=== PATIENT | female | born 1970 | race Caucasian/White ===

== ENCOUNTER → 2016-04-16 | Outpatient (CLI) | payer MEDICARE, OTHER ==
--- NOTE | 2016-04-16 12:56 | ECHOF ---
Referral Reason:I11.9 hypertensive heart disease MEASUREMENTS -------- HEIGHT: 162.6 cm WEIGHT: 135.2 kg BP: IVSd: 1.4 cm (0.6 - 1.1) LVIDd: 3.5 cm (3.9 - 5.3) LVPWd: 1.4 cm (0.6 - 1.1) IVSs: 2.0 cm LVIDs: 2.0 cm LVPWs: 1.9 cm Ao Diam: 2.5 cm (2.0 - 3.7) AV Cusp: 2.2 cm (1.5 - 2.6) LA Diam: 3.2 cm (2.7 - 3.8) MV EXCURSION: 13.536 mm (> 18.000) MV EF SLOPE: 70 mm/s (70 - 150) EPSS: 0.3 cm MV E Zaki: 1.17 m/s MV DecT: 263 ms MV A Zaki: 0.69 m/s MV E/A Ratio: 1.70 RAP: 5.00 mmHg RVSP: 13.29 mmHg FINDINGS -------- Sinus rhythm. This was a technically difficult study with suboptimal views. Morbid Obesity There is moderate concentric left ventricular hypertrophy. Overall left ventricular systolic function is normal with, an EF between 55 - 60 %. The right ventricle is normal in size and function. The left atrium is normal in size. The right atrium is normal in size. The aortic valve is trileaflet, and appears structurally normal. No aortic stenosis or regurgitation. The mitral valve leaflets are mildly thickened. There is trace mitral regurgitation. Trace tricuspid regurgitation present. The right ventricular systolic pressure, as measured by Doppler, is 13.29mmHg. The pulmonic valve was not well visualized. The aortic root size is normal. The pericardium is normal. CONCLUSIONS -------- 1. Sinus rhythm. 2. There is trace mitral regurgitation. 3. Trace tricuspid regurgitation present. 4. The right ventricular systolic pressure, as measured by Doppler, is 13.29mmHg. 5. The pulmonic valve was not well visualized. 6. The aortic root size is normal. 7. The pericardium is normal. 8. This was a technically difficult study with suboptimal views. 9. There is moderate concentric left ventricular hypertrophy. 10. Overall left ventricular systolic function is normal with, an EF between 55 - 60 %. 11. The right ventricle is normal in size and function. 12. The left atrium is normal in size. 13. The right atrium is normal in size. 14. The aortic valve is trileaflet, and appears structurally normal. No aortic stenosis or regurgitation. 15. The mitral valve leaflets are mildly thickened. COUNTER TENDER: Lexis Lazaro RDCS
== END | disposition home or self-care (01) ==
LOC: RADECHMAIN 08:35
PROVIDERS: ATTEND Internal Medicine
DX: I08.1 Rheumatic disorders of both mitral and tricuspid valves (principal); I11.9 Hypertensive heart disease without heart failure
CPT/HCPCS: 93306

== ENCOUNTER 2016-08-10 08:27 | Emergency (ER) | payer MEDICARE, OTHER ==
[2016-08-10] MEDS ORDERED: SODIUM CHLORIDE 0.9% 1,000 ML IV STA (08:34)
[2016-08-10] MEDS ORDERED: ONDANSETRON 4 MG/2 ML VIAL IVP STA (08:34)
[2016-08-10] MEDS ORDERED: DIAZEPAM 5 MG/ML 2 ML SYRINGE IVP STA (09:00)
[2016-08-10] MEDS ORDERED: MECLIZINE 12.5 MG TAB PO STA (09:01)
--- NOTE | 2016-08-10 09:04 | ED ---
General Adult HPI - General Chief complaint: Nausea/Vomiting/Diarrhea Stated complaint: Nausea, Dizzy Time Seen by Provider: 08/10/16 08:34 Source: patient, RN notes reviewed Mode of arrival: ambulatory Limitations: no limitations - History of Present Illness Initial comments: Is a 45-year-old female presents emergency Department with chief complaint of dizziness, nausea. Patient states that one week ago she started having dizzy spells started when she was in the shower. She states that she's had problems with vertigo in the past but also she gets very dizzy from her panic attacks. She felt that she was she's having a panic attack at that time states that her symptoms have been more present recently. She states she is dizzy when she moves quickly when she lays down she states she feels better when she is sitting up and sitting still. Patient denies any headache, focal weakness. Patient states she's nauseated no vomiting no diarrhea. Patient has had no chest pain at this time of palpitations. Patient states that she is also having recurrent panic attack. She states she took a Xanax before she left to come emergency department states she was feeling better but now she is very anxious again. Patient states is exacerbating her symptoms. Patient denies any abdominal pain just nausea. She denies any dysuria, hematuria - Related Data Home Medications Medication Instructions Recorded Confirmed ALPRAZolam [Xanax] 0.5 mg PO QID 10/26/15 08/10/16 cloNIDine HCL [Catapres] 0.1 mg PO BID 10/26/15 08/10/16 Albuterol Sulfate [Proair Hfa] 2 puff INHALATION RT-Q6H PRN 08/10/16 08/10/16 Desvenlafaxine [Pristiq ER] 100 mg PO DAILY 08/10/16 08/10/16 Furosemide [Lasix] 20 mg PO DAILY 08/10/16 08/10/16 Lisinopril [Zestril] 5 mg PO DAILY 08/10/16 08/10/16 Loratadine [Claritin] 10 mg PO DAILY 08/10/16 08/10/16 lamoTRIgine [LaMICtal] 50 mg PO BID 08/10/16 08/10/16 traZODone HCL 50 mg PO HS PRN 08/10/16 08/10/16 Previous Rx's Medication Instructions Recorded Meclizine [Antivert] 25 mg PO TID PRN #15 tab 08/10/16 Ondansetron Odt [Zofran Odt] 4 mg PO Q8HR PRN #10 tab 08/10/16 Allergies Allergy/AdvReac Type Severity Reaction Status Date / Time acetaminophen [From Vicodin] Allergy Unknown Verified 08/10/16 09:16 aspirin Allergy Unknown Verified 08/10/16 09:16 codeine Allergy Unknown Verified 08/10/16 09:16 hydrocodone bitartrate Allergy Unknown Verified 08/10/16 09:16 [From Vicodin] nitrofurantoin Allergy Unknown Verified 08/10/16 09:16 [From Macrobid] nitrofurantoin Allergy Unknown Verified 08/10/16 09:16 macrocrystalline [From Macrobid] lactose AdvReac Nausea & Verified 08/10/16 09:16 Vomiting TAPE AdvReac Itching Uncoded 08/10/16 09:16 Review of Systems ROS Statement: Those systems with pertinent positive or pertinent negative responses have been documented in the HPI. ROS Other: All systems not noted in ROS Statement are negative. Past Medical History Past Medical History: COPD, Hypertension Additional Past Medical History / Comment(s): hemmorrhoids, IBS, OCD History of Any Multi-Drug Resistant Organisms: None Reported Past Surgical History: Cholecystectomy Additional Past Surgical History / Comment(s): D&C Past Psychological History: Anxiety, Depression, Panic Disorder Smoking Status: Current every day smoker Past Alcohol Use History: None Reported Past Drug Use History: None Reported General Exam Limitations: no limitations General appearance: alert, in no apparent distress, anxious, obese Head exam: Present: atraumatic, normocephalic, normal inspection Eye exam: Present: normal appearance, PERRL, EOMI. Absent: scleral icterus, conjunctival injection, periorbital swelling ENT exam: Present: normal oropharynx, mucous membranes moist Neck exam: Present: normal inspection. Absent: tenderness, meningismus, lymphadenopathy Respiratory exam: Present: normal lung sounds bilaterally. Absent: respiratory distress, wheezes, rales, rhonchi, stridor Cardiovascular Exam: Present: regular rate, normal rhythm, normal heart sounds. Absent: systolic murmur, diastolic murmur, rubs, gallop, clicks GI/Abdominal exam: Present: soft, normal bowel sounds. Absent: distended, tenderness, guarding, rebound, rigid Back exam: Absent: CVA tenderness (R), CVA tenderness (L) Neurological exam: Present: alert, oriented X3, CN II-XII intact Psychiatric exam: Present: anxious Skin exam: Present: warm, dry, intact, normal color. Absent: rash Course Vital Signs 08/10/16 08:29 Temperature 99 F Pulse Rate 90 Respiratory 20 Rate Blood Pressure 127/67 O2 Sat by Pulse 98 Oximetry - Reevaluation(s) Reevaluation #1: 08/10/16 10:14 Patient was updated and results and she states that she is feeling better at this time. EKG Findings - EKG Comments: EKG Findings:: EKG performed at 9:08 normal sinus rhythm rate of 88 LA interval 144 QRS duration 78 QT/QTc is 360/435 Medical Decision Making - Medical Decision Making 45-year-old female presented for dizziness nausea. This appears to be vertigo. Patient is doing better after Antivert. Patient is less anxious after Valium. Patient's laboratory essentially unremarkable. Return parameters were discussed. - Lab Data Result diagrams: 08/10/16 09:00 08/10/16 09:00 Lab Results 08/10/16 08/10/16 08/10/16 Range/Units 08:50 08:50 09:00 WBC (3.8-10.6) k/uL RBC (3.80-5.40) m/uL Hgb (11.4-16.0) gm/dL Hct (34.0-46.0) % MCV (80.0-100.0) fL MCH (25.0-35.0) pg MCHC (31.0-37.0) g/dL RDW (11.5-15.5) % Plt Count (150-450) k/uL Neutrophils % % Lymphocytes % % Monocytes % % Eosinophils % % Basophils % % Neutrophils # (1.3-7.7) k/uL Lymphocytes # (1.0-4.8) k/uL Monocytes # (0-1.0) k/uL Eosinophils # (0-0.7) k/uL Basophils # (0-0.2) k/uL Sodium 141 (137-145) mmol/L Potassium 4.2 (3.5-5.1) mmol/L Chloride 105 (98-107) mmol/L Carbon Dioxide 28 (22-30) mmol/L Anion Gap 8 mmol/L BUN 8 (7-17) mg/dL Creatinine 0.60 (0.52-1.04) mg/dL Est GFR (MDRD) Af Amer >60 (>60 ml/min/1.73 sqM) Est GFR (MDRD) Non-Af >60 (>60 ml/min/1.73 sqM) Glucose 137 H (74-99) mg/dL Calcium 9.3 (8.4-10.2) mg/dL Total Bilirubin 0.6 (0.2-1.3) mg/dL AST 17 (14-36) U/L ALT 22 (9-52) U/L Alkaline Phosphatase 115 (38-126) U/L Troponin I (0.000-0.034) ng/mL Total Protein 7.3 (6.3-8.2) g/dL Albumin 3.8 (3.5-5.0) g/dL Amylase 36 (30-110) U/L Lipase 69 (23-300) U/L Urine Color Light [place] Urine Appearance Turbid H (Clear) Urine pH 5.5 (5.0-8.0) Ur Specific [place] 1.019 (1.001-1.035) Urine Protein Trace H (Negative) Urine Glucose (UA) Negative (Negative) Urine Ketones Negative (Negative) Urine Blood Trace H (Negative) Urine Nitrite Negative (Negative) Urine Bilirubin Negative (Negative) Urine Urobilinogen 2.0 (<2.0) mg/dL Ur Leukocyte Esterase Small H (Negative) Ur Squamous Epith Cells 8 H (0-4) /hpf Amorphous Sediment Moderate H (None) /hpf Urine Bacteria Rare H (None) /hpf Urine Mucus Moderate H (None) /hpf Urine HCG, Qual Not Detected (Not Detectd) 08/10/16 08/10/16 Range/Units 09:00 09:00 WBC 13.2 H (3.8-10.6) k/uL RBC 5.12 (3.80-5.40) m/uL Hgb 14.2 (11.4-16.0) gm/dL Hct 44.5 (34.0-46.0) % MCV 86.9 (80.0-100.0) fL MCH 27.8 (25.0-35.0) pg MCHC 31.9 (31.0-37.0) g/dL RDW 15.3 (11.5-15.5) % Plt Count 245 (150-450) k/uL Neutrophils % 83 % Lymphocytes % 11 % Monocytes % 3 % Eosinophils % 2 % Basophils % 0 % Neutrophils # 11.0 H (1.3-7.7) k/uL Lymphocytes # 1.5 (1.0-4.8) k/uL Monocytes # 0.3 (0-1.0) k/uL Eosinophils # 0.2 (0-0.7) k/uL Basophils # 0.1 (0-0.2) k/uL Sodium (137-145) mmol/L Potassium (3.5-5.1) mmol/L Chloride (98-107) mmol/L Carbon Dioxide (22-30) mmol/L Anion Gap mmol/L BUN (7-17) mg/dL Creatinine (0.52-1.04) mg/dL Est GFR (MDRD) Af Amer (>60 ml/min/1.73 sqM) Est GFR (MDRD) Non-Af (>60 ml/min/1.73 sqM) Glucose (74-99) mg/dL Calcium (8.4-10.2) mg/dL Total Bilirubin (0.2-1.3) mg/dL AST (14-36) U/L ALT (9-52) U/L Alkaline Phosphatase (38-126) U/L Troponin I <0.012 (0.000-0.034) ng/mL Total Protein (6.3-8.2) g/dL Albumin (3.5-5.0) g/dL Amylase (30-110) U/L Lipase (23-300) U/L Urine Color Urine Appearance (Clear) Urine pH (5.0-8.0) Ur Specific [place] (1.001-1.035) Urine Protein (Negative) Urine Glucose (UA) (Negative) Urine Ketones (Negative) Urine Blood (Negative) Urine Nitrite (Negative) Urine Bilirubin (Negative) Urine Urobilinogen (<2.0) mg/dL Ur Leukocyte Esterase (Negative) Ur Squamous Epith Cells (0-4) /hpf Amorphous Sediment (None) /hpf Urine Bacteria (None) /hpf Urine Mucus (None) /hpf Urine HCG, Qual (Not Detectd) Disposition Clinical Impression: Dizziness, Nausea Disposition: HOME SELF-CARE Condition: Stable Instructions: Vertigo (ED) Additional Instructions: Please return to the Emergency Department if symptoms worsen or any other concerns. Prescriptions: Meclizine [Antivert] 25 mg PO TID PRN #15 tab PRN Reason: Vertigo Ondansetron Odt [Zofran Odt] 4 mg PO Q8HR PRN #10 tab PRN Reason: Nausea Referrals: Andre Miguel MD [Primary Care Provider] - 1-2 days
[2016-08-10 09:15] LABS: Amorphous Sediment,Urine Moderate /hpf; Appearance,Urine Turbid (Clear); Bacteria,Urine Rare /hpf; Bilirubin,Urine Negative (Negative); Glucose,Urine (UA) Negative (Negative); Ketones,Urine Negative (Negative); Leukocyte Esterase,Urine Small (Negative); Mucus,Urine Moderate /hpf; Nitrite,Urine Negative (Negative); PH, Urine 5.5 (5.0-8.0); Particle Count 53380; Protein,Urine Trace (Negative); Specific Gravity,Urine 1.019 (1.001-1.035); Squamous Epithelial Cell,Urine 8 /hpf (0-4); UA Billing (MACRO vs. MICRO) MICRO
[2016-08-10 09:21] LABS: Basophils # (A) 0.1 k/uL (0-0.2); Basophils % (A) 0 %; CH 28.2; CHCM 32.6; Eosinophils # (A) 0.2 k/uL (0-0.7); Eosinophils % (A) 2 %; HCT 44.5 % (34.0-46.0); HDW 2.77; HGB 14.2 gm/dL (11.4-16.0); Luc # (Auto) 0.13; Luc % (Auto) 1; Lymphocytes # (A) 1.5 k/uL (1.0-4.8); Lymphocytes % (A) 11 %; MCH 27.8 pg (25.0-35.0); MCHC 31.9 g/dL (31.0-37.0); MCV 86.9 fL (80.0-100.0); Mean Platelet Volume 8.4; Monocytes # (A) 0.3 k/uL (0-1.0); Monocytes % (A) 3 %; Neutrophils % (A) 83 %; RBC 5.12 m/uL (3.80-5.40); RDW 15.3 % (11.5-15.5); WBC 13.2 k/uL (3.8-10.6)
[2016-08-10 09:38] LABS: ALT 22 U/L (9-52); AST 17 U/L (14-36); Alkaline Phosphatase 115 U/L (38-126); Amylase 36 U/L (30-110); Anion Gap 8 mmol/L; Blood Urea Nitrogen 8 mg/dL (7-17); Calcium 9.3 mg/dL (8.4-10.2); Carbon Dioxide 28 mmol/L (22-30); Chloride 105 mmol/L (98-107); Glucose 137 mg/dL (74-99); Non-African American GFR(MDRD) >60 (>60 ml/min/1.73 sqM); Potassium 4.2 mmol/L (3.5-5.1); Sodium 141 mmol/L (137-145); Total Bilirubin 0.6 mg/dL (0.2-1.3); Total Protein 7.3 g/dL (6.3-8.2)
[2016-08-10 10:27] VITALS: BP 156/77; PULSE 78; RESP 18; TEMP 97.1
== END 2016-08-10 10:43 | disposition home or self-care (01) ==
LOC: EC 08:27
DX: R42 Dizziness and giddiness (principal); R11.0 Nausea; F32.9 Major depressive disorder, single episode, unspecified; F41.9 Anxiety disorder, unspecified; I10 Essential (primary) hypertension; F17.200 Nicotine dependence, unspecified, uncomplicated; Z90.49 Acquired absence of other specified parts of digestive tract; Z88.6 Allergy status to analgesic agent; Z88.5 Allergy status to narcotic agent; Z91.048 Other nonmedicinal substance allergy status; Z91.011 Allergy to milk products; Z88.1 Allergy status to other antibiotic agents; Z79.899 Other long term (current) drug therapy
CPT/HCPCS: 99284; 96374; 96375; 96361 ×2; 36415; 93005; 80053; 82150; 83690; 84484; 85025; 81001; 81025; J3360; J2405

== ENCOUNTER → 2016-12-21 | Outpatient (CLI) | payer MEDICARE, OTHER ==
--- NOTE | 2016-12-21 09:29 | XR ---
EXAMINATION TYPE: XR chest 2V DATE OF EXAM: 12/21/2016 COMPARISON: 01/15/2013 HISTORY: Bronchitis TECHNIQUE: Frontal and lateral views of the chest are obtained. FINDINGS: There is no focal air space opacity. No evidence for pneumothorax. No pleural effusion. The cardiac silhouette size is enlarged. No evidence for congestive failure. The osseous structures are grossly intact. IMPRESSION: 1. No acute pulmonary disease. Cardiomegaly noted.
== END | disposition home or self-care (01) ==
LOC: RADXRMAIN 09:06
PROVIDERS: ATTEND Internal Medicine
DX: J40 Bronchitis, not specified as acute or chronic (principal); J12.9 Viral pneumonia, unspecified; J06.9 Acute upper respiratory infection, unspecified
CPT/HCPCS: 71020

== ENCOUNTER 2017-03-19 19:45 | Emergency (ER) | payer MEDICARE, OTHER ==
[2017-03-19 19:53] VITALS: TEMP 97.7
[2017-03-19] MEDS ORDERED: ONDANSETRON 4 MG/2 ML VIAL IVP STA ×2 (20:08→23:08)
[2017-03-19] MEDS ORDERED: LORazepam 2 MG/ML INJ IV STA (20:20)
[2017-03-19 20:26] LABS: Basophils % (A) 0 %; CH 28.2; CHCM 32.2; Eosinophils # (A) 0.6 k/uL (0-0.7); Eosinophils % (A) 3 %; HCT 44.6 % (34.0-46.0); HDW 2.53; Luc # (Auto) 0.09; Luc % (Auto) 1; Lymphocytes # (A) 1.2 k/uL (1.0-4.8); Lymphocytes % (A) 7 %; MCH 27.6 pg (25.0-35.0); MCHC 31.3 g/dL (31.0-37.0); MCV 88.2 fL (80.0-100.0); Mean Platelet Volume 9.1; Monocytes # (A) 0.5 k/uL (0-1.0); Monocytes % (A) 3 %; Neutrophils # (A) 15.3 k/uL (1.3-7.7); Neutrophils % (A) 87 %; RBC 5.06 m/uL (3.80-5.40); RDW 15.7 % (11.5-15.5); WBC 17.6 k/uL (3.8-10.6); WBC (Perox) 17.26
--- NOTE | 2017-03-19 20:32 | ED ---
General Adult HPI - General Source: patient, EMS, RN notes reviewed Mode of arrival: ambulatory Limitations: no limitations <Arash Kerr - Last Filed: 03/19/17 20:56> <Daron Willson - Last Filed: 03/19/17 23:37> - General Chief complaint: Abdominal Pain Stated complaint: Abdominal Pain Time Seen by Provider: 03/19/17 19:45 - History of Present Illness Initial comments: This a 46-year-old female who presents emergency room complaining of some right lower quadrant abdominal pain. Patient states palpating the abdomen does not make it any worse. Patient states she's very nauseated but has not vomited patient states she's had diarrhea recently. Patient denies any vaginal bleeding or discharge abnormally. Patient denies any fever chills. Patient denies any chest pain difficult breathing shortness of breath. Patient denies any dysuria hematuria urinary frequency. (Arash Kerr) - Related Data Home Medications Medication Instructions Recorded Confirmed ALPRAZolam [Xanax] 0.5 mg PO QID 10/26/15 03/19/17 cloNIDine HCL [Catapres] 0.1 mg PO BID 10/26/15 03/19/17 Albuterol Sulfate [Proair Hfa] 2 puff INHALATION RT-Q6H PRN 08/10/16 03/19/17 Desvenlafaxine [Pristiq ER] 100 mg PO DAILY 08/10/16 03/19/17 Furosemide [Lasix] 20 mg PO DAILY 08/10/16 03/19/17 Lisinopril [Zestril] 5 mg PO DAILY 08/10/16 03/19/17 traZODone HCL 50 mg PO HS PRN 08/10/16 03/19/17 Dicyclomine [Bentyl] 10 mg PO QID 03/19/17 03/19/17 Pantoprazole [Protonix] 40 mg PO DAILY 03/19/17 03/19/17 Ranitidine HCl [Zantac] 150 mg PO HS 03/19/17 03/19/17 Allergies Allergy/AdvReac Type Severity Reaction Status Date / Time acetaminophen [From Vicodin] Allergy Unknown Verified 03/19/17 19:58 aspirin Allergy Unknown Verified 03/19/17 19:58 codeine Allergy Unknown Verified 03/19/17 19:58 hydrocodone bitartrate Allergy Unknown Verified 03/19/17 19:58 [From Vicodin] nitrofurantoin Allergy Unknown Verified 03/19/17 19:58 [From Macrobid] nitrofurantoin Allergy Unknown Verified 03/19/17 19:58 macrocrystalline [From Macrobid] lactose AdvReac Nausea & Verified 03/19/17 19:58 Vomiting pseudoephedrine AdvReac Unknown Verified 03/19/17 19:58 TAPE AdvReac Itching Uncoded 08/10/16 09:16 Review of Systems ROS Other: All systems not noted in ROS Statement are negative. <Arash Kerr - Last Filed: 03/19/17 20:56> ROS Other: All systems not noted in ROS Statement are negative. <Daron Willson - Last Filed: 03/19/17 23:37> ROS Statement: Those systems with pertinent positive or pertinent negative responses have been documented in the HPI. Past Medical History Past Medical History: COPD, Hypertension Additional Past Medical History / Comment(s): hemmorrhoids, IBS, OCD History of Any Multi-Drug Resistant Organisms: None Reported Past Surgical History: Cholecystectomy Additional Past Surgical History / Comment(s): D&C Past Psychological History: Anxiety, Depression, Panic Disorder Smoking Status: Current every day smoker Past Alcohol Use History: None Reported Past Drug Use History: None Reported <Arash Kerr - Last Filed: 03/19/17 20:56> General Exam Limitations: no limitations <Arash Kerr - Last Filed: 03/19/17 20:56> <Daron Willson - Last Filed: 03/19/17 23:37> - General Exam Comments Initial Comments: GENERAL: Patient is well-developed and well-nourished. Patient is nontoxic and well- hydrated and is in mil distress. ENT: Neck is soft and supple. No significant lymphadenopathy is noted. Oropharynx is clear. Moist mucous membranes. Neck has full range of motion without eliciting any pain. EYES: The sclera were anicteric and conjunctiva were pink and moist. Extraocular movements were intact and pupils were equal round and reactive to light. Eyelids were unremarkable. PULMONARY: Unlabored respirations. Good breath sounds bilaterally. No audible rales rhonchi or wheezing was noted. CARDIOVASCULAR: There is a regular rate and rhythm without any murmurs gallops or rubs. ABDOMEN: Soft and nontender with normal bowel sounds. No palpable organomegaly was noted. There is no palpable pulsatile mass. SKIN: Skin is clear with no lesions or rashes and otherwise unremarkable. NEUROLOGIC: Patient is alert and oriented x3. Cranial nerves II through XII are grossly intact. Motor and sensory are also intact. Normal speech, volume and content. Symmetrical smile. MUSCULOSKELETAL: Normal extremities with adequate strength and full range of motion. No lower extremity swelling or edema. No calf tenderness. LYMPHATICS: No significant lymphadenopathy is noted PSYCHIATRIC: Normal psychiatric evaluation. Normal interpersonal interactions appears functionally intact in deals appropriately with others. Mild anxiety (Arash Kerr) Vital Signs 03/19/17 03/19/17 03/19/17 19:48 21:12 23:18 Temperature 97.7 F Pulse Rate 78 88 79 Respiratory 24 18 20 Rate Blood Pressure 164/79 174/84 151/85 O2 Sat by Pulse 99 92 L 95 Oximetry Medical Decision Making - Lab Data Result diagrams: 03/19/17 20:01 03/19/17 20:01 <Arash Kerr - Last Filed: 03/19/17 20:56> - Lab Data Result diagrams: 03/19/17 20:01 03/19/17 20:01 <Daron Willson - Last Filed: 03/19/17 23:37> - Medical Decision Making EKG shows a sinus rhythm at 73 bpm MD interval is 134 QRS 76 QT interval 388 QTC is 427. EKG shows no ST segment elevation or depression or T wave abnormalities are noted Dr. Lopez will be taking over the care of this patient at 9 PM (Arash Kerr) Receive this patient as sign out, to review the results of computed tomography scan. I have reviewed this with the patient and on reevaluation she states that she is feeling better and would like to go home. I did first given an oral challenge to ensure that she can keep down fluids and I discussed that she must follow-up in 8-12 hours to have her abdomen reexamined. She understands that she must return immediately if she is worsening and we discussed those symptoms as well. (Daron Willson) - Lab Data Lab Results 03/19/17 03/19/17 03/19/17 Range/Units 20:01 20:01 20:35 WBC 17.6 H (3.8-10.6) k/uL RBC 5.06 (3.80-5.40) m/uL Hgb 14.0 (11.4-16.0) gm/dL Hct 44.6 (34.0-46.0) % MCV 88.2 (80.0-100.0) fL MCH 27.6 (25.0-35.0) pg MCHC 31.3 (31.0-37.0) g/dL RDW 15.7 H (11.5-15.5) % Plt Count 294 (150-450) k/uL Neutrophils % 87 % Lymphocytes % 7 % Monocytes % 3 % Eosinophils % 3 % Basophils % 0 % Neutrophils # 15.3 H (1.3-7.7) k/uL Lymphocytes # 1.2 (1.0-4.8) k/uL Monocytes # 0.5 (0-1.0) k/uL Eosinophils # 0.6 (0-0.7) k/uL Basophils # 0.0 (0-0.2) k/uL Sodium 138 (137-145) mmol/L Potassium 3.8 (3.5-5.1) mmol/L Chloride 101 (98-107) mmol/L Carbon Dioxide 27 (22-30) mmol/L Anion Gap 10 mmol/L BUN 8 (7-17) mg/dL Creatinine 0.54 (0.52-1.04) mg/dL Est GFR (MDRD) Af Amer >60 (>60 ml/min/1.73 sqM) Est GFR (MDRD) Non-Af >60 (>60 ml/min/1.73 sqM) Glucose 132 H (74-99) mg/dL Calcium 9.5 (8.4-10.2) mg/dL Total Bilirubin 0.5 (0.2-1.3) mg/dL AST 16 (14-36) U/L ALT 27 (9-52) U/L Alkaline Phosphatase 103 (38-126) U/L Total Protein 6.9 (6.3-8.2) g/dL Albumin 3.7 (3.5-5.0) g/dL Amylase 33 (30-110) U/L Lipase 97 (23-300) U/L Urine Color Light Yellow Urine Appearance Clear (Clear) Urine pH 8.0 (5.0-8.0) Ur Specific [place] 1.004 (1.001-1.035) Urine Protein Negative (Negative) Urine Glucose (UA) Negative (Negative) Urine Ketones Negative (Negative) Urine Blood Negative (Negative) Urine Nitrite Negative (Negative) Urine Bilirubin Negative (Negative) Urine Urobilinogen <2.0 (<2.0) mg/dL Ur Leukocyte Esterase Negative (Negative) Urine HCG, Qual (Not Detectd) 03/19/17 Range/Units 20:35 WBC (3.8-10.6) k/uL RBC (3.80-5.40) m/uL Hgb (11.4-16.0) gm/dL Hct (34.0-46.0) % MCV (80.0-100.0) fL MCH (25.0-35.0) pg MCHC (31.0-37.0) g/dL RDW (11.5-15.5) % Plt Count (150-450) k/uL Neutrophils % % Lymphocytes % % Monocytes % % Eosinophils % % Basophils % % Neutrophils # (1.3-7.7) k/uL Lymphocytes # (1.0-4.8) k/uL Monocytes # (0-1.0) k/uL Eosinophils # (0-0.7) k/uL Basophils # (0-0.2) k/uL Sodium (137-145) mmol/L Potassium (3.5-5.1) mmol/L Chloride (98-107) mmol/L Carbon Dioxide (22-30) mmol/L Anion Gap mmol/L BUN (7-17) mg/dL Creatinine (0.52-1.04) mg/dL Est GFR (MDRD) Af Amer (>60 ml/min/1.73 sqM) Est GFR (MDRD) Non-Af (>60 ml/min/1.73 sqM) Glucose (74-99) mg/dL Calcium (8.4-10.2) mg/dL Total Bilirubin (0.2-1.3) mg/dL AST (14-36) U/L ALT (9-52) U/L Alkaline Phosphatase (38-126) U/L Total Protein (6.3-8.2) g/dL Albumin (3.5-5.0) g/dL Amylase (30-110) U/L Lipase (23-300) U/L Urine Color Urine Appearance (Clear) Urine pH (5.0-8.0) Ur Specific [place] (1.001-1.035) Urine Protein (Negative) Urine Glucose (UA) (Negative) Urine Ketones (Negative) Urine Blood (Negative) Urine Nitrite (Negative) Urine Bilirubin (Negative) Urine Urobilinogen (<2.0) mg/dL Ur Leukocyte Esterase (Negative) Urine HCG, Qual Not Detected (Not Detectd) Disposition <Arash Kerr - Last Filed: 03/19/17 20:56> <Daron Willson - Last Filed: 03/19/17 23:37> Clinical Impression: Abdominal pain Disposition: HOME SELF-CARE Condition: Fair Instructions: Abdominal Pain (ED) Referrals: Andre Miguel MD [Primary Care Provider] - 1-2 days
[2017-03-19 20:39] LABS: ALT 27 U/L (9-52); AST 16 U/L (14-36); Alkaline Phosphatase 103 U/L (38-126); Amylase 33 U/L (30-110); Anion Gap 10 mmol/L; Blood Urea Nitrogen 8 mg/dL (7-17); Calcium 9.5 mg/dL (8.4-10.2); Carbon Dioxide 27 mmol/L (22-30); Chloride 101 mmol/L (98-107); Glucose 132 mg/dL (74-99); Non-African American GFR(MDRD) >60 (>60 ml/min/1.73 sqM); Potassium 3.8 mmol/L (3.5-5.1); Sodium 138 mmol/L (137-145); Total Bilirubin 0.5 mg/dL (0.2-1.3); Total Protein 6.9 g/dL (6.3-8.2)
[2017-03-19 20:59] LABS: Appearance,Urine Clear (Clear); Bilirubin,Urine Negative (Negative); Glucose,Urine (UA) Negative (Negative); Ketones,Urine Negative (Negative); Leukocyte Esterase,Urine Negative (Negative); Nitrite,Urine Negative (Negative); Protein,Urine Negative (Negative); Specific Gravity,Urine 1.004 (1.001-1.035); UA Billing (MACRO vs. MICRO) CHEM; Urobilinogen,Urine <2.0 mg/dL (<2.0)
--- NOTE | 2017-03-19 22:49 | CT ---
EXAM: CT Abdomen and Pelvis Without Intravenous Contrast CLINICAL HISTORY: Reason: Pain TECHNIQUE: Axial computed tomography images of the abdomen and pelvis without intravenous contrast. CTDI is 53.10 mGy and DLP is 2502.50 mGy-cm. This CT exam was performed using one or more of the following dose reduction techniques: automated exposure control, adjustment of the mA and/or kV according to patient size, and/or use of iterative reconstruction technique. COMPARISON: No relevant prior studies available. FINDINGS: Limitations: Lack of intravenous contrast. Lower thorax: No acute findings. ABDOMEN: Liver: Hepatomegaly. The liver is diffusely hypodense suggestive of diffuse hepatic steatosis. Gallbladder and bile ducts: Cholecystectomy. Pancreas: Unremarkable. Spleen: Unremarkable. Adrenals: Unremarkable. Kidneys and ureters: Unremarkable. No obstructing stones. No hydronephrosis. Stomach and bowel: Trace fluid in the anterior right lower quadrant adjacent to a segment of distal ileum. Bowel is nondilated. Appendix: No findings to suggest acute appendicitis. PELVIS: Bladder: Unremarkable. No stones. Reproductive: Probable small calcified uterine fibroid. Solid pelvic viscera is otherwise unremarkable. ABDOMEN and PELVIS: Intraperitoneal space: No free air. Bones/joints: Degenerative disc disease at L5-S1. Soft tissues: Unremarkable. Vasculature: Unremarkable. No abdominal aortic aneurysm. Lymph nodes: Unremarkable. IMPRESSION: Trace fluid in the anterior right lower quadrant adjacent to a segment of distal ileum. Bowel is nondilated. No free air or appendicitis.
[2017-03-19 23:19] VITALS: BP 151/85; PULSE 79; RESP 20
== END 2017-03-20 00:01 | disposition home or self-care (01) ==
LOC: EC 19:45
DX: R10.31 Right lower quadrant pain (principal); R11.0 Nausea; R19.7 Diarrhea, unspecified; I10 Essential (primary) hypertension; K58.9 Irritable bowel syndrome, unspecified; F32.9 Major depressive disorder, single episode, unspecified; F41.0 Panic disorder [episodic paroxysmal anxiety]; F17.200 Nicotine dependence, unspecified, uncomplicated; Z79.899 Other long term (current) drug therapy; Z88.1 Allergy status to other antibiotic agents; Z88.5 Allergy status to narcotic agent; Z88.6 Allergy status to analgesic agent; Z88.8 Allergy status to other drugs, medicaments and biological substances; Z91.011 Allergy to milk products; Z91.09 Other allergy status, other than to drugs and biological substances; Z90.49 Acquired absence of other specified parts of digestive tract
CPT/HCPCS: 36415; 80053; 82150; 83690; 85025; 81003; 81025; 74176; 99284; 96374; 96375; 96376; J2060; J2405

== ENCOUNTER 2017-03-23 22:21 | Emergency (ER) | payer MEDICARE, OTHER ==
[2017-03-23 22:36] VITALS: RESP 18
[2017-03-23] MEDS ORDERED: ONDANSETRON 4 MG/2 ML VIAL IVP STA (23:14)
[2017-03-23] MEDS ORDERED: KETOROLAC 30 MG/ML 1 ML VIAL IVP STA (23:29)
[2017-03-23 23:54] LABS: Appearance,Urine Clear (Clear); Basophils # (A) 0.1 k/uL (0-0.2); Basophils % (A) 1 %; Bilirubin,Urine Negative (Negative); CHCM 32.3; Eosinophils # (A) 1.4 k/uL (0-0.7); Eosinophils % (A) 9 %; Glucose,Urine (UA) Negative (Negative); HCT 44.6 % (34.0-46.0); HDW 2.51; HGB 14.2 gm/dL (11.4-16.0); Ketones,Urine Negative (Negative); Leukocyte Esterase,Urine Negative (Negative); Luc # (Auto) 0.12; Luc % (Auto) 1; Lymphocytes # (A) 2.3 k/uL (1.0-4.8); Lymphocytes % (A) 16 %; MCH 27.8 pg (25.0-35.0); MCHC 31.9 g/dL (31.0-37.0); MCV 87.2 fL (80.0-100.0); Mean Platelet Volume 8.5; Monocytes # (A) 0.6 k/uL (0-1.0); Monocytes % (A) 4 %; Neutrophils # (A) 10.2 k/uL (1.3-7.7); Neutrophils % (A) 70 %; Nitrite,Urine Negative (Negative); Protein,Urine Negative (Negative); RBC 5.11 m/uL (3.80-5.40); Specific Gravity,Urine 1.002 (1.001-1.035); UA Billing (MACRO vs. MICRO) CHEM; Urobilinogen,Urine <2.0 mg/dL (<2.0); WBC 14.6 k/uL (3.8-10.6); WBC (Perox) 14.35
[2017-03-24 00:03] LABS: ALT 26 U/L (9-52); AST 16 U/L (14-36); Alkaline Phosphatase 104 U/L (38-126); Anion Gap 9 mmol/L; Blood Urea Nitrogen 5 mg/dL (7-17); Calcium 9.7 mg/dL (8.4-10.2); Carbon Dioxide 30 mmol/L (22-30); Chloride 99 mmol/L (98-107); Glucose 116 mg/dL (74-99); Non-African American GFR(MDRD) >60 (>60 ml/min/1.73 sqM); Potassium 3.7 mmol/L (3.5-5.1); Sodium 138 mmol/L (137-145); Total Bilirubin 0.3 mg/dL (0.2-1.3); Total Protein 7.1 g/dL (6.3-8.2)
--- NOTE | 2017-03-24 00:38 | ED ---
Abdominal Pain HPI - General Chief Complaint: Abdominal Pain Stated Complaint: Abd Pain Time Seen by Provider: 03/23/17 22:58 Source: patient, family Mode of arrival: ambulatory Limitations: no limitations - History of Present Illness Initial Comments: Patient is a 46-year-old female presents with a chief complaint of abdominal pain. Patient states that she was seen here on the for the same problem. At that time, she had a negative workup which included a CAT scan of the abdomen and pelvis. She was instructed that time if her pain does not get better that she should come back to the emergency department. I reviewed that visit. Patient states she is having an aching-type pain in the right lower quadrant. The patient cannot identify an inciting incident. There are no alleviating factors however the patient does admit that her pain is worse with certain movements and bending. Timing is constant. Patient has a distant past medical history of ovarian cysts. - Related Data Home Medications Medication Instructions Recorded Confirmed ALPRAZolam [Xanax] 0.5 mg PO QID 10/26/15 03/23/17 cloNIDine HCL [Catapres] 0.1 mg PO BID 10/26/15 03/23/17 Albuterol Sulfate [Proair Hfa] 2 puff INHALATION RT-Q6H PRN 08/10/16 03/23/17 Desvenlafaxine [Pristiq ER] 100 mg PO DAILY 08/10/16 03/23/17 Furosemide [Lasix] 20 mg PO DAILY 08/10/16 03/23/17 Lisinopril [Zestril] 5 mg PO DAILY 08/10/16 03/23/17 traZODone HCL 50 mg PO HS PRN 08/10/16 03/23/17 Dicyclomine [Bentyl] 10 mg PO QID 03/19/17 03/23/17 Pantoprazole [Protonix] 40 mg PO DAILY 03/19/17 03/23/17 Ranitidine HCl [Zantac] 150 mg PO HS 03/19/17 03/23/17 Previous Rx's Medication Instructions Recorded oxyCODONE HCL/ACETAMINOPHEN 1 tab PO Q6HR PRN #10 tab 03/24/17 [Percocet 5-325 mg] Allergies Allergy/AdvReac Type Severity Reaction Status Date / Time acetaminophen [From Vicodin] Allergy Unknown Verified 03/23/17 22:40 aspirin Allergy Unknown Verified 03/23/17 22:40 codeine Allergy Unknown Verified 03/23/17 22:40 hydrocodone bitartrate Allergy Unknown Verified 03/23/17 22:40 [From Vicodin] nitrofurantoin Allergy Unknown Verified 03/23/17 22:40 [From Macrobid] nitrofurantoin Allergy Unknown Verified 03/23/17 22:40 macrocrystalline [From Macrobid] lactose AdvReac Nausea & Verified 03/23/17 22:40 Vomiting pseudoephedrine AdvReac Unknown Verified 03/23/17 22:40 TAPE AdvReac Itching Uncoded 03/23/17 22:36 Review of Systems ROS Statement: Those systems with pertinent positive or pertinent negative responses have been documented in the HPI. ROS Other: All systems not noted in ROS Statement are negative. Constitutional: Denies: fever ENT: Denies: throat pain Respiratory: Denies: dyspnea Cardiovascular: Denies: chest pain Gastrointestinal: Reports: abdominal pain. Denies: nausea Genitourinary: Denies: dysuria Musculoskeletal: Denies: back pain Skin: Denies: rash Neurological: Denies: headache Psychiatric: Reports: anxiety Past Medical History Past Medical History: COPD, Hypertension Additional Past Medical History / Comment(s): hemmorrhoids, IBS, OCD History of Any Multi-Drug Resistant Organisms: None Reported Past Surgical History: Cholecystectomy Additional Past Surgical History / Comment(s): D&C Past Psychological History: Anxiety, Depression, Panic Disorder Smoking Status: Current every day smoker Past Alcohol Use History: None Reported Past Drug Use History: None Reported General Exam Limitations: no limitations General appearance: alert, in distress (Patient is in mild distress secondary to pain. She is tearful on initial evaluation) Head exam: Present: atraumatic, normocephalic Respiratory exam: Present: normal lung sounds bilaterally Cardiovascular Exam: Present: regular rate, normal rhythm GI/Abdominal exam: Present: soft. Absent: distended, tenderness Rectal exam: Present: deferred Back exam: Present: normal inspection. Absent: CVA tenderness (R), CVA tenderness (L) Neurological exam: Present: alert, oriented X3 Psychiatric exam: Present: normal affect, normal mood Skin exam: Present: warm, dry, intact Course Vital Signs 03/23/17 22:32 Temperature 98.8 F Pulse Rate 90 Respiratory 18 Rate Blood Pressure 119/80 O2 Sat by Pulse 98 Oximetry Medical Decision Making - Medical Decision Making Patient presents with a chief complaint of right lower quadrant abdominal pain. She was seen here on 03/19/2017 and had a negative workup at that time. Review of the patient's CAT scan shows no acute process further exclude appendicitis as an etiology. Of note, at that time there was free fluid in the right side of the pelvis. Patient was given a dose of morphine, and Toradol. She will have repeat labs will go for a pelvic ultrasound at this time to rule out any ovarian pathology. 1:41 AM Lab evaluation of this patient is unremarkable. Pelvic ultrasound shows normal anatomy of the uterus, bladder, left ovary. Right ovary was not visualized secondary to bowel gas. I spoke with the reading radiologist who states that he has a low suspicion for ovarian torsion at this time even though the right ovary was not directly visualized. On reexamination, the patient states she is feeling better. Her symptoms are consistent with previous ovarian cysts. She was instructed to follow-up with [facility]. I will prescribe a short course of pain medication for use if she is having severe pain. Patient is agreeable to this care plan. She was instructed to return to the emergency department if her symptoms worsen or change. - Lab Data Result diagrams: 03/23/17 23:30 03/23/17 23:30 Lab Results 03/23/17 03/23/17 03/23/17 Range/Units 23:30 23:30 23:30 WBC 14.6 H (3.8-10.6) k/uL RBC 5.11 (3.80-5.40) m/uL Hgb 14.2 (11.4-16.0) gm/dL Hct 44.6 (34.0-46.0) % MCV 87.2 (80.0-100.0) fL MCH 27.8 (25.0-35.0) pg MCHC 31.9 (31.0-37.0) g/dL RDW 16.0 H (11.5-15.5) % Plt Count 258 (150-450) k/uL Neutrophils % 70 % Lymphocytes % 16 % Monocytes % 4 % Eosinophils % 9 % Basophils % 1 % Neutrophils # 10.2 H (1.3-7.7) k/uL Lymphocytes # 2.3 (1.0-4.8) k/uL Monocytes # 0.6 (0-1.0) k/uL Eosinophils # 1.4 H (0-0.7) k/uL Basophils # 0.1 (0-0.2) k/uL Sodium 138 (137-145) mmol/L Potassium 3.7 (3.5-5.1) mmol/L Chloride 99 (98-107) mmol/L Carbon Dioxide 30 (22-30) mmol/L Anion Gap 9 mmol/L BUN 5 L (7-17) mg/dL Creatinine 0.56 (0.52-1.04) mg/dL Est GFR (MDRD) Af Amer >60 (>60 ml/min/1.73 sqM) Est GFR (MDRD) Non-Af >60 (>60 ml/min/1.73 sqM) Glucose 116 H (74-99) mg/dL Calcium 9.7 (8.4-10.2) mg/dL Total Bilirubin 0.3 (0.2-1.3) mg/dL AST 16 (14-36) U/L ALT 26 (9-52) U/L Alkaline Phosphatase 104 (38-126) U/L Total Protein 7.1 (6.3-8.2) g/dL Albumin 3.9 (3.5-5.0) g/dL Lipase 96 (23-300) U/L Urine Color Light Yellow Urine Appearance Clear (Clear) Urine pH 6.0 (5.0-8.0) Ur Specific [place] 1.002 (1.001-1.035) Urine Protein Negative (Negative) Urine Glucose (UA) Negative (Negative) Urine Ketones Negative (Negative) Urine Blood Negative (Negative) Urine Nitrite Negative (Negative) Urine Bilirubin Negative (Negative) Urine Urobilinogen <2.0 (<2.0) mg/dL Ur Leukocyte Esterase Negative (Negative) Disposition Clinical Impression: Abdominal pain Disposition: HOME SELF-CARE Condition: Good Instructions: Abdominal Pain (ED) Referrals: Andre Miguel MD [Primary Care Provider] - 1-2 days
--- NOTE | 2017-03-24 01:15 | US ---
EXAM: US Pelvis Complete, Transabdominal CLINICAL HISTORY: Reason: Pain TECHNIQUE: Real-time transabdominal pelvic ultrasound (complete) with image documentation. COMPARISON: No relevant prior studies available. FINDINGS: Uterus/cervix: Endometrial stripe 6 mm. No myometrial mass. Right ovary: Right ovary obscured by bowel gas. Left ovary: Left ovary 3.3 x 1.8 cm. Cyst noted measuring 1.6 cm, simple features. Normal flow. Normal blood flow. Free fluid: No free fluid. Bladder: Unremarkable as visualized. Wall is normal thickness for degree of distention. IMPRESSION: 1. Left ovary demonstrates a small simple cyst, likely functional, and normal small follicles. No evidence for torsion. 2. Right ovary not visualized, the region is obscured by bowel gas. 3. Normal endometrial thickness. [employer] 03/24/17 01:40 Call From [facility] Dr. Levine on 03/24 01:28 (-05:00)
[2017-03-24 02:13] VITALS: BP 149/69; PULSE 61; TEMP 98.2
== END 2017-03-24 02:13 | disposition home or self-care (01) ==
LOC: EC 22:21
DX: R10.31 Right lower quadrant pain (principal); I10 Essential (primary) hypertension; K58.9 Irritable bowel syndrome, unspecified; F41.9 Anxiety disorder, unspecified; F32.9 Major depressive disorder, single episode, unspecified; F17.200 Nicotine dependence, unspecified, uncomplicated; Z87.19 Personal history of other diseases of the digestive system; Z90.49 Acquired absence of other specified parts of digestive tract; Z98.890 Other specified postprocedural states; Z88.5 Allergy status to narcotic agent; Z88.6 Allergy status to analgesic agent; Z88.1 Allergy status to other antibiotic agents; Z91.048 Other nonmedicinal substance allergy status; Z88.8 Allergy status to other drugs, medicaments and biological substances; Z91.011 Allergy to milk products; Z79.899 Other long term (current) drug therapy
CPT/HCPCS: 36415; 80053; 83690; 85025; 81003; 99284; 96374; 96375; J2405; J1885; 76830; 93976

== ENCOUNTER → 2017-05-31 | Day surgery (SDC) | payer MEDICARE, OTHER ==
[2017-05-30 11:27] VITALS: BMI 48.0
[~2017-05-31] MED LIST: DEXAMETHASONE SOD PHOSPHATE 10 MG/ML 1 ML VIAL IV ONE; GLYCOPYRROLATE 0.2 MG/ML 2 ML VIAL ONE; IV FLUID CONTINUATION 1,000 ML IV ONE; LACTATED RINGERS 1,000 ML IV ONE; MIDAZOLAM 2 MG/2 ML VIAL IV ONE; MIDAZOLAM 2 MG/2 ML VIAL ONE; ONDANSETRON 4 MG/2 ML VIAL IVP ONE; PROPOFOL 10 MG/ML 20 ML VIAL IV ONE; fentaNYL (PF) 50 MCG/ML 2 ML AMP ONE
[2017-05-31 11:14] VITALS: RESP 20; TEMP 98.1
--- NOTE | 2017-05-31 13:51 | P.PCN ---
Date of Procedure: 05/31/17 Procedure(s) Performed: Procedures: 1. Esophagogastroduodenoscopy and biopsy. 2. Colonoscopy and polypectomy and biopsy. Preoperative diagnosis: Epigastric and abdominal pain and change in bowel habits. Postoperative diagnosis: 1. Mild antral gastritis. 2. Small right colon polyp snared but no large polyps or cancer. 3. Less than ideal preparation of the colon, otherwise, colon and terminal ileum show no obvious abnormalities. 4. Multiple biopsies were obtained from the duodenum antrum and esophagus terminal ileum and random colon. Preparation: HalfLytely prep. Sedation: Was provided by anesthesia. Brief clinical history: The patient is a 46-year-old female who I have evaluated in the office regarding complaints of epigastric pain and reflux as well as upper and the right-sided abdominal pains. She gave history of irritable bowel syndrome with episodes of diarrhea and altered bowel function over the years. This evaluation is scheduled to assess for esophagitis, complicated reflux disease, colon neoplasia or inflammatory bowel disease. Procedure: With the patient on her left lateral decubitus position and after informed consent and adequate sedation, I passed the Olympus GIF-140 60 video upper endoscope through the cricopharyngeus down the esophagus. GE junction was around 40 cm from the incisors and there was no definite hiatal hernia. The esophagus did not show any obvious esophagitis or complicated reflux disease. The endoscope was then passed into the stomach which was insufflated with air and inspected in detail including the retroflex view in the cardia. There was some mottling and erythema in the antrum but no ulcers or erosions. Pyloric channel, duodenal bulb, post bulbar area and descending duodenum appeared within normal limits. Because of her symptoms, I obtained biopsies from the duodenum, antrum and esophagus then the endoscope was withdrawn and I proceeded with the colonoscopy. Perianal area did not show any fissures or fistulas. There were no masses felt on digital rectal examination. The Olympus CFQ 160L video colonoscope was then inserted in the rectum in the usual fashion and advanced to the cecum. I intubated the ileocecal valve and examined the terminal ileum as well. The preparation of the colon was less than ideal with thick fecal secretions and fecal debris that had to be washed and could only be suctioned partially. The mucosa appeared healthy. There was a small flat polyp in the right colon which I snared and retrieved by suction. I also obtained biopsies from the terminal ileum and randomly from the colon. There were no other polyps or cancer or any obvious diverticular disease. I retroflexed the endoscope in the rectum before the endoscope was withdrawn. The patient tolerated the procedure well. Plan: The patient was reassured. Will await biopsy results and make further plans. With the finding of polyp and her less than ideal preparation, I will consider repeat exam in 3-5 years. I will keep you updated on her progress.
[2017-05-31 14:17] VITALS: BP 145/90; PULSE 87
== END ==
LOC: ORWHC2ENDO 10:33
DX: K21.0 Gastro-esophageal reflux disease with esophagitis (principal); D12.2 Benign neoplasm of ascending colon; K22.8 Other specified diseases of esophagus; I10 Essential (primary) hypertension; J44.9 Chronic obstructive pulmonary disease, unspecified; F17.210 Nicotine dependence, cigarettes, uncomplicated; F41.9 Anxiety disorder, unspecified; F32.9 Major depressive disorder, single episode, unspecified; E66.9 Obesity, unspecified; Z68.42 Body mass index [BMI] 45.0-49.9, adult; Z79.891 Long term (current) use of opiate analgesic; Z79.899 Other long term (current) drug therapy; Z88.6 Allergy status to analgesic agent; Z88.1 Allergy status to other antibiotic agents; Z91.041 Radiographic dye allergy status; Z91.011 Allergy to milk products; Z88.5 Allergy status to narcotic agent; Z88.8 Allergy status to other drugs, medicaments and biological substances; Z91.09 Other allergy status, other than to drugs and biological substances
CPT/HCPCS: 81025; 88305; 45380; 45385; 43239; J2250; J3010; J2704

== ENCOUNTER 2017-06-05 14:11 | Emergency (ER) | payer MEDICARE, OTHER ==
[2017-06-05 14:33] VITALS: BP 165/82; PULSE 92; TEMP 98.3
[2017-06-05 14:49] VITALS: RESP 18
--- NOTE | 2017-06-05 15:02 | ED ---
URI HPI - General Chief Complaint: Upper Respiratory Infection Stated Complaint: Cough; sore throat,runny nose Time Seen by Provider: 06/05/17 14:39 Source: patient, RN notes reviewed Mode of arrival: ambulatory Limitations: no limitations - History of Present Illness Initial Comments: 46-year-old female presented emergency Department chief complaint of cough congestion runny nose last for 5 days. Patient states that her daughter has some her symptoms. Patient reports no fever or chills. She states her cough is worse when she lays down usually nonproductive. She is stressed multiple medications no relief. She states that she has bowels with seasonal changes usually gets sick. She does take Claritin or Claritin-D on a regular basis. Patient reports facial pressure, sore throat, ear pain. - Related Data Home Medications Medication Instructions Recorded Confirmed ALPRAZolam [Xanax] 1 mg PO 0800,1600 10/26/15 05/31/17 cloNIDine HCL [Catapres] 0.1 mg PO BID 10/26/15 05/31/17 Albuterol Sulfate [Proair Hfa] 2 puff INHALATION Q6HR PRN 08/10/16 05/31/17 Desvenlafaxine [Pristiq ER] 100 mg PO 1200 08/10/16 05/31/17 Furosemide [Lasix] 20 mg PO DAILY 08/10/16 05/31/17 Lisinopril [Zestril] 5 mg PO QAM 08/10/16 05/31/17 traZODone HCL 50 mg PO HS PRN 08/10/16 05/31/17 Pantoprazole [Protonix] 40 mg PO DAILY 03/19/17 05/31/17 Ranitidine HCl [Zantac] 150 mg PO HS 03/19/17 05/31/17 Atorvastatin [Lipitor] 10 mg PO HS 05/10/17 05/31/17 Ondansetron HCl [Zofran] 4 mg PO Q6HR PRN 05/10/17 05/31/17 traMADol HCL [Ultram] 50 mg PO Q8HR PRN 05/10/17 05/31/17 ALPRAZolam [Xanax] 0.5 mg PO 1200,2000 05/30/17 05/31/17 Previous Rx's Medication Instructions Recorded Amoxicillin/Potassium Clav 1 tab PO Q12HR #20 tab 06/05/17 [Augmentin 875-125 Tablet] Allergies Allergy/AdvReac Type Severity Reaction Status Date / Time aspirin Allergy Abdominal Verified 06/05/17 14:33 Pain,vomiting codeine Allergy Rash/Hives,abdominal Verified 06/05/17 14:33 pain,vomiting hydrocodone bitartrate Allergy Rash/Hives,abdominal Verified 06/05/17 14:33 [From Vicodin] pain,vomiting Iodinated Contrast- Oral and Allergy Rash/Hives Verified 06/05/17 14:33 IV Dye nitrofurantoin Allergy vertigo Verified 06/05/17 14:33 [From Macrobid] nitrofurantoin Allergy vertigo Verified 06/05/17 14:33 macrocrystalline [From Macrobid] ofloxacin [From Floxin] Allergy Rash/Hives,abdominal Verified 06/05/17 14:33 pain lactose AdvReac Nausea & Verified 06/05/17 14:33 Vomiting pseudoephedrine AdvReac Anaphylaxis Verified 06/05/17 14:33 TAPE AdvReac Itching,hives Uncoded 06/05/17 14:33 "paper tape ok" Review of Systems ROS Statement: Those systems with pertinent positive or pertinent negative responses have been documented in the HPI. ROS Other: All systems not noted in ROS Statement are negative. Past Medical History Past Medical History: COPD, GERD/Reflux, Hypertension Additional Past Medical History / Comment(s): hemmorrhoids, IBS, migraines, heart murmer, History of Any Multi-Drug Resistant Organisms: None Reported Past Surgical History: Cholecystectomy Additional Past Surgical History / Comment(s): D&C, cyst removed from rt ovary, Past Anesthesia/Blood Transfusion Reactions: Motion Sickness, Postoperative Nausea & Vomiting (PONV) Past Psychological History: Anxiety, Depression, Panic Disorder Smoking Status: Current every day smoker Past Alcohol Use History: None Reported Past Drug Use History: None Reported - Past Family History Mother Family Medical History: No Reported History General Exam Limitations: no limitations General appearance: alert, in no apparent distress Head exam: Present: atraumatic, normocephalic, normal inspection Eye exam: Present: normal appearance, PERRL, EOMI. Absent: scleral icterus, conjunctival injection, periorbital swelling ENT exam: Present: mucous membranes moist, TM's normal bilaterally, normal external ear exam. Absent: normal exam, normal oropharynx (postnasal drainage) Neck exam: Present: normal inspection, full ROM. Absent: tenderness, meningismus, lymphadenopathy Respiratory exam: Present: normal lung sounds bilaterally. Absent: respiratory distress, wheezes, rales, rhonchi, stridor Cardiovascular Exam: Present: regular rate, normal rhythm, normal heart sounds. Absent: systolic murmur, diastolic murmur, rubs, gallop, clicks Skin exam: Present: warm, dry, intact, normal color. Absent: rash Course Vital Signs 06/05/17 06/05/17 14:31 14:43 Temperature 98.3 F Pulse Rate 92 Respiratory 22 18 Rate Blood Pressure 165/82 O2 Sat by Pulse 99 Oximetry Medical Decision Making - Medical Decision Making 46-year-old female presents to ER for complaint cough congestion sinus issues. Patient has chronic sinusitis. Patient chest x-ray shows no evidence of pneumonia. Patient will continue [id number] medications she is advised follow-up with her primary care physician for recheck and return for any worsening symptoms. Disposition Clinical Impression: Sinusitis Disposition: HOME SELF-CARE Condition: Stable Instructions: Sinusitis (ED) Additional Instructions: Please return to the Emergency Department if symptoms worsen or any other concerns. Prescriptions: Amoxicillin/Potassium Clav [Augmentin 875-125 Tablet] 1 tab PO Q12HR #20 tab Referrals: Andre Miguel MD [Primary Care Provider] - 1-2 days Time of Disposition: 15:14
--- NOTE | 2017-06-05 15:11 | XR ---
EXAMINATION TYPE: XR chest 2V DATE OF EXAM: 06/05/2017 COMPARISON: 12/20/2016 HISTORY: Cough TECHNIQUE: Frontal and lateral views of the chest are obtained. FINDINGS: There is mild coarsening of interstitial pulmonary markings. There is no heart failure. Th ere is no pleural effusion. Heart is top normal in size. Bony thorax is intact. IMPRESSION: Borderline cardiomegaly. Mild pulmonary fibrotic changes. No adverse change compared to old exam.
== END 2017-06-05 15:22 | disposition home or self-care (01) ==
LOC: EC 14:11
DX: J32.9 Chronic sinusitis, unspecified (principal); I10 Essential (primary) hypertension; K21.9 Gastro-esophageal reflux disease without esophagitis; F32.9 Major depressive disorder, single episode, unspecified; F41.0 Panic disorder [episodic paroxysmal anxiety]; F17.200 Nicotine dependence, unspecified, uncomplicated; Z79.899 Other long term (current) drug therapy; Z88.1 Allergy status to other antibiotic agents; Z88.5 Allergy status to narcotic agent; Z88.6 Allergy status to analgesic agent; Z88.8 Allergy status to other drugs, medicaments and biological substances; Z91.011 Allergy to milk products; Z91.09 Other allergy status, other than to drugs and biological substances
CPT/HCPCS: 71046; 99283

== ENCOUNTER → 2017-12-16 | Outpatient (CLI) | payer MEDICARE, OTHER ==
[2017-12-16 09:43] LABS: Basophils # (A) 0.1 k/uL (0-0.2); Basophils % (A) 1 %; Eosinophils # (A) 0.2 k/uL (0-0.7); Eosinophils % (A) 2 %; HCT 44.7 % (34.0-46.0); HGB 13.6 gm/dL (11.4-16.0); Hypochromasia Marked; Lymphocytes # (A) 1.7 k/uL (1.0-4.8); Lymphocytes % (A) 15 %; MCH 24.1 pg (25.0-35.0); MCHC 30.5 g/dL (31.0-37.0); Mean Platelet Volume 8.3; Monocytes # (A) 0.4 k/uL (0-1.0); Monocytes % (A) 4 %; Neutrophils # (A) 8.3 k/uL (1.3-7.7); Neutrophils % (A) 77 %; Platelet Count 248 k/uL (150-450); RBC 5.66 m/uL (3.80-5.40); RDW 15.7 % (11.5-15.5); WBC 10.8 k/uL (3.8-10.6)
--- NOTE | 2017-12-16 14:39 | XR ---
EXAMINATION TYPE: XR abdomen complete w decub DATE OF EXAM: 12/16/2017 COMPARISON: None INDICATION: Irritable bowel, pain right side TECHNIQUE: Acute abdominal series performed with supine and upright views of the abdomen and left lat eral decubitus view of the abdomen was obtained. Multiple images were obtained to complete the exam. FINDINGS: Nonspecific bowel gas is present. No suspicious air-fluid levels or differential air-fluid levels are present. No free air is evident. Psoas margins are normal. Calcifications within the pelvis may be related to fibroid. Cholecystectomy clips are present. No organomegaly is present. IMPRESSION: 1. No suspicious changes. Nonspecific bowel gas pattern is present.
== END | disposition home or self-care (01) ==
LOC: LABWHC1 09:10
PROVIDERS: ATTEND Internal Medicine
DX: R10.9 Unspecified abdominal pain (principal); R19.7 Diarrhea, unspecified
CPT/HCPCS: 36415; 74021; 83690; 85025

== ENCOUNTER → 2018-01-04 | Outpatient (CLI) | payer MEDICARE, OTHER ==
[2018-01-04 09:42] LABS: Basophils # (A) 0.1 k/uL (0-0.2); Basophils % (A) 1 %; Eosinophils # (A) 0.3 k/uL (0-0.7); Eosinophils % (A) 3 %; HCT 43.8 % (34.0-46.0); HGB 12.9 gm/dL (11.4-16.0); Hypochromasia Marked; Lymphocytes # (A) 1.4 k/uL (1.0-4.8); Lymphocytes % (A) 15 %; MCH 23.8 pg (25.0-35.0); MCHC 29.4 g/dL (31.0-37.0); MCV 81.2 fL (80.0-100.0); Mean Platelet Volume 8.5; Monocytes # (A) 0.4 k/uL (0-1.0); Monocytes % (A) 4 %; Neutrophils # (A) 7.6 k/uL (1.3-7.7); Neutrophils % (A) 77 %; Platelet Count 251 k/uL (150-450); RDW 15.8 % (11.5-15.5); WBC 9.8 k/uL (3.8-10.6)
[2018-01-04 10:48] LABS: Erythrocyte Sedimentation Rate 16 mm/hr (0-20)
[2018-01-04 12:35] LABS: ALT 18 U/L (9-52); AST 13 U/L (14-36); Albumin 3.5 g/dL (3.5-5.0); Alkaline Phosphatase 121 U/L (38-126); Anion Gap 6 mmol/L; Blood Urea Nitrogen 7 mg/dL (7-17); Calcium 8.8 mg/dL (8.4-10.2); Carbon Dioxide 35 mmol/L (22-30); Chloride 100 mmol/L (98-107); Cholesterol 126 mg/dL (<200); Creatine Kinase 41 U/L (30-135); Glucose 117 mg/dL (74-99); HDL Cholesterol 51 mg/dL (40-60); LDL Cholesterol,Calculated 46 mg/dL (0-99); Potassium 3.4 mmol/L (3.5-5.1); Sodium 141 mmol/L (137-145); Total Bilirubin 0.4 mg/dL (0.2-1.3); Total Protein 6.7 g/dL (6.3-8.2); Triglycerides 143 mg/dL (<150)
[2018-01-04 13:31] LABS: C Reactive Protein 25.6 mg/L (<10.0)
[2018-01-04 16:10] LABS: Iron Saturation 6.68 (12.00-45.00); Vitamin D 25 Hydroxy 11.3 ng/mL (30.0-100.0)
== END | disposition home or self-care (01) ==
LOC: LABWHC1 07:53
PROVIDERS: ATTEND Internal Medicine
DX: J44.9 Chronic obstructive pulmonary disease, unspecified (principal); E78.5 Hyperlipidemia, unspecified; E03.9 Hypothyroidism, unspecified; J06.9 Acute upper respiratory infection, unspecified; E55.9 Vitamin D deficiency, unspecified
CPT/HCPCS: 36415; 80053; 80061; 82306; 82550; 82728; 83540; 83550; 84443; 85025; 85652; 86140

== ENCOUNTER → 2018-10-20 | Outpatient (CLI) | payer MEDICARE, OTHER ==
[2018-10-20 18:21] LABS: African American GFR (CKD) 127.6 (60.0-200.0); Blood Urea Nitrogen <5.0 mg/dL (9.0-27.0); Carbon Dioxide 38.2 mmol/L (21.6-31.8); Chloride 96 mmol/L (96-109); Glucose 173 mg/dL (70-110); Magnesium 2.3 mg/dL (1.5-2.4); Potassium 3.3 mmol/L (3.5-5.5); Sodium 142 mmol/L (135-145)
== END | disposition home or self-care (01) ==
LOC: LABWHC1 10:48
PROVIDERS: ATTEND Internal Medicine
DX: I10 Essential (primary) hypertension (principal); E87.8 Other disorders of electrolyte and fluid balance, not elsewhere classified
CPT/HCPCS: 36415; 80048; 83735

== ENCOUNTER → 2018-10-24 | Outpatient (CLI) | payer MEDICARE, OTHER ==
[2018-10-24 16:44] LABS: Hemoglobin A1C 7.2 % (4.0-6.0)
== END | disposition home or self-care (01) ==
LOC: LABWHC1 09:26
PROVIDERS: ATTEND Internal Medicine
DX: R73.9 Hyperglycemia, unspecified (principal)
CPT/HCPCS: 36415; 82947; 83036

== ENCOUNTER → 2019-02-07 | Outpatient (CLI) | payer MEDICARE, OTHER | END | disposition home or self-care (01) | LOC: LABWHC1 10:15 | PROVIDERS: ATTEND Internal Medicine | DX: E87.6 Hypokalemia (principal) | CPT/HCPCS: 36415; 84132 ==

== ENCOUNTER → 2020-06-17 | Outpatient (CLI) | payer MEDICARE, OTHER ==
[2020-06-17 11:24] LABS: Appearance,Urine Clear (Clear); Bilirubin,Urine Negative (Negative); Blood,Urine Negative (Negative); Color,Urine Yellow; Glucose,Urine (UA) Negative (Negative); Ketones,Urine Negative (Negative); Leukocyte Esterase,Urine Negative (Negative); Nitrite,Urine Negative (Negative); Protein,Urine Negative (Negative); Specific Gravity,Urine 1.007 (1.001-1.035); Urobilinogen,Urine <2.0 mg/dL (<2.0)
[2020-06-17 12:35] LABS: Creatinine,Urine Random 68.6 mg/dL; Protein/Creatinine Ratio,Urine 0.204
--- NOTE | 2020-06-17 12:41 | XR ---
EXAMINATION TYPE: XR chest 2V DATE OF EXAM: 06/17/2020 COMPARISON: 06/05/2017 INDICATION: Smoker, short of breath, COPD TECHNIQUE: Frontal and lateral views of the chest are obtained. FINDINGS: The heart size is enlarged. The pulmonary vasculature is prominent. Some increased lung markings at the lung bases bilaterally. Correlate for congestive heart failure. IMPRESSION: 1. Findings can be compatible with congestive heart failure the proper clinical setting.
[2020-06-17 18:20] LABS: Basophils # (A) 0.05 X 10*3/uL (0.00-0.10); Basophils % (A) 0.5 %; Eosinophils # (A) 0.12 X 10*3/uL (0.04-0.35); Eosinophils % (A) 1.1 %; HCT 42.9 % (37.2-46.3); HGB 11.2 g/dL (12.0-15.0); Lymphocytes # (A) 1.28 X 10*3/uL (0.90-5.00); Lymphocytes % (A) 11.5 %; MCH 20.4 pg (27.0-32.0); MCHC 26.1 g/dL (32.0-37.0); Monocytes % (A) 5.4 %; Neutrophils # (A) 9.03 X 10*3/uL (1.80-7.70); Neutrophils % (A) 81.2 %; Platelet Count 238 X 10*3/uL (140-440); RDW 20.8 % (11.5-14.5); WBC 11.11 X 10*3/uL (4.50-10.00)
[2020-06-17 20:22] LABS: Erythrocyte Sedimentation Rate 7 mm/Hr (0-20)
[2020-06-17 20:41] LABS: Hemoglobin A1C 7.2 % (4.0-6.0)
[2020-06-17 21:19] LABS: ALT 15 U/L (8-44); AST 25 U/L (13-35); African American GFR (CKD) 133.6 (60.0-200.0); Alkaline Phosphatase 104 U/L (41-126); Blood Urea Nitrogen <5.0 mg/dL (9.0-27.0); C Reactive Protein 2.3 mg/dL (0.0-0.8); Calcium 8.8 mg/dL (8.7-10.3); Carbon Dioxide 34.1 mmol/L (21.6-31.8); Chloride 93 mmol/L (96-109); Chol/HDL Ratio 2.18; Cholesterol 74 mg/dL (0-200); Creatine Kinase 25 U/L (26-186); Globulin 2.3 g/dL (1.6-3.3); Glucose 133 mg/dL (70-110); LDL Cholesterol,Calculated 24.6 mg/dL (0.0-131.0); Magnesium 1.3 mg/dL (1.5-2.4); Non-African American GFR(CKD) 115.3 (60.0-200.0); Phosphorus 3.7 mg/dL (2.4-5.1); Potassium 3.5 mmol/L (3.5-5.5); Rheumatoid Factor, Qnt 19 IU/mL (0-15); Sodium 137 mmol/L (135-145); Total Bilirubin 0.8 mg/dL (0.3-1.2); Total Protein 6.2 g/dL (6.2-8.2); Uric Acid 7.7 mg/dL (2.9-7.7)
[2020-06-18 00:37] LABS: Urine Creatinine 63.5 mg/dL
[2020-06-18 03:04] LABS: Anti-DNA, DS unit <1.0 IU/mL; Anti-Smith Ab Interp NEGATIVE (NEGATIVE); Cyclic Citrull Pep IgG Unit <0.5 U/mL; Cyclic Citrullinated Pep IgG NEGATIVE (NEGATIVE); DNA Double-Stranded NEGATIVE (NEGATIVE)
[2020-06-18 13:55] LABS: C-ANCA <1:20 Titer (<1:20)
== END | disposition home or self-care (01) ==
LOC: LABWHC1 09:42
PROVIDERS: ATTEND Internal Medicine
DX: E78.5 Hyperlipidemia, unspecified (principal); K58.9 Irritable bowel syndrome, unspecified; J44.9 Chronic obstructive pulmonary disease, unspecified; E11.65 Type 2 diabetes mellitus with hyperglycemia
CPT/HCPCS: 36415; 71046; 80053; 80061; 81003; 82043; 82550; 82570; 83036; 83735; 84100; 84156; 84439; 84443; 84550; 85025; 85652; 86038; 86140; 86200; 86225; 86235; 86255; 86431

== ENCOUNTER 2020-12-30 12:47 | Outpatient (CLI) | payer MEDICARE, OTHER ==
--- NOTE | 2020-12-30 11:56 | ED ---
SOB HPI - General Chief Complaint: Shortness of Breath Stated Complaint: covid+ Time Seen by Provider: 12/30/20 11:35 Source: EMS, RN notes reviewed Mode of arrival: wheelchair Limitations: no limitations - History of Present Illness Initial Comments: Patient is a 50-year-old female presented to the ER for shortness of breath related to Covid patient. Patient reports testing positive for Covid and started having symptoms 4 days prior. Illness started with cough, congestion and general weakness, progressing into shortness of breath and nausea. Patient has persistent cough is worsening over the last 2 days. Patient has past medical history positive for hypertension and COPD. - Related Data Home Medications Medication Instructions Recorded Confirmed ALPRAZolam [Xanax] 1 mg PO 0800,1600 10/26/15 05/31/17 cloNIDine HCL [Catapres] 0.1 mg PO BID 10/26/15 05/31/17 Albuterol Sulfate [Proair Hfa] 2 puff INHALATION Q6HR PRN 08/10/16 05/31/17 Desvenlafaxine [Pristiq ER] 100 mg PO 1200 08/10/16 05/31/17 Furosemide [Lasix] 20 mg PO DAILY 08/10/16 05/31/17 lisinopriL [Zestril] 5 mg PO QAM 08/10/16 05/31/17 traZODone HCL 50 mg PO HS PRN 08/10/16 05/31/17 Pantoprazole [Protonix] 40 mg PO DAILY 03/19/17 05/31/17 Ranitidine HCl [Zantac] 150 mg PO HS 03/19/17 05/31/17 Atorvastatin [Lipitor] 10 mg PO HS 05/10/17 05/31/17 Ondansetron HCl [Zofran] 4 mg PO Q6HR PRN 05/10/17 05/31/17 traMADol HCL [Ultram] 50 mg PO Q8HR PRN 05/10/17 05/31/17 ALPRAZolam [Xanax] 0.5 mg PO 1200,2000 05/30/17 05/31/17 Previous Rx's Medication Instructions Recorded Amoxicillin/Potassium Clav 1 tab PO Q12HR #20 tab 06/05/17 [Augmentin 875-125 Tablet] Dexamethasone 6 mg PO DAILY #5 tablet 12/30/20 Allergies Allergy/AdvReac Type Severity Reaction Status Date / Time aspirin Allergy Abdominal Verified 06/05/17 14:33 Pain,vomiting codeine Allergy Rash/Hives,abdominal Verified 06/05/17 14:33 pain,vomiting hydrocodone bitartrate Allergy Rash/Hives,abdominal Verified 06/05/17 14:33 [From Vicodin] pain,vomiting Iodinated Contrast Media Allergy Rash/Hives Verified 06/05/17 14:33 [Iodinated Contrast- Oral and IV Dye] nitrofurantoin Allergy vertigo Verified 06/05/17 14:33 [From Macrobid] nitrofurantoin Allergy vertigo Verified 06/05/17 14:33 macrocrystalline [From Macrobid] ofloxacin [From Floxin] Allergy Rash/Hives,abdominal Verified 06/05/17 14:33 pain lactose AdvReac Nausea & Verified 06/05/17 14:33 Vomiting pseudoephedrine AdvReac Anaphylaxis Verified 06/05/17 14:33 TAPE AdvReac Itching,hives Uncoded 06/05/17 14:33 "paper tape ok" Review of Systems ROS Statement: Those systems with pertinent positive or pertinent negative responses have been documented in the HPI. ROS Other: All systems not noted in ROS Statement are negative. Past Medical History Past Medical History: COPD, GERD/Reflux, Hypertension Additional Past Medical History / Comment(s): hemmorrhoids, IBS, migraines, heart murmer, History of Any Multi-Drug Resistant Organisms: None Reported Past Surgical History: Cholecystectomy Additional Past Surgical History / Comment(s): D&C, cyst removed from rt ovary, Past Anesthesia/Blood Transfusion Reactions: Motion Sickness, Postoperative Nausea & Vomiting (PONV) Past Psychological History: Anxiety, Depression, Panic Disorder Smoking Status: Current every day smoker Past Alcohol Use History: None Reported Past Drug Use History: None Reported - Past Family History Mother Family Medical History: No Reported History General Exam Limitations: no limitations General appearance: alert, in distress (mild) Head exam: Present: atraumatic, normocephalic, normal inspection Eye exam: Present: normal appearance, PERRL, EOMI. Absent: scleral icterus, conjunctival injection, periorbital swelling ENT exam: Present: normal exam, mucous membranes moist Neck exam: Present: normal inspection. Absent: tenderness, meningismus, lymphadenopathy Respiratory exam: Present: wheezes (Congestion) Cardiovascular Exam: Present: regular rate, normal rhythm, normal heart sounds. Absent: systolic murmur, diastolic murmur, rubs, gallop, clicks GI/Abdominal exam: Present: soft, normal bowel sounds. Absent: distended, tenderness, guarding, rebound, rigid Extremities exam: Present: normal inspection, full ROM, normal capillary refill. Absent: tenderness, pedal edema, joint swelling, calf tenderness Back exam: Present: normal inspection Neurological exam: Present: alert, oriented X3, CN II-XII intact Psychiatric exam: Present: normal affect, normal mood Skin exam: Present: warm, dry, intact, normal color Course Vital Signs 12/30/20 12/30/20 11:23 11:56 Temperature 97.9 F Pulse Rate 82 Respiratory 22 22 Rate Blood Pressure 145/85 O2 Sat by Pulse 92 L Oximetry Medical Decision Making - Medical Decision Making 42-year-old female presented for COVID-19. Patient's pulse ox of 93-96% on room air. Patient is in no obvious distress. She is a daily smoker with COPD she will be given mild advise discharged with dexamethasone return parameters were discussed. Disposition Clinical Impression: COVID-19 Disposition: HOME SELF-CARE Condition: Stable Instructions (If sedation given, give patient instructions): Coronavirus Disease 2019 (COVID-19) Additional Instructions: Please return to the Emergency Department if symptoms worsen or any other concerns. Prescriptions: Dexamethasone 6 mg PO DAILY #5 tablet Is patient prescribed a controlled substance at d/c from ED?: No Referrals: Andre Miguel MD [Primary Care Provider] - 1-2 days Time of Disposition: 12:25
[~2020-12-30 12:47] MED LIST changes: -DEXAMETHASONE SOD PHOSPHATE 10 MG/ML 1 ML VIAL IV ONE; -GLYCOPYRROLATE 0.2 MG/ML 2 ML VIAL ONE; -IV FLUID CONTINUATION 1,000 ML IV ONE; -LACTATED RINGERS 1,000 ML IV ONE; -MIDAZOLAM 2 MG/2 ML VIAL IV ONE; -MIDAZOLAM 2 MG/2 ML VIAL ONE; -ONDANSETRON 4 MG/2 ML VIAL IVP ONE; +ONDANSETRON 4 MG/2 ML VIAL IVP STA; +ONDANSETRON ODT 4 MG TAB PO STA; -PROPOFOL 10 MG/ML 20 ML VIAL IV ONE; -fentaNYL (PF) 50 MCG/ML 2 ML AMP ONE
[2020-12-30] MEDS ORDERED: SODIUM CHLORIDE 0.9% 500 ML 500 ML in EMPTY BAG 1 BAG IV PRN (13:00)
[2020-12-30] MEDS ORDERED: CASIRIVIMAB/IMDEVIMAB (EUA) 1,200 MG in SODIUM CHLORIDE 0.9% 100 ML IVPB ONE (14:00)
[2020-12-30] MEDS ORDERED: SODIUM CHLORIDE 0.9% 50 ML IVPB ONE (14:30)
[2020-12-30 15:10] VITALS: BP 129/82; PULSE 76; RESP 22; TEMP 99
== END 2020-12-30 15:30 ==
LOC: PROCWHC3 12:47 → EDSTATUS 12:50 → EC 15:29 → PROCWHC3 15:30
PROVIDERS: ATTEND Physician Assistant
DX: U07.1 COVID-19 (principal); I10 Essential (primary) hypertension; J44.9 Chronic obstructive pulmonary disease, unspecified; K21.9 Gastro-esophageal reflux disease without esophagitis; F32.9 Major depressive disorder, single episode, unspecified; F41.9 Anxiety disorder, unspecified; F17.200 Nicotine dependence, unspecified, uncomplicated; Z79.51 Long term (current) use of inhaled steroids; Z79.899 Other long term (current) drug therapy
CPT/HCPCS: 96365; 96375; 96361; 99284; J2405; Q0243; M0243

== ENCOUNTER 2021-01-02 22:13 | Emergency (ER) | payer MEDICARE, OTHER ==
[2021-01-02 22:35] VITALS: BP 163/90; PULSE 84; RESP 20; TEMP 98.7
[2021-01-02] MEDS ORDERED: ONDANSETRON 4 MG/2 ML VIAL IVP STA (23:02)
[2021-01-02] MEDS ORDERED: IPRATROPIUM-ALBUTEROL 3 ML NEB INHALATION STA (23:02)
[2021-01-02] MEDS ORDERED: DEXAMETHASONE SOD PHOSPHATE 10 MG/ML 1 ML VIAL IV STA (23:02)
[2021-01-02] MEDS ORDERED: diphenhydrAMINE 50 MG/ML 1 ML VIAL IVP STA (23:07)
[2021-01-02] MEDS ORDERED: ONDANSETRON 4 MG ODT STARTER PACK 2 TAB BTL PO STA (23:07)
--- NOTE | 2021-01-02 23:07 | ED ---
Allergic Reaction HPI - General Chief complaint: Allergic Reaction Stated complaint: Possible allergic reaction, Covid+ Time Seen by Provider: 01/02/21 22:53 Source: patient, EMS, RN notes reviewed, old records reviewed Mode of arrival: EMS Limitations: physical limitation - History of Present Illness Initial Comments: This is a 50-year-old female to the emergency room today. Patient presents today for possibility of ALLERGIC reaction. Patient is here for evaluation regards to possible cause pain Reglan versus the antibiotic treatment. Patient feeling lightheaded dizzy and weak. Otherwise patient has no significant sick contacts no travel history no other complaints. Patient is coronavirus positive MD Complaint: allergic reaction -: hour(s) Exposure: medication Symptoms: hoarseness, nausea Severity: mild Treatment Prior to Arrival: none Previous Allergy History: none - Related Data Home Medications Medication Instructions Recorded Confirmed cloNIDine HCL [Catapres] 0.1 mg PO BID 10/26/15 01/11/21 Albuterol Sulfate [Proair Hfa] 2 puff INHALATION RT-Q6H PRN 08/10/16 01/11/21 Ondansetron HCl [Zofran] 4 mg PO Q6HR PRN 05/10/17 01/11/21 ALPRAZolam [Xanax] 0.5 mg PO DAILY@1200 05/30/17 01/11/21 Pantoprazole [Protonix] 40 tab PO DAILY 12/30/20 01/11/21 ALPRAZolam [Xanax] 0.5 mg PO BID 01/11/21 01/11/21 Cetirizine HCl 10 mg PO DAILY 01/11/21 01/11/21 Furosemide [Lasix] 40 mg PO DAILY 01/11/21 01/11/21 traZODone HCL [Desyrel] 100 mg PO HS 01/11/21 01/11/21 Previous Rx's Medication Instructions Recorded Prochlorperazine [Compazine] 10 mg PO Q8H PRN #30 tab 01/02/21 Budesonide-Formot 160-4.5 Mcg 2 puff INHALATION BID 30 Days #1 01/15/21 [Symbicort 160-4.5 Mcg Inhaler] each INSULIN ASPART (NovoLOG) [NovoLOG 2 - 12 unit SQ AC-TID #5 pen 01/15/21 (formulary)] Ipratropium-Albuterol Nebulize 3 ml INHALATION TID 30 Days #90 ml 01/15/21 [Duoneb 0.5 mg-3 mg/3 ml Soln] Losartan [Cozaar] 100 mg PO DAILY #30 tab 01/15/21 Melatonin 10 mg PO HS #30 tablet 01/15/21 Metoprolol Tartrate [Lopressor] 25 mg PO BID #60 tab 01/15/21 Nicotine 14Mg/24Hr Patch [Habitrol] 1 patch TRANSDERM DAILY #30 patch 01/15/21 acetaZOLAMIDE [Diamox] 500 mg PO DAILY 30 Days #30 tablet 01/15/21 predniSONE 0 mg PO DIRECTED 16 Days #40 tab 01/15/21 Allergies Allergy/AdvReac Type Severity Reaction Status Date / Time aspirin Allergy Abdominal Verified 01/11/21 08:28 Pain,vomiting codeine Allergy Rash/Hives,abdominal Verified 01/11/21 08:28 pain,vomiting hydrocodone bitartrate Allergy Rash/Hives,abdominal Verified 01/11/21 08:28 [From Vicodin] pain,vomiting Iodinated Contrast Media Allergy Rash/Hives Verified 01/11/21 08:28 [Iodinated Contrast- Oral and IV Dye] metoclopramide [From Reglan] Allergy Anaphylaxis Verified 01/11/21 08:28 nitrofurantoin Allergy vertigo Verified 01/11/21 08:28 [From Macrobid] nitrofurantoin Allergy vertigo Verified 01/11/21 08:28 macrocrystalline [From Macrobid] ofloxacin [From Floxin] Allergy Rash/Hives,abdominal Verified 01/11/21 08:28 pain lactose AdvReac Nausea & Verified 01/11/21 08:28 Vomiting pseudoephedrine AdvReac Anaphylaxis Verified 01/11/21 08:28 TAPE AdvReac Itching,hives Uncoded 06/05/17 14:33 "paper tape ok" Review of Systems ROS Statement: Those systems with pertinent positive or pertinent negative responses have been documented in the HPI. ROS Other: All systems not noted in ROS Statement are negative. Past Medical History Past Medical History: COPD, GERD/Reflux, Hypertension Additional Past Medical History / Comment(s): hemmorrhoids, IBS, migraines, heart murmer, History of Any Multi-Drug Resistant Organisms: None Reported Past Surgical History: Cholecystectomy Additional Past Surgical History / Comment(s): D&C, cyst removed from rt ovary, Past Anesthesia/Blood Transfusion Reactions: Motion Sickness, Postoperative Nausea & Vomiting (PONV) Past Psychological History: Anxiety, Depression, Panic Disorder Smoking Status: Current every day smoker Past Alcohol Use History: None Reported Past Drug Use History: None Reported - Past Family History Mother Family Medical History: No Reported History General Exam Limitations: physical limitation General appearance: alert, in no apparent distress Head exam: Present: atraumatic, normocephalic, normal inspection Eye exam: Present: normal appearance, PERRL, EOMI. Absent: scleral icterus, conjunctival injection, periorbital swelling ENT exam: Present: normal exam, mucous membranes moist Neck exam: Present: normal inspection. Absent: tenderness, meningismus, lymphadenopathy Respiratory exam: Present: normal lung sounds bilaterally. Absent: respiratory distress, wheezes, rales, rhonchi, stridor Cardiovascular Exam: Present: regular rate, normal rhythm, normal heart sounds. Absent: systolic murmur, diastolic murmur, rubs, gallop, clicks GI/Abdominal exam: Present: soft, normal bowel sounds. Absent: distended, tenderness, guarding, rebound, rigid Extremities exam: Present: normal inspection, full ROM, normal capillary refill. Absent: tenderness, pedal edema, joint swelling, calf tenderness Back exam: Present: normal inspection Neurological exam: Present: alert, oriented X3, CN II-XII intact Psychiatric exam: Present: normal affect, normal mood Skin exam: Present: warm, dry, intact, normal color. Absent: rash Course Vital Signs 01/02/21 01/02/21 22:29 22:35 Temperature 98.7 F Pulse Rate 84 Respiratory 20 20 Rate Blood Pressure 163/90 O2 Sat by Pulse 86 L 92 L Oximetry - Reevaluation(s) Reevaluation #1: Medical record is reviewed Patient symptoms are improved Patient's informed of results and questions are answered Patient is in no acute distress Medical Decision Making - Medical Decision Making 50 female who presents the emergency department today. Patient presents today for evaluation regards to possible ALLERGIC reaction otherwise to Reglan, possibly related to antibody treatment. At this time patient symptoms are resolved and she can be discharged home Disposition Clinical Impression: Allergic reaction, COVID-19, Medication reaction, Nausea & vomiting Disposition: HOME SELF-CARE Condition: Good Instructions (If sedation given, give patient instructions): Acute Nausea and Vomiting (ED), General Allergic Reaction (ED) Prescriptions: Prochlorperazine [Compazine] 10 mg PO Q8H PRN #30 tab PRN Reason: Nausea And Vomiting Is patient prescribed a controlled substance at d/c from ED?: No Referrals: Andre Miguel MD [Primary Care Provider] - 1-2 days
== END 2021-01-02 23:47 | disposition home or self-care (01) ==
LOC: EC 22:13
DX: U07.1 COVID-19 (principal); R11.2 Nausea with vomiting, unspecified; T45.0X5A Adverse effect of antiallergic and antiemetic drugs, initial encounter; I10 Essential (primary) hypertension; J44.9 Chronic obstructive pulmonary disease, unspecified; K21.9 Gastro-esophageal reflux disease without esophagitis; F41.9 Anxiety disorder, unspecified; F32.9 Major depressive disorder, single episode, unspecified; F17.200 Nicotine dependence, unspecified, uncomplicated; Z79.51 Long term (current) use of inhaled steroids; Z79.52 Long term (current) use of systemic steroids; Z79.899 Other long term (current) drug therapy; Z88.1 Allergy status to other antibiotic agents; Z88.5 Allergy status to narcotic agent; Z88.8 Allergy status to other drugs, medicaments and biological substances; Z90.49 Acquired absence of other specified parts of digestive tract; Z90.721 Acquired absence of ovaries, unilateral
CPT/HCPCS: 99284; 96374; 96375 ×2; J1200; J1100; J2405; S0119

== ENCOUNTER 2021-01-10 22:17 | Inpatient (IN) | payer MEDICARE, OTHER ==
[2021-01-10] MEDS ORDERED: ACETAMINOPHEN TAB 500 MG TAB PO STA (22:22)
[2021-01-10] MEDS ORDERED: methylPREDNISolone SOD SUCCI 125 MG/2 ML VIAL IV STA ×2 (22:22→22:50)
[2021-01-10] MEDS ORDERED: ALBUTEROL HFA INHALER INHALATION STA (22:22)
[2021-01-10] MEDS ORDERED: KETOROLAC 15 MG/ML 1 ML VIAL IVP STA (22:22)
--- NOTE | 2021-01-10 22:26 | ED ---
SOB HPI - General Stated Complaint: NESTOR Time Seen by Provider: 01/10/21 22:20 Source: RN notes reviewed, old records reviewed Mode of arrival: EMS Limitations: no limitations - History of Present Illness Initial Comments: This is a 50-year-old female to the ER for evaluation. She has no history of COPD. No recent diagnosis of coronavirus. Patient is having increasing signifi cant shortness of breath with no chest pain. Patient did receive antibiotics for coronavirus. Patient otherwise has no change in medications MD Complaint: shortness of breath, cough -: days(s) Severity: severe Severity scale (1-10): 10 Consistency: constant Improves With: nothing Worsens With: nothing Known History Of: COPD, other (COVID) Context: recent URI, anxiety, recent illness Associated Symptoms: fever, cough, sputum production Treatments Prior to Arrival: none - Related Data Home Medications Medication Instructions Recorded Confirmed cloNIDine HCL [Catapres] 0.1 mg PO BID 10/26/15 05/31/17 Albuterol Sulfate [Proair Hfa] 2 puff INHALATION Q6HR PRN 08/10/16 12/30/20 Furosemide [Lasix] 2 tab PO DAILY 08/10/16 12/30/20 traZODone HCL 2 tab PO HS PRN 08/10/16 12/30/20 Pantoprazole [Protonix] 40 mg PO DAILY 03/19/17 05/31/17 Ondansetron HCl [Zofran] 4 mg PO Q6HR PRN 05/10/17 12/30/20 ALPRAZolam [Xanax] 0.5 mg PO 1200,199905/30/17 12/30/20 Losartan [Cozaar] 1 tab PO DAILY 12/30/20 12/30/20 Pantoprazole [Protonix] 1 tab PO DAILY 12/30/20 12/30/20 Ranitidine HCl [Zantac] 1 tab PO DAILY 12/30/20 12/30/20 Previous Rx's Medication Instructions Recorded Ondansetron Odt [Zofran Odt] 4 mg PO Q8HR PRN #10 tab 12/30/20 Prochlorperazine [Compazine] 10 mg PO Q8H PRN #30 tab 01/02/21 Allergies Allergy/AdvReac Type Severity Reaction Status Date / Time aspirin Allergy Abdominal Verified 06/05/17 14:33 Pain,vomiting codeine Allergy Rash/Hives,abdominal Verified 06/05/17 14:33 pain,vomiting hydrocodone bitartrate Allergy Rash/Hives,abdominal Verified 06/05/17 14:33 [From Vicodin] pain,vomiting Iodinated Contrast Media Allergy Rash/Hives Verified 06/05/17 14:33 [Iodinated Contrast- Oral and IV Dye] metoclopramide [From Reglan] Allergy Anaphylaxis Verified 01/10/21 22:29 nitrofurantoin Allergy vertigo Verified 06/05/17 14:33 [From Macrobid] nitrofurantoin Allergy vertigo Verified 06/05/17 14:33 macrocrystalline [From Macrobid] ofloxacin [From Floxin] Allergy Rash/Hives,abdominal Verified 06/05/17 14:33 pain lactose AdvReac Nausea & Verified 06/05/17 14:33 Vomiting pseudoephedrine AdvReac Anaphylaxis Verified 06/05/17 14:33 TAPE AdvReac Itching,hives Uncoded 06/05/17 14:33 "paper tape ok" Review of Systems ROS Statement: Those systems with pertinent positive or pertinent negative responses have been documented in the HPI. ROS Other: All systems not noted in ROS Statement are negative. Past Medical History Past Medical History: COPD, GERD/Reflux, Hypertension Additional Past Medical History / Comment(s): hemmorrhoids, IBS, migraines, heart murmer, History of Any Multi-Drug Resistant Organisms: None Reported Past Surgical History: Cholecystectomy Additional Past Surgical History / Comment(s): D&C, cyst removed from rt ovary, Past Anesthesia/Blood Transfusion Reactions: Motion Sickness, Postoperative Nausea & Vomiting (PONV) Past Psychological History: Anxiety, Depression, Panic Disorder Smoking Status: Current every day smoker Past Alcohol Use History: None Reported Past Drug Use History: None Reported - Past Family History Mother Family Medical History: No Reported History General Exam General appearance: alert, anxious, in distress Head exam: Present: atraumatic, normocephalic, normal inspection Eye exam: Present: normal appearance, PERRL, EOMI. Absent: scleral icterus, c onjunctival injection, periorbital swelling ENT exam: Present: normal exam, mucous membranes moist Neck exam: Present: normal inspection. Absent: tenderness, meningismus, lymphadenopathy Respiratory exam: Present: respiratory distress, wheezes, accessory muscle use, decreased breath sounds, prolonged expiratory. Absent: rales, rhonchi, stridor Cardiovascular Exam: Present: regular rate, normal rhythm, normal heart sounds. Absent: systolic murmur, diastolic murmur, rubs, gallop, clicks GI/Abdominal exam: Present: soft, normal bowel sounds. Absent: distended, tenderness, guarding, rebound, rigid Extremities exam: Present: normal inspection, full ROM, normal capillary refill. Absent: tenderness, pedal edema, joint swelling, calf tenderness Back exam: Present: normal inspection Neurological exam: Present: alert, oriented X3, CN II-XII intact Psychiatric exam: Present: normal affect, normal mood Skin exam: Present: warm, dry, intact, normal color. Absent: rash Course Vital Signs 01/10/21 01/10/21 01/10/21 22:24 23:00 23:28 Temperature 98.9 F Pulse Rate 98 87 Respiratory 16 18 16 Rate Blood Pressure 173/94 167/92 O2 Sat by Pulse 85 L 94 L Oximetry 01/11/21 01/11/21 00:08 00:21 Temperature Pulse Rate 75 86 Respiratory Rate Blood Pressure O2 Sat by Pulse Oximetry - Reevaluation(s) Reevaluation #1: 01/10/21 22:26 medical record is reviewed Reevaluation #2: 01/11/21 00:22 Patient does have improvement of symptoms with supportive care and breathing treatments - Consultations Consultation #1: Spoke with [facility] is is not currently on, patient's currently will admit the patient Medical Decision Making - Medical Decision Making 50 female the emergency murmurs a for evaluation of persistent shortness of breath positive coronavirus history of COPD with hypoxia. Patient significant distress with severe hypokalemia. Patient be admitted for electronically replacement steroids and supportive care - Lab Data Result diagrams: 01/10/21 22:45 01/10/21 22:45 Lab Results 01/10/21 01/10/21 01/10/21 Range/Units 22:45 22:45 22:45 WBC 8.5 (3.8-10.6) k/uL RBC 6.15 H (3.80-5.40) m/uL Hgb 13.4 (11.4-16.0) gm/dL Hct 47.2 H (34.0-46.0) % MCV 76.7 L (80.0-100.0) fL MCH 21.8 L (25.0-35.0) pg MCHC 28.4 L (31.0-37.0) g/dL RDW 20.8 H (11.5-15.5) % Plt Count 188 (150-450) k/uL MPV 8.0 Neutrophils % 79 % Lymphocytes % 12 % Monocytes % 6 % Eosinophils % 1 % Basophils % 1 % Neutrophils # 6.7 (1.3-7.7) k/uL Lymphocytes # 1.0 (1.0-4.8) k/uL Monocytes # 0.5 (0-1.0) k/uL Eosinophils # 0.1 (0-0.7) k/uL Basophils # 0.0 (0-0.2) k/uL Hypochromasia Marked Poikilocytosis Slight Anisocytosis Moderate Microcytosis Moderate PT 11.7 (9.0-12.0) sec INR 1.1 (<1.2) APTT 21.6 L (22.0-30.0) sec D-Dimer 1.26 H (<0.60) mg/L FEU Sodium 137 (137-145) mmol/L Potassium 2.5 L* (3.5-5.1) mmol/L Chloride 90 L (98-107) mmol/L Carbon Dioxide 38 H (22-30) mmol/L Anion Gap 9 mmol/L BUN 4 L (7-17) mg/dL Creatinine 0.32 L (0.52-1.04) mg/dL Est GFR (CKD-EPI)AfAm >90 (>60 ml/min/1.73 sqM) Est GFR (CKD-EPI)NonAf >90 (>60 ml/min/1.73 sqM) Glucose 128 H (74-99) mg/dL Plasma Lactic Acid Oniel (0.7-2.0) mmol/L Calcium 8.5 (8.4-10.2) mg/dL Magnesium 1.4 L (1.6-2.3) mg/dL Total Bilirubin 1.8 H (0.2-1.3) mg/dL AST 19 (14-36) U/L ALT 10 (4-34) U/L Alkaline Phosphatase 87 (38-126) U/L Lactate Dehydrogenase 678 H (313-618) U/L C-Reactive Protein 1.3 H (<1.0) mg/dL Total Protein 6.1 L (6.3-8.2) g/dL Albumin 3.1 L (3.5-5.0) g/dL 01/10/21 Range/Units 22:45 WBC (3.8-10.6) k/uL RBC (3.80-5.40) m/uL Hgb (11.4-16.0) gm/dL Hct (34.0-46.0) % MCV (80.0-100.0) fL MCH (25.0-35.0) pg MCHC (31.0-37.0) g/dL RDW (11.5-15.5) % Plt Count (150-450) k/uL MPV Neutrophils % % Lymphocytes % % Monocytes % % Eosinophils % % Basophils % % Neutrophils # (1.3-7.7) k/uL Lymphocytes # (1.0-4.8) k/uL Monocytes # (0-1.0) k/uL Eosinophils # (0-0.7) k/uL Basophils # (0-0.2) k/uL Hypochromasia Poikilocytosis Anisocytosis Microcytosis PT (9.0-12.0) sec INR (<1.2) APTT (22.0-30.0) sec D-Dimer (<0.60) mg/L FEU Sodium (137-145) mmol/L Potassium (3.5-5.1) mmol/L Chloride (98-107) mmol/L Carbon Dioxide (22-30) mmol/L Anion Gap mmol/L BUN (7-17) mg/dL Creatinine (0.52-1.04) mg/dL Est GFR (CKD-EPI)AfAm (>60 ml/min/1.73 sqM) Est GFR (CKD-EPI)NonAf (>60 ml/min/1.73 sqM) Glucose (74-99) mg/dL Plasma Lactic Acid Oniel 1.3 (0.7-2.0) mmol/L Calcium (8.4-10.2) mg/dL Magnesium (1.6-2.3) mg/dL Total Bilirubin (0.2-1.3) mg/dL AST (14-36) U/L ALT (4-34) U/L Alkaline Phosphatase (38-126) U/L Lactate Dehydrogenase (313-618) U/L C-Reactive Protein (<1.0) mg/dL Total Protein (6.3-8.2) g/dL Albumin (3.5-5.0) g/dL - EKG Data -: EKG Interpreted by Me (EKG is sinus rhythm 83 IL 142 QRS 86 QTc 491) - Radiology Data Radiology results: report reviewed (CTA is positive for bilateral basilar infiltrate likely persistent coronavirus), image reviewed Critical Care Time Critical Care Time: Yes Total Critical Care Time: 31 Disposition Clinical Impression: Nausea & vomiting, Acute exacerbation of chronic obstructive pulmonary disease, Hypoxia, Hypokalemia, Lightheadedness, Weakness Narrative: History of CORONAVIS Disposition: ADMITTED IP TO THIS HOSP Condition: Serious Is patient prescribed a controlled substance at d/c from ED?: No
[2021-01-10] MEDS ORDERED: ONDANSETRON 4 MG/2 ML VIAL IVP STA (22:30)
[2021-01-10] MEDS ORDERED: LORazepam 2 MG/ML INJ IV STA (22:30)
[2021-01-10] MEDS ORDERED: FAMOTIDINE 20 MG/2 ML VIAL IV STA (22:49)
[2021-01-10] MEDS ORDERED: diphenhydrAMINE 50 MG/ML 1 ML VIAL IVP STA (22:50)
[2021-01-10 23:07] LABS: ALT 10 U/L (4-34); AST 19 U/L (14-36); African American GFR (CKD) >90 (>60 ml/min/1.73 sqM); Albumin 3.1 g/dL (3.5-5.0); Alkaline Phosphatase 87 U/L (38-126); Anion Gap 9 mmol/L; Blood Urea Nitrogen 4 mg/dL (7-17); C Reactive Protein 1.3 mg/dL (<1.0); Calcium 8.5 mg/dL (8.4-10.2); Carbon Dioxide 38 mmol/L (22-30); Chloride 90 mmol/L (98-107); Glucose 128 mg/dL (74-99); LDH 678 U/L (313-618); Magnesium 1.4 mg/dL (1.6-2.3); Non-African American GFR(CKD) >90 (>60 ml/min/1.73 sqM); Sodium 137 mmol/L (137-145); Total Bilirubin 1.8 mg/dL (0.2-1.3); Total Protein 6.1 g/dL (6.3-8.2)
[2021-01-10 23:09] LABS: Anisocytosis Moderate; Basophils % (A) 1 %; Eosinophils # (A) 0.1 k/uL (0-0.7); Eosinophils % (A) 1 %; HCT 47.2 % (34.0-46.0); HGB 13.4 gm/dL (11.4-16.0); Hypochromasia Marked; Lymphocytes % (A) 12 %; MCH 21.8 pg (25.0-35.0); MCHC 28.4 g/dL (31.0-37.0); MCV 76.7 fL (80.0-100.0); Microcytosis Moderate; Monocytes # (A) 0.5 k/uL (0-1.0); Monocytes % (A) 6 %; Neutrophils # (A) 6.7 k/uL (1.3-7.7); Neutrophils % (A) 79 %; Platelet Count 188 k/uL (150-450); Poikilocytosis Slight; RBC 6.15 m/uL (3.80-5.40); RDW 20.8 % (11.5-15.5); WBC 8.5 k/uL (3.8-10.6)
[2021-01-10 23:20] LABS: INR 1.1 (<1.2); Prothrombin Time 11.7 sec (9.0-12.0)
[2021-01-10 23:24] LABS: Potassium 2.5 mmol/L (3.5-5.1)
[2021-01-10] MEDS ORDERED: IPRATROPIUM 0.5 MG/2.5 ML NEBU INHALATION STA (23:24)
[2021-01-10] MEDS ORDERED: ALBUTEROL NEBULIZED 2.5 MG/3 ML INHALATION STA (23:24)
[2021-01-10] MEDS ORDERED: ALBUTEROL HFA INHALER INHALATION PRN (23:24)
[2021-01-10] MEDS ORDERED: POTASSIUM BICARBONATE/CIT AC 20 MEQ TABLET.EFF PO ONE (23:25)
[2021-01-10 23:26] LABS: Partial Thromboplastin Time 21.6 sec (22.0-30.0)
[2021-01-10] MEDS ORDERED: MORPHINE SULFATE 4 MG/ML SYRINGE IV PRN (23:26)
[2021-01-10] MEDS ORDERED: NALOXONE 0.4 MG/ML 1 ML VIAL IV PRN (23:26)
--- NOTE | 2021-01-10 23:38 | CT ---
EXAMINATION TYPE: CT angio chest DATE OF EXAM: 01/10/2021 COMPARISON: None HISTORY: SOB CT DLP: 929.4 mGycm Automated exposure control for dose reduction was used. CONTRAST: Performed with IV Contrast, patient injected with 80 mL of Isovue 370. There are 3-D post processed images. There is some interstitial infiltrate throughout both lungs. Heart is enlarged. There is no mediastin al adenopathy. Thoracic aorta is intact. There is no aneurysm or dissection. The ascending aorta roya ures 3.5 cm. There are no hilar masses. There is normal contrast opacification of the pulmonary arter ies. There are no filling defects. There is no pleural effusion. There is no pericardial effusion. Thoracic spine is intact. There is no compression fracture. Sternum is intact. IMPRESSION: No evidence of pulmonary embolism. Interstitial infiltrates and atelectasis at the lung bases. Mild i nterstitial infiltrate in the upper lobes. Cardiomegaly.
[2021-01-11] MEDS: methylPREDNISolone SOD SUCCI 125 MG/2 ML VIAL IV SCH ×4 (00:24→20:30)
[2021-01-11] MEDS: POTASSIUM CHLORIDE 20 MEQ in WATER FOR INJECTION 1 100ML.BAG IVPB SCH ×4 (00:32→06:35)
[2021-01-11] MEDS: NICOTINE 14MG/24HR PATCH TRANSDERM SCH ×2 (02:08→09:03)
[2021-01-11] MEDS: LORazepam 2 MG/ML INJ IV PRN ×2 (02:10→08:17)
[2021-01-11] MEDS ORDERED: MAGNESIUM OXIDE 400 MG TAB PO STA (06:26)
[2021-01-11] MEDS: ONDANSETRON 4 MG/2 ML VIAL IVP PRN ×3 (06:57→16:48)
[2021-01-11 07:10] LABS: Anisocytosis Moderate; Basophils % (A) 0 %; Eosinophils # (A) 0.1 k/uL (0-0.7); Eosinophils % (A) 1 %; HCT 47.3 % (34.0-46.0); HGB 13.3 gm/dL (11.4-16.0); Hypochromasia Marked; Lymphocytes # (A) 0.4 k/uL (1.0-4.8); Lymphocytes % (A) 5 %; MCH 22.5 pg (25.0-35.0); MCHC 28.2 g/dL (31.0-37.0); MCV 79.6 fL (80.0-100.0); Mean Platelet Volume 8.2; Microcytosis Slight; Monocytes # (A) 0.1 k/uL (0-1.0); Monocytes % (A) 2 %; Neutrophils # (A) 6.9 k/uL (1.3-7.7); Neutrophils % (A) 92 %; Platelet Count 176 k/uL (150-450); Poikilocytosis Slight; RBC 5.94 m/uL (3.80-5.40); RDW 20.6 % (11.5-15.5); WBC 7.5 k/uL (3.8-10.6)
[2021-01-11 07:34] LABS: African American GFR (CKD) >90 (>60 ml/min/1.73 sqM); Blood Urea Nitrogen 5 mg/dL (7-17); Calcium 8.5 mg/dL (8.4-10.2); Chloride 92 mmol/L (98-107); Glucose 161 mg/dL (74-99); Magnesium 1.4 mg/dL (1.6-2.3); Non-African American GFR(CKD) >90 (>60 ml/min/1.73 sqM); Phosphorus 5.7 mg/dL (2.5-4.5); Sodium 139 mmol/L (137-145)
[2021-01-11 07:41] LABS: Anion Gap 4 mmol/L
[2021-01-11 07:52] LABS: Carbon Dioxide 43 mmol/L (22-30)
[2021-01-11] MEDS: SODIUM CHLORIDE 0.9% 1,000 ML IV SCH ×3 (08:52→12:54)
[2021-01-11] MEDS: MAGNESIUM SULFATE-D5W PMX 1 GM in DEXTROSE/WATER 1 100ML.BAG IVPB SCH ×2 (08:54→10:06)
[2021-01-11] MEDS ORDERED: NICOTINE 14MG/24HR PATCH TRANSDERM SCH (09:00)
[2021-01-11] MEDS: MAGNESIUM OXIDE 400 MG TAB PO SCH ×2 (09:01→20:31)
[2021-01-11] MEDS ORDERED: ONDANSETRON 4 MG TAB PO PRN (12:14)
[2021-01-11] MEDS ORDERED: ALBUTEROL HFA INHALER INHALATION PRN (12:14)
--- NOTE | 2021-01-11 12:15 | P.CNPUL ---
History of Present Illness Consult date: 01/11/21 Requesting physician: Arash Cantu Reason for consult: dyspnea, hypoxemia, abnormal CXR/CT Chief complaint: dyspnea, hypoxia, COVID-19 pneumonia History of present illness: This is a 50-year-old white female patient with past medical history of COPD, recent diagnosis of COVID-19 pneumonia, 2 weeks ago, status post monoclonal antibody infusion, and patient has received outpatient course of Decadron. Her other medical history is positive for hypertension, GERD/reflux, patient is a ronic smoker, anxiety depression, panic disorder, IBS, migraine headaches, and previous history of cholecystectomy, patient came into the emergency department on the 01/10/2021 for evaluation of increasing shortness of breath, cough, some phlegm production. Patient was tested again for COVID-19 in the emergency department and was negative at this time. Her admission blood work showed white blood cell count 8.5, hemoglobin 13.4, her d-dimer was 1.6, sodium was 137, potassium is 2.5, chloride was 90, CO2 was 38, BUN is 4 and creatinine 0.32. Her LDH was 678, CRP was 1.3, proBNP was elevated at 3650, magnesium level was 1.8, total bilirubin was 1.8, LFTs were within normal limits. She was noted to be hypoxic with a pulse ox of 85% on room air, she's been afebrile since admission, she was placed on 98 L of supplemental oxygen, and subsequently FiO2 was increased to 9 L and her pulse ox is 95%, CT chest was completed showing no evidence of pulmonary embolism, interstitial infiltrates and atelectasis at the lung bases, and mild interstitial infiltrate in the upper lobes. There is card iomegaly. Patient takes Lasix 40 mg daily at home on a regular basis. She had a echocardiogram back in 2017 showing normal EF of 55-60%, and no significant valvular abnormality. There is no recent echocardiogram. Patient does have lower extremity swelling. She states she is not normally oxygen dependent at baseline. She continues to smoke on a regular basis. She was started on IV steroids, nebulized bronchodilators, she is receiving 0.9 normal saline at a rate of 130 ML per hour. We were asked to see the patient in evaluation for shortness of breath, history of recent COVID-19 pneumonia, dyspnea and hypoxia Review of Systems All systems: negative Constitutional: Denies chills, Denies fever Eyes: denies blurred vision, denies pain Ears, nose, mouth and throat: Denies headache, Denies sore throat Cardiovascular: Denies chest pain, Denies shortness of breath Respiratory: Reports cough with sputum, Reports dyspnea, Denies cough Gastrointestinal: Denies abdominal pain, Denies diarrhea, Denies nausea, Denies vomiting Genitourinary: Denies dysuria, Denies hematuria Musculoskeletal: Denies myalgias Integumentary: Denies pruritus, Denies rash Neurological: Denies numbness, Denies weakness Psychiatric: Denies anxiety, Denies depression Endocrine: Denies fatigue, Denies weight change Past Medical History Past Medical History: COPD, GERD/Reflux, Hypertension Additional Past Medical History / Comment(s): hemmorrhoids, IBS, migraines, heart murmer, History of Any Multi-Drug Resistant Organisms: None Reported Past Surgical History: Cholecystectomy Additional Past Surgical History / Comment(s): D&C, cyst removed from rt ovary, Past Anesthesia/Blood Transfusion Reactions: Motion Sickness, Postoperative Nausea & Vomiting (PONV) Past Psychological History: Anxiety, Depression, Panic Disorder Smoking Status: Current every day smoker Past Alcohol Use History: None Reported Past Drug Use History: None Reported - Past Family History Mother Family Medical History: No Reported History Medications and Allergies Home Medications Medication Instructions Recorded Confirmed Type cloNIDine HCL [Catapres] 0.1 mg PO BID 10/26/15 01/11/21 History Albuterol Sulfate [Proair Hfa] 2 puff INHALATION RT-Q6H PRN 08/10/16 01/11/21 History Ondansetron HCl [Zofran] 4 mg PO Q6HR PRN 05/10/17 01/11/21 History ALPRAZolam [Xanax] 0.5 mg PO DAILY@1200 05/30/17 01/11/21 History Losartan [Cozaar] 25 tab PO DAILY 12/30/20 01/11/21 History Pantoprazole [Protonix] 40 tab PO DAILY 12/30/20 01/11/21 History Prochlorperazine [Compazine] 10 mg PO Q8H PRN #30 tab 01/02/21 01/11/21 Rx ALPRAZolam [Xanax] 0.5 mg PO BID 01/11/21 01/11/21 History Cetirizine HCl 10 mg PO DAILY 01/11/21 01/11/21 History Furosemide [Lasix] 40 mg PO DAILY 01/11/21 01/11/21 History Metoclopramide HCl [Reglan] 10 mg PO TID PRN 01/11/21 01/11/21 History traZODone HCL [Desyrel] 100 mg PO HS 01/11/21 01/11/21 History Allergies Allergy/AdvReac Type Severity Reaction Status Date / Time aspirin Allergy Abdominal Verified 01/11/21 08:28 Pain,vomiting codeine Allergy Rash/Hives,abdominal Verified 01/11/21 08:28 pain,vomiting hydrocodone bitartrate Allergy Rash/Hives,abdominal Verified 01/11/21 08:28 [From Vicodin] pain,vomiting Iodinated Contrast Media Allergy Rash/Hives Verified 01/11/21 08:28 [Iodinated Contrast- Oral and IV Dye] metoclopramide [From Reglan] Allergy Anaphylaxis Verified 01/11/21 08:28 nitrofurantoin Allergy vertigo Verified 01/11/21 08:28 [From Macrobid] nitrofurantoin Allergy vertigo Verified 01/11/21 08:28 macrocrystalline [From Macrobid] ofloxacin [From Floxin] Allergy Rash/Hives,abdominal Verified 01/11/21 08:28 pain lactose AdvReac Nausea & Verified 01/11/21 08:28 Vomiting pseudoephedrine AdvReac Anaphylaxis Verified 01/11/21 08:28 TAPE AdvReac Itching,hives Uncoded 06/05/17 14:33 "paper tape ok" Physical Exam Vitals: Vital Signs Temp Pulse Resp BP Pulse Ox 01/11/21 10:10 85 18 155/92 95 01/11/21 06:00 84 18 155/93 94 L 01/11/21 00:21 86 01/11/21 00:08 75 01/10/21 23:28 87 16 167/92 94 L 01/10/21 23:00 18 01/10/21 22:24 98.9 F 98 16 173/94 85 L Intake and Output 01/10/21 01/11/21 01/11/21 22:59 06:59 14:59 Output Total 850 Balance -850 Output: Urine 850 Other: Weight 136.078 kg GENERAL EXAM: Alert, morbidly obese, 50-year-old white female, resting on the gurney in the emergency department, currently on 9 L of supplemental oxygen comfortable in no apparent distress. HEAD: Normocephalic/atraumatic. EYES: Normal reaction of pupils, equal size. Conjunctiva pink, sclera white. NOSE: Clear with pink turbinates. THROAT: No erythema or exudates. NECK: No masses, no JVD, no thyroid enlargement, no adenopathy. CHEST: No chest wall deformity. Symmetrical expansion. LUNGS: Equal air entry with diffuse crackles CVS: Regular rate and rhythm, normal S1 and S2, no gallops, there is a systolic cardiac murmur, no rubs ABDOMEN: Soft, nontender. No hepatosplenomegaly, normal bowel sounds, no guarding or rigidity. EXTREMITIES: No clubbing, 1+ lower extremity edema with thickening of the skin, , no cyanosis, 2+ pulses and upper and lower extremities. MUSCULOSKELETAL: Muscle strength and tone normal. SPINE: No scoliosis or deformity SKIN: No rashes CENTRAL NERVOUS SYSTEM: Alert and oriented -3. No focal deficits, tone is normal in all 4 extremities. PSYCHIATRIC: Alert and oriented -3. Appropriate affect. Intact judgment and insight. Results - Laboratory Findings CBC and BMP: 01/11/21 06:04 01/11/21 06:04 PT/INR, D-dimer PT 11.7 sec (9.0-12.0) 01/10/21 22:45 INR 1.1 (<1.2) 01/10/21 22:45 D-Dimer 1.26 mg/L FEU (<0.60) H 01/10/21 22:45 Abnormal lab findings: Abnormal Labs 01/10/21 01/10/21 01/10/21 22:45 22:45 22:45 RBC 6.15 H Hct 47.2 H MCV 76.7 L MCH 21.8 L MCHC 28.4 L RDW 20.8 H Lymphocytes # APTT 21.6 L D-Dimer 1.26 H Potassium 2.5 L* Chloride 90 L Carbon Dioxide 38 H BUN 4 L Creatinine 0.32 L Glucose 128 H Phosphorus Magnesium 1.4 L Total Bilirubin 1.8 H Lactate Dehydrogenase 678 H C-Reactive Protein 1.3 H Total Protein 6.1 L Albumin 3.1 L 01/11/21 01/11/21 06:04 06:04 RBC 5.94 H Hct 47.3 H MCV 79.6 L MCH 22.5 L MCHC 28.2 L RDW 20.6 H Lymphocytes # 0.4 L APTT D-Dimer Potassium 3.0 L Chloride 92 L Carbon Dioxide 43 H* BUN 5 L Creatinine 0.38 L Glucose 161 H Phosphorus 5.7 H Magnesium 1.4 L Total Bilirubin Lactate Dehydrogenase C-Reactive Protein Total Protein Albumin - Diagnostic Findings CT scan - chest: report reviewed, image reviewed Assessment and Plan Plan: assessment: #1. Acute hypoxic respiratory failure related to acute exacerbation of COPD, interstitial edema, and pulmonary infiltrates, with a recent history of COVID-19 pneumonia 2 weeks ago, with a component of fluid overload. #2. Acute exacerbation of CHf, with previously documented diastolic dysfunction from the echocardiogram in 2017, there has been no recent echocardiogram while in the hospital #3. Recent diagnosis of COVID-19 pneumonia, in the last 2 weeks, status post mo noclonal antibody infusion , Decadron on an outpatient basis #4. Chronic and ongoing history of smoking #5. Mildly elevated d-dimer with no CTA evidence of pulmonary embolism #6. morbid obesity #7. GERD/reflux #8. Hypertension #9. Anxiety, depression, panic disorder #10. History of IBS #11. Migraine headaches Plan: Continue current medical treatment, continue IV steroids Decrease IV fluids KVO Lasix 20 mg q12 hours times 2 doses Echocardiogram, patient may have a valvular heart disease There is a interstitial prominence on CXR BNP elevated, suggesting fluid overload Repeat COVID PCR repeated Keep in isolation CXR, LDH, d-dimer, CRP in am I performed a history & physical examination of the patient and discussed their management with my nurse practitioner, Cindy Rivera. I reviewed the nurse practitioner's note and agree with the documented findings and plan of care. Crissy ng sounds are positive for bilat crackles throughout the lung prather. The findings and the impression was discussed with the patient. I attest to the documentation by the nurse practitioner. Time with Patient: Greater than 30
[2021-01-11 12:23] LABS: African American GFR (CKD) >90 (>60 ml/min/1.73 sqM); Anion Gap 7 mmol/L; Blood Urea Nitrogen 6 mg/dL (7-17); Calcium 8.6 mg/dL (8.4-10.2); Carbon Dioxide 39 mmol/L (22-30); Chloride 92 mmol/L (98-107); Creatine Kinase <20 U/L (30-135); Glucose 185 mg/dL (74-99); Magnesium 2.2 mg/dL (1.6-2.3); Non-African American GFR(CKD) >90 (>60 ml/min/1.73 sqM); Potassium 3.1 mmol/L (3.5-5.1); Sodium 138 mmol/L (137-145)
[2021-01-11] MEDS ORDERED: PANTOPRAZOLE 40 MG TABLET PO SCH (12:30)
[2021-01-11] MEDS ORDERED: FUROSEMIDE 10 MG/ML 2 ML VIAL IV SCH (12:30)
[2021-01-11 12:51] LABS: Creatine Kinase MB 0.4 ng/mL (0.0-2.4); Troponin I 0.018 ng/mL (0.000-0.034)
[2021-01-11] MEDS: FUROSEMIDE 10 MG/ML 4 ML VIAL IV SCH ×2 (12:54→20:31)
[2021-01-11] MEDS: PANTOPRAZOLE 40 MG/10 ML VIAL IVP SCH (13:06)
--- NOTE | 2021-01-11 13:12 | P.HPIM ---
History of Present Illness H&P Date: 01/11/21 (Elevated pro-BMP, diarrhea, congestive heart failure, COPD exacerbation, chronic smoker.) Chief Complaint: Patient brought to the emergency room by ambulance with the shortness of br History and physical date of service 01/11/[address] Tariq. 50 years old white female brought to the emergency room by ambulance. Chief complaint: She become worsening her general condition unable to stand or walk with the underlying COPD. And recent diagnosis of carotid 19 which she was treated in the emergency room His present illness Started 2 weeks ago when she had symptoms of cough expectoration and shortness of breath she went to the [facility] urgent care where they diagnosed her with hypoxemia and Corvette 19 The advise of her in that clinic to go to the emergency room at [facility], she did and and subsequently she treated with immunoglobulin and send her home. Patient has persistent nausea and vomiting at that time she called the office could not come to be seen because of her covid-19 isolation, requested to have also nausea medication because Zofran has not been helping. She received metoclopramide subsequently patient stated that cold or swelling over her tongue she went to the ER at [facility] and they give her treatment and send her home. Subsequently patient had progressively worsening, and she was weak, diarrhea watery stools, unable to Kamran her family and her young daughter, and progressively shortness of breath. At that time she decided with her fianc to called the EMS and come to the hospital. With the presence of hypoxemia. In the hospital they started her on IV fluid 1 30 mL an hour normal saline and they replaced her magnesium and the potassium which she was hypokalemic and hypomagnesemic. And she still have the loose watery stools. And she still short of breath They started her on the oxygen therapy and a repeat Covid test which was negative. Subsequently seen by myself and evaluated the laboratories and ob tained creatine kinase which was normal with no evidence of rhabdomyolysis. However NT proBNP was markedly elevated more than 3000 with the associated shortness of breath, they did the CAT scan of the chest however it is not conclusive in regard of congestive heart failure versus infiltrate. Subsequently IV fluid decreased to keep vein open, Lasix 40 mg every 12 hours, patient also seen by Dr. Pompa and the nurse practitioner with his impression Acute hypoxemic respiratory failure related to exacerbation of COPD, interstitial edema and pulmonary infiltrate is questionable by the computed clara graphy scan #2 acute exacerbations of her previous congestive heart failure with the apparent diastolic dysfunction from the echocardiogram in 2017 with no recent echocardiogram. She had recent Covid 19 pneumonia and she underwent monoclonal anti-bodies infusion and currently Covid test is negative. She is chronically smoker and she did not correct yet. Mild elevation of the d-dimer however the CAT scan angiogram did not indicate any PEs. Morbid obesity, GERD disease Hypertension with hypertensive heart disease not well controlled with the volume overload which has been changing to keep vein open only History of IBS irritable bowel syndrome History of migraine headache. Dr. Pompa and his father follow-up. Review of system: Neuropsychiatry: No history of stroke but she had history of depression and anxiety has been followed by psychiatrist with eventual visit. Respiratory shortness of breath minimal cough could not Blease at home. Chronic swelling of her lower extremities with obesity Cardiovascular she appeared to be in acute congestive heart failure with the previous echo 2017 indicating diastolic failure currently her troponin is extremely high for her age. Abdomen: Protuberant morbidly obese could not palpate liver or spleen with a history of diarrhea which we will do see deficit all to be ruled out with the dietary diarrhea. Extremities there is edema which has stopped improvement of pitting and nonpitting with the underlying congestive heart failure and lymphedema. General condition generalized weakness probably secondary to the hypokalemia and hypomagnesemia. Past medical history Morbid obesity, hypertension with hypertensive heart disease, irritable bowel syndrome, Chronic smoker until now. ALLERGY: Aspirin, codeine, hydrocodone, iodinated contrast media, Reglan, nitrofurantoin and below. 1 daughter and she lives with her luis. Physical exam: Short of breath seen in the module in the ER. Wearing her oxygen Blood pressure was not well-controlled probably due to volume overload as she was in the ER IV 1 30 mL and INR normal saline. The head was normocephalic and atraumatic, pupils equal reactive, no hearing deficit, oropharynx natural teeth,is negative Neck was supple no JVD no thyromegaly no lymphadenopathy however she is has a short neck Chest short of breath, bilateral basilar rales and rhonchi's with a history of COPD with the underlying congestive heart failure. Heart: Regular irregularities. With the underlying history of diastolic dysfun ction. Abdomen is morbidly obese positive bowel sounds stated that she had black tarry diarrhea with the possibility secondary to C diff versus irritable bowel syndrome. Extremities: Large with pitting and nonpitting edema with the probability of lymphedema as well. Logically no lateralizing sign, no neuro deficit. Assessment and plan #1 congestive heart failure with markedly elevated pro-BMP, edema of the lower extremities, shortness of breath with hypoxemia, probable interstitial edema. #2 acute hypoxic respiratory failure #3 severe hypokalemia and a hyper magnesium anemia replaced. #4 diarrhea watery stool and we will obtain C. difficile #5 Lasix IV for diuresis. #6 obtaining a venous duplex study bilateral for DVT and elevated d-dimer. Past Medical History Past Medical History: COPD, GERD/Reflux, Hypertension Additional Past Medical History / Comment(s): hemmorrhoids, IBS, migraines, heart murmer, History of Any Multi-Drug Resistant Organisms: None Reported Past Surgical History: Cholecystectomy Additional Past Surgical History / Comment(s): D&C, cyst removed from rt ovary, Past Anesthesia/Blood Transfusion Reactions: Motion Sickness, Postoperative Nausea & Vomiting (PONV) Past Psychological History: Anxiety, Depression, Panic Disorder Smoking Status: Current every day smoker Past Alcohol Use History: None Reported Past Drug Use History: None Reported - Past Family History Mother Family Medical History: No Reported History Medications and Allergies Home Medications Medication Instructions Recorded Confirmed Type cloNIDine HCL [Catapres] 0.1 mg PO BID 10/26/15 01/11/21 History Albuterol Sulfate [Proair Hfa] 2 puff INHALATION RT-Q6H PRN 08/10/16 01/11/21 History Ondansetron HCl [Zofran] 4 mg PO Q6HR PRN 05/10/17 01/11/21 History ALPRAZolam [Xanax] 0.5 mg PO DAILY@1200 05/30/17 01/11/21 History Losartan [Cozaar] 25 tab PO DAILY 12/30/20 01/11/21 History Pantoprazole [Protonix] 40 tab PO DAILY 12/30/20 01/11/21 History Prochlorperazine [Compazine] 10 mg PO Q8H PRN #30 tab 01/02/21 01/11/21 Rx ALPRAZolam [Xanax] 0.5 mg PO BID 01/11/21 01/11/21 History Cetirizine HCl 10 mg PO DAILY 01/11/21 01/11/21 History Furosemide [Lasix] 40 mg PO DAILY 01/11/21 01/11/21 History Metoclopramide HCl [Reglan] 10 mg PO TID PRN 01/11/21 01/11/21 History traZODone HCL [Desyrel] 100 mg PO HS 01/11/21 01/11/21 History Allergies Allergy/AdvReac Type Severity Reaction Status Date / Time aspirin Allergy Abdominal Verified 01/11/21 08:28 Pain,vomiting codeine Allergy Rash/Hives,abdominal Verified 01/11/21 08:28 pain,vomiting hydrocodone bitartrate Allergy Rash/Hives,abdominal Verified 01/11/21 08:28 [From Vicodin] pain,vomiting Iodinated Contrast Media Allergy Rash/Hives Verified 01/11/21 08:28 [Iodinated Contrast- Oral and IV Dye] metoclopramide [From Reglan] Allergy Anaphylaxis Verified 01/11/21 08:28 nitrofurantoin Allergy vertigo Verified 01/11/21 08:28 [From Macrobid] nitrofurantoin Allergy vertigo Verified 01/11/21 08:28 macrocrystalline [From Macrobid] ofloxacin [From Floxin] Allergy Rash/Hives,abdominal Verified 01/11/21 08:28 pain lactose AdvReac Nausea & Verified 01/11/21 08:28 Vomiting pseudoephedrine AdvReac Anaphylaxis Verified 01/11/21 08:28 TAPE AdvReac Itching,hives Uncoded 06/05/17 14:33 "paper tape ok" Physical Exam Vitals: Vital Signs Temp Pulse Resp BP Pulse Ox 01/11/21 10:10 85 18 155/92 95 01/11/21 06:00 84 18 155/93 94 L 01/11/21 00:21 86 01/11/21 00:08 75 01/10/21 23:28 87 16 167/92 94 L 01/10/21 23:00 18 01/10/21 22:24 98.9 F 98 16 173/94 85 L Intake and Output 01/10/21 01/11/21 01/11/21 22:59 06:59 14:59 Output Total 850 Balance -850 Output: Urine 850 Other: Weight 136.078 kg Results CBC & Chem 7: 01/11/21 06:04 01/11/21 11:51 Labs: Abnormal Lab Results - Last 24 Hours (Table) 01/10/21 01/10/21 01/10/21 Range/Units 22:45 22:45 22:45 RBC 6.15 H (3.80-5.40) m/uL Hct 47.2 H (34.0-46.0) % MCV 76.7 L (80.0-100.0) fL MCH 21.8 L (25.0-35.0) pg MCHC 28.4 L (31.0-37.0) g/dL RDW 20.8 H (11.5-15.5) % Lymphocytes # (1.0-4.8) k/uL APTT 21.6 L (22.0-30.0) sec D-Dimer 1.26 H (<0.60) mg/L FEU Potassium 2.5 L* (3.5-5.1) mmol/L Chloride 90 L (98-107) mmol/L Carbon Dioxide 38 H (22-30) mmol/L BUN 4 L (7-17) mg/dL Creatinine 0.32 L (0.52-1.04) mg/dL Glucose 128 H (74-99) mg/dL Phosphorus (2.5-4.5) mg/dL Magnesium 1.4 L (1.6-2.3) mg/dL Total Bilirubin 1.8 H (0.2-1.3) mg/dL Lactate Dehydrogenase 678 H (313-618) U/L Creatine Kinase (30-135) U/L C-Reactive Protein 1.3 H (<1.0) mg/dL Total Protein 6.1 L (6.3-8.2) g/dL Albumin 3.1 L (3.5-5.0) g/dL 01/11/21 01/11/21 01/11/21 Range/Units 06:04 06:04 11:51 RBC 5.94 H (3.80-5.40) m/uL Hct 47.3 H (34.0-46.0) % MCV 79.6 L (80.0-100.0) fL MCH 22.5 L (25.0-35.0) pg MCHC 28.2 L (31.0-37.0) g/dL RDW 20.6 H (11.5-15.5) % Lymphocytes # 0.4 L (1.0-4.8) k/uL APTT (22.0-30.0) sec D-Dimer (<0.60) mg/L FEU Potassium 3.0 L 3.1 L (3.5-5.1) mmol/L Chloride 92 L 92 L (98-107) mmol/L Carbon Dioxide 43 H* 39 H (22-30) mmol/L BUN 5 L 6 L (7-17) mg/dL Creatinine 0.38 L 0.36 L (0.52-1.04) mg/dL Glucose 161 H 185 H (74-99) mg/dL Phosphorus 5.7 H (2.5-4.5) mg/dL Magnesium 1.4 L (1.6-2.3) mg/dL Total Bilirubin (0.2-1.3) mg/dL Lactate Dehydrogenase (313-618) U/L Creatine Kinase <20 L (30-135) U/L C-Reactive Protein (<1.0) mg/dL Total Protein (6.3-8.2) g/dL Albumin (3.5-5.0) g/dL
[2021-01-11] MEDS ORDERED: POTASSIUM CHLORIDE 10 MEQ in WATER FOR INJECTION 1 100ML.BAG IVPB ONE (14:22)
[2021-01-11] MEDS ORDERED: Potassium Replacement Protocol 1 EACH MISC MISCELLANE PRN (14:25)
[2021-01-11] MEDS ORDERED: Magnesium Replacement Protocol 1 EACH MISC MISCELLANE PRN (14:25)
[2021-01-11] MEDS: ALBUTEROL HFA INHALER INHALATION SCH ×2 (15:35→19:52)
--- NOTE | 2021-01-11 16:27 | US ---
EXAMINATION TYPE: US venous doppler duplex LE DATE OF EXAM: 01/11/2021 4:03 PM COMPARISON: US CLINICAL HISTORY: Elevated d-dimer, edema of the lower extremities. Swelling, elevated D Dimer. No hx of DVT. SIDE PERFORMED: Bilateral TECHNIQUE: The lower extremity deep venous system is examined utilizing real time linear array sonog katie with graded compression, doppler sonography and color-flow sonography. VESSELS IMAGED: Common Femoral Vein Deep Femoral Vein Greater Saphenous Vein * Femoral Vein Popliteal Vein Small Saphenous Vein * Proximal Calf Veins (* superficial vessels) Limited due to edema and body habitus. Right Leg: Color artifact seen in distal femoral vein with 9L probe, but not seen with C1-5 curved p robe. CFV and GSV appear to compress incompletely, possible chronic internal echoes along wall. Left Leg: Limited groin access. Upper CFV not well seen. Limited visibility of prox calf veins. Rhododendron r artifact seen in distal popliteal vein possibly due to edema. IMPRESSION: No evidence of acute deep vein thrombosis. There is possible mild chronic deep vein thro mbosis in the right leg.
[2021-01-11] MEDS: POTASSIUM CHLORIDE ER 20 MEQ TAB.ER PO SCH ×3 (16:43→22:34)
[2021-01-11] MEDS: HEPARIN SODIUM,PORCINE/PF 5,000 UNIT/0.5 ML SYRINGE SQ SCH (16:46)
[2021-01-11] MEDS: ALPRAZolam 0.5 MG TAB PO SCH (20:31)
[2021-01-11] MEDS: cloNIDine HCL 0.1 MG TAB PO SCH (20:31)
[2021-01-11] MEDS: traZODone HCL 100 MG TAB PO SCH (20:31)
[2021-01-12] MEDS: methylPREDNISolone SOD SUCCI 125 MG/2 ML VIAL IV SCH ×4 (00:14→17:06)
[2021-01-12] MEDS: ONDANSETRON 4 MG/2 ML VIAL IVP PRN ×3 (00:15→22:02)
[2021-01-12] MEDS: HEPARIN SODIUM,PORCINE/PF 5,000 UNIT/0.5 ML SYRINGE SQ SCH ×3 (00:17→15:26)
[2021-01-12] MEDS ORDERED: LORazepam 2 MG/ML INJ IV STA (02:36)
--- NOTE | 2021-01-12 07:21 | XR ---
EXAMINATION TYPE: XR chest 1V portable DATE OF EXAM: 01/12/2021 COMPARISON: Chest x-ray 06/17/2020 HISTORY: Congestive heart failure, recent history of Covid pneumonia TECHNIQUE: Single frontal view of the chest is obtained. FINDINGS: Cardiac mediastinal silhouette is enlarged, there is prominence of central vascularity and interstitium. No evident pneumothorax. No definite effusion. IMPRESSION: Correlate for congestive heart failure, there may be underlying pulmonary artery hyperte nsion there is marked cardiomegaly.
--- NOTE | 2021-01-12 08:15 | P.PN ---
Subjective Progress Note Date: 01/12/21 Principal diagnosis: dyspnea This is a 50-year-old white female patient with past medical history of COPD, recent diagnosis of COVID-19 pneumonia, 2 weeks ago, status post monoclonal antibody infusion, and patient has received outpatient course of Decadron. Her other medical history is positive for hypertension, GERD/reflux, patient is a chronic smoker, anxiety depression, panic disorder, IBS, migraine headaches, and previous history of cholecystectomy, patient came into the emergency department on the 01/10/2021 for evaluation of increasing shortness of breath, cough, some phlegm production. Patient was tested again for COVID-19 in the emergency department and was negative at this time. Her admission blood work showed white blood cell count 8.5, hemoglobin 13.4, her d-dimer was 1.6, sodium was 137, potassium is 2.5, chloride was 90, CO2 was 38, BUN is 4 and creatinine 0.32. Her LDH was 678, CRP was 1.3, proBNP was elevated at 3650, magnesium level was 1.8, total bilirubin was 1.8, LFTs were within normal limits. She was noted to be hypoxic with a pulse ox of 85% on room air, she's been afebrile since admission, she was placed on 98 L of supplemental oxygen, and subsequently FiO2 was increased to 9 L and her pulse ox is 95%, CT chest was completed showing no evidence of pulmonary embolism, interstitial infiltrates and atelectasis at the lung bases, and mild interstitial infiltrate in the upper lobes. There is cardiomegaly. Patient takes Lasix 40 mg daily at home on a regular basis. She had a echocardiogram back in 2017 showing normal EF of 55-60%, and no significant valvular abnormality. There is no recent echocardiogram. Patient does have lower extremity swelling. She states she is not normally oxygen dependent at baseline. She continues to smoke on a regular basis. She was started on IV steroids, nebulized bronchodilators, she is receiving 0.9 normal saline at a rate of 130 ML per hour. We were asked to see the patient in evaluation for shortness of breath, history of recent COVID-19 pneumonia, dyspnea and hypoxia On today's evaluation on 01/12/2021 patient seen in follow-up in the emergency department, she still awaiting a bed for 4 S. She states she is breathing much more comfortably today, she still on 10 L pulse ox is 96%, her FiO2 has been cut back to 8 L, and we will continue weaning to maintain O2 saturations of 80-90%. D-dimer is 1.28, venous Dopplers were negative for DVT, CT chest has been completed showing no evidence of pulmonary embolism, it did show interstitial infiltrates and atelectasis at the lung bases and mild interstitial infiltrate in the upper lobes. There was cardiomegaly, echocardiogram has been ordered and pending. Patient has been started on IV diuretics 40 mg twice daily, and she is in -1.5 L over the last 24 hours, lower extremity edema is improving. Patient has a congested cough, at times she is able to bring up some clear-colored sputum. No hemoptysis, no chest pain. She is in sinus mechanism with a controlled rate, she remains on IV Solu-Medrol and nebulized bronchodilators. Repeat COVID-19 PCR has been sent and pending at this time. Objective - Vital Signs Vital signs: Vital Signs Temp 98.4 F 01/12/21 06:13 Pulse 71 01/12/21 07:10 Resp 16 01/12/21 07:10 BP 146/75 01/12/21 06:13 Pulse Ox 92 L 01/12/21 06:13 Intake & Output 01/11/21 01/12/21 01/12/21 18:59 06:59 18:59 Output Total 850 700 Balance -850 -700 Output: Urine 850 700 - Exam GENERAL EXAM: Alert, morbidly obese, 50-year-old white female, resting on the gurney in the emergency department, currently on 10 L of supplemental oxygen comfortable in no apparent distress. HEAD: Normocephalic/atraumatic. EYES: Normal reaction of pupils, equal size. Conjunctiva pink, sclera white. NOSE: Clear with pink turbinates. THROAT: No erythema or exudates. NECK: No masses, no JVD, no thyroid enlargement, no adenopathy. CHEST: No chest wall deformity. Symmetrical expansion. LUNGS: Equal air entry with diffuse crackles CVS: Regular rate and rhythm, normal S1 and S2, no gallops, there is a systolic cardiac murmur, no rubs ABDOMEN: Soft, nontender. No hepatosplenomegaly, normal bowel sounds, no guarding or rigidity. EXTREMITIES: No clubbing, 1+ lower extremity edema with thickening of the skin, , no cyanosis, 2+ pulses and upper and lower extremities. MUSCULOSKELETAL: Muscle strength and tone normal. SPINE: No scoliosis or deformity SKIN: No rashes CENTRAL NERVOUS SYSTEM: Alert and oriented -3. No focal deficits, tone is normal in all 4 extremities. PSYCHIATRIC: Alert and oriented -3. Appropriate affect. Intact judgment and insight. - Labs CBC & Chem 7: 01/11/21 06:04 01/11/21 23:57 Labs: Abnormal Lab Results - Last 24 Hours (Table) 01/11/21 01/11/21 01/11/21 Range/Units 11:51 11:51 23:57 D-Dimer (<0.60) mg/L FEU Potassium 3.1 L 3.0 L (3.5-5.1) mmol/L Chloride 92 L (98-107) mmol/L Carbon Dioxide 39 H (22-30) mmol/L BUN 6 L (7-17) mg/dL Creatinine 0.36 L (0.52-1.04) mg/dL Glucose 185 H (74-99) mg/dL Creatine Kinase <20 L (30-135) U/L Procalcitonin 0.25 H (0.02-0.09) ng/mL 01/12/21 Range/Units 06:31 D-Dimer 1.28 H (<0.60) mg/L FEU Potassium (3.5-5.1) mmol/L Chloride (98-107) mmol/L Carbon Dioxide (22-30) mmol/L BUN (7-17) mg/dL Creatinine (0.52-1.04) mg/dL Glucose (74-99) mg/dL Creatine Kinase (30-135) U/L Procalcitonin (0.02-0.09) ng/mL Assessment and Plan Plan: assessment: #1. Acute hypoxic respiratory failure related to acute exacerbation of COPD, interstitial edema, and pulmonary infiltrates, with a recent history of COVID-19 pneumonia 2 weeks ago, with a component of fluid overload. #2. Acute exacerbation of CHf, with previously documented diastolic dysfunction from the echocardiogram in 2017, there has been no recent echocardiogram while in the hospital #3. Recent diagnosis of COVID-19 pneumonia, in the last 2 weeks, status post monoclonal antibody infusion , Decadron on an outpatient basis #4. Chronic and ongoing history of smoking #5. Mildly elevated d-dimer with no CTA evidence of pulmonary embolism #6. morbid obesity #7. GERD/reflux #8. Hypertension #9. Anxiety, depression, panic disorder #10. History of IBS #11. Migraine headaches Plan: Continue current medical treatment, continue IV steroids Continue Lasix 40 mg every 12 hours Weaning FiO2 to maintain O2 saturations between 88 and 90% Currently down to 8 L, we'll continue to wean Echocardiogram is pending Keep in isolation until repeat COVID-19 PCR is back We'll continue to follow I performed a history & physical examination of the patient and discussed their management with my nurse practitioner, Cindy Rivera. I reviewed the nurse practitioner's note and agree with the documented findings and plan of care. Lung sounds are positive for bilat crackles throughout the lung prather. The findings and the impression was discussed with the patient. I attest to the documentation by the nurse practitioner. Time with Patient: Less than 30
[2021-01-12] MEDS ORDERED: FUROSEMIDE 40 MG TAB PO SCH (09:00)
[2021-01-12] MEDS: ALBUTEROL HFA INHALER INHALATION SCH ×4 (09:01→19:13)
[2021-01-12] MEDS: NICOTINE 14MG/24HR PATCH TRANSDERM SCH (09:15)
[2021-01-12] MEDS: LORATADINE 10 MG TAB PO SCH (09:15)
[2021-01-12] MEDS: ALPRAZolam 0.5 MG TAB PO SCH ×2 (09:15→22:52)
[2021-01-12] MEDS: METOPROLOL TARTRATE 25 MG TAB PO SCH ×2 (09:15→22:53)
[2021-01-12] MEDS: POTASSIUM CHLORIDE ER 20 MEQ TAB.ER PO SCH ×2 (09:15→10:14)
[2021-01-12] MEDS: cloNIDine HCL 0.1 MG TAB PO SCH ×2 (09:15→22:52)
[2021-01-12] MEDS: LOSARTAN 25 MG TAB PO SCH (09:15)
[2021-01-12] MEDS: MAGNESIUM OXIDE 400 MG TAB PO SCH ×2 (09:15→22:52)
[2021-01-12] MEDS: PANTOPRAZOLE 40 MG/10 ML VIAL IVP SCH (09:16)
[2021-01-12] MEDS: FUROSEMIDE 10 MG/ML 4 ML VIAL IV SCH ×2 (09:16→22:53)
[2021-01-12 10:11] LABS: Basophils # (A) 0 X 10*3/uL (0.00-0.10); Basophils % (A) 0 %; Eosinophils # (A) 0 X 10*3/uL (0.04-0.35); Eosinophils % (A) 0 %; HCT 47.3 % (37.2-46.3); HGB 12.2 g/dL (12.0-15.0); Lymphocytes # (A) 0.38 X 10*3/uL (0.90-5.00); Lymphocytes % (A) 6.6 %; MCH 21.3 pg (27.0-32.0); MCHC 25.8 g/dL (32.0-37.0); MCV 82.4 fL (80.0-97.0); Monocytes # (A) 0.19 X 10*3/uL (0.20-1.00); Monocytes % (A) 3.3 %; Neutrophils # (A) 5.17 X 10*3/uL (1.80-7.70); Neutrophils % (A) 89.8 %; Platelet Count 212 X 10*3/uL (140-440); RBC 5.74 X 10*6/uL (4.10-5.20); RDW 24.2 % (11.5-14.5); WBC 5.76 X 10*3/uL (4.50-10.00)
[2021-01-12 10:13] LABS: Anisocytosis (M) 2+; Polychromasia 2+
[2021-01-12 10:15] LABS: African American GFR (CKD) 135.1 (60.0-200.0); Anion Gap 13.6 mmol/L (4.00-12.00); BUN/Creat Ratio 16.36 Ratio (12.00-20.00); Blood Urea Nitrogen 7.7 mg/dL (9.0-27.0); Calcium 8.6 mg/dL (8.7-10.3); Carbon Dioxide 36.7 mmol/L (21.6-31.8); Non-African American GFR(CKD) 116.6 (60.0-200.0); Potassium 3.2 mmol/L (3.5-5.5)
--- NOTE | 2021-01-12 10:30 | P.CRDCN ---
History of Present Illness History of present illness: HISTORY OF PRESENTING ILLNESS This is a pleasant 50-year-old female past medical history significant for COPD, hypertension, chronic nicotine dependence, recent diagnosis of COVID-19 pneumoni a 2 weeks ago, GERD/reflux, anxiety, depression, IBS, panic disorder. 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 We have been asked to see in consultation for congestive heart failure. Patient is seen and examined in the emergency department. Patient presents to the emergency department with complaints of shortness of breath, productive cough. She denies any chest pain, lightheadedness, dizziness, orthopnea, PND, palpitations. She denies history of MD, stroke, diabetes. On admission patient noted to be hypoxic with pulse ox of 85% on room air, she was placed on supplemental oxygenation and her oxygen had to be increased to 9 L high flow nasal cannula to maintain oxygen saturations. On admission patient's labs revealed potassium 2.5, magnesium 1.4, elevated d- dimer 1.26, pro-calcitonin 0.25 DIAGNOSTICS EKG reveals sinus rhythm, heart rate 83, mild ST depression in the inferior leads. Chest CT revealed no evidence of pulmonary embolism. Interstitial infiltrates and atelectasis at the lung bases. Mild interstitial infiltrate in the upper lobes. Cardiomegaly. Venous Dopplers were negative for acute DVT. Possible mild chronic deep vein thrombosis in the right leg. Chest x-ray revealed cardiac silhouette is enlarged, prominence of central vasculature. Most recent echocardiogram 2017 revealed an EF of 5560 percent, moderate concentric left ventricular hypertrophy Laboratory reviewed, troponin negative 1, proBNP 3320, positive for calcitonin at 0.25, sodium 143, potassium 3.2, BUN 7.7, creatinine 0.5, lactate dehydrogenase 222, WBC 5.7, hemoglobin 12.2, platelets 212, COVID-19 PCI was negative Current home cardiac medications include when necessary Reglan, trazodone n ightly, Compazine when necessary, Xanax, Zofran, losartan 25 mg daily, Lasix 40 mg daily, clonidine 0.1 mg twice a day, Xanax, albuterol when necessary. REVIEW OF SYSTEMS At the time of my exam: CONSTITUTIONAL: Denies fever or chills. CARDIOVASCULAR: Positive shortness of breath Denies chest pain, orthopnea, PND or palpitations. RESPIRATORY: Denies cough. GASTROINTESTINAL: Denies abdominal pain, diarrhea, constipation, nausea or vomiting. MUSCULOSKELETAL: Denies myalgias. NEUROLOGIC: Denies numbness, tingling, headacbe or weakness. ENDOCRINE: Denies fatigue, weight change, polydipsia or polyurina. GENITOURINARY: Denies burning, hematuria or urgency with micturation. HEMATOLOGIC: Denies history of anemia or bleeding. PHYSICAL EXAMINATION Blood pressure 136/89, heart rate 80, afebrile, maintaining oxygen saturations on 8 L high flow nasal cannula CONSTITUTIONAL: No apparent distress. HEENT: Head is normocephalic. Pupils are equal, round. Sclerae anicteric. Mucous membranes of the mouth are moist. No JVD. No carotid bruit. CHEST EXAMINATION: Lungs are clear to auscultation. No chest wall tenderness is noted on palpation or with deep breathing. HEART EXAMINATION: Regular rate and rhythm. S1, S2 heard. No murmurs, gallops or rub. ABDOMEN: Soft, nontender. Positive bowel sounds. EXTREMITIES: 2+ peripheral pulses, no lower extremity edema and no calf tenderness. NEUROLOGIC EXAMINATION: Patient is awake, alert and oriented x3. ASSESSMENT Shortness of breath, patient appears dry on exam, clinically does not appear to be in acute congestive heart failure Acute hypoxic respiratory failure - appears to be more pulmonary than CHG Recent Covid-19 pneumonia COPD chronic nicotine dependence History of hypertension Hypokalemia Hypomagnesemia PLAN -2D echocardiogram ordered, will follow up on results -Replace potassium and magnesium per protocol -Start metoprolol tartrate 25mg BID -Increase IV fluids to 75ml/hr -Continue home cardiac medications -Further recommendations based on clinical course Nurse Practitioner note has been reviewed, I agree with a documented findings and plan of care. Patient was seen and examined. Past Medical History Past Medical History: COPD, GERD/Reflux, Hypertension Additional Past Medical History / Comment(s): hemmorrhoids, IBS, migraines, heart murmer, History of Any Multi-Drug Resistant Organisms: None Reported Past Surgical History: Cholecystectomy Additional Past Surgical History / Comment(s): D&C, cyst removed from rt ovary, Past Anesthesia/Blood Transfusion Reactions: Motion Sickness, Postoperative Nausea & Vomiting (PONV) Past Psychological History: Anxiety, Depression, Panic Disorder Smoking Status: Current every day smoker Past Alcohol Use History: None Reported Past Drug Use History: None Reported - Past Family History Mother Family Medical History: No Reported History Medications and Allergies Home Medications Medication Instructions Recorded Confirmed Type cloNIDine HCL [Catapres] 0.1 mg PO BID 10/26/15 01/11/21 History Albuterol Sulfate [Proair Hfa] 2 puff INHALATION RT-Q6H PRN 08/10/16 01/11/21 History Ondansetron HCl [Zofran] 4 mg PO Q6HR PRN 05/10/17 01/11/21 History ALPRAZolam [Xanax] 0.5 mg PO DAILY@1200 05/30/17 01/11/21 History Losartan [Cozaar] 25 tab PO DAILY 12/30/20 01/11/21 History Pantoprazole [Protonix] 40 tab PO DAILY 12/30/20 01/11/21 History Prochlorperazine [Compazine] 10 mg PO Q8H PRN #30 tab 01/02/21 01/11/21 Rx ALPRAZolam [Xanax] 0.5 mg PO BID 01/11/21 01/11/21 History Cetirizine HCl 10 mg PO DAILY 01/11/21 01/11/21 History Furosemide [Lasix] 40 mg PO DAILY 01/11/21 01/11/21 History Metoclopramide HCl [Reglan] 10 mg PO TID PRN 01/11/21 01/11/21 History traZODone HCL [Desyrel] 100 mg PO HS 01/11/21 01/11/21 History Allergies Allergy/AdvReac Type Severity Reaction Status Date / Time aspirin Allergy Abdominal Verified 01/11/21 08:28 Pain,vomiting codeine Allergy Rash/Hives,abdominal Verified 01/11/21 08:28 pain,vomiting hydrocodone bitartrate Allergy Rash/Hives,abdominal Verified 01/11/21 08:28 [From Vicodin] pain,vomiting Iodinated Contrast Media Allergy Rash/Hives Verified 01/11/21 08:28 [Iodinated Contrast- Oral and IV Dye] metoclopramide [From Reglan] Allergy Anaphylaxis Verified 01/11/21 08:28 nitrofurantoin Allergy vertigo Verified 01/11/21 08:28 [From Macrobid] nitrofurantoin Allergy vertigo Verified 01/11/21 08:28 macrocrystalline [From Macrobid] ofloxacin [From Floxin] Allergy Rash/Hives,abdominal Verified 01/11/21 08:28 pain lactose AdvReac Nausea & Verified 01/11/21 08:28 Vomiting pseudoephedrine AdvReac Anaphylaxis Verified 01/11/21 08:28 TAPE AdvReac Itching,hives Uncoded 06/05/17 14:33 "paper tape ok" Physical Exam Vitals: Vital Signs Temp Pulse Resp BP Pulse Ox 01/12/21 09:05 98.5 F 80 20 136/89 89 L 01/12/21 07:10 71 16 01/12/21 06:13 98.4 F 84 20 146/75 92 L 01/12/21 04:25 63 18 151/90 96 01/12/21 02:32 96 18 139/80 96 01/12/21 00:19 77 18 148/73 95 01/11/21 23:24 77 18 148/73 94 L 01/11/21 20:31 86 18 171/90 98 01/11/21 16:51 95 18 167/100 94 L 01/11/21 13:11 98.2 F 164/96 01/11/21 13:01 93 18 155/92 93 L Intake and Output 01/11/21 01/12/21 01/12/21 22:59 06:59 14:59 Output Total 700 10 Balance -700 -10 Output: Urine 700 10 Other: # Voids 1 Results 01/12/21 06:31 01/12/21 06:31 Cardiac Enzymes 01/11/21 01/12/21 Range/Units 11:51 06:31 Lactate Dehydrogenase 222 (120-246) U/L CK-MB (CK-2) 0.4 (0.0-2.4) ng/mL Troponin I 0.018 (0.000-0.034) ng/mL CBC 01/12/21 Range/Units 06:31 WBC 5.76 (4.50-10.00) X 10*3/uL RBC 5.74 H (4.10-5.20) X 10*6/uL Hgb 12.2 (12.0-15.0) g/dL Hct 47.3 H (37.2-46.3) % Plt Count 212 (140-440) X 10*3/uL Comprehensive Metabolic Panel 01/11/21 01/11/21 01/12/21 Range/Units 11:51 23:57 06:31 Sodium 138 143 (137-145) mmol/L Potassium 3.1 L 3.0 L 3.2 L (3.5-5.1) mmol/L Chloride 92 L 93 L (98-107) mmol/L Carbon Dioxide 39 H 36.7 H (22-30) mmol/L BUN 6 L 7.7 L (7-17) mg/dL Creatinine 0.36 L 0.5 L (0.52-1.04) mg/dL Glucose 185 H 168 H (74-99) mg/dL Calcium 8.6 8.6 L (8.4-10.2) mg/dL Current Medications Generic Name Dose Route Start Last Admin Trade Name Freq PRN Reason Stop Dose Admin Albuterol Sulfate 2 puff 01/10/21 23:24 Albuterol Hfa Inhaler INHALATION RT-QID PRN Shortness Of Breath Or Wheezing Albuterol Sulfate 2 puff 01/12/21 08:00 01/12/21 09:01 Albuterol Hfa Inhaler INHALATION 2 puff RT-QID JOSE Administration Alprazolam 0.5 mg 01/11/21 21:00 01/12/21 09:15 Alprazolam 0.5 Mg Tab PO 0.5 mg BID JOSE Administration Clonidine 0.1 mg 01/11/21 21:00 01/12/21 09:15 Clonidine Hcl 0.1 Mg Tab PO 0.1 mg BID JOSE Administration Furosemide 40 mg 01/11/21 12:15 01/12/21 09:16 Furosemide 10 Mg/Ml 4 Ml Vial IV 40 mg Q12HR JOSE Administration Heparin Sodium (Porcine) 5,000 unit 01/11/21 16:00 01/12/21 09:16 Heparin Sodium,Porcine/Pf 5,000 Unit/0.5 Ml Syringe SQ 5,000 unit Q8HR JOSE Administration Sodium Chloride 1,000 mls @ 75 mls/hr 01/10/21 23:30 01/11/21 12:54 Saline 0.9% IV 20 mls/hr .[id number] JOSE Administration Loratadine 10 mg 01/12/21 09:00 01/12/21 09:15 Loratadine 10 Mg Tab PO 10 mg DAILY JOSE Administration Losartan Potassium 25 mg 01/12/21 09:00 01/12/21 09:15 Losartan 25 Mg Tab PO 25 mg DAILY JOSE Administration Magnesium Oxide 400 mg 01/11/21 09:00 01/12/21 09:15 Magnesium Oxide 400 Mg Tab PO 400 mg BID JOSE Administration Methylprednisolone Sodium Succinate 60 mg 01/11/21 00:00 01/12/21 06:11 Methylprednisolone Sod Succi 125 Mg/2 Ml Vial IV 60 mg Q6HR JOSE Administration Metoprolol Tartrate 25 mg 01/12/21 09:00 01/12/21 09:15 Metoprolol Tartrate 25 Mg Tab PO 25 mg BID JOSE Administration Miscellaneous Information 1 each 01/11/21 14:25 Magnesium Replacement Protocol 1 Each Misc MISCELLANE DAILY PRN Per Protocol Protocol Miscellaneous Information 1 each 01/11/21 14:25 Potassium Replacement Protocol 1 Each Misc MISCELLANE DAILY PRN Per Protocol Protocol Morphine Sulfate 4 mg 01/10/21 23:26 Morphine Sulfate 4 Mg/Ml Syringe IV Q4HR PRN Severe Pain Naloxone HCl 0.2 mg 01/10/21 23:26 Naloxone 0.4 Mg/Ml 1 Ml Vial IV Q2M PRN Opioid Reversal Nicotine 1 patch 01/11/21 01:52 01/12/21 09:15 Nicotine 14mg/24hr Patch TRANSDERM 1 patch DAILY JOSE Administration Ondansetron HCl 4 mg 01/10/21 22:30 01/12/21 00:15 Ondansetron 4 Mg/2 Ml Vial IVP 4 mg Q6HR PRN Administration Nausea And Vomiting Ondansetron HCl 4 mg 01/11/21 12:14 Ondansetron 4 Mg Tab PO Q6HR PRN Nausea Pantoprazole Sodium 40 mg 01/11/21 13:00 01/12/21 09:16 Pantoprazole 40 Mg/10 Ml Vial IVP 40 mg DAILY JOSE Administration Trazodone HCl 100 mg 01/11/21 21:00 01/11/21 20:31 Trazodone Hcl 100 Mg Tab PO 100 mg HS JOSE Administration Intake and Output 01/11/21 01/12/21 01/12/21 22:59 06:59 14:59 Output Total 700 10 Balance -700 -10 Output: Urine 700 10 Other: # Voids 1 01/12/21 06:31 01/12/21 06:31
[2021-01-12] MEDS ORDERED: ALPRAZolam 0.5 MG TAB PO SCH (12:00)
[2021-01-12] MEDS: SODIUM CHLORIDE 0.9% 1,000 ML IV SCH (15:18)
[2021-01-12] MEDS: LORazepam 2 MG/ML INJ IV PRN (17:04)
--- NOTE | 2021-01-12 22:34 | PN ---
PROGRESS NOTE DATE OF SERVICE: 01/12/2021 This patient is seen [id number] today and examined. Her main complaint was that her anxiety level is increased in spite of receiving Xanax; it is not helping. The patient was also seen by Cardiology on admission was was found to have congestive heart failure, mainly diastolic in nature, with shortness of breath and edema all over, including the lower extremities. The patient has been seen by Dr. Shyam Perez with his assessment shortness of breath. However, the patient appeared dry and we started her IV and subsequently we cut down the IV due to the congestive heart failure and she had also acute hypoxic respiratory failure by Dr. Acuna on admission, followed by Dr. Ash, and she had recent COVID-19 pneumonia which was treated with monoclonal antibodies. She had chronic nicotine dependence and was a chronic smoker with COPD and hypertension. She was admitted with hypokalemia and hypomagnesemia. Dr. Shyam Perez, the typing pool supervisor, ordered a 2D echocardiogram and potassium replacement with the magnesium replacement per protocol. That was already ordered on admission. She was started on metoprolol tartrate 25 mg twice a day and the IV fluids were reordered to 75 mL/hour, and she continues to be on the cardiac medication. Patient was seen today. The main concern was her anxiety disorder with panic attacks. She has been and is still seen as an outpatient by Dr. Olsen, who sees her virtually and follows her. However, he has an office now on the [facility]. For that purpose, with the recurrent panic attacks and uncontrolled illness with psychiatry and depression and anxiety, we consulting Psychiatry in the hospital to help us in controlling her anxiety disorder. But meanwhile we started her on Ativan 0.5 mg p.o. or IV or IM every 4-6 hours p.r.n. for the panic attacks and anxiety. On examination, patient is conscious, alert and panicking with her anxiety. She is still on oxygen with shortness of breath. The patient had also CT angiogram, with no evidence of pulmonary embolism, but mild interstitial infiltrate in the upper lobe. She was seen by Pulmonary, Dr. Ash, today. She had high proBNP. On the examination, HEENT: The head was normocephalic, atraumatic. The pupils were equal, reactive. Conjunctivae were pink. No infection. Ears were negative. Oropharynx: Natural teeth. The neck was supple and improved JVD. The chest had bilateral rales and rhonchi. At admission she had severe hypoxemia and hypokalemia and hypomagnesemia. She had a complaint of diarrhea and we ordered C difficile. We do not have the result yet. Lasix IV was ordered as well for diuresis. With the DVT consideration, a venous duplex study was ordered; however, its results are not conclusive. The abdomen is morbidly obese and she is obese in general. The extremities showed pitting and non-pitting edema, with positive pulses. However, the ultrasound or venous duplex study of the lower extremities was nonconclusive. Still the patient is on heparin subcutaneously as well. IMPRESSION: 1. Mild improvement; still in the ER module until bed is available, and she will be on [facility] to be monitored as well. She will be followed by Pulmonary with the exacerbation of COPD as well and Pulmonary and Cardiology have been following the patient. 2. Impression from Pulmonary is acute hypoxic respiratory failure with acute exacerbation of COPD, acute exacerbation of congestive heart failure with the diastolic dysfunction. She has a history of COVID-19 pneumonia, status post monoclonal antibody infusion as outpatient. 3. Chronic smoker. She is still smoking. 4. Mildly elevated D-dimer with no CTA evidence of pulmonary embolism. 5. Morbid obesity. 6. Gastroesophageal reflux disease. 7. Hypertension. 8. Anxiety, depression, panic disorder. 9. Irritable bowel syndrome. 10.Migraine. Will continue the current plan per the typing pool supervisor as well. Further treatment will depend on the patient's clinical improvement. This was an extended time of evaluation of the patient; more than 35 minutes. MMODL / IJN: [id number] /
[2021-01-12] MEDS: traZODone HCL 100 MG TAB PO SCH (22:52)
[2021-01-13] MEDS: methylPREDNISolone SOD SUCCI 125 MG/2 ML VIAL IV SCH ×5 (02:53→23:55)
[2021-01-13] MEDS: HEPARIN SODIUM,PORCINE/PF 5,000 UNIT/0.5 ML SYRINGE SQ SCH ×5 (02:53→23:55)
[2021-01-13] MEDS: LORazepam 2 MG/ML INJ IV PRN (02:53)
[2021-01-13] MEDS: ONDANSETRON 4 MG/2 ML VIAL IVP PRN ×3 (05:50→21:41)
[2021-01-13] MEDS: SODIUM CHLORIDE 0.9% 1,000 ML IV SCH (05:52)
[2021-01-13] MEDS: ALBUTEROL HFA INHALER INHALATION SCH ×2 (07:27→12:37)
[2021-01-13] MEDS ORDERED: IPRATROPIUM-ALBUTEROL 3 ML NEB INHALATION PRN (07:48)
--- NOTE | 2021-01-13 07:57 | P.PN ---
Subjective Progress Note Date: 01/13/21 Principal diagnosis: dyspnea This is a 50-year-old white female patient with past medical history of COPD, recent diagnosis of COVID-19 pneumonia, 2 weeks ago, status post monoclonal antibody infusion, and patient has received outpatient course of Decadron. Her other medical history is positive for hypertension, GERD/reflux, patient is a chronic smoker, anxiety depression, panic disorder, IBS, migraine headaches, and previous history of cholecystectomy, patient came into the emergency department on the 01/10/2021 for evaluation of increasing shortness of breath, cough, some phlegm production. Patient was tested again for COVID-19 in the emergency department and was negative at this time. Her admission blood work showed white blood cell count 8.5, hemoglobin 13.4, her d-dimer was 1.6, sodium was 137, potassium is 2.5, chloride was 90, CO2 was 38, BUN is 4 and creatinine 0.32. Her LDH was 678, CRP was 1.3, proBNP was elevated at 3650, magnesium level was 1.8, total bilirubin was 1.8, LFTs were within normal limits. She was noted to be hypoxic with a pulse ox of 85% on room air, she's been afebrile since admission, she was placed on 98 L of supplemental oxygen, and subsequently FiO2 was increased to 9 L and her pulse ox is 95%, CT chest was completed showing no evidence of pulmonary embolism, interstitial infiltrates and atelectasis at the lung bases, and mild interstitial infiltrate in the upper lobes. There is cardiomegaly. Patient takes Lasix 40 mg daily at home on a regular basis. She had a echocardiogram back in 2017 showing normal EF of 55-60%, and no significant valvular abnormality. There is no recent echocardiogram. Patient does have lower extremity swelling. She states she is not normally oxygen dependent at baseline. She continues to smoke on a regular basis. She was started on IV steroids, nebulized bronchodilators, she is receiving 0.9 normal saline at a rate of 130 ML per hour. We were asked to see the patient in evaluation for shortness of breath, history of recent COVID-19 pneumonia, dyspnea and hypoxia On today's evaluation on 01/12/2021 patient seen in follow-up in the emergency department, she still awaiting a bed for 4 S. She states she is breathing much more comfortably today, she still on 10 L pulse ox is 96%, her FiO2 has been cut back to 8 L, and we will continue weaning to maintain O2 saturations of 80-90%. D-dimer is 1.28, venous Dopplers were negative for DVT, CT chest has been completed showing no evidence of pulmonary embolism, it did show interstitial infiltrates and atelectasis at the lung bases and mild interstitial infiltrate in the upper lobes. There was cardiomegaly, echocardiogram has been ordered and pending. Patient has been started on IV diuretics 40 mg twice daily, and she is in -1.5 L over the last 24 hours, lower extremity edema is improving. Patient has a congested cough, at times she is able to bring up some clear-colored sputum. No hemoptysis, no chest pain. She is in sinus mechanism with a controlled rate, she remains on IV Solu-Medrol and nebulized bronchodilators. Repeat COVID-19 PCR has been sent and pending at this time. On today's evaluation 01/13/2021 patient is seen in follow-up in the emergency department, she has been awaiting a bed on medical surgical floor for the last 3 days now. She is currently down to 5 L of oxygen, her pulse ox is 93%, today's chest x-ray is pending, patient remains on combination of IV Solu-Medrol, IV Lasix 40 mg every 12 hours, she is in negative fluid balance, lower extremity edema is improving. Oxygenation has improved, patient is awake and alert, oriented 3, she states her breathing has improved, still has a bit of a congested cough, not bringing up much sputum, no complaints of chest pain. She tested negative for COVID 19, she had a recent history of COVID-19 infection status post monoclonal antibody infusion, she remains on nebulized bronchodilators, IV steroids as mentioned above, IV diuretics, echocardiogram has been taken and results are not available to us yet. No fever or chills. Today's labs have been reviewed, platelet cell count is 5.7, hemoglobin is 12.2, d-dimer is 1.28, sodium is 143, potassium 3.2, this will be replaced per protocol, BUN is 7.7, creatinine 0.5, her inflammatory markers are being followed, her LDH is 222, within normal limits, today's CRP level is still pending, pro-calcitonin level was not significantly elevated to 0.25, repeat proBNP came back slightly improved and is down to 3320. Looks fairly comfortable, resting on the gurney in the emergency department. She wants to know when she will be going home. Patient currently remains on heparin subcu 5000 units every 8 hours. Objective - Vital Signs Vital signs: Vital Signs Temp 98.6 F 01/12/21 17:06 Pulse 64 01/13/21 06:00 Resp 22 01/13/21 06:00 BP 159/89 01/13/21 06:00 Pulse Ox 93 L 01/13/21 06:00 Intake & Output 01/12/21 01/13/21 01/13/21 18:59 06:59 18:59 Output Total 510 Balance -510 Output: Urine 510 Other: # Voids 1 - Exam GENERAL EXAM: Alert, morbidly obese, 50-year-old white female, resting on the gurney in the emergency department, currently on 5 L of supplemental oxygen comfortable in no apparent distress. HEAD: Normocephalic/atraumatic. EYES: Normal reaction of pupils, equal size. Conjunctiva pink, sclera white. NOSE: Clear with pink turbinates. THROAT: No erythema or exudates. NECK: No masses, no JVD, no thyroid enlargement, no adenopathy. CHEST: No chest wall deformity. Symmetrical expansion. LUNGS: Equal air entry with diffuse crackles CVS: Regular rate and rhythm, normal S1 and S2, no gallops, there is a systolic cardiac murmur, no rubs ABDOMEN: Soft, nontender. No hepatosplenomegaly, normal bowel sounds, no guarding or rigidity. EXTREMITIES: No clubbing, 1+ lower extremity edema with thickening of the skin, , no cyanosis, 2+ pulses and upper and lower extremities. MUSCULOSKELETAL: Muscle strength and tone normal. SPINE: No scoliosis or deformity SKIN: No rashes CENTRAL NERVOUS SYSTEM: Alert and oriented -3. No focal deficits, tone is normal in all 4 extremities. PSYCHIATRIC: Alert and oriented -3. Appropriate affect. Intact judgment and insight. - Labs CBC & Chem 7: 01/12/21 06:31 01/12/21 06:31 Labs: Abnormal Lab Results - Last 24 Hours (Table) 01/12/21 01/12/21 Range/Units 06:31 06:31 RBC 5.74 H (4.10-5.20) X 10*6/uL Hct 47.3 H (37.2-46.3) % MCH 21.3 L (27.0-32.0) pg MCHC 25.8 L (32.0-37.0) g/dL RDW 24.2 H (11.5-14.5) % Lymphocytes # 0.38 L (0.90-5.00) X 10*3/uL Monocytes # 0.19 L (0.20-1.00) X 10*3/uL Eosinophils # 0 L (0.04-0.35) X 10*3/uL Potassium 3.2 L (3.5-5.5) mmol/L Chloride 93 L (96-109) mmol/L Carbon Dioxide 36.7 H (21.6-31.8) mmol/L Anion Gap 13.60 H (4.00-12.00) mmol/L BUN 7.7 L (9.0-27.0) mg/dL Creatinine 0.5 L (0.6-1.5) mg/dL Glucose 168 H (70-110) mg/dL Calcium 8.6 L (8.7-10.3) mg/dL Assessment and Plan Plan: assessment: #1. Acute hypoxic respiratory failure related to acute exacerbation of COPD, interstitial edema, and pulmonary infiltrates, with a recent history of COVID-19 pneumonia 2 weeks ago, with a component of fluid overload. #2. Acute exacerbation of CHf, with previously documented diastolic dysfunction from the echocardiogram in 2017, there has been no recent echocardiogram while in the hospital #3. Recent diagnosis of COVID-19 pneumonia, in the last 2 weeks, status post monoclonal antibody infusion , Decadron on an outpatient basis #4. Chronic and ongoing history of smoking #5. Mildly elevated d-dimer with no CTA evidence of pulmonary embolism #6. morbid obesity #7. GERD/reflux #8. Hypertension #9. Anxiety, depression, panic disorder #10. History of IBS #11. Migraine headaches Plan: Continue current medical treatment, continue IV steroids Continue Lasix 40 mg every 12 hours Weaning FiO2 to maintain O2 saturations between 88 and 90% Currently down to 5 L, we'll continue to wean Echocardiogram results are pending This activity as tolerated Continue following d-dimer on a daily basis We'll continue to follow I performed a history & physical examination of the patient and discussed their management with my nurse practitioner, Cindy Rivera. I reviewed the nurse practitioner's note and agree with the documented findings and plan of care. Lung sounds are positive for bilat crackles throughout the lung prather. The findings and the impression was discussed with the patient. I attest to the documentation by the nurse practitioner. Time with Patient: Less than 30
[2021-01-13] MEDS: IPRATROPIUM-ALBUTEROL 3 ML NEB INHALATION SCH ×4 (08:50→20:38)
[2021-01-13] MEDS: SYMBICORT 160-4.5 MCG INHALER INHALATION SCH ×2 (08:51→20:38)
[2021-01-13] MEDS: NICOTINE 14MG/24HR PATCH TRANSDERM SCH (08:52)
--- NOTE | 2021-01-13 09:07 | XR ---
EXAMINATION TYPE: XR chest 1V portable DATE OF EXAM: 01/13/2021 CLINICAL HISTORY: Difficulty breathing progress study. COVID. TECHNIQUE: Single AP portable frontal view of the chest is obtained. COMPARISON: Chest x-ray from one day earlier and older studies. CTA chest 3 days ago. FINDINGS: Exam remain suboptimal due to large body habitus. Persisting cardiomegaly and chronic pare nchymal changes without new focal airspace opacity, pleural effusion, or pneumothorax seen bilaterall y. Enlarged bilateral pulmonary arteries corresponding to bilateral hilar fullness is noted. Osseous structures are intact. IMPRESSION: Chronic changes and cardiomegaly without new acute pulmonary process
[2021-01-13] MEDS: MAGNESIUM OXIDE 400 MG TAB PO SCH ×3 (11:11→20:22)
[2021-01-13] MEDS: FUROSEMIDE 10 MG/ML 4 ML VIAL IV SCH (11:12)
[2021-01-13] MEDS: POTASSIUM CHLORIDE ER 20 MEQ TAB.ER PO SCH ×3 (11:47→20:22)
[2021-01-13] MEDS: ALPRAZolam 0.5 MG TAB PO SCH ×2 (11:48→20:21)
[2021-01-13] MEDS: METOPROLOL TARTRATE 25 MG TAB PO SCH ×2 (11:48→20:26)
[2021-01-13] MEDS: LORATADINE 10 MG TAB PO SCH (11:48)
[2021-01-13] MEDS: LOSARTAN 25 MG TAB PO SCH (11:48)
[2021-01-13] MEDS: cloNIDine HCL 0.1 MG TAB PO SCH ×2 (11:48→20:21)
[2021-01-13] MEDS: PANTOPRAZOLE 40 MG/10 ML VIAL IVP SCH (11:49)
--- NOTE | 2021-01-13 12:29 | P.PN ---
Subjective This is a pleasant 50-year-old female past medical history significant for COPD, hypertension, chronic nicotine dependence, recent diagnosis of COVID-19 pneumonia 2 weeks ago, GERD/reflux, anxiety, depression, IBS, panic disorder. 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 We have been asked to see in consultation for congestive heart failure. Patient is seen and examined in the emergency department. Patient presents to the emergency department with complaints of shortness of breath, productive cough. She denies any chest pain, lightheadedness, dizziness, orthopnea, PND, palpitations. She denies history of CA, stroke, diabetes. On admission patient noted to be hypoxic with pulse ox of 85% on room air, she was placed on supplemental oxygenation and her oxygen had to be increased to 9 L high flow nasal cannula to maintain oxygen saturations. On admission patient's labs revealed potassium 2.5, magnesium 1.4, elevated d- dimer 1.26, pro-calcitonin 0.25. Echocardiogram revealed EF 5055 percent, mild concentric left ventricular hypertrophy, mild mitral regurgitation 01/13/2021: Patient seen in the emergency department, no acute distress. Her breathing has slightly improved. Chest x-ray reveals chronic changes and cardiomegaly without any nuchal acute pulmonary process. Blood pressure 154/70, heart rate 73, afebrile, maintaining oxygen saturations >92%, requiring 5L high flow nasal cannula, was previously on 8L yesterday. She's currently maintained on IV steroids, clonidine 0.1 mg twice a day, IV Lasix 40 mg twice a day, losartan 25 mg daily, Lopressor 25 mg twice a day. Laboratory data reviewed, WBC 5.7, hemoglobin 12, platelets 212, d-dimer 1.2, sodium 143, potassium 3.2, magnesium 2.0, proBNP 3320, BUN 7.7, serum creatinine 0.5 PHYSICAL EXAMINATION CONSTITUTIONAL: No apparent distress. HEENT: Neck Supple No JVD. CHEST EXAMINATION: Lungs are diminished bilaterally to auscultation. No chest wall tenderness is noted on palpation or with deep breathing. HEART EXAMINATION: Regular rate and rhythm. S1, S2 heard. No murmurs, gallops or rub. ABDOMEN: Soft, nontender. Positive bowel sounds. EXTREMITIES: 2+ peripheral pulses, no lower extremity edema and no calf tenderness. NEUROLOGIC EXAMINATION: Patient is awake, alert and oriented x3. ASSESSMENT Shortness of breath, clinically does not appear to be in acute congestive heart failure Acute hypoxic respiratory failure could be multifactorial acute on chronic diastolic heart failure, COPD exacerbation and reent COVID-19 pneumonia Recent Covid-19 pneumonia COPD exacerbation Chronic nicotine dependence History of hypertension Hypokalemia Hypomagnesemia PLAN -Replace potassium per protocol -Switch to PO Lasix 40mg BID -Continue metoprolol tartrate 25mg BID -Continue home cardiac medications -No further changes from cardiology perspective -Pulmonary following -Further recommendations based on clinical course Nurse Practitioner note has been reviewed, I agree with a documented findings and plan of care. Patient was seen and examined. Objective - Vital Signs Vital signs: Vital Signs Temp 98.6 F 01/12/21 17:06 Pulse 73 01/13/21 11:45 Resp 20 01/13/21 11:45 BP 154/78 01/13/21 11:45 Pulse Ox 91 L 01/13/21 11:45 Intake & Output 01/12/21 01/13/21 01/13/21 18:59 06:59 18:59 Output Total 510 Balance -510 Output: Urine 510 Other: # Voids 1 - Labs CBC & Chem 7: 01/12/21 06:31 01/12/21 06:31
--- NOTE | 2021-01-13 12:45 | P.CN ---
Psychiatric Consult - . Consult date: 01/13/21 Consult:: 01/13/21 12:36 IDENTIFYING DATA: This patient is a 50-year-old female, currently lives with her fianc and daughter in her house and collects Social Security disability. REASON FOR REFERRAL: Psychiatry was consulted for "recurrent panic attacks" HISTORY OF PRESENT ILLNESS: The patient presented to the hospital on 01/10 with a history of COPD and other significant medical comorbidities. Patient is morbidly obese. She was presenting initially with shortness of breath which had been increasing and also had been diagnosed with covid-19 infection 2 weeks ago. Patient had a potassium at 2.5 on admission. Patient had gradually improved with treatment including Solu-Medrol and Lasix. Patient is now on 5 L of oxygen nasal cannula. Nursing. Patient states that she has been mildly depressed not endorsing any suicidal thoughts at this time to her and has been fairly future oriented talking about her daughter and other plans. Patient was seen today by specifications writer at the bedside and she was agreeable to speak. She had a soft tone of voice. She appeared to be medically unwell. She spoke about being on Xanax and clonidine in the past which are prescribed by her PCP and her psychiatrist Dr. Olsen who she is following up with the telehealth regularly. She claims that she has a long history of depression since the age of 19 and also anxiety. She states that she feels mildly depressed at this time however mainly related to her medical condition. She also claims that she does deal with anxiety throughout the day for several years now. She states that she was feeling fairly sick 2 weeks ago due to the covid infection which is now resolving. She states that she also had CHF and COPD however that has been improving. She claims that she was feeling very weak and not able to drink or eat. She states that she is dealing with her daughter who has autism at home which is of stress to her and also with being sick. She claims that her sleep is about 2-1/2-3 hours every night. She states that her appetite is poor. At this time patient denies any suicidal or homical ideations, intent or plan. Patient denies any auditory, visual hallucinations and denies any paranoia or delusions. Patients admits to using cigarettes daily and denies any other recreational drug use. She denies any access to guns or weapons in the hospital. PAST PSYCHIATRIC HISTORY: Patient has a a history of anxiety and depression. Patient claims that she has been on several different antidepressants anxiolytics and other psychiatric medications however is now on trazodone and Xanax which is prescribed by her outpatient psychiatrist via telehealth Dr. Olsen. Patient denies any previous psychiatric hospitalizations. Patient denies any history of suicide attempts in the past. Past Medical History: COPD, GERD/Reflux, Hypertension Additional Past Medical History / Comment(s): hemmorrhoids, IBS, migraines, heart murmer, ALLERGIES: as per EMR. CHEMICAL DEPENDENCY HISTORY: as per HPI. FAMILY PSYCHIATRIC/SUBSTANCE USE HISTORY: She states that her mother had depression. Claims that her grandmother and aunt and cousins have committed suicide. She states that there is significant history of depression that runs in her family. SOCIAL HISTORY: Patient was born and raised in [place]. She states that she completed college and high school. She denies being in retirement or skilled nursing in the past. She currently has 1 daughter and lives with her fianc in a house. She collects Social Security disability. MENTAL STATUS EXAM: General Appearance: Patient appears to be these, medically unwell, breathing t hrough nasal cannula, older than stated age is alert, directable and cooperative. Patient appears to have fair hygiene and grooming wearing hospital gown with fair eye contact. Behavior: Patient is calmly lying in bed without any agitated behavior. Directable Speech: Patient's speech is fluent and nonpressured. Mood/Affect: Patient reports their mood is mildly depressed, affect is congruent Suicidality/Homicidality: Patient denies having any suicidal or homicidal ideation intent or plan. Perceptions: Patient denies any visual hallucinations and denies any auditory hallucinations Though content/process: There is no evidence of any delusional thought content and thought process is linear and goal-directed. Memory and concentration: AOX3, grossly intact for the purposes of this session. Can spell "WORLD" backwards Judgment and insight: Fair IMPRESSIONS: Major depressive disorder, without psychotic features Generalized anxiety disorder Nicotine dependence PLAN: -At this time patient DOES NOT meet criteria for inpatient psychiatric admission. -Would recommend the following medication changes/additions: Chain Machine Operator attempted to speak with patient about different options including anxiolytics, and antidepressants however patient refused all the medications that were being offered and apparently has had a history of poor response to some of them. She claims that she is currently in the process of being started on a new medication with her outpatient psychiatrist Dr. Olsen and would prefer to stick with that plan and not be started on any new medication at this time. Can continue trazodone 100 mg daily at bedtime, patient claims that she does not tolerate 150 mg well and gets a headache at that dose. Can continue Xanax 0.5 bid for anxiety. Ativan when necessary for anxiety. She is agreeable to try melatonin 10 mg daily at bedtime for insomnia. -She states that she has an outpatient appointment with Dr. Olsen her psychiatrist in 1 week and we'll continue to follow-up with him -Communicated plan to patient's nurse -Psychiatry will sign off at this time -Please contact with any questions. 01/13/21 12:40
[2021-01-13] MEDS: FUROSEMIDE 40 MG TAB PO SCH (17:25)
--- NOTE | 2021-01-13 18:13 | PN ---
PROGRESS NOTE DATE OF SERVICE: 01/13/2021 She is a 50-year-old white female, date of 1970, and she still in the ER in the module 5 examination room. NEW DATA: She is a FULL CODE. Height 5 feet 3 inches, weight 136.078 kg. BSA 2.30 m2, BMI 53.1 kg/m2 with the underlying obesity. SHE HAS ALLERGY TO MULTIPLE MEDICATION ASPIRIN, CODEINE, HYDROCODONE, WELL IODINATED CONTRAST MEDIA AND METOCLOPRAMIDE AND MORE. Apparently, the patient is seen and evaluated in the ER and her vital signs today was she was afebrile and her heart rate 88 with the respiratory rate and she on 6 L of nasal cannula by the Pulmonary and Critical Care, and her oxygen was 91 on 5 L and they increased it to 6 L. Her blood pressure, however, was still high 154/78, and she was seen by Cardiology as well as the Pulmonary for underlying diagnosis of acute congestive heart failure, as well as the acute exacerbation of COPD with acute respiratory failure and today she still had hypokalemia. LABORATORY: Was obtained today and found that her hemoglobin today was 12.2 with hydration. Her MCV is 82 and platelet count 212, which is adequate with the underlying using of heparin q.8 hours subcu for DVT prophylaxis. This is the labs that were done on 01/12/2021, and also she had D-dimer at that time 1.28 which was elevated. However, the venous duplex scan of the lower extremity was nondiagnostic. She still has the hypokalemia and we will continue monitoring and supplying the potassium and we repeat tomorrow the serum potassium level as well. Carbon dioxide is 36.7 and initially 43 which was hypercarbia with carbon dioxide retention, which resolved. She had blood sugar was 185 and 168, covered with insulin to scale. Her magnesium is normal and the lactated dehydrogenase is 222, which is normal as well. Serum creatinine is normal and the procalcitonin was mildly elevated at 0.25 with the normal range is 0.02-0.09. Still patient as I discussed with her today, she had harley virus testing PCR and that was negative. However, she had it positive 2 weeks ago at the [facility]. She had beta natriuretic peptide on the 01/11/2021 at 3650 and on January 12, she had 3320. EXAMINATION: The patient is conscious, alert, oriented. Her anxiety level has markedly improved and she has seen the psychiatrist today. Dr. Romeo Dillon and she refused any help from him and she is continuing with Dr. Olsen his treatment. We have a note from the PA for Cardiology and stated that she is improved and the chest x-ray showed chronic changes with cardiomegaly and the blood pressure is still high and she is on currently on today her oxygen flow was 8 L and increased it with the hypoxemia. She is on steroids as well as clonidine for hypertension and Lasix and losartan and Lopressor twice a day and still has hypertension and Cardiology will be adjusting as well. On their examination from the Cardiology team that she has regular sinus rhythm and the chest has diminished breath sounds bilaterally and no chest tenderness. She is awake, alert. On physical exam, patient is conscious, alert, oriented, more comfortable than last night and yesterday and we added to her medication for the panic attack, the Ativan p.o. or IM or IV, and she is satisfied with that as she refused the care from the hospital psychiatrist. Her head was normocephalic, atraumatic. She is able to eat and swallow. Neck was supple. No JVD. No thyromegaly. No lymphadenopathy. The chest was still scattered, basilar atelectasis and rhonchi and with a history of congestive heart failure and mild pleural effusion. The heart was irregular irregularities. Echocardiogram was not done yet and we will request the echocardiogram for the repeat. The abdomen is morbidly obese. Positive bowel sounds. No tenderness in 4 quadrants. Extremities: She had significant decrease in her swelling of the legs with edema bilaterally. ASSESSMENT: 1. Congestive heart failure. 2. Underlying history of Covid 19 pneumonia 2 weeks ago. 3. Hypertension with hypertensive heart disease and to be adjusted. 4. Underlying impaired ejection fraction with diastolic dysfunction. Her echo on indicating the diastolic dysfunction however we do not have any echo done here to my knowledge or on the computer was not ordered as well by the Cardiology. PLAN: We will continue adjusting her medication and with the underlying hypokalemia, we will be obtaining the laboratory tomorrow and further advances depend on the patient's condition as well as the Pulmonary clearance and cardiology clearance. MMODL / IJN: [id number] /
[2021-01-13 18:27] LABS: African American GFR (CKD) >90 (>60 ml/min/1.73 sqM); Blood Urea Nitrogen 20 mg/dL (7-17); Calcium 9.4 mg/dL (8.4-10.2); Chloride 88 mmol/L (98-107); Glucose 197 mg/dL (74-99); Non-African American GFR(CKD) >90 (>60 ml/min/1.73 sqM); Potassium 3.9 mmol/L (3.5-5.1); Sodium 135 mmol/L (137-145)
[2021-01-13 18:33] LABS: Anion Gap 5 mmol/L
[2021-01-13 18:42] LABS: Carbon Dioxide 42 mmol/L (22-30)
[2021-01-13] MEDS: MELATONIN 5 MG TABLET PO SCH (20:22)
[2021-01-13] MEDS: traZODone HCL 100 MG TAB PO SCH (20:23)
[2021-01-14] MEDS: ONDANSETRON 4 MG/2 ML VIAL IVP PRN ×3 (03:45→23:47)
[2021-01-14 05:03] LABS: C Reactive Protein 0.3 mg/dL (0.00-0.80)
[2021-01-14] MEDS: methylPREDNISolone SOD SUCCI 125 MG/2 ML VIAL IV SCH ×2 (06:11→13:15)
[2021-01-14] MEDS: NICOTINE 14MG/24HR PATCH TRANSDERM SCH (07:44)
[2021-01-14] MEDS: PANTOPRAZOLE 40 MG/10 ML VIAL IVP SCH (07:45)
[2021-01-14] MEDS: HEPARIN SODIUM,PORCINE/PF 5,000 UNIT/0.5 ML SYRINGE SQ SCH ×3 (07:45→23:47)
[2021-01-14] MEDS: ALPRAZolam 0.5 MG TAB PO SCH ×3 (07:46→20:27)
[2021-01-14] MEDS: FUROSEMIDE 40 MG TAB PO SCH ×3 (07:46→15:45)
[2021-01-14] MEDS: METOPROLOL TARTRATE 25 MG TAB PO SCH ×3 (07:46→20:27)
[2021-01-14] MEDS: cloNIDine HCL 0.1 MG TAB PO SCH ×3 (07:46→20:26)
[2021-01-14] MEDS: POTASSIUM CHLORIDE ER 20 MEQ TAB.ER PO SCH ×2 (07:46→09:00)
[2021-01-14] MEDS: LORATADINE 10 MG TAB PO SCH ×2 (07:46→09:00)
[2021-01-14] MEDS: MAGNESIUM OXIDE 400 MG TAB PO SCH ×3 (07:47→20:26)
[2021-01-14] MEDS: LOSARTAN 25 MG TAB PO SCH ×2 (07:47→09:00)
[2021-01-14] MEDS: IPRATROPIUM-ALBUTEROL 3 ML NEB INHALATION SCH ×4 (08:39→20:08)
[2021-01-14] MEDS: SYMBICORT 160-4.5 MCG INHALER INHALATION SCH ×2 (08:39→20:08)
--- NOTE | 2021-01-14 13:46 | P.PN ---
Subjective Progress Note Date: 01/14/21 Principal diagnosis: dyspnea This is a 50-year-old white female patient with past medical history of COPD, recent diagnosis of COVID-19 pneumonia, 2 weeks ago, status post monoclonal antibody infusion, and patient has received outpatient course of Decadron. Her other medical history is positive for hypertension, GERD/reflux, patient is a chronic smoker, anxiety depression, panic disorder, IBS, migraine headaches, and previous history of cholecystectomy, patient came into the emergency department on the 01/10/2021 for evaluation of increasing shortness of breath, cough, some phlegm production. Patient was tested again for COVID-19 in the emergency department and was negative at this time. Her admission blood work showed white blood cell count 8.5, hemoglobin 13.4, her d-dimer was 1.6, sodium was 137, potassium is 2.5, chloride was 90, CO2 was 38, BUN is 4 and creatinine 0.32. Her LDH was 678, CRP was 1.3, proBNP was elevated at 3650, magnesium level was 1.8, total bilirubin was 1.8, LFTs were within normal limits. She was noted to be hypoxic with a pulse ox of 85% on room air, she's been afebrile since admission, she was placed on 98 L of supplemental oxygen, and subsequently FiO2 was increased to 9 L and her pulse ox is 95%, CT chest was completed showing no evidence of pulmonary embolism, interstitial infiltrates and atelectasis at the lung bases, and mild interstitial infiltrate in the upper lobes. There is cardiomegaly. Patient takes Lasix 40 mg daily at home on a regular basis. She had a echocardiogram back in 2017 showing normal EF of 55-60%, and no significant valvular abnormality. There is no recent echocardiogram. Patient does have lower extremity swelling. She states she is not normally oxygen dependent at baseline. She continues to smoke on a regular basis. She was started on IV steroids, nebulized bronchodilators, she is receiving 0.9 normal saline at a rate of 130 ML per hour. We were asked to see the patient in evaluation for shortness of breath, history of recent COVID-19 pneumonia, dyspnea and hypoxia On today's evaluation on 01/12/2021 patient seen in follow-up in the emergency department, she still awaiting a bed for 4 S. She states she is breathing much more comfortably today, she still on 10 L pulse ox is 96%, her FiO2 has been cut back to 8 L, and we will continue weaning to maintain O2 saturations of 80-90%. D-dimer is 1.28, venous Dopplers were negative for DVT, CT chest has been completed showing no evidence of pulmonary embolism, it did show interstitial infiltrates and atelectasis at the lung bases and mild interstitial infiltrate in the upper lobes. There was cardiomegaly, echocardiogram has been ordered and pending. Patient has been started on IV diuretics 40 mg twice daily, and she is in -1.5 L over the last 24 hours, lower extremity edema is improving. Patient has a congested cough, at times she is able to bring up some clear-colored sputum. No hemoptysis, no chest pain. She is in sinus mechanism with a controlled rate, she remains on IV Solu-Medrol and nebulized bronchodilators. Repeat COVID-19 PCR has been sent and pending at this time. On today's evaluation 01/13/2021 patient is seen in follow-up in the emergency department, she has been awaiting a bed on medical surgical floor for the last 3 days now. She is currently down to 5 L of oxygen, her pulse ox is 93%, today's chest x-ray is pending, patient remains on combination of IV Solu-Medrol, IV Lasix 40 mg every 12 hours, she is in negative fluid balance, lower extremity edema is improving. Oxygenation has improved, patient is awake and alert, oriented 3, she states her breathing has improved, still has a bit of a congested cough, not bringing up much sputum, no complaints of chest pain. She tested negative for COVID 19, she had a recent history of COVID-19 infection status post monoclonal antibody infusion, she remains on nebulized bronchodilators, IV steroids as mentioned above, IV diuretics, echocardiogram has been taken and results are not available to us yet. No fever or chills. Today's labs have been reviewed, platelet cell count is 5.7, hemoglobin is 12.2, d-dimer is 1.28, sodium is 143, potassium 3.2, this will be replaced per protocol, BUN is 7.7, creatinine 0.5, her inflammatory markers are being followed, her LDH is 222, within normal limits, today's CRP level is still pending, pro-calcitonin level was not significantly elevated to 0.25, repeat proBNP came back slightly improved and is down to 3320. Looks fairly comfortable, resting on the gurney in the emergency department. She wants to know when she will be going home. Patient currently remains on heparin subcu 5000 units every 8 hours. Today's evaluation on 01/14/2021 patient seen in follow-up on medical surgical floor, she is breathing much more comfortably, her FiO2 is currently down to 6 L, her pulse ox is 98%, her FiO2 has been dropped down to 4 L, blood pressure is been stable, she's been afebrile, she is on maintenance dose of oral Lasix 40 mg twice daily, she remains on IV steroids at 60 mg every 6 hours, lung sounds reveal diffuse crackles bilaterally, he is on subcu heparin. Psychiatric services saw the patient in consultation for recurrent panic attacks. Patient has Xanax twice a day 0.25 mg as needed, she is on trazodone at bedtime for sleep aid, melatonin, and she has is needed doses of Ativan, from pulmonary perspective she seems to be doing better, she is awake and alert, oriented 3, responding to questions appropriately. Today's labs have been reviewed and were blood cell count of 5.7, hemoglobin of 12.2, INR of 1.28, sodium of 135, potassium 3.9, CO2 is 42, BUN is 20, creatinine 0.47. ProBNP was 3320, acetone level was negative at 0.25. Objective - Vital Signs Vital signs: Vital Signs Temp 98.2 F 01/14/21 10:09 Pulse 75 01/14/21 12:25 Resp 17 01/14/21 10:09 BP 151/83 01/14/21 10:09 Pulse Ox 98 01/14/21 10:09 Intake & Output 01/13/21 01/14/21 01/14/21 18:59 06:59 18:59 Intake Total 360 Output Total 600 Balance -240 Intake: Oral 360 Output: Urine 600 Other: Voiding Method External Catheter Bedside Commode # Voids 2 1 - Exam GENERAL EXAM: Alert, morbidly obese, 50-year-old white female, resting in the bed on medical surgical floor currently on 6 L of supplemental oxygen comfortable in no apparent distress. HEAD: Normocephalic/atraumatic. EYES: Normal reaction of pupils, equal size. Conjunctiva pink, sclera white. NOSE: Clear with pink turbinates. THROAT: No erythema or exudates. NECK: No masses, no JVD, no thyroid enlargement, no adenopathy. CHEST: No chest wall deformity. Symmetrical expansion. LUNGS: Equal air entry with diffuse crackles CVS: Regular rate and rhythm, normal S1 and S2, no gallops, there is a systolic cardiac murmur, no rubs ABDOMEN: Soft, nontender. No hepatosplenomegaly, normal bowel sounds, no guarding or rigidity. EXTREMITIES: No clubbing, 1+ lower extremity edema with thickening of the skin, , no cyanosis, 2+ pulses and upper and lower extremities. MUSCULOSKELETAL: Muscle strength and tone normal. SPINE: No scoliosis or deformity SKIN: No rashes CENTRAL NERVOUS SYSTEM: Alert and oriented -3. No focal deficits, tone is normal in all 4 extremities. PSYCHIATRIC: Alert and oriented -3. Appropriate affect. Intact judgment and insight. - Labs CBC & Chem 7: 01/12/21 06:31 01/13/21 17:54 Labs: Abnormal Lab Results - Last 24 Hours (Table) 01/13/21 Range/Units 17:54 Sodium 135 L (137-145) mmol/L Chloride 88 L (98-107) mmol/L Carbon Dioxide 42 H* (22-30) mmol/L BUN 20 H (7-17) mg/dL Creatinine 0.47 L (0.52-1.04) mg/dL Glucose 197 H (74-99) mg/dL Assessment and Plan Plan: assessment: #1. Acute hypoxic respiratory failure related to acute exacerbation of COPD, interstitial edema, and pulmonary infiltrates, with a recent history of COVID-19 pneumonia 2 weeks ago, with a component of fluid overload. #2. Acute exacerbation of CHf, with previously documented diastolic dysfunction from the echocardiogram in 2017, there has been no recent echocardiogram while in the hospital #3. Recent diagnosis of COVID-19 pneumonia, in the last 2 weeks, status post monoclonal antibody infusion , Decadron on an outpatient basis #4. Chronic and ongoing history of smoking #5. Mildly elevated d-dimer with no CTA evidence of pulmonary embolism #6. morbid obesity #7. GERD/reflux #8. Hypertension #9. Anxiety, depression, panic disorder #10. History of IBS #11. Migraine headaches Plan: Continue current medical treatment, we can cut back to IV steroids to 40 mg every 8 hours and possibly transition the patient to oral prednisone tomorrow patient has been diuresed, breathing easier, cardiology started the patient on maintenance dose of Lasix 40 mg twice daily Weaning FiO2 to maintain O2 saturations between 88 and 90%, down to 4 L Echocardiogram results are pending d-dimer has been noted, inflammatory markers are pending I performed a history & physical examination of the patient and discussed their management with my nurse practitioner, Cindy Rivera. I reviewed the nurse practitioner's note and agree with the documented findings and plan of care. Lung sounds are positive for bilat crackles throughout the lung prather. The findings and the impression was discussed with the patient. I attest to the documentation by the nurse practitioner. Time with Patient: Less than 30
[2021-01-14] MEDS: LOSARTAN 50 MG TAB PO SCH (15:45)
--- NOTE | 2021-01-14 17:21 | P.PN ---
Subjective Progress Note Date: 01/14/21 (Acute respiratory failure with hypoxemia. Congestive heart failure, echo reading not available.) Principal diagnosis: Diagnoses: Acute respiratory failure on the top of chronic. #2 chronic smoker with COPD and nicotine dependence currently on the patch. #3 congestive heart failure, biventricular with the edema of the lower extremities and shortness of breath admitted to the hypoxemia, #4 echocardiogram to disease was Doppler result not available not available for adjusting her medication. #5 diabetes mellitus, hyperglycemia, probably associated with the use of the steroid which is modest with her bronchospasm which started with pulmonary consultation. #6 CO2 retention with carbon dioxide fluctuation 42. #7 mild hyponatremia probably associated with the diabetes. #8 and anxiety depression has been followed by Dr. Fernando Gray, refused any adjustment from the hospitalist psychiatrist in [facility] with the consultation. #9 morbid obesity. Prognosis heart date of service 01/14/2021. Patient seen and evaluated. Pulmonary also did see the patient Dr. Vaughan and his team. Patient today is in her room in the fourth second surgical 482 bid 1 and she is comfortable however she had carbon dioxide retention with the associated obesity and his fluctuating. In reviewing the vital sign Vital sign temperature 90.8 F oral her heart rate 74 bpm and her respiratory rate 17 and the blood pressure 138/82 which is controlled and pulse ox on room air 97%. Her renal function is stable with a BUN of 20 and creatinine 0.47, blood sugar 197, we'll obtain hemoglobin A1c. And start on insulin to scale. With the underlying infusion of steroid for her lung wheezes with COPD exacerbation. Patient breathing more comfortable and she was on 6 L and the pulmonary decrea sed air to 4 L for attempt with weaning off the oxygen. Currently she is on heparin subcu. And for her anxiety she is receiving Xanax and Ativan. Physical exam: Patient is conscious alert oriented She appeared to be more comfortable not aggressive and compliant with the treatment. Head was normocephalic and atraumatic pupils equal reactive conjunctiva was pink sclera was nonicteric The neck was supple no JVD no thyromegaly no lymphadenopathy. The chest was bilateral wheezes and rhonchi's no clear evidence of rales. Heart: Cardiomegaly, we don't have the results of the echocardiogram yet with the on understandable reason for the delay which is very helpful for managing the patient agitated requested again in the floor. And they could not give the heart copy or send it through the computer. Abdomen morbidly obese positive bowel sounds no tenderness and she has history of irritable bowel syndrome. Extremities she had significant wrinkling of her lower leg due to loss of water events and with diuresis. She had large legs and possibility still present of lymphedema but no lymph node able to be palpated. Neurologically stable. Assessment: #1 underlying congestive heart failure clinically appear biventricular #2 acute respiratory failure on the top of chronic. #3 COPD with exacerbation #4 nicotine dependence #5 diabetes mellitus/hyperglycemia/secondary to steroid. #6 morbid obesity #7 irritable bowel syndrome #8 depression and anxiety. Plan: Continue the current medication #2 continue diuresis #3 obtaining the echocardiogram for assessment of her heart with the underlying congestive heart failure Pulmonary Dr. Ash has been working hard to 4 weaning her off in of the oxygen and with the possibility as well of pulmonary hypertension was considered. Objective - Vital Signs Vital signs: Vital Signs Temp 98.0 F 01/14/21 16:08 Pulse 74 01/14/21 16:14 Resp 17 01/14/21 16:08 BP 138/82 01/14/21 16:08 Pulse Ox 97 01/14/21 16:08 Intake & Output 01/13/21 01/14/21 01/14/21 18:59 06:59 18:59 Intake Total 360 Output Total 600 Balance -240 Intake: Oral 360 Output: Urine 600 Other: Voiding Method External Catheter Bedside Commode # Voids 2 1 - Labs CBC & Chem 7: 01/12/21 06:31 01/13/21 17:54 Labs: Abnormal Lab Results - Last 24 Hours (Table) 01/13/21 Range/Units 17:54 Sodium 135 L (137-145) mmol/L Chloride 88 L (98-107) mmol/L Carbon Dioxide 42 H* (22-30) mmol/L BUN 20 H (7-17) mg/dL Creatinine 0.47 L (0.52-1.04) mg/dL Glucose 197 H (74-99) mg/dL
[2021-01-14 17:53] LABS: African American GFR (CKD) 131.5 (60.0-200.0); Anion Gap 17.2 mmol/L (4.00-12.00); BUN/Creat Ratio 35.28 Ratio (12.00-20.00); Blood Urea Nitrogen 18.1 mg/dL (9.0-27.0); Carbon Dioxide 32.3 mmol/L (21.6-31.8); Potassium 3.9 mmol/L (3.5-5.5)
[2021-01-14 18:09] LABS: Glucose,Whole Blood 201 mg/dL (75-99)
[2021-01-14] MEDS: INSULIN ASPART (NovoLOG) 100 UNIT/ML VIAL SQ SCH (18:14)
[2021-01-14] MEDS: traZODone HCL 100 MG TAB PO SCH (20:26)
[2021-01-14] MEDS: MELATONIN 5 MG TABLET PO SCH (20:26)
[2021-01-14] MEDS: POTASSIUM BICARBONATE/CIT AC 20 MEQ TABLET.EFF PO SCH (21:19)
[2021-01-14] MEDS: methylPREDNISolone SOD SUCCI 40 MG/ML 1 ML VIAL IV SCH (23:47)
[2021-01-15 04:10] LABS: Estimated Average Glucose 125.5
[2021-01-15] MEDS: ONDANSETRON 4 MG/2 ML VIAL IVP PRN ×2 (05:10→11:23)
[2021-01-15 07:44] LABS: Glucose,Whole Blood 191 mg/dL (75-99)
[2021-01-15] MEDS: methylPREDNISolone SOD SUCCI 40 MG/ML 1 ML VIAL IV SCH (08:24)
[2021-01-15] MEDS: POTASSIUM BICARBONATE/CIT AC 20 MEQ TABLET.EFF PO SCH (08:25)
[2021-01-15] MEDS: MAGNESIUM OXIDE 400 MG TAB PO SCH (08:25)
[2021-01-15] MEDS: FUROSEMIDE 40 MG TAB PO SCH (08:25)
[2021-01-15] MEDS: ALPRAZolam 0.5 MG TAB PO SCH (08:25)
[2021-01-15] MEDS: INSULIN ASPART (NovoLOG) 100 UNIT/ML VIAL SQ SCH ×2 (08:25→12:59)
[2021-01-15] MEDS: LOSARTAN 50 MG TAB PO SCH (08:25)
[2021-01-15] MEDS: cloNIDine HCL 0.1 MG TAB PO SCH (08:25)
[2021-01-15] MEDS: PANTOPRAZOLE 40 MG/10 ML VIAL IVP SCH (08:25)
[2021-01-15] MEDS: METOPROLOL TARTRATE 25 MG TAB PO SCH (08:25)
[2021-01-15] MEDS: HEPARIN SODIUM,PORCINE/PF 5,000 UNIT/0.5 ML SYRINGE SQ SCH (08:26)
[2021-01-15] MEDS: NICOTINE 14MG/24HR PATCH TRANSDERM SCH (08:26)
[2021-01-15 08:52] LABS: Calcium 16.6 mg/dL (8.7-10.3)
[2021-01-15] MEDS ORDERED: LORATADINE ORAL SOLN 120 MG/120 ML BOTTLE PO SCH (09:00)
[2021-01-15 09:11] LABS: Non-African American GFR(CKD) 113.5 (60.0-200.0)
[2021-01-15] MEDS: SYMBICORT 160-4.5 MCG INHALER INHALATION SCH (10:24)
[2021-01-15] MEDS: IPRATROPIUM-ALBUTEROL 3 ML NEB INHALATION SCH ×3 (10:24→15:58)
[2021-01-15 10:27] VITALS: RESP 18; TEMP 97.8
--- NOTE | 2021-01-15 10:31 | ECHOF ---
Referral Reason:Congestive heart failure MEASUREMENTS -------- HEIGHT: 0.0 cm WEIGHT: 0.0 kg BP: RVIDd: 3.3 cm (< 3.3) IVSd: 1.3 cm (0.6 - 1.1) LVIDd: 4.7 cm (3.9 - 5.3) LVPWd: 1.6 cm (0.6 - 1.1) IVSs: 1.5 cm LVIDs: 4.3 cm LVPWs: 1.1 cm LA Diam: 4.0 cm (2.7 - 3.8) MV E Zaki: 0.67 m/s MV DecT: 130 ms MV A Zaki: 0.50 m/s MV E/A Ratio: 1.34 FINDINGS -------- Sinus rhythm. Morbid Obesity Pt is Covid positive. The left ventricular size is normal. There is mild concentric left ventricular hypertrophy. Overa ll left ventricular systolic function is low-normal with, an EF between 50 - 55 %. The right ventricle is normal in size. The left atrial size is normal. The right atrial size is normal. Mild mitral regurgitation is present. No regurgitation noted Unable to estimate RVSP due to inadequate TR jet spectral doppler profile. The pulmonic valve was not well visualized. There is no pericardial effusion. CONCLUSIONS -------- 1. Morbid Obesity 2. Pt is Covid positive. 3. The left ventricular size is normal. 4. There is mild concentric left ventricular hypertrophy. 5. Overall left ventricular systolic function is low-normal with, an EF between 50 - 55 %. 6. The right ventricle is normal in size. 7. The left atrial size is normal. 8. The right atrial size is normal. 9. Mild mitral regurgitation is present. 10. No regurgitation noted 11. Unable to estimate RVSP due to inadequate TR jet spectral doppler profile. 12. The pulmonic valve was not well visualized. 13. There is no pericardial effusion. FINANCIAL SECRETARY: Nichol Tripp RDCS
[2021-01-15 11:06] LABS: African American GFR (CKD) >90 (>60 ml/min/1.73 sqM); Blood Urea Nitrogen 20 mg/dL (7-17); Calcium 9.3 mg/dL (8.4-10.2); Chloride 88 mmol/L (98-107); Glucose 182 mg/dL (74-99); Non-African American GFR(CKD) >90 (>60 ml/min/1.73 sqM); Potassium 3.5 mmol/L (3.5-5.1); Sodium 134 mmol/L (137-145)
[2021-01-15 11:07] LABS: Anion Gap 4 mmol/L
[2021-01-15 11:10] LABS: Carbon Dioxide 42 mmol/L (22-30)
[2021-01-15] MEDS ORDERED: LOSARTAN 50 MG TAB PO ONE (11:15)
[2021-01-15 11:33] LABS: Glucose,Whole Blood 165 mg/dL (75-99)
[2021-01-15 12:58] VITALS: BP 148/79
--- NOTE | 2021-01-15 13:33 | P.DS ---
Providers Date of admission: 01/10/21 23:26 Expected date of discharge: 01/15/21 (Oxygen therapy, nebulizer machine, insulin NovoLog coverage) Attending physician: Andre Miguel Consults: 01/10/21 23:27 Consult Physician Routine Consulting Provider: Chapo De La Garza Consult Reason/Comments: hypoxia Do you want consulting provider notified?: Yes 01/11/21 11:58 Consult Physician Urgent Consulting Provider: Omer Grider Consult Reason/Comments: Elevated proBNP, congestive heart failure Do you want consulting provider notified?: Yes 01/12/21 16:59 Consult Physician Stat Consulting Provider: Romeo Dillon Consult Reason/Comments: Recurrent panic attacks Do you want consulting provider notified?: Already Contacted Primary care physician: Andre Miguel Dictation of discharge summary Dictated by Dr. Tariq date of service 01/15/2021. Final diagnosis: #1 acute hypoxic respiratory failure related to acute exacerbation of COPD. Interstitial edema, pulmonary infiltrate with a recent history of [id number] 2 weeks ago. With a component of volume overload. #2 acute exacerbation of congestive heart failure diastolic in nature in the top of chronic. Recent echocardiogram no systolic dysfunction. #3 recent diagnosis of COVID-19 2 weeks ago treated with monoclonal antibody infusion in the ER and Decadron therapy . #4 chronic nicotine addiction with the current smoking added that to chronic smoking discharged and advised no smoking currently on nicotine patch 14 mg once a day to be removed at night. #5 mild elevation of d-dimer on the CTA with no evidence of pulmonary emboli, venous duplex scan of the lower extremities was negative/nonconclusive. Due to her obesity #6 morbid obesity #7 GERD disease with reflux #8 hypertension with hypertensive heart disease. ##9 panic disorder recurrent, and anxiety disorder, major depressive disorder. #10 irritable bowel syndrome. #11 migraine headache. #12 carbon dioxide retainer. #13 diabetes mellitus, associated with high steroid due to her severe lung disease. #14 she is on the Bean laser machine which is ordered by Dr. Ash and also inhalation therapy by Dr. Perez nurse practitioner. Consulting physician #1 pulmonary and critical care Dr. Acuna/Dr. Ash #[address] TANIA Perez. #3 psychiatry. Presentation in the ER: Severe shortness of breath, and congestive heart failure, electrolyte imbalance. Hospital course: Patient stayed in the ER module due to unknown available bed for 3 days but she was seen by myself and cardiology and the pulmonary team with the severe hypoxemia and respiratory failure patient supplemented with oxygen and pulmonary and critical care started her on the nebulizers and inhalation therapy. Cardiology also saw her and with the dehydration added fluid as well and a gentle hydration She had generalized edema with the morbid obesity and diuresed with Lasix with significant improvement. She was hypoxemic up to 9 L and gradually weaning her off. Was not found any evidence of infection. On discharge patient seen and examined discussed with her. Head was normocephalic and atraumatic pupil was equal reactive, oropharynx normal with inability to eat and swallow Neck was supple no JVD no thyromegaly no lymphadenopathy trachea midline. Chest was normal breath sounds with the scattered wheezes and eyes and currently using the inhalation therapy with nebulizers which is mandatory for her with the history of COVID-19 2 weeks ago. Heart diastolic congestive heart failure with no systolic decompensation with the evidence of edema of the lower extremities as well which resulted in diure sis and significant decrease in the size of the lower extremities edema with the wrinkling of the skin of the lower extremities. Abdomen was obese positive bowel sounds no organ enlargement. The Extremities: There is a presence of wrinkling skin after diuresis, positive pulses. Psychiatry psychiatric stable with the current treatment Neurologically stable ambulatory Assessment stable general condition for discharge today #2 pulmonary and critical care cleared her for discharge Dr. Ash. Plan continue follow with cardiology as well as the pulmonary and will see her next week in the office. Patient Condition at Discharge: Serious Plan - Discharge Summary New Discharge Prescriptions: New predniSONE 0 mg PO DIRECTED 16 Days #40 tab Nicotine 14Mg/24Hr Patch [Habitrol] 1 patch TRANSDERM DAILY #30 patch Ipratropium-Albuterol Nebulize [Duoneb 0.5 mg-3 mg/3 ml Soln] 3 ml INHALATION TID 30 Days #90 ml Budesonide-Formot 160-4.5 Mcg [Symbicort 160-4.5 Mcg Inhaler] 2 puff INHALATION BID 30 Days #1 each Losartan [Cozaar] 100 mg PO DAILY #30 tab Metoprolol Tartrate [Lopressor] 25 mg PO BID #60 tab Melatonin 10 mg PO HS #30 tablet INSULIN ASPART (NovoLOG) [NovoLOG (formulary)] 2 - 12 unit SQ AC-TID #5 pen Continue cloNIDine HCL [Catapres] 0.1 mg PO BID Albuterol Sulfate [Proair Hfa] 2 puff INHALATION RT-Q6H PRN PRN Reason: Shortness Of Breath Cetirizine HCl 10 mg PO DAILY Pantoprazole [Protonix] 40 tab PO DAILY ALPRAZolam [Xanax] 0.5 mg PO BID Discontinued Losartan [Cozaar] 25 tab PO DAILY Metoclopramide HCl [Reglan] 10 mg PO TID PRN PRN Reason: Nausea No Action Ondansetron HCl [Zofran] 4 mg PO Q6HR PRN PRN Reason: Nausea ALPRAZolam [Xanax] 0.5 mg PO DAILY@1200 traZODone HCL [Desyrel] 100 mg PO HS Furosemide [Lasix] 40 mg PO DAILY Prochlorperazine [Compazine] 10 mg PO Q8H PRN #30 tab PRN Reason: Nausea And Vomiting Discharge Medication List cloNIDine HCL [Catapres] 0.1 mg PO BID 10/26/15 [History] Albuterol Sulfate [Proair Hfa] 2 puff INHALATION RT-Q6H PRN 08/10/16 [History] Ondansetron HCl [Zofran] 4 mg PO Q6HR PRN 05/10/17 [History] ALPRAZolam [Xanax] 0.5 mg PO DAILY@1200 05/30/17 [History] Pantoprazole [Protonix] 40 tab PO DAILY 12/30/20 [History] Prochlorperazine [Compazine] 10 mg PO Q8H PRN #30 tab 01/02/21 [Rx] ALPRAZolam [Xanax] 0.5 mg PO BID 01/11/21 [History] Cetirizine HCl 10 mg PO DAILY 01/11/21 [History] Furosemide [Lasix] 40 mg PO DAILY 01/11/21 [History] traZODone HCL [Desyrel] 100 mg PO HS 01/11/21 [History] Budesonide-Formot 160-4.5 Mcg [Symbicort 160-4.5 Mcg Inhaler] 2 puff INHALATION BID 30 Days #1 each 01/15/21 [Rx] INSULIN ASPART (NovoLOG) [NovoLOG (formulary)] 2 - 12 unit SQ AC-TID #5 pen 01/15/21 [Rx] Ipratropium-Albuterol Nebulize [Duoneb 0.5 mg-3 mg/3 ml Soln] 3 ml INHALATION TID 30 Days #90 ml 01/15/21 [Rx] Losartan [Cozaar] 100 mg PO DAILY #30 tab 01/15/21 [Rx] Melatonin 10 mg PO HS #30 tablet 01/15/21 [Rx] Metoprolol Tartrate [Lopressor] 25 mg PO BID #60 tab 01/15/21 [Rx] Nicotine 14Mg/24Hr Patch [Habitrol] 1 patch TRANSDERM DAILY #30 patch 01/15/21 [Rx] predniSONE 0 mg PO DIRECTED 16 Days #40 tab 01/15/21 [Rx] Follow up Appointment(s)/Referral(s): Basilio Ash DO [Doctor of Osteopathic Medicine] - 1 Week Andre Miguel MD [Primary Care Provider] - 1 Week
--- NOTE | 2021-01-15 13:38 | P.PN ---
Subjective Progress Note Date: 01/15/21 Principal diagnosis: dyspnea This is a 50-year-old white female patient with past medical history of COPD, recent diagnosis of COVID-19 pneumonia, 2 weeks ago, status post monoclonal antibody infusion, and patient has received outpatient course of Decadron. Her other medical history is positive for hypertension, GERD/reflux, patient is a chronic smoker, anxiety depression, panic disorder, IBS, migraine headaches, and previous history of cholecystectomy, patient came into the emergency department on the 01/10/2021 for evaluation of increasing shortness of breath, cough, some phlegm production. Patient was tested again for COVID-19 in the emergency department and was negative at this time. Her admission blood work showed white blood cell count 8.5, hemoglobin 13.4, her d-dimer was 1.6, sodium was 137, potassium is 2.5, chloride was 90, CO2 was 38, BUN is 4 and creatinine 0.32. Her LDH was 678, CRP was 1.3, proBNP was elevated at 3650, magnesium level was 1.8, total bilirubin was 1.8, LFTs were within normal limits. She was noted to be hypoxic with a pulse ox of 85% on room air, she's been afebrile since admission, she was placed on 98 L of supplemental oxygen, and subsequently FiO2 was increased to 9 L and her pulse ox is 95%, CT chest was completed showing no evidence of pulmonary embolism, interstitial infiltrates and atelectasis at the lung bases, and mild interstitial infiltrate in the upper lobes. There is cardiomegaly. Patient takes Lasix 40 mg daily at home on a regular basis. She had a echocardiogram back in 2017 showing normal EF of 55-60%, and no significant valvular abnormality. There is no recent echocardiogram. Patient does have lower extremity swelling. She states she is not normally oxygen dependent at baseline. She continues to smoke on a regular basis. She was started on IV steroids, nebulized bronchodilators, she is receiving 0.9 normal saline at a rate of 130 ML per hour. We were asked to see the patient in evaluation for shortness of breath, history of recent COVID-19 pneumonia, dyspnea and hypoxia On today's evaluation on 01/12/2021 patient seen in follow-up in the emergency department, she still awaiting a bed for 4 S. She states she is breathing much more comfortably today, she still on 10 L pulse ox is 96%, her FiO2 has been cut back to 8 L, and we will continue weaning to maintain O2 saturations of 80-90%. D-dimer is 1.28, venous Dopplers were negative for DVT, CT chest has been completed showing no evidence of pulmonary embolism, it did show interstitial infiltrates and atelectasis at the lung bases and mild interstitial infiltrate in the upper lobes. There was cardiomegaly, echocardiogram has been ordered and pending. Patient has been started on IV diuretics 40 mg twice daily, and she is in -1.5 L over the last 24 hours, lower extremity edema is improving. Patient has a congested cough, at times she is able to bring up some clear-colored sputum. No hemoptysis, no chest pain. She is in sinus mechanism with a controlled rate, she remains on IV Solu-Medrol and nebulized bronchodilators. Repeat COVID-19 PCR has been sent and pending at this time. On today's evaluation 01/13/2021 patient is seen in follow-up in the emergency department, she has been awaiting a bed on medical surgical floor for the last 3 days now. She is currently down to 5 L of oxygen, her pulse ox is 93%, today's chest x-ray is pending, patient remains on combination of IV Solu-Medrol, IV Lasix 40 mg every 12 hours, she is in negative fluid balance, lower extremity edema is improving. Oxygenation has improved, patient is awake and alert, oriented 3, she states her breathing has improved, still has a bit of a congested cough, not bringing up much sputum, no complaints of chest pain. She tested negative for COVID 19, she had a recent history of COVID-19 infection status post monoclonal antibody infusion, she remains on nebulized bronchodilators, IV steroids as mentioned above, IV diuretics, echocardiogram has been taken and results are not available to us yet. No fever or chills. Today's labs have been reviewed, platelet cell count is 5.7, hemoglobin is 12.2, d-dimer is 1.28, sodium is 143, potassium 3.2, this will be replaced per protocol, BUN is 7.7, creatinine 0.5, her inflammatory markers are being followed, her LDH is 222, within normal limits, today's CRP level is still pending, pro-calcitonin level was not significantly elevated to 0.25, repeat proBNP came back slightly improved and is down to 3320. Looks fairly comfortable, resting on the gurney in the emergency department. She wants to know when she will be going home. Patient currently remains on heparin subcu 5000 units every 8 hours. Today's evaluation on 01/14/2021 patient seen in follow-up on medical surgical floor, she is breathing much more comfortably, her FiO2 is currently down to 6 L, her pulse ox is 98%, her FiO2 has been dropped down to 4 L, blood pressure is been stable, she's been afebrile, she is on maintenance dose of oral Lasix 40 mg twice daily, she remains on IV steroids at 60 mg every 6 hours, lung sounds reveal diffuse crackles bilaterally, he is on subcu heparin. Psychiatric services saw the patient in consultation for recurrent panic attacks. Patient has Xanax twice a day 0.25 mg as needed, she is on trazodone at bedtime for sleep aid, melatonin, and she has is needed doses of Ativan, from pulmonary perspective she seems to be doing better, she is awake and alert, oriented 3, responding to questions appropriately. Today's labs have been reviewed and were blood cell count of 5.7, hemoglobin of 12.2, INR of 1.28, sodium of 135, potassium 3.9, CO2 is 42, BUN is 20, creatinine 0.47. ProBNP was 3320, acetone level was negative at 0.25. On 01/15/2021 patient seen in follow-up on medical surgical floor, she is breathing comfortably, she is currently on 3 L of oxygen pulse ox is 94%, she states she is feeling much better since admission. She remains on oral diuretics, she is maintaining negative fluid balance, no new weight today. Lung sounds reveal diminished breath sounds with no significant wheezing only mild bilateral crackles. No complaints of chest pain, she has not required BiPAP support. Last chest x-ray on 01/13/2021 showed chronic changes and cardiomegaly without acute pulmonary process. Her generalized edema seems to be improving. He also remains on IV Solu-Medrol for acute pessary patient of COPD. Today's labs have been reviewed showing sodium of 134, potassium is 3.5, chloride is 88, CO2 is 42, B1 is 20 creatinine 0.46. ProBNP today came back at 3550. Objective - Vital Signs Vital signs: Vital Signs Temp 97.8 F 01/15/21 08:00 Pulse 82 01/15/21 13:15 Resp 18 01/15/21 13:15 BP 148/79 01/15/21 12:58 Pulse Ox 94 L 01/15/21 10:25 Intake & Output 01/14/21 01/15/21 01/15/21 18:59 06:59 18:59 Intake Total 480 700 Balance 480 700 Intake: Oral 480 700 Other: Voiding Method Bedside Commode # Voids 2 2 - Exam GENERAL EXAM: Alert, morbidly obese, 50-year-old white female, resting in the bed on medical surgical floor currently on 3 L of supplemental oxygen comfortable in no apparent distress. HEAD: Normocephalic/atraumatic. EYES: Normal reaction of pupils, equal size. Conjunctiva pink, sclera white. NOSE: Clear with pink turbinates. THROAT: No erythema or exudates. NECK: No masses, no JVD, no thyroid enlargement, no adenopathy. CHEST: No chest wall deformity. Symmetrical expansion. LUNGS: Equal air entry with diffuse crackles CVS: Regular rate and rhythm, normal S1 and S2, no gallops, there is a systolic cardiac murmur, no rubs ABDOMEN: Soft, nontender. No hepatosplenomegaly, normal bowel sounds, no guarding or rigidity. EXTREMITIES: No clubbing, 1+ lower extremity edema with thickening of the skin, , no cyanosis, 2+ pulses and upper and lower extremities. MUSCULOSKELETAL: Muscle strength and tone normal. SPINE: No scoliosis or deformity SKIN: No rashes CENTRAL NERVOUS SYSTEM: Alert and oriented -3. No focal deficits, tone is normal in all 4 extremities. PSYCHIATRIC: Alert and oriented -3. Appropriate affect. Intact judgment and insight. - Labs CBC & Chem 7: 01/12/21 06:31 01/15/21 10:05 Labs: Abnormal Lab Results - Last 24 Hours (Table) 01/14/21 01/14/21 01/15/21 Range/Units 05:48 18:07 07:43 Sodium (137-145) mmol/L Chloride 92 L (96-109) mmol/L Carbon Dioxide 32.3 H (21.6-31.8) mmol/L Anion Gap 17.20 H (4.00-12.00) mmol/L BUN (7-17) mg/dL Creatinine 0.5 L (0.6-1.5) mg/dL BUN/Creatinine Ratio 35.28 H (12.00-20.00) Ratio Glucose 198 H (70-110) mg/dL POC Glucose (mg/dL) 201 H 191 H (75-99) mg/dL Calcium 16.6 H* (8.7-10.3) mg/dL 01/15/21 01/15/21 Range/Units 10:05 11:31 Sodium 134 L (137-145) mmol/L Chloride 88 L (96-109) mmol/L Carbon Dioxide 42 H* (21.6-31.8) mmol/L Anion Gap (4.00-12.00) mmol/L BUN 20 H (7-17) mg/dL Creatinine 0.46 L (0.6-1.5) mg/dL BUN/Creatinine Ratio (12.00-20.00) Ratio Glucose 182 H (70-110) mg/dL POC Glucose (mg/dL) 165 H (75-99) mg/dL Calcium (8.7-10.3) mg/dL Assessment and Plan Plan: assessment: #1. Acute hypoxic respiratory failure related to acute exacerbation of COPD, interstitial edema, and pulmonary infiltrates, with a recent history of COVID-19 pneumonia 2 weeks ago, with a component of fluid overload. #2. Acute exacerbation of CHf, with previously documented diastolic dysfunction. Echocardiogram during this admission on 01/15/2021 showed low normal EF of 50-55%, and mild mitral regurgitation, unable to estimate right ventricular systolic pressure related to inadequate TR jet spectral Doppler profile. #3. Recent diagnosis of COVID-19 pneumonia, in the last 2 weeks, status post monoclonal antibody infusion , Decadron on an outpatient basis #4. Chronic and ongoing history of smoking #5. Mildly elevated d-dimer with no CTA evidence of pulmonary embolism #6. morbid obesity #7. GERD/reflux #8. Hypertension #9. Anxiety, depression, panic disorder #10. History of IBS #11. Migraine headaches Plan: Patient is improving, breathing easier FiO2 is currently down to 3 L Obtain home oxygen evaluation This likely patient will qualify for home oxygen and will benefit from it She may need the sleep study down the road after she has fully recovered from this episode We'll have her see Dr. De La Garza in the office in a few months for evaluation of obstructive sleep apnea IV steroids can be transitioned to oral prednisone taper She is already on maintenance dose Lasix 40 mg twice daily daily, she has developed mild volume contraction alkalosis, agree with continuation of home dose Lasix just once daily We'll add Diamox 500 mg once daily at discharge Patient could benefit from nebulized bronchodilators, and maintenance inhalers in the form of Symbicort She still probably discharge home today from pulmonary perspective Outpatient follow-up Dr. Ash in the office in 2-3 weeks I performed a history & physical examination of the patient and discussed their management with my nurse practitioner, Cindy Rivera. I reviewed the nurse practitioner's note and agree with the documented findings and plan of care. Lung sounds are positive for bilat crackles throughout the lung prather. The findings and the impression was discussed with the patient. I attest to the documentation by the nurse practitioner. Time with Patient: Less than 30
[2021-01-15 14:31] VITALS: BMI 53.1
[2021-01-15 16:08] VITALS: PULSE 84
[2021-01-16] MEDS ORDERED: LOSARTAN 50 MG TAB PO SCH (09:00)
== END 2021-01-15 16:25 | disposition home health service (06) | DRG 291 ==
LOC: EC 22:17 → 4SSUR 23:26
PROVIDERS: ADMIT Internal Medicine; ATTEND Internal Medicine
PROC: 5A0945A Assistance with Respiratory Ventilation, 24-96 Consecutive Hours, High Flow/Velocity Cannula (ICD-10-PCS; principal; 2021-01-10)
DX: I11.0 Hypertensive heart disease with heart failure (principal); J96.01 Acute respiratory failure with hypoxia; J44.1 Chronic obstructive pulmonary disease with (acute) exacerbation; E87.2 Acidosis; I82.511 Chronic embolism and thrombosis of right femoral vein; E87.1 Hypo-osmolality and hyponatremia; J98.11 Atelectasis; Z68.43 Body mass index [BMI] 50.0-59.9, adult; I50.33 Acute on chronic diastolic (congestive) heart failure; E11.65 Type 2 diabetes mellitus with hyperglycemia; D64.9 Anemia, unspecified; E66.01 Morbid (severe) obesity due to excess calories; Z20.822 Contact with and (suspected) exposure to COVID-19; E86.0 Dehydration; F41.0 Panic disorder [episodic paroxysmal anxiety]; E83.42 Hypomagnesemia; E87.6 Hypokalemia; K21.9 Gastro-esophageal reflux disease without esophagitis; K58.0 Irritable bowel syndrome with diarrhea; I89.0 Lymphedema, not elsewhere classified; F41.1 Generalized anxiety disorder; G47.00 Insomnia, unspecified; F32.9 Major depressive disorder, single episode, unspecified; T38.0X5A Adverse effect of glucocorticoids and synthetic analogues, initial encounter; I34.0 Nonrheumatic mitral (valve) insufficiency; F17.210 Nicotine dependence, cigarettes, uncomplicated; Z71.6 Tobacco abuse counseling; Z79.899 Other long term (current) drug therapy; Z86.16 Personal history of COVID-19; Z90.49 Acquired absence of other specified parts of digestive tract; Z87.19 Personal history of other diseases of the digestive system; Z87.42 Personal history of other diseases of the female genital tract; Z86.69 Personal history of other diseases of the nervous system and sense organs; Z71.3 Dietary counseling and surveillance; Z98.890 Other specified postprocedural states; Z88.5 Allergy status to narcotic agent; Z88.2 Allergy status to sulfonamides; Z88.8 Allergy status to other drugs, medicaments and biological substances; Z88.6 Allergy status to analgesic agent; Z91.041 Radiographic dye allergy status; Z91.011 Allergy to milk products; Z91.048 Other nonmedicinal substance allergy status; Z81.8 Family history of other mental and behavioral disorders
CPT/HCPCS: 36415; 71045; 71275; 80048; 80053; 82330; 82550; 82553; 83036; 83605; 83615; 83735; 83880; 84100; 84132; 84145; 84484; 85025; 85379; 85610; 85730; 86140; 87635; 93005; 93306; 93970; 94640; 94760; 96374; 96375; 99291

== ENCOUNTER 2023-08-14 17:35 | Inpatient (IN) | payer MEDICARE, OTHER ==
[2023-08-14 18:38] LABS: ALT 12 U/L (4-34); African American GFR (CKD) 45 (>60 ml/min/1.73 sqM); Albumin 3.2 g/dL (3.5-5.0); Anion Gap 8 mmol/L; Blood Urea Nitrogen 28 mg/dL (7-17); Calcium 8.4 mg/dL (8.4-10.2); Carbon Dioxide 24 mmol/L (22-30); Chloride 98 mmol/L (98-107); Glucose 118 mg/dL (74-99); Magnesium 1.5 mg/dL (1.6-2.3); Non-African American GFR(CKD) 39 (>60 ml/min/1.73 sqM); Sodium 130 mmol/L (137-145); Total Bilirubin 2.2 mg/dL (0.2-1.3); Total Protein 6.9 g/dL (6.3-8.2)
[2023-08-14 18:40] LABS: AST 59 U/L (14-36); Alkaline Phosphatase 113 U/L (38-126); Potassium 4.9 mmol/L (3.5-5.1)
--- NOTE | 2023-08-14 18:54 | XR ---
EXAMINATION TYPE: XR chest 2V DATE OF EXAM: 08/14/2023 6:38 PM CLINICAL INDICATION:Female, 52 years old with history of difficulty breathing; [facility] COMPARISON: Chest radiographs from 01/13/2021 TECHNIQUE: XR chest 2V Frontal and lateral views of the chest. FINDINGS: Lungs/Pleura: There is no evidence of pleural effusion, focal consolidation, or pneumothorax. Pulmonary vascularity: Pulmonary vascular congestion. Heart/mediastinum: Cardiomediastinal silhouette is unremarkable. Musculoskeletal: No acute osseous pathology. IMPRESSION: Cardiomegaly and pulmonary vascular congestion. Correlate with BNP for congestive heart failure.
[2023-08-14 19:09] LABS: Anisocytosis Moderate; Basophils # (A) 0.1 k/uL (0-0.2); Basophils % (A) 1 %; Eosinophils # (A) 0.1 k/uL (0-0.7); Eosinophils % (A) 1 %; Hypochromasia Marked; Lymphocytes # (A) 0.8 k/uL (1.0-4.8); Lymphocytes % (A) 6 %; MCH 23.1 pg (25.0-35.0); MCHC 27.8 g/dL (31.0-37.0); MCV 83.3 fL (80.0-100.0); Mean Platelet Volume 10.5; Microcytosis Slight; Monocytes # (A) 0.7 k/uL (0-1.0); Monocytes % (A) 6 %; Neutrophils # (A) 10.8 k/uL (1.3-7.7); Neutrophils % (A) 86 %; Platelet Count 161 k/uL (150-450); Poikilocytosis Slight; RDW 20.8 % (11.5-15.5); WBC 12.6 k/uL (3.8-10.6)
[2023-08-14] MEDS: methylPREDNISolone SOD SUCCI 125 MG/2 ML VIAL IV STA (19:14)
[2023-08-14] MEDS: SODIUM CHLORIDE 0.9% 1,000 ML IV STA ×2 (19:18→22:31)
[2023-08-14] MEDS: MAGNESIUM SULFATE-D5W PMX 1 GM in DEXTROSE/WATER 1 100ML.BAG IVPB STA (19:18)
[2023-08-14 19:24] LABS: RBC 6.88 m/uL (3.80-5.40)
[2023-08-14] MEDS: IPRATROPIUM-ALBUTEROL 3 ML NEB INHALATION STA (20:49)
[2023-08-14] MEDS ORDERED: NALOXONE 0.4 MG/ML 1 ML VIAL IV PRN (21:10)
--- NOTE | 2023-08-14 21:36 | ED ---
General Adult HPI - General Chief complaint: Shortness of Breath Stated complaint: copd Time Seen by Provider: 08/14/23 17:41 Source: patient, RN notes reviewed, old records reviewed Mode of arrival: EMS Limitations: no limitations - History of Present Illness Initial comments: Patient is a 52-year-old female with past medical history remarkable for COPD, chronic lymphedema who presents emergency department complaining of worsening shortness of breath for the last 5 days. States it has been progressive and believes it is her COPD. Has chronic lower extremity edema which is on change from baseline. Home breathing treatments have not helped the patient. Has endorsed a worsening cough that is nonproductive as she feels like she cannot cough it up. Presents for further evaluation at this time. Denies chest pain, abdominal pain, nausea, vomiting, fevers. - Related Data Home Medications Medication Instructions Recorded Confirmed cloNIDine HCL [Catapres] 0.1 mg PO BID 10/26/15 08/14/23 traZODone HCL [Desyrel] 100 mg PO HS 01/11/21 08/14/23 ALPRAZolam [Xanax] 0.5 mg PO DAILY@1500 08/14/23 08/14/23 ALPRAZolam [Xanax] 1 mg PO BID@0900,2100 08/14/23 08/14/23 Fluticasone Furoate [Arnuity 1 puff INHALATION RT-DAILY 08/14/23 08/14/23 Ellipta] Losartan Potassium [Cozaar] 100 mg PO DAILY 08/14/23 08/14/23 Prochlorperazine [Compazine] 10 mg PO Q6H PRN 08/14/23 08/14/23 fluvoxaMINE [Luvox] 25 mg PO BID 08/14/23 08/14/23 Allergies Allergy/AdvReac Type Severity Reaction Status Date / Time aspirin Allergy Abdominal Verified 08/14/23 19:54 Pain,vomiting codeine Allergy Rash/Hives,abdominal Verified 08/14/23 19:54 pain,vomiting hydrocodone bitartrate Allergy Rash/Hives,abdominal Verified 08/14/23 19:54 [From Vicodin] pain,vomiting Iodinated Contrast Media Allergy Rash/Hives Verified 08/14/23 19:54 [Iodinated Contrast- Oral and IV Dye] metoclopramide [From Reglan] Allergy Anaphylaxis Verified 08/14/23 19:54 nitrofurantoin Allergy vertigo Verified 08/14/23 19:54 [From Macrobid] nitrofurantoin Allergy vertigo Verified 08/14/23 19:54 macrocrystalline [From Macrobid] ofloxacin [From Floxin] Allergy Rash/Hives,abdominal Verified 08/14/23 19:54 pain lactose AdvReac Nausea & Verified 08/14/23 19:54 Vomiting pseudoephedrine AdvReac Anaphylaxis Verified 08/14/23 19:54 TAPE AdvReac Itching,hives Uncoded 08/14/23 17:42 "paper tape ok" Review of Systems ROS Statement: Those systems with pertinent positive or pertinent negative responses have been documented in the HPI. Review of Systems: CONST: Denies fever EYES: Denies blurry vision ENT: Denies nasal congestion C/V: Denies Chest pain RESP: Endorses shortness of breath GI: Denies abdominal pain : Denies dysuria SKIN: Denies rash. MSK: Denies joint pain. NEURO: Denies headache ROS Other: All systems not noted in ROS Statement are negative. Past Medical History Past Medical History: COPD, GERD/Reflux, Hypertension Additional Past Medical History / Comment(s): hemmorrhoids, IBS, migraines, heart murmer, History of Any Multi-Drug Resistant Organisms: None Reported Past Surgical History: Cholecystectomy Additional Past Surgical History / Comment(s): D&C, cyst removed from rt ovary, Past Anesthesia/Blood Transfusion Reactions: Motion Sickness, Postoperative Nausea & Vomiting (PONV) Past Psychological History: Anxiety, Depression, Panic Disorder Smoking Status: Current every day smoker Past Alcohol Use History: None Reported Past Drug Use History: Marijuana - Past Family History Mother Family Medical History: No Reported History General Exam - General Exam Comments Initial Comments: General: Appears in mild to moderate distress due to increased work of breathing. HEAD: Normal with no signs of head trauma. EYES: PERRLA, EOMI, conjunctiva normal, no discharge. ENT: Hearing grossly intact, normal oropharynx. RESPIRATORY: Hypoxic on room air, improved on 4 to 6 L nasal cannula oxygen. Increased work of breathing. Bilateral diffuse end expiratory wheezes. C/V: Regular rate and rhythm. S1 and S2 auscultated, chronic edema of the lower extremities which is unchanged from baseline, peripheral pulses 2+ and intact throughout ABD: Abd is soft, nontender, nondistended EXT: Normal range of motion, no obvious deformity SKIN: No rashes or lesions observed on exposed skin. NEURO: Alert and oriented x 4. Limitations: no limitations Course Vital Signs 08/14/23 08/14/23 08/14/23 17:38 18:00 18:34 Temperature 98.4 F Pulse Rate 100 87 Respiratory 20 20 22 Rate Blood Pressure 128/84 126/81 O2 Sat by Pulse 91 L 95 Oximetry 08/14/23 08/14/23 08/14/23 20:50 21:08 21:13 Temperature Pulse Rate 87 85 91 Respiratory 20 Rate Blood Pressure 132/92 O2 Sat by Pulse 95 Oximetry Procedures - Kermit Protocol (Time Out) Nurse: Lyndsey Granado Medical Decision Making - Medical Decision Making Was pt. sent in by a medical professional or institution (, PA, COMPOSITION MOLDER, urgent care, hospital, or [facility]...) When possible be specific @ -No Did you speak to anyone other than the patient for history (EMS, parent, family, police, friend...)? What history was obtained from this source @ -No Did you review nursing and triage notes (agree or disagree)? Why? @ -I reviewed and agree with nursing and triage notes Were old charts reviewed (outside hosp., previous admission, EMS record, old EKG, old radiological studies, urgent care reports/EKG's, [facility] records)? Report findings @ -Old charts reviewed, comparing EKG from January 2021 without any obvious acute change Differential Diagnosis (chest pain, altered mental status, abdominal pain women, abdominal pain men, vaginal bleeding, weakness, fever, dyspnea, syncope, headache, dizziness, GI bleed, back pain, seizure, CVA, palpatations, mental health, musculoskeletal)? @ -Differential Dyspnea: Coronary syndrome, arrhythmia, tamponade, asthma, COPD, pulmonary embolism, pneumonia, pneumothorax, pulmonary effusion, anaphylaxis, diabetic ketoacidosis, flailed chest, pulmonary contusion, diaphragmatic rupture, anemia, neuromuscular, this is not meant to be an all-inclusive list. EKG interpreted by me (3pts min.). @ -As above X-rays interpreted by me (1pt min.). @ -Chest x-ray reveals no obvious acute cardiopulmonary process. CT interpreted by me (1pt min.). @ -None done U/S interpreted by me (1pt. min.). @ -None done What testing was considered but not performed or refused? (CT, X-rays, U/S, labs)? Why? @ -None What meds were considered but not given or refused? Why? @ -None Did you discuss the management of the patient with other professionals (professionals i.e. DrBess, PA, COMPOSITION MOLDER, lab, RT, psych nurse, licensed clinical social worker, stage director, teacher, chief financial officer, director of casework services)? Give summary @ -Discussed with the admitting physician, Dr. Miguel who accepted the admission. Was smoking cessation discussed for >3mins.? @ -No Was critical care preformed (if so, how long)? @ -Yes, 32 minutes Were there social determinants of health that impacted care today? How? (Homelessness, low income, unemployed, alcoholism, drug addiction, transportation, low edu. Level, literacy, decrease access to med. care, senior care, rehab)? @ -No Was there de-escalation of care discussed even if they declined (Discuss DNR or withdrawal of care, Hospice)? DNR status @ -No What co-morbidities impacted this encounter? (DM, HTN, Smoking, COPD, CAD, Cancer, CVA, ARF, Chemo, Hep., AIDS, mental health diagnosis, sleep apnea, morbid obesity)? @ -COPD Was patient admitted / discharged? Hospital course, mention meds given and route, prescriptions, significant lab abnormalities, going to OR and other pertinent info. @ -Based on the patient's presentation and physical exam, presents emergency department with acute hypoxic respiratory failure. Likely from COPD based on exam. Patient will be given IV fluids as she appears dehydrated likely from insensible losses. She will be given IV magnesium, breathing treatment, steroids as well. Patient was in agreement with this plan. Vital signs within acceptable limits with patient on 6 L nasal cannula oxygen. Chest x-ray unremarkable for any obvious infectious cause. EKG unremarkable. Patient's laboratory studies show hemoconcentration likely secondary to dehydration. Patient's electrolytes remarkable for mild hypomagnesemia. Patient has an SAMIA creatinine of 1.55. Discussed results with patient. She will be admitted for COPD, hypoxic respiratory failure, SAMIA. Patient was in agreement this plan. Empirically treated for tracheobronchitis with doxycycline. Will continue with IV steroids, breathing treatments. Patient in agreement this plan. Pulmonology consulted. I spoke with the admitting physician, Dr. Pato Escobar who accepted the admission. Undiagnosed new problem with uncertain prognosis? @ -No Drug Therapy requiring intensive monitoring for toxicity (Heparin, Nitro, Insulin, Cardizem)? @ -No Were any procedures done? @ -No Diagnosis/symptom? @ -COPD, hypoxic respiratory failure, tracheobronchitis, SAMIA Acute, or Chronic, or Acute on Chronic? @ -Acute Uncomplicated (without systemic symptoms) or Complicated (systemic symptoms)? @ -Complicated Side effects of treatment? @ -No Exacerbation, Progression, or Severe Exacerbation? @ -No Poses a threat to life or bodily function? How? (Chest pain, [place], [place], pneumonia, PE, COPD, DKA, ARF, appy, cholecystitis, CVA, Diverticulitis, Homicidal, Suicidal, threat to staff... and all critical care pts) @ -Yes - Lab Data Result diagrams: 08/14/23 19:00 08/14/23 18:02 Lab Results 08/14/23 08/14/23 08/14/23 Range/Units 18:02 18:02 19:00 WBC 12.6 H (3.8-10.6) k/uL RBC 6.88 H (3.80-5.40) m/uL Hgb 17.0 H (11.4-16.0) gm/dL Hct 58.0 H* (34.0-46.0) % MCV 83.3 (80.0-100.0) fL MCH 23.1 L (25.0-35.0) pg MCHC 27.8 L (31.0-37.0) g/dL RDW 20.8 H (11.5-15.5) % Plt Count 161 (150-450) k/uL MPV 10.5 Neutrophils % 86 % Lymphocytes % 6 % Monocytes % 6 % Eosinophils % 1 % Basophils % 1 % Neutrophils # 10.8 H (1.3-7.7) k/uL Lymphocytes # 0.8 L (1.0-4.8) k/uL Monocytes # 0.7 (0-1.0) k/uL Eosinophils # 0.1 (0-0.7) k/uL Basophils # 0.1 (0-0.2) k/uL Hypochromasia Marked Poikilocytosis Slight Anisocytosis Moderate Microcytosis Slight Sodium 130 L (137-145) mmol/L Potassium 4.9 (3.5-5.1) mmol/L Chloride 98 (98-107) mmol/L Carbon Dioxide 24 (22-30) mmol/L Anion Gap 8 mmol/L BUN 28 H (7-17) mg/dL Creatinine 1.55 H (0.52-1.04) mg/dL Est GFR (CKD-EPI)AfAm 45 (>60 ml/min/1.73 sqM) Est GFR (CKD-EPI)NonAf 39 (>60 ml/min/1.73 sqM) Glucose 118 H (74-99) mg/dL Calcium 8.4 (8.4-10.2) mg/dL Magnesium 1.5 L (1.6-2.3) mg/dL Total Bilirubin 2.2 H (0.2-1.3) mg/dL AST 59 H (14-36) U/L ALT 12 (4-34) U/L Alkaline Phosphatase 113 (38-126) U/L Total Protein 6.9 (6.3-8.2) g/dL Albumin 3.2 L (3.5-5.0) g/dL Influenza Type A (PCR) Not Detected (Not Detectd) Influenza Type B (PCR) Not Detected (Not Detectd) RSV (PCR) Not Detected (Not Detectd) SARS-CoV-2 (PCR) Not Detected (Not Detectd) - EKG Data -: EKG Interpreted by Me EKG Comments: 12-lead Electrocardiogram Interpretation Note EKG was reviewed and interpreted by myself. 12-lead ECG performed at 1746 is interpreted by me as revealing normal sinus rhythm at a rate of 94 beats per minute. [place] is rightward deviated. [place] interval is 154 ms, QRS duration is 89 ms, QTc is 399 ms.. There were no ST or T wave abnormalities to suggest myocardial ischemia or injury. R wave progression across the precordium was satisfactory. By my interpretation this EKG is non-diagnostic for acute ischemia. Lead V2 appears poor. Critical Care Time Critical Care Time: Yes Total Critical Care Time: 32 Disposition Clinical Impression: COPD (chronic obstructive pulmonary disease), Hypoxic respiratory failure, SAMIA (acute kidney injury), Tracheobronchitis Disposition: ADMITTED IP TO THIS HOSP Condition: Serious Time of Disposition: 21:10
[2023-08-14] MEDS: SODIUM CHLORIDE 0.9% 1,000 ML IV SCH (22:31)
[2023-08-14] MEDS: DOXYCYCLINE 100 MG in SODIUM CHLORIDE 0.9% 100 ML IVPB SCH (23:26)
[2023-08-15] MEDS ORDERED: methylPREDNISolone SOD SUCCI 40 MG/ML 1 ML VIAL IV SCH
[2023-08-15] MEDS: SODIUM CHLORIDE 0.9% 1,000 ML IV STA (00:48)
[2023-08-15] MEDS: HEPARIN SODIUM,PORCINE 5,000 UNIT/ML 1 ML VIAL SQ SCH (00:48)
[2023-08-15] MEDS: methylPREDNISolone SOD SUCCI 125 MG/2 ML VIAL IV SCH (00:48)
[2023-08-15] MEDS: IPRATROPIUM-ALBUTEROL 3 ML NEB INHALATION SCH (01:08)
[2023-08-15] MEDS: ONDANSETRON 4 MG/2 ML VIAL IVP PRN (03:27)
[2023-08-15] MEDS: FUROSEMIDE 10 MG/ML 2 ML VIAL IV ONE (03:30)
[2023-08-15] MEDS: FUROSEMIDE 10 MG/ML 2 ML VIAL IV SCH (03:55)
--- NOTE | 2023-08-15 04:02 | P.CNPUL ---
History of Present Illness Consult date: 08/15/23 Requesting physician: Joby Dolan Reason for consult: COPD Chief complaint: Shortness of breath History of present illness: Patient is a 52-year-old white female with past medical history significant for COPD, chronic ongoing tobacco dependence, GERD, hypertension, morbid obesity, among other things. Her primary care provider is Dr. Miguel. She presented to the emergency room late last night with complaints of progressively worsening shortness of breath over the last 5 days. She has had associated cough with white sputum production. Denies any hemoptysis. Denies any chest pain. Denies any fevers. Denies sick contacts or recent travel. Admits nausea without emesis and diarrhea during the same timeframe. Denies asaf blood or melanotic stools. Of note, reports some worsening lower extremity swelling since she has self discontinued her "water pill" She states that it is difficult to ambulate back and forth to the restroom. On further evaluation of this, there are no diuretics listed in her home medications. She is withdrawn with delayed verbal response time. Oriented x 3. Currently lying in bed, on 4 L/min nasal cannula, in no acute distress. SpO2 is 93%. Chest x-ray taken on arrival demonstrates cardiomegaly with pulmonary vascular congestion. No obvious focal consolidations or pneumonia. Negative for influenza, RSV, COVID. CBC on arrival: WBC count 12.6, hemoglobin 17, hematocrit 58, platelets 161. BMP on arrival: Sodium 130, potassium 4.9, chloride 98, serum bicarb 24, BUN 28, creatinine 1.55, glucose 118. Patient has been empirically started on doxycycline. Afebrile. Vital signs are stable. Review of Systems REVIEW OF SYSTEMS: CONSTITUTIONAL: Denies any recent significant weight loss or weight gain. EYES: Denies change in vision or pain. EARS, NOSE, MOUTH, THROAT: Denies headaches, denies sore throat. CARDIOVASCULAR: Denies chest pain, palpitations or syncopal episodes. RESPIRATORY: See HPI. GASTROINTESTINAL: Denies change in appetite, abdominal pain. Admits occasional nausea and some diarrhea. GENITOURINARY: Denies hematuria, denies infections. MUSKULOSKELETAL: Denies pain, denies swelling. INTEGUMENTARY: Denies rash, denies eczema. NEUROLOGICAL: Denies recent memory loss, no recent seizure activity. PSYCHIATRIC: Denies anxiety, denies depression. HEMATOLOGIC/LYMPHATIC: Denies anemia, denies enlarged lymph node Past Medical History Past Medical History: COPD, GERD/Reflux, Hypertension Additional Past Medical History / Comment(s): hemmorrhoids, IBS, migraines, heart murmer, History of Any Multi-Drug Resistant Organisms: None Reported Past Surgical History: Cholecystectomy Additional Past Surgical History / Comment(s): D&C, cyst removed from rt ovary, Past Anesthesia/Blood Transfusion Reactions: Motion Sickness, Postoperative Nausea & Vomiting (PONV) Past Psychological History: Anxiety, Depression, Panic Disorder Smoking Status: Current every day smoker Past Alcohol Use History: None Reported Past Drug Use History: Marijuana - Past Family History Mother Family Medical History: No Reported History Medications and Allergies Home Medications Medication Instructions Recorded Confirmed Type cloNIDine HCL [Catapres] 0.1 mg PO BID 10/26/15 08/14/23 History traZODone HCL [Desyrel] 100 mg PO HS 01/11/21 08/14/23 History ALPRAZolam [Xanax] 0.5 mg PO DAILY@1500 08/14/23 08/14/23 History ALPRAZolam [Xanax] 1 mg PO BID@0900,2100 08/14/23 08/14/23 History Fluticasone Furoate [Arnuity 1 puff INHALATION RT-DAILY 08/14/23 08/14/23 History Ellipta] Losartan Potassium [Cozaar] 100 mg PO DAILY 08/14/23 08/14/23 History Prochlorperazine [Compazine] 10 mg PO Q6H PRN 08/14/23 08/14/23 History fluvoxaMINE [Luvox] 25 mg PO BID 08/14/23 08/14/23 History Allergies Allergy/AdvReac Type Severity Reaction Status Date / Time aspirin Allergy Abdominal Verified 08/14/23 19:54 Pain,vomiting codeine Allergy Rash/Hives,abdominal Verified 08/14/23 19:54 pain,vomiting hydrocodone bitartrate Allergy Rash/Hives,abdominal Verified 08/14/23 19:54 [From Vicodin] pain,vomiting Iodinated Contrast Media Allergy Rash/Hives Verified 08/14/23 19:54 [Iodinated Contrast- Oral and IV Dye] metoclopramide [From Reglan] Allergy Anaphylaxis Verified 08/14/23 19:54 nitrofurantoin Allergy vertigo Verified 08/14/23 19:54 [From Macrobid] nitrofurantoin Allergy vertigo Verified 08/14/23 19:54 macrocrystalline [From Macrobid] ofloxacin [From Floxin] Allergy Rash/Hives,abdominal Verified 08/14/23 19:54 pain lactose AdvReac Nausea & Verified 08/14/23 19:54 Vomiting pseudoephedrine AdvReac Anaphylaxis Verified 08/14/23 19:54 TAPE AdvReac Itching,hives Uncoded 08/14/23 17:42 "paper tape ok" Physical Exam Vitals: Vital Signs Temp Pulse Resp BP Pulse Ox 08/15/23 02:00 92 20 130/95 93 L 08/15/23 01:19 87 08/15/23 01:09 88 08/15/23 00:00 95 20 134/90 93 L 08/14/23 23:50 88 20 134/94 92 L 08/14/23 22:00 86 20 156/102 95 08/14/23 21:13 91 20 132/92 95 08/14/23 21:08 85 08/14/23 20:50 87 08/14/23 19:00 86 20 137/98 95 08/14/23 18:34 22 08/14/23 18:00 87 20 126/81 95 08/14/23 17:38 98.4 F 100 20 128/84 91 L Intake and Output 08/14/23 08/14/23 08/15/23 14:59 22:59 06:59 Other: Weight 127.006 kg GENERAL EXAM: Alert, 52-year-old white female, morbidly obese and disheveled, comfortable in no apparent distress. HEAD: Normocephalic and atraumatic EYES: Normal reaction of pupils, equal size. Right sclera erythema NOSE: Clear with pink turbinates. THROAT: No erythema or exudates. NECK: No masses, no JVD. CHEST: No chest wall deformity. LUNGS: Equal air entry with mild expiratory wheezes heard throughout. Particularly diminished lung sounds at the bases. On 4 L/min nasal cannula. No conversational dyspnea or accessory muscle use. CVS: S1 and S2 normal with no audible murmur, regular rhythm. No extra heart sounds ABDOMEN: Obese abdomen, no hepatosplenomegaly, active bowel sounds, no guarding or rigidity. SPINE: No scoliosis or deformity SKIN: No rashes CENTRAL NERVOUS SYSTEM: Alert, with a delayed verbal response. Cranial nerves II through XII intact. No focal deficits, tone is normal in all 4 extremities. EXTREMITIES: Bilateral lower extremity 1+ pitting edema. No clubbing, or cyanosis. Peripheral pulses are intact. Results - Laboratory Findings CBC and BMP: 08/14/23 19:00 08/14/23 18:02 Abnormal lab findings: Abnormal Labs 08/14/23 08/14/23 18:02 19:00 WBC 12.6 H RBC 6.88 H Hgb 17.0 H Hct 58.0 H* MCH 23.1 L MCHC 27.8 L RDW 20.8 H Neutrophils # 10.8 H Lymphocytes # 0.8 L Sodium 130 L BUN 28 H Creatinine 1.55 H Glucose 118 H Magnesium 1.5 L Total Bilirubin 2.2 H AST 59 H Albumin 3.2 L - Diagnostic Findings Chest x-ray: image reviewed Assessment and Plan Assessment: Acute hypoxemic respiratory failure, suspect combination of exacerbation of acute on chronic diastolic congestive heart failure and acute COPD exacerbation, Chest x-ray taken on arrival demonstrates cardiomegaly with pulmonary vascular congestion. No obvious focal consolidations or pneumonia. Negative for influenza, RSV, COVID. Acute kidney injury, possibly secondary to severe dehydration and intravascular volume depletion History of chronic obstructive pulmonary disease, normally maintained on Arnuity Ellipta inhaler outpatient Chronic ongoing tobacco dependence History of COVID-19 pneumonia History of hypertension History of GERD without esophagitis Morbid obesity, with a BMI 49.6 kg/m History of anxiety and depression Plan: Patient's medications, labs, imaging reviewed Continue supplemental oxygen to maintain oxygen saturation of 90% or greater Start combination of bronchodilators, Symbicort inhaler, and IV Solu-Medrol Continue doxycycline Give 1 dose of 40 mg IV Lasix now Monitor renal function Most recent available echocardiogram was from 2020, repeat echocardiogram We will continue to follow I have personally seen and examined the patient, performed the documentation and the assessment and plan as written. Number of minutes spent on the visit:20 Time with Patient: Greater than 30
[2023-08-15] MEDS ORDERED: PROCHLORPERAZINE 10 MG TAB PO PRN (06:00)
[2023-08-15 06:32] LABS: Appearance,Urine Cloudy (Clear); Bacteria,Urine Rare /hpf; Bilirubin,Urine Negative (Negative); Blood,Urine Negative (Negative); Color,Urine Yellow; Glucose,Urine (UA) Negative (Negative); Hyaline Casts,Urine 27 /lpf (0-2); Ketones,Urine Negative (Negative); Leukocyte Esterase,Urine Negative (Negative); Mucus,Urine Rare /hpf; Nitrite,Urine Negative (Negative); PH, Urine 5.5 (5.0-8.0); Protein,Urine Trace (Negative); RBC,Urine 3 /hpf (0-5); Specific Gravity,Urine 1.011 (1.001-1.035); Squamous Epithelial Cell,Urine <1 /hpf (0-4); Uric Acid Crystals,Urine Few /hpf; Urobilinogen,Urine <2.0 mg/dL (<2.0); WBC,Urine 2 /hpf (0-5)
[2023-08-15] MEDS ORDERED: NON FORMULARY DRUG (Fluticasone Furoate [Arnuity Ellipta] 100 MCG Blst.W.Dev) INHALATION SCH (08:00)
[2023-08-15] MEDS: SYMBICORT 160-4.5 MCG INHALER INHALATION SCH (08:26)
[2023-08-15] MEDS: ALPRAZolam 1 MG TAB PO SCH (09:11)
[2023-08-15] MEDS: LOSARTAN 50 MG TAB PO SCH (09:11)
[2023-08-15] MEDS: cloNIDine HCL 0.1 MG TAB PO SCH (09:11)
[2023-08-15 11:22] LABS: Anisocytosis Moderate; HGB 17.1 gm/dL (11.4-16.0); Hypochromasia Marked; MCH 23.4 pg (25.0-35.0); MCHC 27.2 g/dL (31.0-37.0); MCV 86.2 fL (80.0-100.0); Mean Platelet Volume 8.4; Microcytosis Slight; Platelet Count 117 k/uL (150-450); Poikilocytosis Slight; RDW 20.4 % (11.5-15.5); WBC 10.3 k/uL (3.8-10.6)
[2023-08-15 11:37] LABS: African American GFR (CKD) 62 (>60 ml/min/1.73 sqM); Anion Gap 7 mmol/L; Blood Urea Nitrogen 27 mg/dL (7-17); Calcium 8.5 mg/dL (8.4-10.2); Carbon Dioxide 28 mmol/L (22-30); Chloride 100 mmol/L (98-107); Glucose 131 mg/dL (74-99); Non-African American GFR(CKD) 53 (>60 ml/min/1.73 sqM); Sodium 135 mmol/L (137-145)
[2023-08-15 11:47] LABS: Potassium 4.7 mmol/L (3.5-5.1)
[2023-08-15 11:57] LABS: RBC 7.06 m/uL (3.80-5.40)
[2023-08-15 11:58] LABS: HCT 62.7 % (34.0-46.0)
--- NOTE | 2023-08-15 12:11 | P.NPCON ---
History of Present Illness - Reason for Consult acute renal failure - History of Present Illness patient is a 52-year-old female with history of COPD, hypertension, morbid obesity. Patient is admitted to the hospital with complaints of worsening shortness of breath over the past 1 week. Patient has chronic lymphedema in the lower extremities. No history of fever chills nausea vomiting or abdominal pain. Patient states that she has been voiding. Patient admits to having stopped taking her diuretics due to urinary frequency. chest x-ray shows evidence of pulmonary vascular congestion. serum creatinine 1.5 on admission and decreased to 1.19 today. maintained on angiotensin receptor blockers prior to admission. No hypotension noted. Past Medical History Past Medical History: COPD, GERD/Reflux, Hypertension Additional Past Medical History / Comment(s): hemmorrhoids, IBS, migraines, heart murmer, History of Any Multi-Drug Resistant Organisms: None Reported Past Surgical History: Cholecystectomy Additional Past Surgical History / Comment(s): D&C, cyst removed from rt ovary, Past Anesthesia/Blood Transfusion Reactions: Motion Sickness, Postoperative Nausea & Vomiting (PONV) Past Psychological History: Anxiety, Depression, Panic Disorder Smoking Status: Current every day smoker Past Alcohol Use History: None Reported Past Drug Use History: Marijuana - Past Family History Mother Family Medical History: No Reported History Medications and Allergies Home Medications Medication Instructions Recorded Confirmed Type cloNIDine HCL [Catapres] 0.1 mg PO BID 10/26/15 08/14/23 History traZODone HCL [Desyrel] 100 mg PO HS 01/11/21 08/14/23 History ALPRAZolam [Xanax] 0.5 mg PO DAILY@1500 08/14/23 08/14/23 History ALPRAZolam [Xanax] 1 mg PO BID@0900,2100 08/14/23 08/14/23 History Fluticasone Furoate [Arnuity 1 puff INHALATION RT-DAILY 08/14/23 08/14/23 History Ellipta] Losartan Potassium [Cozaar] 100 mg PO DAILY 08/14/23 08/14/23 History Prochlorperazine [Compazine] 10 mg PO Q6H PRN 08/14/23 08/14/23 History fluvoxaMINE [Luvox] 25 mg PO BID 08/14/23 08/14/23 History Allergies Allergy/AdvReac Type Severity Reaction Status Date / Time aspirin Allergy Abdominal Verified 08/14/23 19:54 Pain,vomiting codeine Allergy Rash/Hives,abdominal Verified 08/14/23 19:54 pain,vomiting hydrocodone bitartrate Allergy Rash/Hives,abdominal Verified 08/14/23 19:54 [From Vicodin] pain,vomiting Iodinated Contrast Media Allergy Rash/Hives Verified 08/14/23 19:54 [Iodinated Contrast- Oral and IV Dye] metoclopramide [From Reglan] Allergy Anaphylaxis Verified 08/14/23 19:54 nitrofurantoin Allergy vertigo Verified 08/14/23 19:54 [From Macrobid] nitrofurantoin Allergy vertigo Verified 08/14/23 19:54 macrocrystalline [From Macrobid] ofloxacin [From Floxin] Allergy Rash/Hives,abdominal Verified 08/14/23 19:54 pain lactose AdvReac Nausea & Verified 08/14/23 19:54 Vomiting pseudoephedrine AdvReac Anaphylaxis Verified 08/14/23 19:54 TAPE AdvReac Itching,hives Uncoded 08/14/23 17:42 "paper tape ok" Physical Exam Vitals: Vital Signs Temp Pulse Resp BP Pulse Ox 08/15/23 08:35 92 20 08/15/23 08:27 89 18 94 L 08/15/23 06:00 95 22 130/99 91 L 08/15/23 04:37 87 08/15/23 04:31 85 08/15/23 03:30 97.9 F 95 20 124/82 91 L 08/15/23 02:00 92 20 130/95 93 L 08/15/23 01:19 87 08/15/23 01:09 88 08/15/23 00:00 95 20 134/90 93 L 08/14/23 23:50 88 20 134/94 92 L 08/14/23 22:00 86 20 156/102 95 08/14/23 21:13 91 20 132/92 95 08/14/23 21:08 85 08/14/23 20:50 87 08/14/23 19:00 86 20 137/98 95 08/14/23 18:34 22 08/14/23 18:00 87 20 126/81 95 08/14/23 17:38 98.4 F 100 20 128/84 91 L Intake and Output 08/14/23 08/15/23 08/15/23 22:59 06:59 14:59 Output Total 200 Balance -200 Output: Urine 200 Other: # Voids 3 Weight 127.006 kg patient is awake, comfortable, no acute distress Examination of the heart S1 and S2 Examination of the lungs decreased breath sounds at the bases Abdomen is soft morbidly obese Examination of lower extremity shows chronic lymphedema with chronic skin changes. [employer] exam grossly intact Results - Lab Results Most recent lab results Calcium 8.5 mg/dL (8.4-10.2) 08/15/23 10:50 Magnesium 1.5 mg/dL (1.6-2.3) L 08/14/23 18:02 08/15/23 10:50 08/15/23 10:50 Assessment and Plan Assessment: 1. Acute kidney injury, nonoliguric, ATN, cardiorenal syndrome. Improving. UA is benign 2. Volume overload 3. Acute hypoxic respiratory failure secondary to CHF exacerbation and COPD exacerbation. 4. Morbid obesity 5. Hypervolemic hyponatremia Plan: continue to diurese patient. Maintain off of IV fluids. Repeat labs in a.m. Accurate I's and O's. Check ultrasound of the kidneys Thank you for the consultation. We will continue to follow the patient with you during her hospitalization.
--- NOTE | 2023-08-15 12:38 | CA ---
Transthoracic Echo Report Name: Keturah Brady Age: 52 Gender: F : 1970 Exam Date: 08/15/2023 09:34 Exam Location: [facility] Ht (in): 63 Wt (lb): 280 Ordering Physician: Romeo Horta Attending/Referring Phys: Inventory Control Specialist Grace Pearson RDCS Procedure CPT: Indications: evaluate LV function Cardiac Hx: Technical Quality: Technically difficult study Contrast 1: Definity Total Dose (mL): 2 Contrast 2: Total Dose (mL): MEASUREMENTS (Male / Female) Normal Values 2D ECHO LV Diastolic Diameter PLAX 3.7 cm 4.2 - 5.9 / 3.9 - 5.3 cm LV Systolic Diameter PLAX 2.5 cm IVS Diastolic Thickness 2.0 cm 0.6 - 1.0 / 0.6 - 0.9 cm LVPW Diastolic Thickness 1.6 cm 0.6 - 1.0 / 0.6 - 0.9 cm LV Relative Wall Thickness 1.0 RV Internal Dim ED PLAX 3.9 cm LA Systolic Diameter LX 3.3 cm 3.0 - 4.0 / 2.7 - 3.8 cm M-MODE Aortic Root Diameter MM 3.2 cm AV Cusp Separation MM 2.2 cm DOPPLER AV Peak Velocity 119.2 cm/s AV Peak Gradient 5.7 mmHg MV Area PHT 3.2 cm??? Mitral E Point Velocity 104.1 cm/s Mitral A Point Velocity 128.2 cm/s Mitral E to A Ratio 0.8 MV Deceleration Time 239.2 ms TR Peak Velocity 349.3 cm/s TR Peak Gradient 48.8 mmHg Right Ventricular Systolic Press 62.7 mmHg FINDINGS Left Ventricle Left ventricular ejection fraction is estimated at 55-60 %. Severely increased septal wall thickness. Moderately increased posterior wall thickness. Normal left ventricular wall motion. Right Ventricle Severe right ventricular dilatation. Severe pulmonary hypertension. Right ventricular systolic pressure estimated at 63 mm hg. Right Atrium Moderate right atrial dilatation. Left Atrium Normal left atrial size. Mitral Valve Mitral valve thickened. Mild mitral annular calcification.trace to mild mitral regurgitation. Aortic Valve Trileaflet aortic valve. Thickened aortic valve without stenosis. Tricuspid Valve Structurally normal tricuspid valve. Mild tricuspid regurgitation. Pulmonic Valve Pulmonic valve not well visualized. Pericardium No pericardial effusion. Aorta Normal size aortic root and proximal ascending aorta. CONCLUSIONS Technically difficult study. Definity ECHO contrast used for improved visualization of the endocardial borders (inadequate visualization of two or more contiguous segments). Normal left ventricle size and systolic function Dilated right ventricle with severe pulmonary hypertension Very limited Doppler study Previewed by: Dr. Nancy Rodriguez MD (Electronically Signed) Final Date: 15 Aug 2023 12:37
--- NOTE | 2023-08-15 12:42 | P.HPIM ---
History of Present Illness H&P Date: 08/15/23 Chief Complaint: Short of breath started 3 to 5 days History and physical Date of service 08/15/[address] Miguel. Chief complaint: Presented to the emergency room at [facility] emergency department brought by EMS. With the chief complaint Short of breath Patient indicating that progressively worsening in the last 3 to 5 days with the shortness of breath, she is a chronic daily smoker and they thought that she has COPD exacerbation she had also some cough nonproductive worsening as well. History of present illness: Ms. Keturah Brady, 52 years old white female single live with her boyfriend for many years, they have a daughter with the history of autism. Patient has history of chronic smoker with inability to quit smoking, with morbid obesity and lymphedema has been treated in [place] [facility] by lymphedema specialist Otilia and she had ups and downs with improvement in the past. Past medical history: COPD, GERD disease with reflux, hypertension, Hemorrhoids, IBS, migraine, heart murmur. Cholecystectomy., D&C, cyst removed from right ovary. Nausea and vomiting, motion sickness, postoperative nausea. She is following with Dr. Ge Cosby psychiatry through telemetry consult patient with his diagnosis Major depressive disorder with recurrent remission Panic disorder Generalized anxiety disorder Agoraphobia Social anxiety disorder with multiple medication. Allergy is multiple. Medication at home: Furosemide 20 mg 1 tablet daily Pantoprazole sodium 40 mg AC meal ProAir powder 2 puffs 4 times a day Fluticasone propionate HFA 110 mcg per accentuation 2 puffs twice a day. Pro chlorpromazine 10 mg 1 tablet as needed every 6 hour for nausea and vomiting Losartan potassium 100 mg every morning Clonidine HCl 0.1 mg twice a day Melatonin Gummies 5 mg chewable at bedtime Simply saline 1 spray each nostril 4 times a day Xanax 0.5 mg as described by Dr. Olsen psychiatrist Motrin IV 200 mg OTC as needed Clobetasol propionate 0.05% cream on the right hand twice a day as needed Trazodone HCl 100 mg tablet at at bedtime. History of use of marijuana in the past On the physical exam: Patient presented to the ER Her vital sign on that presentation temperature 98.4 F oral, pulse rate 100 bpm tachycardic, respiratory rate 20 to 22/min shallow Blood pressure 128/84 with a mean 98 Oxygen saturation 91% on 6 L with the severe shortness of breath. Head normocephalic atraumatic, pupil is equal reactive, there is conjunctival edema and redness in the right eye appears to be congested Normal hearing She had some secretion oropharynx questionable fungal. Neck was supple no lymphadenopathy no thyromegaly trachea midline. Chest scattered inspiratory expiratory wheezing, with increased anteroposterior diameter. Questionable rales on the basis posteriorly Heart: Regular sinus rhythm with the positive murmur and appear to be decompensated Abdomen: Morbidly obese with the anterior abdominal wall pitting edema with the appeared to be anasarca with the edema on the upper arms bilateral and the lower extremities 2+. I could not feel liver or spleen with the underlying questionable hepatic steatosis and abnormal liver enzyme and elevated bilirubin. Extremities: She had history of lymphatic edema however currently is a pitting edema bilaterally on the lower extremities extending to the abdomen. Positive pulses. Neurologically evaluation: She is sluggish in response mentally suspicious of hy pothyroidism. Upper and lower extremities diminished reflexes Patient is conscious alert oriented x 3 able to answer questions. Assessment and laboratories. Sodium 130 hyponatremia could be secondary to dehydration BUN 28 creatinine 1.55, EGFR for non- 39, with a baseline creatinine 0.5 with the presence of acute kidney injury consultation with Dr. Loja discussed with her. Abnormal liver enzyme with AST 59 and bilirubin 2.2, magnesium 1.5, with the underlying hepatic steatosis versus other abnormalities as diastolic congestive heart failure and hypomagnesemia. Chest x-ray done in the ER indicating cardiomegaly, pulmonary vascular congestion. With the elevated pro BNP and suspicious of systolic and diastolic impairment of the heart function consultation with Dr. TANIA Perez requested. Hemoconcentration with the dehydration with the underlying hemoglobin 17 and a hematocrit 58 on admission. COPD exacerbation with the hypoxic respiratory failure and she was on 6 L with the oxygen saturation 91. Chronic smoker Leukocytosis on admission Chronic history of lymphedema. Plan: 1. Ordered consultation with the nephrology Dr. Loja for evaluation and treatment 2. Consultation with cardiology Dr. TANIA Perez with the elevated proBNP and evaluation of diastolic congestive heart failure versus combined 3. Echocardiogram. Consultation with Dr. Ash pulmonary and critical care. 4. Continue hydration Repeat laboratories. And fourth or ordered depend on the patient and the hospital course. Procalcitonin ordered. And we will be waiting for the consulting physician opinion and management. Past Medical History Past Medical History: COPD, GERD/Reflux, Hypertension Additional Past Medical History / Comment(s): hemmorrhoids, IBS, migraines, heart murmer, History of Any Multi-Drug Resistant Organisms: None Reported Past Surgical History: Cholecystectomy Additional Past Surgical History / Comment(s): D&C, cyst removed from rt ovary, Past Anesthesia/Blood Transfusion Reactions: Motion Sickness, Postoperative Nausea & Vomiting (PONV) Past Psychological History: Anxiety, Depression, Panic Disorder Smoking Status: Current every day smoker Past Alcohol Use History: None Reported Past Drug Use History: Marijuana - Past Family History Mother Family Medical History: No Reported History Medications and Allergies Home Medications Medication Instructions Recorded Confirmed Type cloNIDine HCL [Catapres] 0.1 mg PO BID 10/26/15 08/14/23 History traZODone HCL [Desyrel] 100 mg PO HS 01/11/21 08/14/23 History ALPRAZolam [Xanax] 0.5 mg PO DAILY@1500 08/14/23 08/14/23 History ALPRAZolam [Xanax] 1 mg PO BID@0900,2100 08/14/23 08/14/23 History Fluticasone Furoate [Arnuity 1 puff INHALATION RT-DAILY 08/14/23 08/14/23 History Ellipta] Losartan Potassium [Cozaar] 100 mg PO DAILY 08/14/23 08/14/23 History Prochlorperazine [Compazine] 10 mg PO Q6H PRN 08/14/23 08/14/23 History fluvoxaMINE [Luvox] 25 mg PO BID 08/14/23 08/14/23 History Allergies Allergy/AdvReac Type Severity Reaction Status Date / Time aspirin Allergy Abdominal Verified 08/14/23 19:54 Pain,vomiting codeine Allergy Rash/Hives,abdominal Verified 08/14/23 19:54 pain,vomiting hydrocodone bitartrate Allergy Rash/Hives,abdominal Verified 08/14/23 19:54 [From Vicodin] pain,vomiting Iodinated Contrast Media Allergy Rash/Hives Verified 08/14/23 19:54 [Iodinated Contrast- Oral and IV Dye] metoclopramide [From Reglan] Allergy Anaphylaxis Verified 08/14/23 19:54 nitrofurantoin Allergy vertigo Verified 08/14/23 19:54 [From Macrobid] nitrofurantoin Allergy vertigo Verified 08/14/23 19:54 macrocrystalline [From Macrobid] ofloxacin [From Floxin] Allergy Rash/Hives,abdominal Verified 08/14/23 19:54 pain lactose AdvReac Nausea & Verified 08/14/23 19:54 Vomiting pseudoephedrine AdvReac Anaphylaxis Verified 08/14/23 19:54 TAPE AdvReac Itching,hives Uncoded 08/14/23 17:42 "paper tape ok" Physical Exam Vitals: Vital Signs Temp Pulse Resp BP Pulse Ox 08/15/23 08:35 92 20 08/15/23 08:27 89 18 94 L 08/15/23 06:00 95 22 130/99 91 L 08/15/23 04:37 87 08/15/23 04:31 85 08/15/23 03:30 97.9 F 95 20 124/82 91 L 08/15/23 02:00 92 20 130/95 93 L 08/15/23 01:19 87 08/15/23 01:09 88 08/15/23 00:00 95 20 134/90 93 L 08/14/23 23:50 88 20 134/94 92 L 08/14/23 22:00 86 20 156/102 95 08/14/23 21:13 91 20 132/92 95 08/14/23 21:08 85 08/14/23 20:50 87 08/14/23 19:00 86 20 137/98 95 08/14/23 18:34 22 08/14/23 18:00 87 20 126/81 95 08/14/23 17:38 98.4 F 100 20 128/84 91 L Intake and Output 08/14/23 08/15/23 08/15/23 22:59 06:59 14:59 Output Total 200 Balance -200 Output: Urine 200 Other: # Voids 3 Weight 127.006 kg Results CBC & Chem 7: 08/15/23 10:50 08/15/23 10:50 Labs: Abnormal Lab Results - Last 24 Hours (Table) 08/14/23 08/14/23 08/15/23 Range/Units 18:02 19:00 06:11 WBC 12.6 H (3.8-10.6) k/uL RBC 6.88 H (3.80-5.40) m/uL Hgb 17.0 H (11.4-16.0) gm/dL Hct 58.0 H* (34.0-46.0) % MCH 23.1 L (25.0-35.0) pg MCHC 27.8 L (31.0-37.0) g/dL RDW 20.8 H (11.5-15.5) % Plt Count (150-450) k/uL Neutrophils # 10.8 H (1.3-7.7) k/uL Lymphocytes # 0.8 L (1.0-4.8) k/uL Sodium 130 L (137-145) mmol/L BUN 28 H (7-17) mg/dL Creatinine 1.55 H (0.52-1.04) mg/dL Glucose 118 H (74-99) mg/dL Magnesium 1.5 L (1.6-2.3) mg/dL Total Bilirubin 2.2 H (0.2-1.3) mg/dL AST 59 H (14-36) U/L Albumin 3.2 L (3.5-5.0) g/dL Urine Appearance Cloudy H (Clear) Urine Protein Trace H (Negative) Uric Acid Crystals Few H (None) /hpf Urine Bacteria Rare H (None) /hpf Hyaline Casts 27 H (0-2) /lpf Urine Mucus Rare H (None) /hpf 08/15/23 08/15/23 Range/Units 10:50 10:50 WBC (3.8-10.6) k/uL RBC (3.80-5.40) m/uL Hgb 17.1 H (11.4-16.0) gm/dL Hct 62.7 H* (34.0-46.0) % MCH 23.4 L (25.0-35.0) pg MCHC 27.2 L (31.0-37.0) g/dL RDW 20.4 H (11.5-15.5) % Plt Count 117 L (150-450) k/uL Neutrophils # (1.3-7.7) k/uL Lymphocytes # (1.0-4.8) k/uL Sodium 135 L (137-145) mmol/L BUN 27 H (7-17) mg/dL Creatinine 1.19 H (0.52-1.04) mg/dL Glucose 131 H (74-99) mg/dL Magnesium (1.6-2.3) mg/dL Total Bilirubin (0.2-1.3) mg/dL AST (14-36) U/L Albumin (3.5-5.0) g/dL Urine Appearance (Clear) Urine Protein (Negative) Uric Acid Crystals (None) /hpf Urine Bacteria (None) /hpf Hyaline Casts (0-2) /lpf Urine Mucus (None) /hpf
[2023-08-15 12:43] LABS: Lymphocytes # (M) 0.21 k/uL (1.0-4.8); Neutrophils # (M) 10.09 k/uL (1.3-7.7); Neutrophils % (M) 98 %; Nucleated Red Blood Cells 0 /100 WBC (0-0); Total Cells Counted 200
--- NOTE | 2023-08-15 14:23 | P.CRDCN ---
History of Present Illness History of present illness: HISTORY OF PRESENT ILLNESS: This is a 52-year-old female with a past medical history significant for COPD, hypertension, nicotine dependence, GERD, anxiety, depression, and IBS. 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 We have been asked to see the patient in consultation for CHF. Patient examined at the bedside in the emergency room. Patient states that she is prescribed Lasix on a daily basis however she has not been taking this lately due to increased urinary frequency. Patient states she has not been taking her Lasix for approximately 1 month. She reports progressive shortness of breath and edema. DIAGNOSTICS: - EKG reveals sinus mechanism with T wave inversions inferiorly. - Chest xray cardiomegaly and pulmonary vascular congestion - Laboratory data: WBC 10.3. Hemoglobin 17.1. Platelet count 117. Sodium 135. Potassium 4.7. BUN 29. Creatinine 1.19. Troponin negative x 1. proBNP 8850. - Current home cardiac medications include losartan 100 mg daily and clonidine 0.1 mg twice a day. - Echocardiogram obtained this admission reveals ejection fraction 50 to 55%, severe pulmonary hypertension with RVSP of 63 mmHg, mild TR, trace to mild MR REVIEW OF SYSTEMS: At the time of my exam: CONSTITUTIONAL: Denies fever or chills. HEENT: Denies blurred vision, vision changes, or eye pain. Denies hemoptysis CARDIOVASCULAR: Denies chest pain. Denies orthopnea. Denies PND. Denies palpitations RESPIRATORY: Reports shortness of breath. GASTROINTESTINAL: Denies abdominal pain. Denies nausea or vomiting. HEMATOLOGIC: Denies bleeding disorders. GENITOURINARY: Denies any blood in urine. SKIN: Denies pruitis. Denies rash. PHYSICAL EXAM: VITAL SIGNS: Reviewed. GENERAL: Well-developed in no acute distress. HEENT: Head is normocephalic. Pupils are equal, round. Sclerae anicteric. Mucous membranes of the mouth are moist. Neck supple. No JVD or thyromegaly LUNGS: Respirations even and unlabored. Lungs essentially clear to auscultation bilaterally. HEART: Regular rate and rhythm. S1 and S2 heard. ABDOMEN: Soft. Non-tender. Significant abdominal wall edema noted EXTREMITIES: Normal range of motion. No clubbing or cyanosis. Peripheral pulses intact. Significant bilateral lower extremity edema NEUROLOGIC: Awake and alert. Oriented x 3. ASSESSMENT: Shortness of breath Acute on chronic heart failure with preserved EF Acute hypoxic respiratory failure requiring supplemental oxygen Severe pulmonary hypertension Chronic lymphedema Medication noncompliance, patient recently stopped taking diuretics due to urinary frequency Hypertension COPD History of GERD History of anxiety History of depression Morbid obesity: BMI 49.6 PLAN: 2D echo obtained and reviewed Resume home cardiac medications Begin Lasix drip at 10 mg an hour Daily weights, accurate intake and output, and monitoring of kidney function Medication compliance reinforced Further recommendations pending patient course Nurse practitioner note has been reviewed by physician. Signing provider agrees with the documented findings, assessment, and plan of care documented by MEDICAL SOCIOLOGIST as a scribe. Past Medical History Past Medical History: COPD, GERD/Reflux, Hypertension Additional Past Medical History / Comment(s): hemmorrhoids, IBS, migraines, heart murmer, History of Any Multi-Drug Resistant Organisms: None Reported Past Surgical History: Cholecystectomy Additional Past Surgical History / Comment(s): D&C, cyst removed from rt ovary, Past Anesthesia/Blood Transfusion Reactions: Motion Sickness, Postoperative Na usea & Vomiting (PONV) Past Psychological History: Anxiety, Depression, Panic Disorder Smoking Status: Current every day smoker Past Alcohol Use History: None Reported Past Drug Use History: Marijuana - Past Family History Mother Family Medical History: No Reported History Medications and Allergies Home Medications Medication Instructions Recorded Confirmed Type cloNIDine HCL [Catapres] 0.1 mg PO BID 10/25/08/14/23 History traZODone HCL [Desyrel] 100 mg PO HS 01/11/21 08/14/23 History ALPRAZolam [Xanax] 0.5 mg PO DAILY@1500 08/14/23 08/14/23 History ALPRAZolam [Xanax] 1 mg PO BID@0900,2100 08/14/23 08/14/23 History Fluticasone Furoate [Arnuity 1 puff INHALATION RT-DAILY 08/14/23 08/14/23 History Ellipta] Losartan Potassium [Cozaar] 100 mg PO DAILY 08/14/23 08/14/23 History Prochlorperazine [Compazine] 10 mg PO Q6H PRN 08/14/23 08/14/23 History fluvoxaMINE [Luvox] 25 mg PO BID 08/14/23 08/14/23 History Allergies Allergy/AdvReac Type Severity Reaction Status Date / Time aspirin Allergy Abdominal Verified 08/14/23 19:54 Pain,vomiting codeine Allergy Rash/Hives,abdominal Verified 08/14/23 19:54 pain,vomiting hydrocodone bitartrate Allergy Rash/Hives,abdominal Verified 08/14/23 19:54 [From Vicodin] pain,vomiting Iodinated Contrast Media Allergy Rash/Hives Verified 08/14/23 19:54 [Iodinated Contrast- Oral and IV Dye] metoclopramide [From Reglan] Allergy Anaphylaxis Verified 08/14/23 19:54 nitrofurantoin Allergy vertigo Verified 08/14/23 19:54 [From Macrobid] nitrofurantoin Allergy vertigo Verified 08/14/23 19:54 macrocrystalline [From Macrobid] ofloxacin [From Floxin] Allergy Rash/Hives,abdominal Verified 08/14/23 19:54 pain lactose AdvReac Nausea & Verified 08/14/23 19:54 Vomiting pseudoephedrine AdvReac Anaphylaxis Verified 08/14/23 19:54 TAPE AdvReac Itching,hives Uncoded 08/14/23 17:42 "paper tape ok" Physical Exam Vitals: Vital Signs Temp Pulse Resp BP Pulse Ox 08/15/23 12:17 84 20 08/15/23 12:07 83 20 08/15/23 08:35 92 20 08/15/23 08:27 89 18 94 L 08/15/23 06:00 95 22 130/99 91 L 08/15/23 04:37 87 08/15/23 04:31 85 08/15/23 03:30 97.9 F 95 20 124/82 91 L 08/15/23 02:00 92 20 130/95 93 L 08/15/23 01:19 87 08/15/23 01:09 88 08/15/23 00:00 95 20 134/90 93 L 08/14/23 23:50 88 20 134/94 92 L 08/14/23 22:00 86 20 156/102 95 08/14/23 21:13 91 20 132/92 95 08/14/23 21:08 85 08/14/23 20:50 87 08/14/23 19:00 86 20 137/98 95 08/14/23 18:34 22 08/14/23 18:00 87 20 126/81 95 08/14/23 17:38 98.4 F 100 20 128/84 91 L Intake and Output 08/14/23 08/15/23 08/15/23 22:59 06:59 14:59 Output Total 200 Balance -200 Output: Urine 200 Other: # Voids 3 Weight 127.006 kg Results 08/15/23 10:50 08/15/23 10:50 Cardiac Enzymes 08/14/23 08/15/23 Range/Units 18:02 10:50 AST 59 H (14-36) U/L Troponin I <0.012 (0.000-0.034) ng/mL CBC 08/14/23 08/15/23 Range/Units 19:00 10:50 WBC 12.6 H 10.3 (3.8-10.6) k/uL RBC 6.88 H 7.06 H (3.80-5.40) m/uL Hgb 17.0 H 17.1 H (11.4-16.0) gm/dL Hct 58.0 H* 62.7 H* (34.0-46.0) % Plt Count 161 117 L (150-450) k/uL Comprehensive Metabolic Panel 08/14/23 08/15/23 Range/Units 18:02 10:50 Sodium 130 L 135 L (137-145) mmol/L Potassium 4.9 4.7 (3.5-5.1) mmol/L Chloride 98 100 (98-107) mmol/L Carbon Dioxide 24 28 (22-30) mmol/L BUN 28 H 27 H (7-17) mg/dL Creatinine 1.55 H 1.19 H (0.52-1.04) mg/dL Glucose 118 H 131 H (74-99) mg/dL Calcium 8.4 8.5 (8.4-10.2) mg/dL AST 59 H (14-36) U/L ALT 12 (4-34) U/L Alkaline Phosphatase 113 (38-126) U/L Total Protein 6.9 (6.3-8.2) g/dL Albumin 3.2 L (3.5-5.0) g/dL Current Medications Generic Name Dose Route Start Last Admin Trade Name Freq PRN Reason Stop Dose Admin Acetaminophen 650 mg 08/14/23 21:10 Acetaminophen Tab 325 Mg Tab PO Q6HR PRN Mild Pain or Fever > 100.5 Albuterol/Ipratropium 3 ml 08/15/23 00:00 08/15/23 12:07 Ipratropium-Albuterol 3 Ml Neb INHALATION 3 ml RT-Q4H JOSE Administration Alprazolam 0.5 mg 08/15/23 15:00 Alprazolam 0.5 Mg Tab PO DAILY@1500 JOSE Alprazolam 1 mg 08/15/23 09:00 08/15/23 09:11 Alprazolam 1 Mg Tab PO 1 mg BID@0900,2100 JOSE Administration Budesonide/Formoterol Fumarate 2 puff 08/15/23 08:00 08/15/23 08:26 Symbicort 160-4.5 Mcg Inhaler INHALATION 2 puff RT-BID JOSE Administration Clonidine 0.1 mg 08/15/23 09:00 08/15/23 09:11 Clonidine Hcl 0.1 Mg Tab PO 0.1 mg BID JOSE Administration Fluvoxamine Maleate 25 mg 08/15/23 09:00 08/15/23 09:11 Fluvoxamine 50 Mg Tab PO 25 mg BID JOSE Administration Furosemide 40 mg 08/15/23 21:00 Furosemide 10 Mg/Ml 4 Ml Vial IV Q12HR JOSE Heparin Sodium (Porcine) 5,000 unit 08/15/23 00:00 08/15/23 09:11 Heparin Sodium,Porcine 5,000 Unit/Ml 1 Ml Vial SQ 5,000 unit Q8HR JOSE Administration Doxycycline Hyclate 100 mg/ 100 mls @ 100 mls/hr 08/14/23 22:00 08/15/23 10:54 Sodium Chloride IVPB 100 mls/hr Q12H JOSE Administration Protocol Losartan Potassium 100 mg 08/15/23 09:00 08/15/23 09:11 Losartan 50 Mg Tab PO 100 mg DAILY JOSE Administration Methylprednisolone Sodium Succinate 60 mg 08/15/23 00:00 08/15/23 12:18 Methylprednisolone Sod Succi 125 Mg/2 Ml Vial IV 60 mg Q6HR JOSE Administration Naloxone HCl 0.2 mg 08/14/23 21:10 Naloxone 0.4 Mg/Ml 1 Ml Vial IV Q2M PRN Opioid Reversal Ondansetron HCl 4 mg 08/14/23 21:10 08/15/23 03:27 Ondansetron 4 Mg/2 Ml Vial IVP 4 mg Q8HR PRN Administration Nausea And Vomiting Prochlorperazine Maleate 10 mg 08/15/23 06:00 Prochlorperazine 10 Mg Tab PO Q6H PRN Nausea And Vomiting Trazodone HCl 100 mg 08/15/23 21:00 Trazodone Hcl 100 Mg Tab PO HS JOSE Intake and Output 08/14/23 08/15/23 08/15/23 22:59 06:59 14:59 Output Total 200 Balance -200 Output: Urine 200 Other: # Voids 3 Weight 127.006 kg 08/15/23 10:50 08/15/23 10:50
--- NOTE | 2023-08-15 14:40 | US ---
EXAMINATION TYPE: US abdomen complete DATE OF EXAM: 08/15/2023 COMPARISON: 03/19/2017. CLINICAL INDICATION: Female, 52 years old with history of Acute kidney injury, hepatic steatosis, ant erior a; Hx nausea, HTN, and Diarrhea TECHNIQUE: Multiple sonographic images of the abdomen are obtained. FINDINGS: EXAM MEASUREMENTS: Liver Length: 22 cm Gallbladder Wall: Surgically absent cm CBD: 0.5 cm Spleen: 15 cm Right Kidney: 11.3 x 5.9 x 5.9 cm Left Kidney: Not visualized due to patient body habitus; unable to penetrate through thick edematous tissue. LINOLEUM INSTALLER NOTES: Pancreas: Obscured by bowel gas Liver: Coarse Gallbladder: Surgically absent; Fluid noted within the gallbladder fossa Evidence for sonographic Slade's sign: No CBD: Dilated Spleen: Limited visualization due to patient body habitus; WNL as visualized Right Kidney: No hydronephrosis or masses seen Left Kidney: Not visualized due to patient body habitus; unable to penetrate through thick edematous tissue. Upper IVC: wnl Abd Aorta: Obscured by overlying bowel gas IMPRESSION: 1. Surgically absent gallbladder with fluid noted within the gallbladder fossa. Consider further lila luation with cross-sectional imaging. Findings could be secondary to suspected underlying cirrhosis w ith ascites. 2. Hepatocellular disease with nodular contour to liver correlate for cirrhosis. No suspicious shabana s.
[2023-08-15] MEDS: FUROSEMIDE 100 MG in SODIUM CHLORIDE 0.9% 90 ML IV SCH (14:47)
[2023-08-15] MEDS: ALPRAZolam 0.5 MG TAB PO SCH (14:47)
[2023-08-15 15:47] LABS: Thyroid Peroxidase Antibodies <9.0 U/mL (0.0-33.0)
[2023-08-15] MEDS ORDERED: FUROSEMIDE 10 MG/ML 4 ML VIAL IV SCH (21:00)
[2023-08-15] MEDS: traZODone HCL 100 MG TAB PO SCH (21:22)
[2023-08-16 03:04] LABS: Prealbumin 6.7 mg/dL (18.0-42.0)
[2023-08-16 03:11] LABS: T4, Free (Free Thyroxine) 1.06 ng/dL (0.80-1.80)
[2023-08-16 03:20] LABS: Magnesium 1.7 mg/dL (1.5-2.4)
[2023-08-16 03:43] LABS: ALT 14 U/L (8-44); AST 48 U/L (13-35); Albumin 3.2 g/dL (3.8-4.9); Albumin/Globulin Ratio 1.03 Ratio (1.60-3.17); Alkaline Phosphatase 107 U/L (41-126); Bilirubin, Conjugated 0.37 mg/dL (0.20-0.40); Bilirubin,Unconjugated 0.63 mg/dL (0.20-1.00); Globulin 3.1 g/dL (1.6-3.3); Total Protein 6.3 g/dL (6.2-8.2)
[2023-08-16] MEDS: ACETAMINOPHEN TAB 325 MG TAB PO PRN (05:15)
[2023-08-16] MEDS: LACTULOSE 20 GM/30 ML CUP PO SCH ×2 (10:45→12:52)
--- NOTE | 2023-08-16 11:32 | P.CONS ---
History of Present Illness - Reason for Consult Consult date: 08/16/23 wound care - History of Present Illness This is a 52-year-old patient with past medical history significant for COPD GERD hypertension and obesity. Patient is an every day smoker denies diabetes. Patient has a open ulceration to the left lower quadrant to the underside of her pannus. Ulceration measures approximately 2 x 1.6 x 0.2 cm with significant amount of slough and nonviable tissue present wound edges are attached to the wound base no tunneling or undermining noted. Ulceration has fat layer exposed with minimal granulation seen. Serous drainage noted. Periwound shows excoriation. Patient states that the ulceration has been there for approximately 1 month. Review Of Systems: Constitutional: No fever, no chills, no night sweats. No weight change. No weakness, fatigue or lethargy. No daytime sleepiness. Integumentary:reports wounds, no lesions. No rash or pruritus. No unusual bruising. No change in hair or nails. Physical exam: General Appearance: Alert, cooperative, no distress, appears stated age. Skin: See HPI all other Skin color, texture, tugor normal, no rashes or lesions. Neurologic: Alert oriented x3 Assessment: 1. Nonhealing ulceration with fat layer exposed other site 2. Nicotine dependence 3. Obesity Plan: 1. Apply absorptive silver and ABD. Tape as needed. Utilize zinc barrier cream to the periwound. Patient would benefit from advanced wound care and wound care setting. Patient was unsure if that is something that she wants to do. Thank you for the consultation any questions please contact the wound care center DNP note has been reviewed and discussed with Dr. Beyer and the impression and plan of care has been directed as dictated. Past Medical History Past Medical History: COPD, GERD/Reflux, Hypertension Additional Past Medical History / Comment(s): hemmorrhoids, IBS, migraines, heart murmer, History of Any Multi-Drug Resistant Organisms: None Reported Past Surgical History: Cholecystectomy Additional Past Surgical History / Comment(s): D&C, cyst removed from rt ovary, Past Anesthesia/Blood Transfusion Reactions: No Reported Reaction, Motion Sickness, Postoperative Nausea & Vomiting (PONV) Past Psychological History: Anxiety, Depression, Panic Disorder Additional Psychological History / Comment(s): severe anxiety Smoking Status: Current every day smoker Past Alcohol Use History: None Reported Past Drug Use History: None Reported, Marijuana - Past Family History Mother Family Medical History: No Reported History Medications and Allergies Home Medications Medication Instructions Recorded Confirmed Type cloNIDine HCL [Catapres] 0.1 mg PO BID 10/26/15 08/14/23 History traZODone HCL [Desyrel] 100 mg PO HS 01/11/21 08/14/23 History ALPRAZolam [Xanax] 0.5 mg PO DAILY@1500 08/14/23 08/14/23 History ALPRAZolam [Xanax] 1 mg PO BID@0900,2100 08/14/23 08/14/23 History Fluticasone Furoate [Arnuity 1 puff INHALATION RT-DAILY 08/14/23 08/14/23 History Ellipta] Losartan Potassium [Cozaar] 100 mg PO DAILY 08/14/23 08/14/23 History Prochlorperazine [Compazine] 10 mg PO Q6H PRN 08/14/23 08/14/23 History fluvoxaMINE [Luvox] 25 mg PO BID 08/14/23 08/14/23 History Allergies Allergy/AdvReac Type Severity Reaction Status Date / Time aspirin Allergy Abdominal Verified 08/14/23 19:54 Pain,vomiting codeine Allergy Rash/Hives,abdominal Verified 08/14/23 19:54 pain,vomiting hydrocodone bitartrate Allergy Rash/Hives,abdominal Verified 08/14/23 19:54 [From Vicodin] pain,vomiting Iodinated Contrast Media Allergy Rash/Hives Verified 08/14/23 19:54 [Iodinated Contrast- Oral and IV Dye] metoclopramide [From Reglan] Allergy Anaphylaxis Verified 08/14/23 19:54 nitrofurantoin Allergy vertigo Verified 08/14/23 19:54 [From Macrobid] nitrofurantoin Allergy vertigo Verified 08/14/23 19:54 macrocrystalline [From Macrobid] ofloxacin [From Floxin] Allergy Rash/Hives,abdominal Verified 08/14/23 19:54 pain lactose AdvReac Nausea & Verified 08/14/23 19:54 Vomiting pseudoephedrine AdvReac Anaphylaxis Verified 08/14/23 19:54 TAPE AdvReac Itching,hives Uncoded 08/14/23 17:42 "paper tape ok" Physical Exam Vitals: Vital Signs Temp Pulse Pulse Resp BP BP BP 08/16/23 10:39 96 21 08/16/23 09:49 96 08/16/23 09:37 96 08/16/23 09:34 98.1 F 96 21 154/89 08/16/23 07:00 97.6 F 97 21 138/64 08/16/23 00:36 93 08/16/23 00:28 93 08/15/23 23:10 98.2 F 98 22 124/77 08/15/23 21:25 93 18 129/79 08/15/23 18:14 90 20 08/15/23 18:03 91 20 08/15/23 18:02 98.3 F 92 18 122/78 08/15/23 15:28 88 20 08/15/23 15:18 87 20 08/15/23 12:30 98.6 F 20 115/84 08/15/23 12:17 84 20 08/15/23 12:07 83 20 Pulse Ox 08/16/23 10:39 08/16/23 09:49 08/16/23 09:37 08/16/23 09:34 89 L 08/16/23 07:00 91 L 08/16/23 00:36 08/16/23 00:28 08/15/23 23:10 91 L 08/15/23 21:25 98 08/15/23 18:14 08/15/23 18:03 08/15/23 18:02 91 L 08/15/23 15:28 08/15/23 15:18 08/15/23 12:30 92 L 08/15/23 12:17 08/15/23 12:07 Intake and Output 08/15/23 08/16/23 08/16/23 22:59 06:59 14:59 Intake Total 91.333 Output Total 650 300 Balance -558.667 -300 Intake: Intake, IV Titration 91.333 Amount Furosemide 100 mg In 91.333 Sodium Chloride 0.9% 90 ml @ 10 MG/HR 10 mls/hr IV .Q10H [facility] Rx#: [id number] Output: Urine 650 300 Other: Voiding Method External Catheter External Catheter Weight 127.006 kg Results CBC & Chem 7: 08/15/23 10:50 08/15/23 10:50 Labs: Abnormal Lab Results - Last 24 Hours (Table) 08/15/23 08/15/23 08/15/23 Range/Units 10:50 10:50 10:50 RBC 7.06 H (3.80-5.40) m/uL Hgb 17.1 H (11.4-16.0) gm/dL Hct 62.7 H* (34.0-46.0) % MCH 23.4 L (25.0-35.0) pg MCHC 27.2 L (31.0-37.0) g/dL RDW 20.4 H (11.5-15.5) % Plt Count 117 L (150-450) k/uL Neutrophils # (Manual) 10.09 H (1.3-7.7) k/uL Lymphocytes # (Manual) 0.21 L (1.0-4.8) k/uL Sodium 135 L (137-145) mmol/L BUN 27 H (7-17) mg/dL Creatinine 1.19 H (0.52-1.04) mg/dL Glucose 131 H (74-99) mg/dL AST 48 H (13-35) U/L Ammonia (<30) umol/L Albumin 3.2 L (3.8-4.9) g/dL Albumin/Globulin Ratio 1.03 L (1.60-3.17) Ratio Prealbumin (18.0-42.0) mg/dL Procalcitonin 0.48 H (0.02-0.09) ng/mL 08/15/23 08/15/23 Range/Units 11:54 13:06 RBC (3.80-5.40) m/uL Hgb (11.4-16.0) gm/dL Hct (34.0-46.0) % MCH (25.0-35.0) pg MCHC (31.0-37.0) g/dL RDW (11.5-15.5) % Plt Count (150-450) k/uL Neutrophils # (Manual) (1.3-7.7) k/uL Lymphocytes # (Manual) (1.0-4.8) k/uL Sodium (137-145) mmol/L BUN (7-17) mg/dL Creatinine (0.52-1.04) mg/dL Glucose (74-99) mg/dL AST (13-35) U/L Ammonia 69 H (<30) umol/L Albumin (3.8-4.9) g/dL Albumin/Globulin Ratio (1.60-3.17) Ratio Prealbumin 6.7 L (18.0-42.0) mg/dL Procalcitonin (0.02-0.09) ng/mL Assessment and Plan (1) Non-pressure chronic ulcer of skin of other sites with fat layer exposed Current Visit: Yes Status: Acute Code(s): L98.492 - NON-PRS CHRONIC ULCER OF SKIN OF SITES W FAT LAYER EXPOSED SNOMED Code(s): 77448620 (2) Nicotine dependence with current use Current Visit: Yes Status: Acute Code(s): F17.200 - NICOTINE DEPENDENCE, UNSPECIFIED, UNCOMPLICATED SNOMED Code(s): 73546108 (3) Obesity due to excess calories Current Visit: Yes Status: Acute Code(s): E66.09 - OTHER OBESITY DUE TO EXCESS CALORIES SNOMED Code(s): 147986284
--- NOTE | 2023-08-16 11:58 | P.PN ---
Subjective patient is seen for follow-up for acute kidney injury. Patient was admitted to the hospital with shortness of breath and increased lower extremity swelling. She is currently being diuresed. Started on Lasix drip yesterday by cardiology. 24 hour urine output at 650 ML. Patient has an external catheter. I'm not sure how accurate this is. Patient remains short of breath. No acute distress noted today. serum creatinine decreased to 1.19 yesterday. Objective - Vital Signs Vital signs: Vital Signs Temp 98.1 F 08/16/23 09:34 Pulse 96 08/16/23 10:39 Resp 21 08/16/23 10:39 BP 154/89 08/16/23 09:34 Pulse Ox 89 L 08/16/23 09:34 FiO2 Intake & Output 08/15/23 08/16/23 08/16/23 18:59 06:59 18:59 Intake Total 91.333 Output Total 650 300 Balance -558.667 -300 Weight 182.5 kg 127.006 kg Intake: Intake, IV Titration 91.333 Amount Furosemide 100 mg In 91.333 Sodium Chloride 0.9% 90 ml @ 10 MG/HR 10 mls/hr IV .Q10H [facility] Rx#: [id number] Output: Urine 650 300 Other: Voiding Method External Catheter External Catheter - Exam patient is awake, comfortable, no acute distress Examination of the heart S1 and S2 Examination of the lungs decreased breath sounds at the bases Abdomen is soft morbidly obese Examination of lower extremity shows chronic lymphedema with chronic skin changes. SPA DIRECTOR exam grossly intact - Labs CBC & Chem 7: 08/15/23 10:50 08/15/23 10:50 Labs: Abnormal Lab Results - Last 24 Hours (Table) 08/15/23 08/15/23 08/15/23 Range/Units 10:50 10:50 10:50 RBC 7.06 H (3.80-5.40) m/uL Hgb 17.1 H (11.4-16.0) gm/dL Hct 62.7 H* (34.0-46.0) % MCH 23.4 L (25.0-35.0) pg MCHC 27.2 L (31.0-37.0) g/dL RDW 20.4 H (11.5-15.5) % Plt Count 117 L (150-450) k/uL Neutrophils # (Manual) 10.09 H (1.3-7.7) k/uL Lymphocytes # (Manual) 0.21 L (1.0-4.8) k/uL AST 48 H (13-35) U/L Ammonia (<30) umol/L Albumin 3.2 L (3.8-4.9) g/dL Albumin/Globulin Ratio 1.03 L (1.60-3.17) Ratio Prealbumin (18.0-42.0) mg/dL Procalcitonin 0.48 H (0.02-0.09) ng/mL 08/15/23 08/15/23 Range/Units 11:54 13:06 RBC (3.80-5.40) m/uL Hgb (11.4-16.0) gm/dL Hct (34.0-46.0) % MCH (25.0-35.0) pg MCHC (31.0-37.0) g/dL RDW (11.5-15.5) % Plt Count (150-450) k/uL Neutrophils # (Manual) (1.3-7.7) k/uL Lymphocytes # (Manual) (1.0-4.8) k/uL AST (13-35) U/L Ammonia 69 H (<30) umol/L Albumin (3.8-4.9) g/dL Albumin/Globulin Ratio (1.60-3.17) Ratio Prealbumin 6.7 L (18.0-42.0) mg/dL Procalcitonin (0.02-0.09) ng/mL Assessment and Plan Assessment: 1. Acute kidney injury, nonoliguric, ATN, cardiorenal syndrome. Improving. UA is benign 2. Volume overload 3. Acute hypoxic respiratory failure secondary to CHF exacerbation and COPD exacerbation. 4. Morbid obesity 5. Hypervolemic hyponatremia Plan: continue to diurese patient. continue with Lasix drip. insert Vines catheter. Repeat labs in a.m. Accurate I's and O's.
[2023-08-16 12:31] LABS: INR 1.3 (<1.2); Partial Thromboplastin Time 24.5 sec (22.0-30.0)
--- NOTE | 2023-08-16 12:49 | P.CONS ---
History of Present Illness - Reason for Consult Consult date: 08/16/23 Liver Cirrhosis Requesting physician: Andre Miguel - Chief Complaint Shortness of breath - History of Present Illness This is a pleasant 52-year-old female with a past medical history of COPD, chronic daily smoker, chronic lymphedema, morbid obesity, hypertension, and gaby or depressive disorder who presented to the emergency department with complaints of shortness of breath. She was admitted 2 days ago for COPD exacerbation and generalized edema. Pulmonology following for COPD and cardiology on consultation for congestive heart failure. Patient was noted to have elevated ammonia level underwent abdominal ultrasound that reported hepatocellular disease with nodular contour of liver correlate for cirrhosis. Gastroenterology was consulted for liver cirrhosis. Patient denies any history of liver disease. She denies any history of alcoholism. Patient is morbidly obese states that she has been obese for at least the last 5 years duration. Patient states that she was having some mild confusion and increased fatigue and weakness. Hematocrit 62 platelet count 117,000 sodium 135 potassium 4.7 BUN 27 creatinine 1.19 ammonia level 69, total bilirubin 1.0 AST 48 ALT 14 alkaline phosphatase 107 today's labs WBC 10.3 hemoglobin 17 Review of Systems REVIEW OF SYSTEMS: CARDIOPULMONARY: No chest pain. Shortness of breath, nasal cannula. Lower extremity edema and generalized anasarca. Gastrointestinal: No abdominal pain. No nausea or vomiting. No hematemesis, coffee-ground emesis. No rectal bleeding, or melena. GENITOURINARY: No dysuria or hematuria. MUSCULOSKELETAL: Reports normal range of motion., Joint pain. SKIN: No rashes. No jaundice. Lower extremity swelling and venous dermatitis. ENDOCRINE: No chills, fevers. No excessive weight gain or loss. No polydipsia or polyuria. PSYCHIATRIC: Unremarkable. NEUROLOGY: No change in mental status. Denies dizziness, headache. ENT: Vision unremarkable. CONSTITUTIONAL: No recent weight loss. No fever, chills, night sweats. Past Medical History Past Medical History: COPD, GERD/Reflux, Hypertension Additional Past Medical History / Comment(s): hemmorrhoids, IBS, migraines, heart murmer, History of Any Multi-Drug Resistant Organisms: None Reported Past Surgical History: Cholecystectomy Additional Past Surgical History / Comment(s): D&C, cyst removed from rt ovary, Past Anesthesia/Blood Transfusion Reactions: No Reported Reaction, Motion Sickness, Postoperative Nausea & Vomiting (PONV) Past Psychological History: Anxiety, Depression, Panic Disorder Additional Psychological History / Comment(s): severe anxiety Smoking Status: Current every day smoker Past Alcohol Use History: None Reported Past Drug Use History: None Reported, Marijuana - Past Family History Mother Family Medical History: No Reported History Medications and Allergies Home Medications Medication Instructions Recorded Confirmed Type cloNIDine HCL [Catapres] 0.1 mg PO BID 10/26/15 08/14/23 History traZODone HCL [Desyrel] 100 mg PO HS 01/11/21 08/14/23 History ALPRAZolam [Xanax] 0.5 mg PO DAILY@1500 08/14/23 08/14/23 History ALPRAZolam [Xanax] 1 mg PO BID@0900,2100 08/14/23 08/14/23 History Fluticasone Furoate [Arnuity 1 puff INHALATION RT-DAILY 08/14/23 08/14/23 History Ellipta] Losartan Potassium [Cozaar] 100 mg PO DAILY 08/14/23 08/14/23 History Prochlorperazine [Compazine] 10 mg PO Q6H PRN 08/14/23 08/14/23 History fluvoxaMINE [Luvox] 25 mg PO BID 08/14/23 08/14/23 History Allergies Allergy/AdvReac Type Severity Reaction Status Date / Time aspirin Allergy Abdominal Verified 08/14/23 19:54 Pain,vomiting codeine Allergy Rash/Hives,abdominal Verified 08/14/23 19:54 pain,vomiting hydrocodone bitartrate Allergy Rash/Hives,abdominal Verified 08/14/23 19:54 [From Vicodin] pain,vomiting Iodinated Contrast Media Allergy Rash/Hives Verified 08/14/23 19:54 [Iodinated Contrast- Oral and IV Dye] metoclopramide [From Reglan] Allergy Anaphylaxis Verified 08/14/23 19:54 nitrofurantoin Allergy vertigo Verified 08/14/23 19:54 [From Macrobid] nitrofurantoin Allergy vertigo Verified 08/14/23 19:54 macrocrystalline [From Macrobid] ofloxacin [From Floxin] Allergy Rash/Hives,abdominal Verified 08/14/23 19:54 pain lactose AdvReac Nausea & Verified 08/14/23 19:54 Vomiting pseudoephedrine AdvReac Anaphylaxis Verified 08/14/23 19:54 TAPE AdvReac Itching,hives Uncoded 08/14/23 17:42 "paper tape ok" Physical Exam Vitals: Vital Signs Temp Pulse Pulse Resp BP BP BP 08/16/23 07:00 97.6 F 97 21 138/64 08/16/23 00:36 93 08/16/23 00:28 93 08/15/23 23:10 98.2 F 98 22 124/77 08/15/23 21:25 93 18 129/79 08/15/23 18:14 90 20 08/15/23 18:03 91 20 08/15/23 18:02 98.3 F 92 18 122/78 08/15/23 15:28 88 20 08/15/23 15:18 87 20 08/15/23 12:30 98.6 F 20 115/84 08/15/23 12:17 84 20 08/15/23 12:07 83 20 Pulse Ox 08/16/23 07:00 91 L 08/16/23 00:36 08/16/23 00:28 08/15/23 23:10 91 L 08/15/23 21:25 98 08/15/23 18:14 08/15/23 18:03 08/15/23 18:02 91 L 08/15/23 15:28 08/15/23 15:18 08/15/23 12:30 92 L 08/15/23 12:17 08/15/23 12:07 Intake and Output 08/15/23 08/16/23 08/16/23 22:59 06:59 14:59 Intake Total 91.333 Output Total 650 300 Balance -558.667 -300 Intake: Intake, IV Titration 91.333 Amount Furosemide 100 mg In 91.333 Sodium Chloride 0.9% 90 ml @ 10 MG/HR 10 mls/hr IV .Q10H [facility] Rx#: [id number] Output: Urine 650 300 Other: Voiding Method External Catheter Weight 127.006 kg General appearance: The patient is alert, oriented, appears in no acute distress. Morbidly obese. HET: Head is normocephalic and atraumatic. Conjunctiva pink. Sclera anicteric. Neck: Supple without lymphadenopathy. Trachea midline. Heart: Regular. Lungs: Equal expansion, patient appears to be breathing very heavy. Abdomen: Soft, nontender, nondistended. Generalized anasarca. Skin: No rashes. No jaundice. Lower extremity edema with venous dermatitis. Extremities: Normal skin color and turgor. Lower extremity edema. Neurological: No focal deficits. Alert and oriented x3. Results CBC & Chem 7: 08/15/23 10:50 08/16/23 11:59 Labs: Abnormal Lab Results - Last 24 Hours (Table) 08/15/23 08/15/23 08/15/23 Range/Units 10:50 10:50 10:50 RBC 7.06 H (3.80-5.40) m/uL Hgb 17.1 H (11.4-16.0) gm/dL Hct 62.7 H* (34.0-46.0) % MCH 23.4 L (25.0-35.0) pg MCHC 27.2 L (31.0-37.0) g/dL RDW 20.4 H (11.5-15.5) % Plt Count 117 L (150-450) k/uL Neutrophils # (Manual) 10.09 H (1.3-7.7) k/uL Lymphocytes # (Manual) 0.21 L (1.0-4.8) k/uL Sodium 135 L (137-145) mmol/L BUN 27 H (7-17) mg/dL Creatinine 1.19 H (0.52-1.04) mg/dL Glucose 131 H (74-99) mg/dL AST 48 H (13-35) U/L Ammonia (<30) umol/L Albumin 3.2 L (3.8-4.9) g/dL Albumin/Globulin Ratio 1.03 L (1.60-3.17) Ratio Prealbumin (18.0-42.0) mg/dL Procalcitonin 0.48 H (0.02-0.09) ng/mL 08/15/23 08/15/23 Range/Units 11:54 13:06 RBC (3.80-5.40) m/uL Hgb (11.4-16.0) gm/dL Hct (34.0-46.0) % MCH (25.0-35.0) pg MCHC (31.0-37.0) g/dL RDW (11.5-15.5) % Plt Count (150-450) k/uL Neutrophils # (Manual) (1.3-7.7) k/uL Lymphocytes # (Manual) (1.0-4.8) k/uL Sodium (137-145) mmol/L BUN (7-17) mg/dL Creatinine (0.52-1.04) mg/dL Glucose (74-99) mg/dL AST (13-35) U/L Ammonia 69 H (<30) umol/L Albumin (3.8-4.9) g/dL Albumin/Globulin Ratio (1.60-3.17) Ratio Prealbumin 6.7 L (18.0-42.0) mg/dL Procalcitonin (0.02-0.09) ng/mL Comments: Abdominal ultrasound reports surgically absent gallbladder with fluid noted within the gallbladder fossa. Consider further evaluation with cross-sectional imaging. Findings could be secondary to suspected underlying cirrhosis with ascites. Hepatocellular disease with nodular contour to liver correlate for cirrhosis. No suspicious masses. Assessment and Plan (1) Hyperammonemia Narrative/Plan: 52-year-old female in the hospital for COPD, heart failure with acute hypoxia who is noted to have elevated ammonia level and subsequently underwent abdominal ultrasound showing nodularity of the liver that can be seen with hepatocellular disease. Patient has no previous history of known underlying liver disease, no history of alcohol abuse in the past or current. Patient has thrombocytopenia, elevated INR mildly elevated total bilirubin and AST and elevated ammonia level all which can be seen in compatible with cirrhosis of the liver. Patient with likely underlying cirrhosis of the liver secondary to nonalcoholic fatty liver disease. Will add lactulose 30 g 3 times daily and trend ammonia. Patient will need outpatient follow-up with gastroenterology. Current Visit: Yes Status: Acute Code(s): E72.20 - DISORDER OF UREA CYCLE METABOLISM, UNSPECIFIED SNOMED Code(s): 2751277 (2) Liver cirrhosis Current Visit: Yes Status: Acute Code(s): K74.60 - UNSPECIFIED CIRRHOSIS OF LIVER SNOMED Code(s): 54340918 (3) Morbid obesity with BMI of 45.0-49.9, adult Current Visit: Yes Status: Acute Code(s): E66.01 - MORBID (SEVERE) OBESITY DUE TO EXCESS CALORIES; Z68.42 - BODY MASS INDEX [BMI] 45.0-49.9, ADULT SNOMED Code(s): 506970830 (4) SAMIA (acute kidney injury) Current Visit: Yes Status: Acute Code(s): N17.9 - ACUTE KIDNEY FAILURE, UNSPECIFIED SNOMED Code(s): 91556067 (5) COPD (chronic obstructive pulmonary disease) Current Visit: Yes Status: Acute Code(s): J44.9 - CHRONIC OBSTRUCTIVE PULMONARY DISEASE, UNSPECIFIED SNOMED Code(s): 30393786 (6) Nicotine dependence with current use Current Visit: Yes Status: Acute Code(s): F17.200 - NICOTINE DEPENDENCE, UNSPECIFIED, UNCOMPLICATED SNOMED Code(s): 46709729 Plan: 1. Continue symptomatic and supportive care 2. Hepatitis panel ordered, currently pending 3. Repeat daily ammonia 4. Liver serologies ordered can be followed up as an outpatient 5. Lactulose 30 g 3 times daily ordered 6. Continue with recommendations from multiple consultants 7. Recommend weight loss 8. Will plan for outpatient surveillance with gastroenterology, this was discussed with patient Thank you for this consultation, we will continue to follow. Dr. Claudia Love I agree with the dictator's note, documented as a scribe by Ailyn Benitez.
[2023-08-16] MEDS ORDERED: RIFAXIMIN 550 MG TABLET PO SCH (13:00)
--- NOTE | 2023-08-16 13:23 | P.PN ---
Subjective Progress Note Date: 08/16/23 Progress note Date of service 08/16/[address] Miguel. Patient seen today evaluated and discussed with the patient Patient has been seen by gastroenterology, as well as cardiology as well as neph rology as well as pulmonary. Patient currently on Lasix drip for diuresis. Vital sign temperature 98.1 F oral Pulse rate 96/min regular Respiratory rate 21 shallow breathing. Blood pressure 154/80 Mean blood pressure 110 Oxygen saturation 89 with 4 L nasal cannula was increased to 5 L with oxygen s aturations 92 by nasal cannula Patient still short of breath, wheezing has been improved she is on inhalation therapy. And followed by pulmonary. Laboratory: Lab ordered not available yet for her liver function test with the impression of a situs anasarca and liver cirrhosis confirmation seen by dominguez [email or web address] Thoughts is nonalcoholic fatty liver., PT 14, INR 1.3, PTT 24. Ammonia level 69 which is elevated, prealbumin 6.7 with a severe protein calorie deficiency. Procalcitonin 0.48 within normal range 0.09 upper normal considered elevated Thyroid function was normal. NT pro BNP 8850 with preserved systolic function and severe pulmonary hypertension by the echocardiogram with the valvular heart disease. On 08/15/2023 AST was 48 however today's lab for the liver function is not available yet. Physical exam: Patient is conscious alert but sluggish with the elevated ammonia. Head was normocephalic atraumatic oropharynx was suspicious of Roxy ordered swipe however was not done. Normal hearing, pupil equal reactive, Neck was supple no JVD no thyromegaly no lymphadenopathy trachea midline. Chest: Bilateral rales on the basis with morbid obesity and some scattered rhonchi Heart regular sinus rhythm with diastolic dysfunction with the severe pulmonary hypertension. And anasarca Abdomen morbid obesity with hepatomegaly and apparently a situs, increased thickness with pitting edema of the anterior abdominal wall. Extremities she had chronic lymphedema.. Positive pulses Neurologically: Moving 4 extremities and no neurological deficit. Assessment: 1. Morbid obesity 2. Diastolic dysfunction with diastolic congestive heart failure 3. Acute kidney injury with a baseline creatinine 0.5 4. Nonalcoholic hepatic steatosis versus liver several failure 5. Rule out abdominal growth. With hepatosplenomegaly 6. Hypertension with hypertensive heart disease 7. Hemoconcentration with the question of hemochromatosis. 8. Hyponatremia on admission 9. Chronic history of lymphedema. 10. Hypertension with hypertensive heart disease 11. Elevated NT proBNP 12. Abnormal procalcitonin 13 Severe hypoalbuminemia with underlying protein calorie deficiency 14 elevated ammonia level suggestive of liver cirrhosis. Plan: 1. Nutritional support with dietitian consult 2. Obtain CT scan of the abdomen without IV contrast with only oral contrast. 3. Obtain CBC with differential in a.m. and BMP in a.m. with magnesium and phosphorus. 4. Will continue IV Lasix and inhalation therapy. Objective - Vital Signs Vital signs: Vital Signs Temp 98.1 F 08/16/23 09:34 Pulse 96 08/16/23 12:35 Resp 21 08/16/23 12:11 BP 143/88 08/16/23 12:11 Pulse Ox 92 L 08/16/23 12:11 FiO2 Intake & Output 08/15/23 08/16/23 08/16/23 18:59 06:59 18:59 Intake Total 91.333 100 Output Total 650 300 Balance -558.667 -200 Weight 182.5 kg 127.006 kg Intake: Intake, IV Titration 91.333 100 Amount Furosemide 100 mg In 91.333 100 Sodium Chloride 0.9% 90 ml @ 10 MG/HR 10 mls/hr IV .Q10H [facility] Rx#: [id number] Output: Urine 650 300 Other: Voiding Method External Catheter External Catheter # Bowel Movements 1 - Labs CBC & Chem 7: 08/15/23 10:50 08/15/23 10:50 Labs: Abnormal Lab Results - Last 24 Hours (Table) 08/15/23 08/15/23 08/15/23 Range/Units 10:50 10:50 13:06 PT (10.0-12.5) sec INR (<1.2) AST 48 H (13-35) U/L Albumin 3.2 L (3.8-4.9) g/dL Albumin/Globulin Ratio 1.03 L (1.60-3.17) Ratio Prealbumin 6.7 L (18.0-42.0) mg/dL Procalcitonin 0.48 H (0.02-0.09) ng/mL 08/16/23 Range/Units 11:59 PT 14.0 H (10.0-12.5) sec INR 1.3 H (<1.2) AST (13-35) U/L Albumin (3.8-4.9) g/dL Albumin/Globulin Ratio (1.60-3.17) Ratio Prealbumin (18.0-42.0) mg/dL Procalcitonin (0.02-0.09) ng/mL
[2023-08-16 13:43] LABS: ALT 13 U/L (4-34); African American GFR (CKD) 73 (>60 ml/min/1.73 sqM); Anion Gap 10 mmol/L; Bilirubin,Unconjugated 0.4 mg/dL (0.0-1.1); Blood Urea Nitrogen 31 mg/dL (7-17); Calcium 8.8 mg/dL (8.4-10.2); Carbon Dioxide 24 mmol/L (22-30); Chloride 102 mmol/L (98-107); Glucose 149 mg/dL (74-99); Non-African American GFR(CKD) 64 (>60 ml/min/1.73 sqM); Sodium 136 mmol/L (137-145); Total Bilirubin 1.4 mg/dL (0.2-1.3)
--- NOTE | 2023-08-16 13:55 | P.PN ---
Subjective Progress Note Date: 08/16/23 Principal diagnosis: Shortness of breath. Patient is a 52-year-old white female with past medical history significant for COPD, chronic ongoing tobacco dependence, GERD, hypertension, morbid obesity, among other things. Her primary care provider is Dr. Miguel. She presented to the emergency room late last night with complaints of progressively worsening shortness of breath over the last 5 days. She has had associated cough with white sputum production. Denies any hemoptysis. Denies any chest pain. Denies any fevers. Denies sick contacts or recent travel. Admits nausea without emesis and diarrhea during the same timeframe. Denies asaf blood or melanotic stools. Of note, reports some worsening lower extremity swelling since she has self discontinued her "water pill" She states that it is difficult to ambulate back and forth to the restroom. On further evaluation of this, there are no diuretics listed in her home medications. She is withdrawn with delayed verbal response time. Oriented x 3. Currently lying in bed, on 4 L/min nasal cannula, in no acute distress. SpO2 is 93%. Chest x-ray taken on arrival demonstrates cardiomegaly with pulmonary vascular congestion. No obvious focal consolidations or pneumonia. Negative for influenza, RSV, COVID. CBC on arrival: WBC count 12.6, hemoglobin 17, hematocrit 58, platelets 161. BMP on arrival: Sodium 130, potassium 4.9, chloride 98, serum bicarb 24, BUN 28, creatinine 1.55, glucose 118. Patient has been empirically started on doxycycline. Afebrile. Vital signs are stable. Progress note dated August 16, 2023. The patient is seen today room 384. She continues on oxygen at 5 L by nasal cannula. On 4 L, her saturations were 88%. The patient continues on a Lasix drip at 10 mg an hour, and doxycycline, empirically. Current labs include a PT of 14, INR 1.3, and PTT of 24.5. No additional labs today. Labs from August 14, have been reviewed. Blood cultures are currently negative or pending. No recent chest x-ray to review. Objective - Vital Signs Vital signs: Vital Signs Temp 98.1 F 08/16/23 09:34 Pulse 96 08/16/23 12:35 Resp 21 08/16/23 12:11 BP 143/88 08/16/23 12:11 Pulse Ox 92 L 08/16/23 12:11 FiO2 Intake & Output 08/15/23 08/16/23 08/16/23 18:59 06:59 18:59 Intake Total 91.333 100 Output Total 650 300 Balance -558.667 -200 Weight 182.5 kg 127.006 kg Intake: Intake, IV Titration 91.333 100 Amount Furosemide 100 mg In 91.333 100 Sodium Chloride 0.9% 90 ml @ 10 MG/HR 10 mls/hr IV .Q10H [facility] Rx#: [id number] Output: Urine 650 300 Other: Voiding Method External Catheter External Catheter # Bowel Movements 1 - Exam No acute distress, oriented 3. Currently on 5 L nasal cannula. Saturations are 92%. HEENT examination is grossly unremarkable. Mucous membranes are moist. No oral lesions. Neck supple. Full range of motion. No adenopathy thyromegaly or neck vein distention. Cardiovascular examination reveals regular rhythm rate. S1-S2 normal. No S3 or S4. No discernible murmur noted. Heart sounds are distant. Heart rate 96 bpm. Lungs reveal crackles. Few scattered rhonchi. No wheezes. Breath sounds are equal bilaterally. 5 L saturation is 92 to 93%. Abdomen soft bowel sounds are heard. No masses or tenderness. Extremities are intact. No cyanosis clubbing or edema. Skin is without rash or lesion. Neurologic examination is brief but nonfocal. - Labs CBC & Chem 7: 08/15/23 10:50 08/15/23 10:50 Labs: Abnormal Lab Results - Last 24 Hours (Table) 08/15/23 08/15/23 08/15/23 Range/Units 10:50 10:50 13:06 PT (10.0-12.5) sec INR (<1.2) AST 48 H (13-35) U/L Albumin 3.2 L (3.8-4.9) g/dL Albumin/Globulin Ratio 1.03 L (1.60-3.17) Ratio Prealbumin 6.7 L (18.0-42.0) mg/dL Procalcitonin 0.48 H (0.02-0.09) ng/mL 08/16/23 Range/Units 11:59 PT 14.0 H (10.0-12.5) sec INR 1.3 H (<1.2) AST (13-35) U/L Albumin (3.8-4.9) g/dL Albumin/Globulin Ratio (1.60-3.17) Ratio Prealbumin (18.0-42.0) mg/dL Procalcitonin (0.02-0.09) ng/mL Microbiology - Last 24 Hours (Table) 08/14/23 22:00 Blood Culture - Preliminary Blood Assessment and Plan Assessment: Acute hypoxemic respiratory failure, suspect combination of exacerbation of acute on chronic diastolic congestive heart failure and acute COPD exacerbation. Acute kidney injury, possibly secondary to severe dehydration and intravascular volume depletion. History of chronic obstructive pulmonary disease, normally maintained on Arnuity Ellipta inhaler outpatient. Chronic ongoing tobacco dependence. History of COVID-19 pneumonia. History of hypertension. History of GERD without esophagitis. Morbid obesity, with a BMI 49.6 kg/m. History of anxiety and depression. . Plan: Plan dated August 16, 2023. The patient is seen today in room 384. She continues on oxygen, 5 L, with saturations in the low 90s. The patient also continues on Lasix, 10 mg an hour. The patient is on doxycycline, empirically, and a procalcitonin level has been ordered. The procalcitonin level is 0.48, which is elevated. Labs, x-rays, and medications are reviewed. We will continue to follow the patient, make recommendations along the way. Prognosis is guarded. Time with Patient: Less than 30
[2023-08-16 14:12] LABS: AST 47 U/L (14-36); Albumin 3.5 g/dL (3.5-5.0); Alkaline Phosphatase 131 U/L (38-126); Potassium 4.4 mmol/L (3.5-5.1)
--- NOTE | 2023-08-16 14:25 | P.PN ---
Subjective HISTORY OF PRESENT ILLNESS: This is a 52-year-old female with a past medical history significant for COPD, hypertension, nicotine dependence, GERD, anxiety, depression, and IBS. 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 We have been asked to see the patient in consultation for CHF. Patient examined at the bedside in the emergency room. Patient states that she is prescribed Lasix on a daily basis however she has not been taking this lately due to increased urinary frequency. Patient states she has not been taking her Lasix for approximately 1 month. She reports progressive shortness of breath and edema. DIAGNOSTICS: - EKG reveals sinus mechanism with T wave inversions inferiorly. - Chest xray cardiomegaly and pulmonary vascular congestion - Laboratory data: WBC 10.3. Hemoglobin 17.1. Platelet count 117. Sodium 135. Potassium 4.7. BUN 29. Creatinine 1.19. Troponin negative x 1. proBNP 8850. - Current home cardiac medications include losartan 100 mg daily and clonidine 0.1 mg twice a day. - Echocardiogram obtained this admission reveals ejection fraction 50 to 55%, severe pulmonary hypertension with RVSP of 63 mmHg, mild TR, trace to mild MR 08/16/2023 Patient examined this morning the bedside. Patient continues to report shortness of breath. She denies chest pain or pressure at the time of examination. She remains on a Lasix drip at 10 mg an hour. Urine output for the last 24 hours is 650 cc. Kidney function remained stable. Creatinine today 1.03. PHYSICAL EXAM: VITAL SIGNS: Reviewed. GENERAL: Well-developed in no acute distress. HEENT: Head is normocephalic. Pupils are equal, round. Sclerae anicteric. Mucous membranes of the mouth are moist. Neck supple. No JVD or thyromegaly LUNGS: Respirations even and unlabored. Lungs essentially clear to auscultation bilaterally. HEART: Regular rate and rhythm. S1 and S2 heard. ABDOMEN: Soft. Non-tender. Significant abdominal wall edema noted EXTREMITIES: Normal range of motion. No clubbing or cyanosis. Peripheral pulses intact. Significant bilateral lower extremity edema ASSESSMENT: Shortness of breath Acute on chronic heart failure with preserved EF Acute hypoxic respiratory failure requiring supplemental oxygen Severe pulmonary hypertension Chronic lymphedema Medication noncompliance, patient recently stopped taking diuretics due to urinary frequency Hypertension COPD History of GERD History of anxiety History of depression Morbid obesity: BMI 49.6 PLAN: Current cardiac medications Continue Lasix drip at 10 mg an hour Daily weights, accurate intake and output, and monitoring of kidney function Add metolazone 5 mg daily Further recommendations pending patient course Nurse practitioner note has been reviewed by physician. Signing provider agrees with the documented findings, assessment, and plan of care documented by [employer] ATTENDANT as a scribe. Objective - Vital Signs Vital signs: Vital Signs Temp 98.1 F 08/16/23 09:34 Pulse 96 08/16/23 10:39 Resp 21 08/16/23 10:39 BP 154/89 08/16/23 09:34 Pulse Ox 89 L 08/16/23 09:34 FiO2 Intake & Output 08/15/23 08/16/23 08/16/23 18:59 06:59 18:59 Intake Total 91.333 Output Total 650 300 Balance -558.667 -300 Weight 182.5 kg 127.006 kg Intake: Intake, IV Titration 91.333 Amount Furosemide 100 mg In 91.333 Sodium Chloride 0.9% 90 ml @ 10 MG/HR 10 mls/hr IV .Q10H [facility] Rx#: [id number] Output: Urine 650 300 Other: Voiding Method External Catheter External Catheter - Labs CBC & Chem 7: 08/15/23 10:50 08/16/23 11:59 Labs: Abnormal Lab Results - Last 24 Hours (Table) 08/15/23 08/15/23 08/15/23 Range/Units 10:50 10:50 10:50 RBC 7.06 H (3.80-5.40) m/uL Hgb 17.1 H (11.4-16.0) gm/dL Hct 62.7 H* (34.0-46.0) % MCH 23.4 L (25.0-35.0) pg MCHC 27.2 L (31.0-37.0) g/dL RDW 20.4 H (11.5-15.5) % Plt Count 117 L (150-450) k/uL Neutrophils # (Manual) 10.09 H (1.3-7.7) k/uL Lymphocytes # (Manual) 0.21 L (1.0-4.8) k/uL Sodium 135 L (137-145) mmol/L BUN 27 H (7-17) mg/dL Creatinine 1.19 H (0.52-1.04) mg/dL Glucose 131 H (74-99) mg/dL AST 48 H (13-35) U/L Ammonia (<30) umol/L Albumin 3.2 L (3.8-4.9) g/dL Albumin/Globulin Ratio 1.03 L (1.60-3.17) Ratio Prealbumin (18.0-42.0) mg/dL Procalcitonin 0.48 H (0.02-0.09) ng/mL 08/15/23 08/15/23 Range/Units 11:54 13:06 RBC (3.80-5.40) m/uL Hgb (11.4-16.0) gm/dL Hct (34.0-46.0) % MCH (25.0-35.0) pg MCHC (31.0-37.0) g/dL RDW (11.5-15.5) % Plt Count (150-450) k/uL Neutrophils # (Manual) (1.3-7.7) k/uL Lymphocytes # (Manual) (1.0-4.8) k/uL Sodium (137-145) mmol/L BUN (7-17) mg/dL Creatinine (0.52-1.04) mg/dL Glucose (74-99) mg/dL AST (13-35) U/L Ammonia 69 H (<30) umol/L Albumin (3.8-4.9) g/dL Albumin/Globulin Ratio (1.60-3.17) Ratio Prealbumin 6.7 L (18.0-42.0) mg/dL Procalcitonin (0.02-0.09) ng/mL
[2023-08-16] MEDS: metOLazone 5 MG TAB PO SCH (14:55)
[2023-08-16] MEDS: BARIUM SULFATE 2% - 450 ML ORAL.SUSP BOTTLE PO PRN (14:58)
[2023-08-16 15:48] VITALS: BMI 49.6
--- NOTE | 2023-08-16 18:01 | CT ---
EXAMINATION TYPE: CT abdomen pelvis wo con CT DLP: 2708.2 mGycm, Automated exposure control for dose reduction was used. DATE OF EXAM: 08/16/2023 4:53 PM COMPARISON: CT abdomen pelvis most recent from 03/19/2017. CLINICAL INDICATION:Female, 52 years old with history of Hepatosplenomegaly, anasarca, rule out malig gia; abdominal pain TECHNIQUE: Axial CT abdomen pelvis wo con;Sagittal and coronal reformats were created on a separate workstation. Contrast used: mL of , (none if empty) Oral contrast used: without Oral Contrast (none if empty) FINDINGS: LOWER CHEST: Cardiomegaly with trace bilateral pleural effusions and pulmonary vascular congestion. T here is breast tissue thickening bilaterally with edema. ABDOMEN LIVER: Cirrhotic nodular contour with caudate lobe hypertrophy. GALLBLADDER AND BILE DUCTS: The gallbladder surgically absent. PANCREAS: Unremarkable. SPLEEN: Spleen measures up to 13.5 cm in caudocranial dimension. ADRENAL GLANDS: Unremarkable. KIDNEYS AND URETERS: Nonobstructing calculi measuring 3 mm in the left and 3 mm in the right. No evid ence for hydronephrosis. PELVIS BLADDER: Unremarkable REPRODUCTIVE: Vines catheter in place. The right ovary is poorly visualized due to what is thought to be focal ascites. There is calcification in the lower pelvis thought to be at degenerating exophytic fibroid. ABDOMEN & PELVIS STOMACH AND BOWEL: No evidence of bowel obstruction. Scattered gas is seen throughout the colon most pronounced in the sigmoid colon. PERITONEUM/RETROPERITONEUM: No evidence of pneumoperitoneum. There is ascites throughout the abdomen particularly in the low abdomen. VASCULATURE: No evidence of aortic aneurysm. MUSCULOSKELETAL: No acute osseous abnormalities LYMPH NODES: No gross evidence for lymphadenopathy. SOFT TISSUE/ABDOMINAL WALL: diffuse soft tissue anasarca IMPRESSION: 1. Area of suspected fluid throughout the lower abdomen. There is calcification in this region. The right ovary is not well appreciated. No lymphadenopathy or other areas to definitively say there is a mass. Consider further evaluation of right lower abdomen is concern for ovarian carcinoma. 2. Cirrhotic nodular contour to the liver with ascites and mild splenomegaly correlate for portal hy pertension. No definitive other acute abdominal process visualized. 3. Cardiomegaly with bilateral trace pleural effusions and minimal congestion correlate for congesti ve heart failure. 4. Fibroid uterus. 5. Bilateral thickening of the breasts skin correlate with mammography.
[2023-08-16 20:52] LABS: GGT 19 U/L (0-38)
[2023-08-16] MEDS ORDERED: IPRATROPIUM-ALBUTEROL 3 ML NEB INHALATION PRN (21:33)
[2023-08-17] MEDS: ZINC OXIDE PASTE (Z-GUARD) 1 APPLIC TOPICAL PRN (04:17)
--- NOTE | 2023-08-17 08:08 | P.PN ---
Subjective Progress Note Date: 08/17/23 Progress note Date of service 08/[address] Miguel. Patient seen and evaluated at bedside [id number]. Laboratory this morning is not available for today 08/17/2023 Laboratory from yesterday reviewed again with the sodium 136, potassium 4.4, BUN 31 creatinine 1.03 with the improvement of GFR to 64. Blood glucose 149 will also check on hemoglobin A1c and the blood drawn today Total bilirubin 1.4 improved with the GGT was normal, AST 47 and ALT 13, alkaline phosphatase 131, total protein 7, albumin 3.5 however the prealbumin was very low in the day of 08/15/2023. Blood culture so far negative The throat culture not available, patient placed on Vibramycin IV will check with infectious disease with the consultation with the appropriateness of the use of Vibramycin with the history that she had on admission elevated procalcitonin with the questionable the underlying bronchitis, with the COPD exacerbation and acute respiratory failure. CT scan of the abdomen and pelvis, cirrhotic nodular contour with caudate lobe hypertrophy with a possible nonalcoholic liver cirrhosis, spleen measured 13.5 cm and the pancreas is normal. And ascites. Vital signs today: Temperature 97.9 F oral pulse rate 95/min with a shallow breathing 20/min, blood pressure 146/84 and her oxygen saturation 93 on 5 L nasal cannula. Head was normocephalic atraumatic, pupils equal reactive, oropharynx with natu ral teeth we did the oropharyngeal swab result is pending Neck was supple and short no JVD with the underlying severe pulmonary hypertension Chest breath sound with the wheezing and rhonchi's with the underlying COPD chronically with a history of chronic smoker Heart regular sinus with the diastolic congestive heart failure, severe pulmonary hypertension Abdomen morbidly obese with the enlarged liver nodular associated with ascites in the abdomen, thick abdominal wall with the pitting edema. Positive bowel sounds Extremities bilateral edema, with the history of chronic lymphedema. Neurologically: She is morbidly obese with the body habitus but able to move her upper and lower extremities she is on inflatable bread to avoid ulceration she already seen by Dr. Jan Forbes for ulceration on the left pannus area. The results of ammonia level for today not available. Assessment: 1. Admitted with acute hypoxic respiratory failure 2. COPD with chronic smoker and noncompliant for stopping smoking 3. Hypertension with hypertensive heart disease 4. Preserved systolic function with diastolic dysfunction and elevated proBNP 5. Severe obesity with the nonalcoholic appeared to be liver cirrhosis with anasarca and edema of the anterior abdominal wall and the lower extremities 6. Underlying portal hypertension highly considered however we do not have any comment yet from GI except that patient started on lactulose. 7. For the use of Vibramycin with the elevated procalcitonin will be consulting infectious disease Dr. Hassan for appropriateness of the use and evaluation. 8. Condition is still guarded with the patient appeared to be very ill Plan: Will follow the recommendation of pulmonary and critical, nephrology, cardiology, gastroenterology, Will be consulting infectious disease as well. Renal function appears to improve and the catheter has been appeared to be good urine output. Objective - Vital Signs Vital signs: Vital Signs Temp 97.9 F 08/17/23 04:00 Pulse 95 08/17/23 04:00 Resp 20 08/17/23 04:00 BP 146/83 08/17/23 04:00 Pulse Ox 93 L 08/17/23 04:00 FiO2 Intake & Output 08/16/23 08/17/23 08/17/23 18:59 06:59 18:59 Intake Total 100 174.333 Output Total 750 1000 Balance -650 -825.667 Weight 127.006 kg Intake: Intake, IV Titration 100 174.333 Amount Furosemide 100 mg In 100 174.333 Sodium Chloride 0.9% 90 ml @ 10 MG/HR 10 mls/hr IV .Q10H [facility] Rx#: [id number] Output: Urine 750 1000 Other: Voiding Method External Catheter Indwelling Catheter # Bowel Movements 1 1 - Labs CBC & Chem 7: 08/15/23 10:50 08/16/23 11:59 Labs: Abnormal Lab Results - Last 24 Hours (Table) 08/16/23 08/16/23 Range/Units 11:59 11:59 PT 14.0 H (10.0-12.5) sec INR 1.3 H (<1.2) Sodium 136 L (137-145) mmol/L BUN 31 H (7-17) mg/dL Glucose 149 H (74-99) mg/dL Total Bilirubin 1.4 H (0.2-1.3) mg/dL Delta Bilirubin 1.0 H (0.0-0.2) mg/dL AST 47 H (14-36) U/L Alkaline Phosphatase 131 H (38-126) U/L Microbiology - Last 24 Hours (Table) 08/14/23 22:00 Blood Culture - Preliminary Blood
[2023-08-17] MEDS: IPRATROPIUM-ALBUTEROL 3 ML NEB INHALATION SCH (09:34)
--- NOTE | 2023-08-17 12:07 | P.PN ---
Subjective HISTORY OF PRESENT ILLNESS: This is a 52-year-old female with a past medical history significant for COPD, hypertension, nicotine dependence, GERD, anxiety, depression, and IBS. 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 We have been asked to see the patient in consultation for CHF. Patient examined at the bedside in the emergency room. Patient states that she is prescribed Lasix on a daily basis however she has not been taking this lately due to increased urinary frequency. Patient states she has not been taking her Lasix for approximately 1 month. She reports progressive shortness of breath and edema. DIAGNOSTICS: - EKG reveals sinus mechanism with T wave inversions inferiorly. - Chest xray cardiomegaly and pulmonary vascular congestion - Laboratory data: WBC 10.3. Hemoglobin 17.1. Platelet count 117. Sodium 135. Potassium 4.7. BUN 29. Creatinine 1.19. Troponin negative x 1. proBNP 8850. - Current home cardiac medications include losartan 100 mg daily and clonidine 0.1 mg twice a day. - Echocardiogram obtained this admission reveals ejection fraction 50 to 55%, severe pulmonary hypertension with RVSP of 63 mmHg, mild TR, trace to mild MR 08/16/2023 Patient examined this morning the bedside. Patient continues to report shortness of breath. She denies chest pain or pressure at the time of examination. She remains on a Lasix drip at 10 mg an hour. Urine output for the last 24 hours is 650 cc. Kidney function remained stable. Creatinine today 1.03. 08/17/2023 Patient examined this morning at the bedside. Patient currently denies chest pain or pressure. She reports shortness of breath. She remains on nasal cannula to maintain oxygen saturations greater than 92%. She remains on a Lasix infusion at 10 mg an hour. Urine output for the past 24 hours is 1750 cc kidney function from this morning is currently pending PHYSICAL EXAM: VITAL SIGNS: Reviewed. GENERAL: Well-developed in no acute distress. HEENT: Head is normocephalic. Pupils are equal, round. Sclerae anicteric. Mucous membranes of the mouth are moist. Neck supple. No JVD or thyromegaly LUNGS: Respirations even and unlabored. Lungs essentially clear to auscultation bilaterally. HEART: Regular rate and rhythm. S1 and S2 heard. ABDOMEN: Soft. Non-tender. Significant abdominal wall edema noted EXTREMITIES: Normal range of motion. No clubbing or cyanosis. Peripheral pulses intact. Significant bilateral lower extremity edema ASSESSMENT: Shortness of breath Acute on chronic heart failure with preserved EF Acute hypoxic respiratory failure requiring supplemental oxygen Severe pulmonary hypertension Chronic lymphedema Medication noncompliance, patient recently stopped taking diuretics due to urinary frequency Hypertension COPD History of GERD History of anxiety History of depression Morbid obesity: BMI 49.6 PLAN: Current cardiac medications Continue Lasix drip at 10 mg an hour Daily weights, accurate intake and output, and monitoring of kidney function. Awaiting kidney function from this morning Further recommendations pending patient course Nurse practitioner note has been reviewed by physician. Signing provider agrees with the documented findings, assessment, and plan of care documented by [employer] as a scribe. Objective - Vital Signs Vital signs: Vital Signs Temp 98 F 08/17/23 08:00 Pulse 107 H 08/17/23 08:00 Resp 20 08/17/23 08:00 BP 142/89 08/17/23 08:00 Pulse Ox 89 L 08/17/23 08:00 FiO2 Intake & Output 08/16/23 08/17/23 08/17/23 18:59 06:59 18:59 Intake Total 100 174.333 Output Total 750 1000 Balance -650 -825.667 Weight 127.006 kg Intake: Intake, IV Titration 100 174.333 Amount Furosemide 100 mg In 100 174.333 Sodium Chloride 0.9% 90 ml @ 10 MG/HR 10 mls/hr IV .Q10H [facility] Rx#: [id number] Output: Urine 750 1000 Other: Voiding Method External Catheter Indwelling Catheter Indwelling Catheter # Bowel Movements 1 1 - Labs CBC & Chem 7: 08/15/23 10:50 08/16/23 11:59 Labs: Abnormal Lab Results - Last 24 Hours (Table) 08/16/23 08/16/23 Range/Units 11:59 11:59 PT 14.0 H (10.0-12.5) sec INR 1.3 H (<1.2) Sodium 136 L (137-145) mmol/L BUN 31 H (7-17) mg/dL Glucose 149 H (74-99) mg/dL Total Bilirubin 1.4 H (0.2-1.3) mg/dL Delta Bilirubin 1.0 H (0.0-0.2) mg/dL AST 47 H (14-36) U/L Alkaline Phosphatase 131 H (38-126) U/L Microbiology - Last 24 Hours (Table) 08/14/23 22:00 Blood Culture - Preliminary Blood
--- NOTE | 2023-08-17 13:23 | P.PN ---
Subjective Progress Note Date: 08/17/23 Patient is a 52-year-old white female with past medical history significant for COPD, chronic ongoing tobacco dependence, GERD, hypertension, morbid obesity, among other things. Her primary care provider is Dr. Miguel. She presented to the emergency room late last night with complaints of progressively worsening shortness of breath over the last 5 days. She has had associated cough with white sputum production. Denies any hemoptysis. Denies any chest pain. Denies any fevers. Denies sick contacts or recent travel. Admits nausea without emesis and diarrhea during the same timeframe. Denies asaf blood or melanotic stools. Of note, reports some worsening lower extremity swelling since she has self discontinued her "water pill" She states that it is difficult to ambulate back and forth to the restroom. On further evaluation of this, there are no diuretics listed in her home medications. She is withdrawn with delayed verbal response time. Oriented x 3. Currently lying in bed, on 4 L/min nasal cannula, in no acute distress. SpO2 is 93%. Chest x-ray taken on arrival demonstrates cardiomegaly with pulmonary vascular congestion. No obvious focal consolidations or pneumonia. Negative for influenza, RSV, COVID. CBC on arrival: WBC count 12.6, hemoglobin 17, hematocrit 58, platelets 161. BMP on arrival: Sodium 130, potassium 4.9, chloride 98, serum bicarb 24, BUN 28, creatinine 1.55, glucose 118. Patient has been empirically started on doxycycline. Afebrile. Vital signs are stable. Progress note dated August 16, 2023. The patient is seen today room 384. She continues on oxygen at 5 L by nasal cannula. On 4 L, her saturations were 88%. The patient continues on a Lasix drip at 10 mg an hour, and doxycycline, empirically. Current labs include a PT of 14, INR 1.3, and PTT of 24.5. No additional labs today. Labs from August 14, have been reviewed. Blood cultures are currently negative or pending. No recent chest x-ray to review. The patient is seen today August 17, 2023 in follow-up on the selective care unit. She is currently awake and alert in no acute distress. She is maintaining O2 saturations in the 90s on 5 L/min per nasal cannula. She is afebrile. He modynamically stable. Blood cultures revealed no growth. Ammonia level 68. Procalcitonin was 0.48. She remains on doxycycline. Continues on a Lasix drip at 10 mg/h. Remains on bronchodilators and Solu-Medrol. She is currently in a -1.[address] scan of the abdomen and pelvis revealed area of suspected fluid throughout the lower abdomen. Consider further evaluation of the right lower abdomen concern for ovarian carcinoma. Cirrhotic nodular contour to the liver with ascites and mild splenomegaly correlate for portal hypertension. Cardiomegaly with bilateral trace effusions. Chest x-ray shows evidence of fluid volume overload and left pleural effusion. Objective - Vital Signs Vital signs: Vital Signs Temp 98.1 F 08/17/23 11:40 Pulse 101 H 08/17/23 11:40 Resp 20 08/17/23 11:41 BP 139/79 08/17/23 11:40 Pulse Ox 90 L 08/17/23 11:40 FiO2 Intake & Output 08/16/23 08/17/23 08/17/23 18:59 06:59 18:59 Intake Total 100 174.333 110 Output Total 750 1000 900 Balance -650 -825.667 -790 Weight 127.006 kg Intake: Intake, IV Titration 100 174.333 Amount Furosemide 100 mg In 100 174.333 Sodium Chloride 0.9% 90 ml @ 10 MG/HR 10 mls/hr IV .Q10H [facility] Rx#: [id number] Oral 110 Output: Urine 750 1000 900 Other: Voiding Method External Catheter Indwelling Catheter Indwelling Catheter # Bowel Movements 1 1 1 - Exam GENERAL EXAM: Alert, pleasant 52-year-old female, on 5 L nasal cannula, comfortable in no apparent distress. HEAD: Normocephalic. EYES: Normal reaction of pupils, equal size. NOSE: Clear with pink turbinates. THROAT: No erythema or exudates. NECK: No masses, no JVD. CHEST: No chest wall deformity. LUNGS: Equal air entry with bibasilar crackles left greater than right, few scattered rhonchi. CVS: S1 and S2 normal with no audible murmur, regular rhythm. ABDOMEN: No hepatosplenomegaly, normal bowel sounds, no guarding or rigidity. SPINE: No scoliosis or deformity SKIN: No rashes CENTRAL NERVOUS SYSTEM: No focal deficits, tone is normal in all 4 extremities. EXTREMITIES: There is no peripheral edema. No clubbing, no cyanosis. Periphera l pulses are intact. - Labs CBC & Chem 7: 08/15/23 10:50 08/16/23 11:59 Labs: Abnormal Lab Results - Last 24 Hours (Table) 08/16/23 08/17/23 Range/Units 11:59 11:36 Sodium 136 L (137-145) mmol/L BUN 31 H (7-17) mg/dL Glucose 149 H (74-99) mg/dL Total Bilirubin 1.4 H (0.2-1.3) mg/dL Delta Bilirubin 1.0 H (0.0-0.2) mg/dL AST 47 H (14-36) U/L Alkaline Phosphatase 131 H (38-126) U/L Ammonia 68 H (<30) umol/L Microbiology - Last 24 Hours (Table) 08/14/23 22:00 Blood Culture - Preliminary Blood Assessment and Plan Assessment: Acute hypoxemic respiratory failure, suspect combination of exacerbation of acute on chronic diastolic congestive heart failure and acute COPD exacerbation. Acute kidney injury, possibly secondary to severe dehydration and intravascular volume depletion. History of chronic obstructive pulmonary disease, normally maintained on Arnuity Ellipta inhaler outpatient. Chronic ongoing tobacco dependence. History of COVID-19 pneumonia. History of hypertension. History of GERD without esophagitis. Morbid obesity, with a BMI 49.6 kg/m. History of anxiety and depression. Plan: The patient was seen and evaluated Chest x-ray labs and medications reviewed Remains on a Lasix drip at 10 mg an hour Continued on bronchodilators, steroids Heparin for DVT prophylaxis Titrate the FiO2 as tolerated We will continue to follow I have personally seen and examined the patient, performed the documentation and the assessment and plan as written. Number of minutes spent on the visit: 10.
--- NOTE | 2023-08-17 14:32 | P.PN ---
Subjective Progress Note Date: 08/17/23 Principal diagnosis: Liver cirrhosis This is a pleasant 52-year-old female with a past medical history of COPD, chronic daily smoker, chronic lymphedema, morbid obesity, hypertension, and major depressive disorder who presented to the emergency department with complaints of shortness of breath. She was admitted 2 days ago for COPD exacerbation and generalized edema. Pulmonology following for COPD and cardiology on consultation for congestive heart failure. Patient was noted to have elevated ammonia level underwent abdominal ultrasound that reported hepatocellular disease with nodular contour of liver correlate for cirrhosis. Gastroenterology was consulted for liver cirrhosis. Patient denies any history of liver disease. She denies any history of alcoholism. Patient is morbidly obese states that she has been obese for at least the last 5 years duration. Patient states that she was having some mild confusion and increased fatigue and weakness. Hematocrit 62 platelet count 117,000 sodium 135 potassium 4.7 BUN 27 creatinine 1.19 ammonia level 69, total bilirubin 1.0 AST 48 ALT 14 alkaline phosphatase 107 today's labs WBC 10.3 hemoglobin 17 08/17/2023 Patient seen and examined today as a follow-up. She is very drowsy. States that she did have a couple bowel movements yesterday. No abdominal pain. Patient's presentation of labs and ultrasound findings are consistent with liver cirrhosis likely secondary to nonalcoholic fatty liver. Today's repeat ammonia 68. Objective - Vital Signs Vital signs: Vital Signs Temp 98 F 08/17/23 08:00 Pulse 107 H 08/17/23 08:00 Resp 20 08/17/23 08:00 BP 142/89 08/17/23 08:00 Pulse Ox 89 L 08/17/23 08:00 FiO2 Intake & Output 08/16/23 08/17/23 08/17/23 18:59 06:59 18:59 Intake Total 100 174.333 Output Total 750 1000 Balance -650 -825.667 Weight 127.006 kg Intake: Intake, IV Titration 100 174.333 Amount Furosemide 100 mg In 100 174.333 Sodium Chloride 0.9% 90 ml @ 10 MG/HR 10 mls/hr IV .Q10H [facility] Rx#: [id number] Output: Urine 750 1000 Other: Voiding Method External Catheter Indwelling Catheter Indwelling Catheter # Bowel Movements 1 1 - Exam General appearance: The patient is alert, oriented, appears in no acute distress. HET: Head is normocephalic and atraumatic. Conjunctiva pink. Sclera anicteric. Neck: Supple without lymphadenopathy. Abdomen: Soft, morbidly obese, generalized anasarca, nontender, nondistended. Extremities: Normal skin color and turgor. No pedal edema Skin: No rashes, no jaundice Neurological: No focal deficits. Alert and oriented. - Labs CBC & Chem 7: 08/15/23 10:50 08/16/23 11:59 Labs: Abnormal Lab Results - Last 24 Hours (Table) 08/16/23 08/16/23 Range/Units 11:59 11:59 PT 14.0 H (10.0-12.5) sec INR 1.3 H (<1.2) Sodium 136 L (137-145) mmol/L BUN 31 H (7-17) mg/dL Glucose 149 H (74-99) mg/dL Total Bilirubin 1.4 H (0.2-1.3) mg/dL Delta Bilirubin 1.0 H (0.0-0.2) mg/dL AST 47 H (14-36) U/L Alkaline Phosphatase 131 H (38-126) U/L Microbiology - Last 24 Hours (Table) 08/14/23 22:00 Blood Culture - Preliminary Blood Assessment and Plan (1) Hyperammonemia Narrative/Plan: 52-year-old female in the hospital for COPD, heart failure with acute hypoxia who is noted to have elevated ammonia level and subsequently underwent abdominal ultrasound showing nodularity of the liver that can be seen with hepatocellular disease. Patient has no previous history of known underlying liver disease, no history of alcohol abuse in the past or current. Patient has thrombocytopenia, elevated INR mildly elevated total bilirubin and AST and elevated ammonia level all which can be seen in compatible with cirrhosis of the liver. Patient with likely underlying cirrhosis of the liver secondary to nonalcoholic fatty liver disease. Will add lactulose 30 g 3 times daily and trend ammonia. Patient will need outpatient follow-up with gastroenterology. Current Visit: Yes Status: Acute Code(s): E72.20 - DISORDER OF UREA CYCLE METABOLISM, UNSPECIFIED SNOMED Code(s): 1936343 (2) Liver cirrhosis Current Visit: Yes Status: Acute Code(s): K74.60 - UNSPECIFIED CIRRHOSIS OF LIVER SNOMED Code(s): 72635253 (3) Morbid obesity with BMI of 45.0-49.9, adult Current Visit: Yes Status: Acute Code(s): E66.01 - MORBID (SEVERE) OBESITY DUE TO EXCESS CALORIES; Z68.42 - BODY MASS INDEX [BMI] 45.0-49.9, ADULT SNOMED Code(s): 518542132 (4) SAMIA (acute kidney injury) Current Visit: Yes Status: Acute Code(s): N17.9 - ACUTE KIDNEY FAILURE, UNSPECIFIED SNOMED Code(s): 61305253 (5) COPD (chronic obstructive pulmonary disease) Current Visit: Yes Status: Acute Code(s): J44.9 - CHRONIC OBSTRUCTIVE PULMONARY DISEASE, UNSPECIFIED SNOMED Code(s): 90224453 (6) Nicotine dependence with current use Current Visit: Yes Status: Acute Code(s): F17.200 - NICOTINE DEPENDENCE, UNSPECIFIED, UNCOMPLICATED SNOMED Code(s): 91681201 Plan: 1. Continue symptomatic and supportive care 2. Hepatitis panel ordered, currently pending 3. Repeat daily ammonia 4. Liver serologies ordered can be followed up as an outpatient 5. Lactulose 30 g 3 times daily ordered. Patient needs to have 3-4 bowel movem ents daily. 6. Continue with recommendations from multiple consultants 7. Recommend weight loss 8. Will plan for outpatient surveillance with gastroenterology, this was discussed with patient Thank you for this consultation, we will continue to follow. Dr. Claudia Love I agree with the dictator's note, documented as a scribe by Ailyn Benitez.
[2023-08-17 15:53] LABS: Ceruloplasmin 25.3 mg/dL (20.0-60.0)
[2023-08-17 18:37] LABS: Alpha Fetoprotein, Tumor Mkr <3.00 ng/mL (0.00-7.90)
[2023-08-17 18:45] LABS: Anisocytosis Moderate; Basophils % (A) 0 %; Eosinophils # (A) 0.1 k/uL (0-0.7); Eosinophils % (A) 1 %; HGB 16.8 gm/dL (11.4-16.0); Hypochromasia Marked; Lymphocytes # (A) 1.1 k/uL (1.0-4.8); Lymphocytes % (A) 9 %; MCH 23.8 pg (25.0-35.0); MCHC 27.1 g/dL (31.0-37.0); MCV 87.9 fL (80.0-100.0); Mean Platelet Volume 7.6; Monocytes # (A) 0.4 k/uL (0-1.0); Monocytes % (A) 3 %; Neutrophils # (A) 10.2 k/uL (1.3-7.7); Neutrophils % (A) 86 %; Poikilocytosis Slight; RDW 20.4 % (11.5-15.5); WBC 11.8 k/uL (3.8-10.6)
[2023-08-17 18:49] LABS: RBC 7.06 m/uL (3.80-5.40)
[2023-08-17 18:59] LABS: INR 1.2 (<1.2); Prothrombin Time 13.2 sec (10.0-12.5)
[2023-08-17 19:00] LABS: ALT 13 U/L (4-34); African American GFR (CKD) >90 (>60 ml/min/1.73 sqM); Albumin 3.2 g/dL (3.5-5.0); Anion Gap 4 mmol/L; Blood Urea Nitrogen 34 mg/dL (7-17); Calcium 8.9 mg/dL (8.4-10.2); Carbon Dioxide 36 mmol/L (22-30); Chloride 97 mmol/L (98-107); Glucose 182 mg/dL (74-99); Non-African American GFR(CKD) >90 (>60 ml/min/1.73 sqM); Sodium 137 mmol/L (137-145); Total Bilirubin 1.3 mg/dL (0.2-1.3); Total Protein 6.4 g/dL (6.3-8.2)
--- NOTE | 2023-08-17 19:01 | P.PN ---
Subjective patient is seen for follow-up for acute kidney injury. Patient was admitted to the hospital with shortness of breath and increased lower extremity swelling. She is currently being diuresed. Maintained on Lasix drip. 24 hour urine output at 1750 ML. Some improvement in shortness of breath. serum creatinine decreased to 1.0 yesterday. Objective - Vital Signs Vital signs: Vital Signs Temp 98.1 F 08/17/23 11:40 Pulse 98 08/17/23 15:18 Resp 20 08/17/23 15:18 BP 138/74 08/17/23 15:18 Pulse Ox 94 L 08/17/23 15:18 FiO2 Intake & Output 08/17/23 08/17/23 08/18/23 06:59 18:59 06:59 Intake Total 174.333 432 Output Total 1000 1850 Balance -825.667 -1418 Intake: Intake, IV Titration 174.333 100 Amount Furosemide 100 mg In 174.333 100 Sodium Chloride 0.9% 90 ml @ 10 MG/HR 10 mls/hr IV .Q10H [facility] Rx#: [id number] Oral 332 Output: Urine 1000 1850 Other: Voiding Method Indwelling Catheter Indwelling Catheter # Bowel Movements 1 1 - Exam patient is awake, comfortable, no acute distress Examination of the heart S1 and S2 Examination of the lungs decreased breath sounds at the bases Abdomen is soft morbidly obese Examination of lower extremity shows chronic lymphedema with chronic skin changes. 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 Acute kidney injury, nonoliguric, ATN, cardiorenal syndrome. Improving. UA is benign 2. Volume overload, maintained on Lasix drip 3. Acute hypoxic respiratory failure secondary to CHF exacerbation and COPD exacerbation. 4. Morbid obesity 5. Hypervolemic hyponatremia Plan: continue to diurese patient. continue with Lasix drip. Continue with Vines catheter. Repeat labs in a.m. Accurate I's and O's.
[2023-08-17 19:12] LABS: Platelet Count 90 k/uL (150-450)
[2023-08-17 19:17] LABS: AST 28 U/L (14-36); Alkaline Phosphatase 108 U/L (38-126); Potassium 3.6 mmol/L (3.5-5.1)
--- NOTE | 2023-08-17 19:31 | XR ---
EXAMINATION TYPE: XR chest 2V DATE OF EXAM: 08/17/2023 COMPARISON: 08/14/2023 HISTORY: 52-year-old female pneumonia TECHNIQUE: AP and lateral views FINDINGS: Heart is moderately enlarged. Diffuse interstitial and bilateral patchy opacities persist. Limited du e to AP technique and large body habitus. Lateral view is essentially nondiagnostic. IMPRESSION: Moderate cardiomegaly and continued diffuse interstitial and multifocal patchy opacities. Consider mu ltifocal pneumonia, interstitial pneumonitis, or pulmonary edema.
--- NOTE | 2023-08-17 22:01 | P.CONS ---
History of Present Illness - Reason for Consult Consult date: 08/17/23 - History of Present Illness Patient is a 52-year-old female with a past medical history significant for COPD reflux hypertension hemorrhoids IBS anxiety depression panic disorder current everyday smoker presenting to the hospital 4 days ago for evaluation of increasing shortness of breath that has been getting worse for 5 days before presentation to the hospital patient also complaining of cough mild to moderate intensity but not bring up any sputum 0.77 was elevated on admission any pleuritic chest pain did have some nausea but no vomiting no abdominal pain no diarrhea patient on presentation to the hospital was afebrile and no fever have recorded subsequently patient was mildly tachycardic this morning otherwise no significant tachycardia or hypotension patient is currently on 6 L nasal cannula oxygen patient did have a white count of 12.6 admission subsequent normalized however it is up to 11.8 today, patient did have elevated BUN and creatinine on admission creatinine has normalized as of this morning patient did have colchicine 0.4 urine has been negative influenza RSV COVID testing was neg ative chest x-ray on admission cardiomegaly pulmonary vascular congestion correlate with BNP for congestive heart failure patient did have a CT abdominal pelvis last evening area of suspected fluid throughout the lower abdominal nodular contour in the liver cardiomegaly with bilateral effusion and fibroid uterus patient is currently being treated for COPD exacerbation currently on doxycycline infectious was consulted today for further management of antibiotic therapy Past Medical History Past Medical History: COPD, GERD/Reflux, Hypertension Additional Past Medical History / Comment(s): hemmorrhoids, IBS, migraines, heart murmer, History of Any Multi-Drug Resistant Organisms: None Reported Past Surgical History: Cholecystectomy Additional Past Surgical History / Comment(s): D&C, cyst removed from rt ovary, Past Anesthesia/Blood Transfusion Reactions: No Reported Reaction, Motion Sickness, Postoperative Nausea & Vomiting (PONV) Past Psychological History: Anxiety, Depression, Panic Disorder Additional Psychological History / Comment(s): severe anxiety Smoking Status: Current every day smoker Past Alcohol Use History: None Reported Past Drug Use History: None Reported, Marijuana - Past Family History Mother Family Medical History: No Reported History Medications and Allergies Home Medications Medication Instructions Recorded Confirmed Type cloNIDine HCL [Catapres] 0.1 mg PO BID 10/26/15 08/14/23 History traZODone HCL [Desyrel] 100 mg PO HS 01/11/21 08/14/23 History ALPRAZolam [Xanax] 0.5 mg PO DAILY@1500 08/14/23 08/14/23 History ALPRAZolam [Xanax] 1 mg PO BID@0900,2100 08/14/23 08/14/23 History Fluticasone Furoate [Arnuity 1 puff INHALATION RT-DAILY 08/14/23 08/14/23 H istory Ellipta] Losartan Potassium [Cozaar] 100 mg PO DAILY 08/14/23 08/14/23 History Prochlorperazine [Compazine] 10 mg PO Q6H PRN 08/14/23 08/14/23 History fluvoxaMINE [Luvox] 25 mg PO BID 08/14/23 08/14/23 History Allergies Allergy/AdvReac Type Severity Reaction Status Date / Time aspirin Allergy Abdominal Verified 08/14/23 19:54 Pain,vomiting codeine Allergy Rash/Hives,abdominal Verified 08/14/23 19:54 pain,vomiting hydrocodone bitartrate Allergy Rash/Hives,abdominal Verified 08/14/23 19:54 [From Vicodin] pain,vomiting Iodinated Contrast Media Allergy Rash/Hives Verified 08/14/23 19:54 [Iodinated Contrast- Oral and IV Dye] metoclopramide [From Reglan] Allergy Anaphylaxis Verified 08/14/23 19:54 nitrofurantoin Allergy vertigo Verified 08/14/23 19:54 [From Macrobid] nitrofurantoin Allergy vertigo Verified 08/14/23 19:54 macrocrystalline [From Macrobid] ofloxacin [From Floxin] Allergy Rash/Hives,abdominal Verified 08/14/23 19:54 pain lactose AdvReac Nausea & Verified 08/14/23 19:54 Vomiting pseudoephedrine AdvReac Anaphylaxis Verified 08/14/23 19:54 TAPE AdvReac Itching,hives Uncoded 08/14/23 17:42 "paper tape ok" Physical Exam Vitals: Vital Signs Temp Pulse Pulse Resp BP Pulse Ox 08/17/23 07:52 20 08/17/23 04:00 97.9 F 95 20 146/83 93 L 08/16/23 23:56 97 20 129/79 93 L 08/16/23 20:15 88 05/14/24 20:04 89 08/16/23 20:00 98.2 F 94 20 139/86 94 L 08/16/23 17:37 100 20 153/98 94 L 08/16/23 16:36 100 08/16/23 16:27 100 08/16/23 12:35 96 08/16/23 12:26 92 08/16/23 12:11 91 21 143/88 92 L 08/16/23 10:39 96 21 08/16/23 09:49 96 08/16/23 09:37 96 08/16/23 09:34 98.1 F 96 21 154/89 89 L Intake and Output 08/16/23 08/17/23 08/17/23 22:59 06:59 14:59 Intake Total 87.5 86.833 Output Total 450 1000 Balance -362.5 -913.167 Intake: Intake, IV Titration 87.5 86.833 Amount Furosemide 100 mg In 87.5 86.833 Sodium Chloride 0.9% 90 ml @ 10 MG/HR 10 mls/hr IV .Q10H [facility] Rx#: [id number] Output: Urine 450 1000 Other: Voiding Method Indwelling Catheter Indwelling Catheter Indwelling Catheter # Bowel Movements 1 Results CBC & Chem 7: 08/17/23 18:33 08/17/23 18:33 Labs: Abnormal Lab Results - Last 24 Hours (Table) 08/16/23 08/16/23 Range/Units 11:59 11:59 PT 14.0 H (10.0-12.5) sec INR 1.3 H (<1.2) Sodium 136 L (137-145) mmol/L BUN 31 H (7-17) mg/dL Glucose 149 H (74-99) mg/dL Total Bilirubin 1.4 H (0.2-1.3) mg/dL Delta Bilirubin 1.0 H (0.0-0.2) mg/dL AST 47 H (14-36) U/L Alkaline Phosphatase 131 H (38-126) U/L Microbiology - Last 24 Hours (Table) 08/14/23 22:00 Blood Culture - Preliminary Blood Assessment and Plan Plan: 1patient presented to hospital with increasing shortness of breath which is lik rebecca multifactorial patient did have evidence of effusion free fluid on the abdominal CT question of possible fluid overload however the patient did have elevated procalcitonin possible component of pneumonia not entirely excluded 2-try to obtain sputum for Gram stain culture 3-we will repeat chest x-ray PA and lateral 4-we will add Rocephin 2 g daily and continue with the doxycycline We will follow on clinical condition and cultures to further adjust medication if needed Thank you for this consultation we will follow the patient along with you Dictation was produced using [employer] dictation software. please excuse any grammatical, word or spelling errors. Time with Patient: Greater than 30
[2023-08-18 04:34] LABS: % Iron Saturation 7.16 (12.00-45.00); Iron 29 UG/DL (50-170); Total Iron Binding Capacity 405 UG/DL (228-460)
[2023-08-18 10:27] LABS: African American GFR (CKD) >90 (>60 ml/min/1.73 sqM); Blood Urea Nitrogen 35 mg/dL (7-17); Calcium 9.1 mg/dL (8.4-10.2); Chloride 93 mmol/L (98-107); Glucose 154 mg/dL (74-99); Non-African American GFR(CKD) 80 (>60 ml/min/1.73 sqM); Potassium 3.4 mmol/L (3.5-5.1); Sodium 140 mmol/L (137-145)
[2023-08-18 10:35] LABS: Anion Gap 8 mmol/L
[2023-08-18 10:43] LABS: Carbon Dioxide 39 mmol/L (22-30)
[2023-08-18] MEDS ORDERED: Potassium Replacement Protocol 1 EACH MISC MISCELLANE PRN (10:44)
--- NOTE | 2023-08-18 10:49 | P.PN ---
Subjective patient is seen for follow-up for acute kidney injury. Patient was admitted to the hospital with shortness of breath and increased lower extremity swelling. She is currently being diuresed. Maintained on Lasix drip. 24 hour urine output at 4.1 L. shortness of breath has improved serum creatinine decreased to 0.8 yesterday. Objective - Vital Signs Vital signs: Vital Signs Temp 97.4 F L 08/18/23 08:00 Pulse 96 08/18/23 08:07 Resp 20 08/18/23 08:00 BP 137/87 08/18/23 08:00 Pulse Ox 94 L 08/18/23 08:00 FiO2 Intake & Output 08/17/23 08/18/23 08/18/23 18:59 06:59 18:59 Intake Total 432 100 273.667 Output Total 2650 1450 825 Balance -2048 -5250 -551.333 Intake: Intake, IV Titration 100 100 51.667 Amount Furosemide 100 mg In 100 100 51.667 Sodium Chloride 0.9% 90 ml @ 10 MG/HR 10 mls/hr IV .Q10H [facility] Rx#: [id number] Oral 332 222 Output: Urine 2650 1450 825 Other: Voiding Method Indwelling Catheter Indwelling Catheter Indwelling Catheter # Bowel Movements 1 1 - Exam patient is awake, comfortable, no acute distress Examination of the heart S1 and S2 Examination of the lungs decreased breath sounds at the bases Abdomen is soft morbidly obese Examination of lower extremity shows chronic lymphedema with chronic skin changes. significant wrinkling of the skin noted from recent diuresis HEALTH PROGRAM DIRECTOR exam grossly intact - Labs CBC & Chem 7: 08/17/23 18:33 08/18/23 09:33 Labs: Abnormal Lab Results - Last 24 Hours (Table) 08/17/23 08/17/23 08/17/23 Range/Units 11:36 18:33 18:33 WBC 11.8 H (3.8-10.6) k/uL RBC 7.06 H (3.80-5.40) m/uL Hgb 16.8 H (11.4-16.0) gm/dL Hct 62.0 H* (34.0-46.0) % MCH 23.8 L (25.0-35.0) pg MCHC 27.1 L (31.0-37.0) g/dL RDW 20.4 H (11.5-15.5) % Plt Count 90 L (150-450) k/uL Neutrophils # 10.2 H (1.3-7.7) k/uL PT (10.0-12.5) sec INR (<1.2) Potassium (3.5-5.1) mmol/L Chloride 97 L (98-107) mmol/L Carbon Dioxide 36 H (22-30) mmol/L BUN 34 H (7-17) mg/dL Glucose 182 H (74-99) mg/dL Iron 29 L (50-170) UG/DL % Saturation 7.16 L (12.00-45.00) Ammonia 68 H (<30) umol/L Albumin 3.2 L (3.5-5.0) g/dL 08/17/23 08/18/23 Range/Units 18:33 09:33 WBC (3.8-10.6) k/uL RBC (3.80-5.40) m/uL Hgb (11.4-16.0) gm/dL Hct (34.0-46.0) % MCH (25.0-35.0) pg MCHC (31.0-37.0) g/dL RDW (11.5-15.5) % Plt Count (150-450) k/uL Neutrophils # (1.3-7.7) k/uL PT 13.2 H (10.0-12.5) sec INR 1.2 H (<1.2) Potassium 3.4 L (3.5-5.1) mmol/L Chloride 93 L (98-107) mmol/L Carbon Dioxide 39 H (22-30) mmol/L BUN 35 H (7-17) mg/dL Glucose 154 H (74-99) mg/dL Iron (50-170) UG/DL % Saturation (12.00-45.00) Ammonia (<30) umol/L Albumin (3.5-5.0) g/dL Microbiology - Last 24 Hours (Table) 08/14/23 22:00 Blood Culture - Preliminary Blood Assessment and Plan Assessment: 1. Acute kidney injury, nonoliguric, ATN, cardiorenal syndrome. Improving. UA is benign 2. Volume overload, maintained on Lasix drip 3. Acute hypoxic respiratory failure secondary to CHF exacerbation and COPD exacerbation. 4. Morbid obesity 5. Hypervolemic hyponatremia 6. Hypokalemia secondary to diuresis Plan: continue to diurese patient. continue with Lasix drip. can switch to IV push Lasix in a.m. Replace potassium Continue with Vines catheter. Repeat labs in a.m. Accurate I's and O's.
[2023-08-18] MEDS: POTASSIUM CHLORIDE ER 20 MEQ TAB.ER PO SCH (11:01)
--- NOTE | 2023-08-18 11:24 | P.PN ---
Subjective HISTORY OF PRESENT ILLNESS: This is a 52-year-old female with a past medical history significant for COPD, hypertension, nicotine dependence, GERD, anxiety, depression, and IBS. 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 We have been asked to see the patient in consultation for CHF. Patient examined at the bedside in the emergency room. Patient states that she is prescribed Lasix on a daily basis however she has not been taking this lately due to increased urinary frequency. Patient states she has not been taking her Lasix for approximately 1 month. She reports progressive shortness of breath and edema. DIAGNOSTICS: - EKG reveals sinus mechanism with T wave inversions inferiorly. - Chest xray cardiomegaly and pulmonary vascular congestion - Laboratory data: WBC 10.3. Hemoglobin 17.1. Platelet count 117. Sodium 135. Potassium 4.7. BUN 29. Creatinine 1.19. Troponin negative x 1. proBNP 8850. - Current home cardiac medications include losartan 100 mg daily and clonidine 0.1 mg twice a day. - Echocardiogram obtained this admission reveals ejection fraction 50 to 55%, severe pulmonary hypertension with RVSP of 63 mmHg, mild TR, trace to mild MR 08/16/2023 Patient examined this morning the bedside. Patient continues to report shortness of breath. She denies chest pain or pressure at the time of examination. She remains on a Lasix drip at 10 mg an hour. Urine output for the last 24 hours is 650 cc. Kidney function remained stable. Creatinine today 1.03. 08/17/2023 Patient examined this morning at the bedside. Patient currently denies chest pain or pressure. She reports shortness of breath. She remains on nasal cannula to maintain oxygen saturations greater than 92%. She remains on a Lasix infusion at 10 mg an hour. Urine output for the past 24 hours is 1750 cc kidney function from this morning is currently pending 08/18/2023 Patient examined this morning the bedside. Patient currently denies chest pain or pressure. She continues to report shortness of breath. She remains on a Lasix drip at 10 mg an hour. BUN today 35. Creatinine 0.85. PHYSICAL EXAM: VITAL SIGNS: Reviewed. GENERAL: Well-developed in no acute distress. HEENT: Head is normocephalic. Pupils are equal, round. Sclerae anicteric. Mucous membranes of the mouth are moist. Neck supple. No JVD or thyromegaly LUNGS: Respirations even and unlabored. Lungs essentially clear to auscultation bilaterally. HEART: Regular rate and rhythm. S1 and S2 heard. ABDOMEN: Soft. Non-tender. Significant abdominal wall edema noted EXTREMITIES: Normal range of motion. No clubbing or cyanosis. Peripheral pulses intact. Significant bilateral lower extremity edema ASSESSMENT: Shortness of breath Acute on chronic heart failure with preserved EF Acute hypoxic respiratory failure requiring supplemental oxygen Severe pulmonary hypertension Chronic lymphedema Medication noncompliance, patient recently stopped taking diuretics due to urinary frequency Hypertension COPD History of GERD History of anxiety History of depression Morbid obesity: BMI 49.6 PLAN: Current cardiac medications Continue Lasix drip. Decrease hourly rate to 7mg/hr per Dr. Perez Daily weights, accurate intake and output, and monitoring of kidney function. Dr. Perez recommending transfer to tertiary care center due to patient's severe pulmonary hypertension and overall acute condition. Dr. Perez called Dr. Miguel and left a voicemail. At the time of this dictation, Dr. Miguel has not yet returned his call. Further recommendations pending patient course Nurse practitioner note has been reviewed by physician. Signing provider agrees with the documented findings, assessment, and plan of care documented by TECHNICAL MAINTENANCE TECHNICIAN as a scribe. Objective - Vital Signs Vital signs: Vital Signs Temp 97.4 F L 08/18/23 08:00 Pulse 96 08/18/23 08:07 Resp 20 08/18/23 08:00 BP 137/87 08/18/23 08:00 Pulse Ox 94 L 08/18/23 08:00 FiO2 Intake & Output 08/17/23 08/18/23 08/18/23 18:59 06:59 18:59 Intake Total 432 100 273.667 Output Total 2650 1450 825 Balance -2848 -1350 -551.333 Intake: Intake, IV Titration 100 100 51.667 Amount Furosemide 100 mg In 100 100 51.667 Sodium Chloride 0.9% 90 ml @ 10 MG/HR 10 mls/hr IV .Q10H [facility] Rx#: [id number] Oral 332 222 Output: Urine 2650 1450 825 Other: Voiding Method Indwelling Catheter Indwelling Catheter Indwelling Catheter # Bowel Movements 1 1 - Labs CBC & Chem 7: 08/17/23 18:33 08/18/23 09:33 Labs: Abnormal Lab Results - Last 24 Hours (Table) 08/17/23 08/17/23 08/17/23 Range/Units 11:36 18:33 18:33 WBC 11.8 H (3.8-10.6) k/uL RBC 7.06 H (3.80-5.40) m/uL Hgb 16.8 H (11.4-16.0) gm/dL Hct 62.0 H* (34.0-46.0) % MCH 23.8 L (25.0-35.0) pg MCHC 27.1 L (31.0-37.0) g/dL RDW 20.4 H (11.5-15.5) % Plt Count 90 L (150-450) k/uL Neutrophils # 10.2 H (1.3-7.7) k/uL PT (10.0-12.5) sec INR (<1.2) Potassium (3.5-5.1) mmol/L Chloride 97 L (98-107) mmol/L Carbon Dioxide 36 H (22-30) mmol/L BUN 34 H (7-17) mg/dL Glucose 182 H (74-99) mg/dL Iron 29 L (50-170) UG/DL % Saturation 7.16 L (12.00-45.00) Ammonia 68 H (<30) umol/L Albumin 3.2 L (3.5-5.0) g/dL 08/17/23 08/18/23 Range/Units 18:33 09:33 WBC (3.8-10.6) k/uL RBC (3.80-5.40) m/uL Hgb (11.4-16.0) gm/dL Hct (34.0-46.0) % MCH (25.0-35.0) pg MCHC (31.0-37.0) g/dL RDW (11.5-15.5) % Plt Count (150-450) k/uL Neutrophils # (1.3-7.7) k/uL PT 13.2 H (10.0-12.5) sec INR 1.2 H (<1.2) Potassium 3.4 L (3.5-5.1) mmol/L Chloride 93 L (98-107) mmol/L Carbon Dioxide 39 H (22-30) mmol/L BUN 35 H (7-17) mg/dL Glucose 154 H (74-99) mg/dL Iron (50-170) UG/DL % Saturation (12.00-45.00) Ammonia (<30) umol/L Albumin (3.5-5.0) g/dL Microbiology - Last 24 Hours (Table) 08/14/23 22:00 Blood Culture - Preliminary Blood
--- NOTE | 2023-08-18 11:42 | P.PN ---
Subjective Progress Note Date: 08/18/23 Patient is a 52-year-old white female with past medical history significant for COPD, chronic ongoing tobacco dependence, GERD, hypertension, morbid obesity, among other things. Her primary care provider is Dr. Miguel. She presented to the emergency room late last night with complaints of progressively worsening shortness of breath over the last 5 days. She has had associated cough with white sputum production. Denies any hemoptysis. Denies any chest pain. Denies any fevers. Denies sick contacts or recent travel. Admits nausea without emesis and diarrhea during the same timeframe. Denies asaf blood or melanotic stools. Of note, reports some worsening lower extremity swelling since she has self discontinued her "water pill" She states that it is difficult to ambulate back and forth to the restroom. On further evaluation of this, there are no diuretics listed in her home medications. She is withdrawn with delayed verbal response time. Oriented x 3. Currently lying in bed, on 4 L/min nasal cannula, in no acute distress. SpO2 is 93%. Chest x-ray taken on arrival demonstrates cardiomegaly with pulmonary vascular congestion. No obvious focal consolidations or pneumonia. Negative for influenza, RSV, COVID. CBC on arrival: WBC count 12.6, hemoglobin 17, hematocrit 58, platelets 161. BMP on arrival: Sodium 130, potassium 4.9, chloride 98, serum bicarb 24, BUN 28, creatinine 1.55, glucose 118. Patient has been empirically started on doxycycline. Afebrile. Vital signs are stable. Progress note dated August 16, 2023. The patient is seen today room 384. She continues on oxygen at 5 L by nasal cannula. On 4 L, her saturations were 88%. The patient continues on a Lasix drip at 10 mg an hour, and doxycycline, empirically. Current labs include a PT of 14, INR 1.3, and PTT of 24.5. No additional labs today. Labs from August 14, have been reviewed. Blood cultures are currently negative or pending. No recent chest x-ray to review. The patient is seen today August 17, 2023 in follow-up on the selective care unit. She is currently awake and alert in no acute distress. She is maintaining O2 saturations in the 90s on 5 L/min per nasal cannula. She is afebrile. He modynamically stable. Blood cultures revealed no growth. Ammonia level 68. Procalcitonin was 0.48. She remains on doxycycline. Continues on a Lasix drip at 10 mg/h. Remains on bronchodilators and Solu-Medrol. She is currently in a -1.[address] scan of the abdomen and pelvis revealed area of suspected fluid throughout the lower abdomen. Consider further evaluation of the right lower abdomen concern for ovarian carcinoma. Cirrhotic nodular contour to the liver with ascites and mild splenomegaly correlate for portal hypertension. Cardiomegaly with bilateral trace effusions. Chest x-ray shows evidence of fluid volume overload and left pleural effusion. The patient is seen today August 18, 2023 in follow-up on the selective care unit. She is currently resting in bed. He is requiring 6 L high flow nasal cannula to maintain O2 saturations in the 90s. Chest x-ray from last evening revealed moderate cardiomegaly and continued diffuse interstitial and multifocal patchy opacities. She is afebrile. Hemodynamically stable. Blood cultures revealed no growth. White count 11.8. Hemoglobin 16.8. Hematocrit 62.0. Platelets 90,000. Sodium 140. Potassium 3.4. Bicarb 39. BUN 35. Creatinine 0.85. Glucose 154. She is continued on a Lasix drip at 7 mg/h. Remains on [facility] hodilators and steroids. For DVT prophylaxis. Objective - Vital Signs Vital signs: Vital Signs Temp 97.4 F L 08/18/23 08:00 Pulse 88 08/18/23 11:34 Resp 20 08/18/23 08:00 BP 137/87 08/18/23 08:00 Pulse Ox 94 L 08/18/23 08:00 FiO2 Intake & Output 08/17/23 08/18/23 08/18/23 18:59 06:59 18:59 Intake Total 432 100 277.167 Output Total 2650 1450 1675 Balance -2298 -1320 -1397.833 Intake: Intake, IV Titration 100 100 55.167 Amount Furosemide 100 mg In 100 100 55.167 Sodium Chloride 0.9% 90 ml @ 10 MG/HR 10 mls/hr IV .Q10H [facility] Rx#: [id number] Oral 332 [id number] Output: Urine 2650 1450 1675 Other: Voiding Method Indwelling Catheter Indwelling Catheter Indwelling Catheter # Bowel Movements 1 1 - Exam GENERAL EXAM: Alert, weak morbidly obese 52-year-old female, on 6 L nasal [place], comfortable in no apparent distress. HEAD: Normocephalic. EYES: Normal reaction of pupils, equal size. NOSE: Clear with pink turbinates. THROAT: No erythema or exudates. NECK: No masses, no JVD. CHEST: No chest wall deformity. LUNGS: Equal air entry with bibasilar crackles left greater than right, few scattered rhonchi. CVS: S1 and S2 normal with no audible murmur, regular rhythm. ABDOMEN: Obese, unable to appreciate organs, normal bowel sounds, no guarding or rigidity. SPINE: No scoliosis or deformity SKIN: No rashes CENTRAL NERVOUS SYSTEM: No focal deficits, tone is normal in all 4 extremities. EXTREMITIES: There is 1-2+ peripheral edema. No clubbing, no cyanosis. Peripheral pulses are intact. - Labs CBC & Chem 7: 08/17/23 18:33 08/18/23 09:33 Labs: Abnormal Lab Results - Last 24 Hours (Table) 08/17/23 08/17/23 08/17/23 Range/Units 11:36 18:33 18:33 WBC 11.8 H (3.8-10.6) k/uL RBC 7.06 H (3.80-5.40) m/uL Hgb 16.8 H (11.4-16.0) gm/dL Hct 62.0 H* (34.0-46.0) % MCH 23.8 L (25.0-35.0) pg MCHC 27.1 L (31.0-37.0) g/dL RDW 20.4 H (11.5-15.5) % Plt Count 90 L (150-450) k/uL Neutrophils # 10.2 H (1.3-7.7) k/uL PT (10.0-12.5) sec INR (<1.2) Potassium (3.5-5.1) mmol/L Chloride 97 L (98-107) mmol/L Carbon Dioxide 36 H (22-30) mmol/L BUN 34 H (7-17) mg/dL Glucose 182 H (74-99) mg/dL Iron 29 L (50-170) UG/DL % Saturation 7.16 L (12.00-45.00) Ammonia 68 H (<30) umol/L Albumin 3.2 L (3.5-5.0) g/dL 08/17/23 08/18/23 Range/Units 18:33 09:33 WBC (3.8-10.6) k/uL RBC (3.80-5.40) m/uL Hgb (11.4-16.0) gm/dL Hct (34.0-46.0) % MCH (25.0-35.0) pg MCHC (31.0-37.0) g/dL RDW (11.5-15.5) % Plt Count (150-450) k/uL Neutrophils # (1.3-7.7) k/uL PT 13.2 H (10.0-12.5) sec INR 1.2 H (<1.2) Potassium 3.4 L (3.5-5.1) mmol/L Chloride 93 L (98-107) mmol/L Carbon Dioxide 39 H (22-30) mmol/L BUN 35 H (7-17) mg/dL Glucose 154 H (74-99) mg/dL Iron (50-170) UG/DL % Saturation (12.00-45.00) Ammonia (<30) umol/L Albumin (3.5-5.0) g/dL Microbiology - Last 24 Hours (Table) 08/14/23 22:00 Blood Culture - Preliminary Blood Assessment and Plan Assessment: Acute hypoxemic respiratory failure, suspect combination of exacerbation of acute on chronic diastolic congestive heart failure severe pulmonary hypertension and acute COPD exacerbation. Acute kidney injury, possibly secondary to severe dehydration and intravascular volume depletion. History of chronic obstructive pulmonary disease, normally maintained on Arnuity Ellipta inhaler outpatient. Chronic ongoing tobacco dependence. History of COVID-19 pneumonia. History of hypertension. History of GERD without esophagitis. Morbid obesity, with a BMI 49.6 kg/m. History of anxiety and depression. Plan: The patient was seen and evaluated Chest x-ray labs and medications reviewed Remains on a Lasix drip at 7 mg an hour Continued on bronchodilators, steroids Heparin for DVT prophylaxis Titrate the FiO2 as tolerated Prognosis remains guarded Cardiology recommending transfer to tertiary care facility We will continue to follow I have personally seen and examined the patient, performed the documentation and the assessment and plan as written. Number of minutes spent on the visit: 10.
--- NOTE | 2023-08-18 13:57 | P.PN ---
Subjective Progress Note Date: 08/18/23 Progress note Date of service 08/18/[address] Miguel. Patient seen and evaluated at bedside. Discussed with the patient the recommendations from cardiology and pulmonary with the transfer to tertiary center and patient refused. Vital sign temperature 97.4 F heart rate 9688 Respiratory rate 2021 Blood pressure 137/871 49/83 Oxygen saturation 94/93 on nasal cannula 6 L with the presentation with hypoxemia acute respiratory failure currently she is on a steroid and inhalation therapy meanwhile followed by Dr. Ash. Patient found that she had severe pulmonary hypertension, elevated ammonia level, elevated procalcitonin, ascites and with the CT scan liver cirrhosis versus nonalcoholic hepatic steatosis and early hepatitis, uterine fibroid Found also that she had high hemoglobin and hematocrit, considered the dehydration, however she had congestive heart failure diastolic function with preserved systolic function. And morbid obesity with the left pannus under the skin laceration and wound Patient seen by several consulting physician including surgical DrBess For wound as well as infectious disease, seen on admission by Dr. Ash pulmonary and critical, seen by Dr. TANIA Perez cardiology and with the underlying severe pulmonary hypertension Reviewed the note for the consulting physician and recommended to go to [facility] tertiary center, discussed with the patient patient refused because of a pulmonary hypertension, morbid obesity and anasarca. On today's exam: Lower extremities edema has been improving with the wrinkling of the skin, Dr. Loja nephrology has been seen the patient with the presentation of acute kidney injury with the gradual improvement of her renal function with the IV Lasix with the thoughts that she may need to changes in the future to Lasix IV not a drip. Patient had Vines catheter per order of Dr. Loja nephrology for exact KENNEDI. Today patient had left arm swelling with the dorsum of the hand and infiltration of the IV however will obtain ultrasound of the left arm to rule out any evidence of DVT prior to start any IV on this left arm, this started right arm IV for the infusion of the Lasix and antibiotic IV. Dr. Hassan infectious disease started her on Rocephin as well as continuation of IV Vibramycin. On review of the lab found that: She had normal alpha 1 antitrypsin and serial plasmin and AFP tumor marker., She had normal TSH and free T4, negative AMINATA screen and NT my 2: Renal antibody 1.2 which is normal range. Her ammonia level on 08/17/2023 was 68 elevated and today on 08/18/2023 less than 9 which is normal range. Her iron 29 TIBC 405 saturation 7.16 and transferrin 289. Also total bilirubin 1.3 normalized was yesterday 1.4 Creatinine close to normal 0.5 currently 0.85 and yesterday was 0.77 with a GFR was more than 90 yesterday and today 80. She had low potassium which supplemented with the potassium protocol., Anion gap 8, potassium 3.4 and chloride 93, BUN 35, carbon dioxide 39, sodium 140 Pro time 13.2 INR 1.2 still abnormal but improved WBC 11.8, RBC 7.06, hemoglobin 16.8, hematocrit 62.2 and MCV 87.9 and the platelet count 90 which is progressively dropping on 08/14/2023 platelet was 161 dropped to 117 on 08/15/2023 and today is 90 and will be also consulting the hematology oncology for evaluation. The coagulopathy abnormalities. Patient is not eating with the underlying blood glucose is elevated will check hemoglobin A1c to characterize if she has underlying diabetes mellitus type 2. On physical exam: Patient today more awake more alert able to communicate freely, conscious alert oriented and she refused transfer to tertiary hospital today. Head was normocephalic atraumatic pupil was equal reactive oropharynx negative Neck was supple no JVD no lymphadenopathy Chest moderately obese and breath sound mildly improved still with the scattered rhonchi and wheezes and she had rales on the bases of the lung even by the CT scan because of the anasarca. Heart regular sinus rhythm with diastolic dysfunction and pulmonary hypertension severe Abdomen obese positive bowel sounds with morbid obesity and enlarged liver and ascites with the underlying probability of normal alcoholic liver cirrhosis. Renal function improved with the Vines catheter for KENNEDI with good urine output Extremities she had progressive improvement of the edema of the lower extremities with the underlying lymphedema as well. Neurologically patient stable no lateralizing sign. Plan and assessment: Assessment with the underlying coagulopathy abnormalities we will consult hematology oncology Dr. Pineda Will continue the current treatment and Lasix infusion. Continue the antibiotic as designed by Dr. Hassan infectious disease Will check on hemoglobin A1c to rule out underlying hyperglycemia and diabetes mellitus Severe morbid obesity Severe pulmonary hypertension Congestive heart failure with preserved systolic function and severe diastolic dysfunction. Valvular heart disease. Hemoconcentration with elevated hematocrit and RBCs and hemoglobin due to multifactorial versus hemoglobin and iron deficiency disease. Physical therapy was consulted Continue wound care under the skin creases. Will continue general treatment. Objective - Vital Signs Vital signs: Vital Signs Temp 97.4 F L 08/18/23 08:00 Pulse 89 08/18/23 11:48 Resp 22 08/18/23 11:48 BP 149/83 08/18/23 11:48 Pulse Ox 93 L 08/18/23 11:48 FiO2 Intake & Output 08/17/23 08/18/23 08/18/23 18:59 06:59 18:59 Intake Total 432 100 277.167 Output Total 2650 1450 1675 Balance -2218 -1350 -1397.833 Intake: Intake, IV Titration 100 100 55.167 Amount Furosemide 100 mg In 100 100 55.167 Sodium Chloride 0.9% 90 ml @ 10 MG/HR 10 mls/hr IV .Q10H [facility] Rx#: [id number] Oral 332 222 Output: Urine 2650 1450 1675 Other: Voiding Method Indwelling Catheter Indwelling Catheter Indwelling Catheter # Bowel Movements 1 1 - Labs CBC & Chem 7: 08/17/23 18:33 08/18/23 09:33 Labs: Abnormal Lab Results - Last 24 Hours (Table) 08/17/23 08/17/23 08/17/23 Range/Units 18:33 18:33 18:33 WBC 11.8 H (3.8-10.6) k/uL RBC 7.06 H (3.80-5.40) m/uL Hgb 16.8 H (11.4-16.0) gm/dL Hct 62.0 H* (34.0-46.0) % MCH 23.8 L (25.0-35.0) pg MCHC 27.1 L (31.0-37.0) g/dL RDW 20.4 H (11.5-15.5) % Plt Count 90 L (150-450) k/uL Neutrophils # 10.2 H (1.3-7.7) k/uL PT 13.2 H (10.0-12.5) sec INR 1.2 H (<1.2) Potassium (3.5-5.1) mmol/L Chloride 97 L (98-107) mmol/L Carbon Dioxide 36 H (22-30) mmol/L BUN 34 H (7-17) mg/dL Glucose 182 H (74-99) mg/dL Iron 29 L (50-170) UG/DL % Saturation 7.16 L (12.00-45.00) Albumin 3.2 L (3.5-5.0) g/dL 08/18/23 Range/Units 09:33 WBC (3.8-10.6) k/uL RBC (3.80-5.40) m/uL Hgb (11.4-16.0) gm/dL Hct (34.0-46.0) % MCH (25.0-35.0) pg MCHC (31.0-37.0) g/dL RDW (11.5-15.5) % Plt Count (150-450) k/uL Neutrophils # (1.3-7.7) k/uL PT (10.0-12.5) sec INR (<1.2) Potassium 3.4 L (3.5-5.1) mmol/L Chloride 93 L (98-107) mmol/L Carbon Dioxide 39 H (22-30) mmol/L BUN 35 H (7-17) mg/dL Glucose 154 H (74-99) mg/dL Iron (50-170) UG/DL % Saturation (12.00-45.00) Albumin (3.5-5.0) g/dL Microbiology - Last 24 Hours (Table) 08/14/23 22:00 Blood Culture - Preliminary Blood
--- NOTE | 2023-08-18 14:10 | P.PN ---
Subjective Progress Note Date: 08/18/23 Principal diagnosis: Liver cirrhosis This is a pleasant 52-year-old female with a past medical history of COPD, chronic daily smoker, chronic lymphedema, morbid obesity, hypertension, and major depressive disorder who presented to the emergency department with complaints of shortness of breath. She was admitted 2 days ago for COPD exacerbation and generalized edema. Pulmonology following for COPD and cardiology on consultation for congestive heart failure. Patient was noted to have elevated ammonia level underwent abdominal ultrasound that reported hepatocellular disease with nodular contour of liver correlate for cirrhosis. Gastroenterology was consulted for liver cirrhosis. Patient denies any history of liver disease. She denies any history of alcoholism. Patient is morbidly obese states that she has been obese for at least the last 5 years duration. Patient states that she was having some mild confusion and increased fatigue and weakness. Hematocrit 62 platelet count 117,000 sodium 135 potassium 4.7 BUN 27 creatinine 1.19 ammonia level 69, total bilirubin 1.0 AST 48 ALT 14 alkaline phosphatase 107 today's labs WBC 10.3 hemoglobin 17 08/17/2023 Patient seen and examined today as a follow-up. She is very drowsy. States that she did have a couple bowel movements yesterday. No abdominal pain. Patient's presentation of labs and ultrasound findings are consistent with liver cirrhosis likely secondary to nonalcoholic fatty liver. Today's repeat ammonia 68. 08/18/2023 Patient seen and examined as a follow-up. She was undergoing ultrasound. P atient is drowsy and resting comfortably. Ammonia level less than 9. Objective - Vital Signs Vital signs: Vital Signs Temp 97.4 F L 08/18/23 08:00 Pulse 89 08/18/23 11:48 Resp 22 08/18/23 11:48 BP 149/83 08/18/23 11:48 Pulse Ox 93 L 08/18/23 11:48 FiO2 Intake & Output 08/17/23 08/18/23 08/18/23 18:59 06:59 18:59 Intake Total 432 100 277.167 Output Total 2650 1450 1675 Balance -4027 -9413 -1397.833 Intake: Intake, IV Titration 100 100 55.167 Amount Furosemide 100 mg In 100 100 55.167 Sodium Chloride 0.9% 90 ml @ 10 MG/HR 10 mls/hr IV .Q10H [facility] Rx#: [id number] Oral 332 222 Output: Urine 2650 1450 1675 Other: Voiding Method Indwelling Catheter Indwelling Catheter Indwelling Catheter # Bowel Movements 1 1 - Exam General appearance: The patient is alert, oriented, appears in no acute distress. HET: Head is normocephalic and atraumatic. Conjunctiva pink. Sclera anicteric. Neck: Supple without lymphadenopathy. Abdomen: Soft, morbidly obese, generalized anasarca, nontender, nondistended. Extremities: Normal skin color and turgor. No pedal edema Skin: No rashes, no jaundice Neurological: No focal deficits. Alert and oriented. - Labs CBC & Chem 7: 08/17/23 18:33 08/18/23 09:33 Labs: Abnormal Lab Results - Last 24 Hours (Table) 08/17/23 08/17/23 08/17/23 Range/Units 18:33 18:33 18:33 WBC 11.8 H (3.8-10.6) k/uL RBC 7.06 H (3.80-5.40) m/uL Hgb 16.8 H (11.4-16.0) gm/dL Hct 62.0 H* (34.0-46.0) % MCH 23.8 L (25.0-35.0) pg MCHC 27.1 L (31.0-37.0) g/dL RDW 20.4 H (11.5-15.5) % Plt Count 90 L (150-450) k/uL Neutrophils # 10.2 H (1.3-7.7) k/uL PT 13.2 H (10.0-12.5) sec INR 1.2 H (<1.2) Potassium (3.5-5.1) mmol/L Chloride 97 L (98-107) mmol/L Carbon Dioxide 36 H (22-30) mmol/L BUN 34 H (7-17) mg/dL Glucose 182 H (74-99) mg/dL Iron 29 L (50-170) UG/DL % Saturation 7.16 L (12.00-45.00) Albumin 3.2 L (3.5-5.0) g/dL 08/18/23 Range/Units 09:33 WBC (3.8-10.6) k/uL RBC (3.80-5.40) m/uL Hgb (11.4-16.0) gm/dL Hct (34.0-46.0) % MCH (25.0-35.0) pg MCHC (31.0-37.0) g/dL RDW (11.5-15.5) % Plt Count (150-450) k/uL Neutrophils # (1.3-7.7) k/uL PT (10.0-12.5) sec INR (<1.2) Potassium 3.4 L (3.5-5.1) mmol/L Chloride 93 L (98-107) mmol/L Carbon Dioxide 39 H (22-30) mmol/L BUN 35 H (7-17) mg/dL Glucose 154 H (74-99) mg/dL Iron (50-170) UG/DL % Saturation (12.00-45.00) Albumin (3.5-5.0) g/dL Microbiology - Last 24 Hours (Table) 08/14/23 22:00 Blood Culture - Preliminary Blood Assessment and Plan (1) Hyperammonemia Narrative/Plan: 52-year-old female in the hospital for COPD, heart failure with acute hypoxia who is noted to have elevated ammonia level and subsequently underwent abdominal ultrasound showing nodularity of the liver that can be seen with hepatocellular disease. Patient has no previous history of known underlying liver disease, no history of alcohol abuse in the past or current. Patient has thrombocytopenia, elevated INR mildly elevated total bilirubin and AST and elevated ammonia level all which can be seen in compatible with cirrhosis of the liver. Patient with likely underlying cirrhosis of the liver secondary to nonalcoholic fatty liver disease. Will add lactulose 30 g 3 times daily and trend ammonia. Patient will need outpatient follow-up with gastroenterology. Current Visit: Yes Status: Acute Code(s): E72.20 - DISORDER OF UREA CYCLE METABOLISM, UNSPECIFIED SNOMED Code(s): 0873187 (2) Liver cirrhosis Current Visit: Yes Status: Acute Code(s): K74.60 - UNSPECIFIED CIRRHOSIS OF LIVER SNOMED Code(s): 32345262 (3) Morbid obesity with BMI of 45.0-49.9, adult Current Visit: Yes Status: Acute Code(s): E66.01 - MORBID (SEVERE) OBESITY DUE TO EXCESS CALORIES; Z68.42 - BODY MASS INDEX [BMI] 45.0-49.9, ADULT SNOMED Code(s): 140646160 (4) SAMIA (acute kidney injury) Current Visit: Yes Status: Acute Code(s): N17.9 - ACUTE KIDNEY FAILURE, UNSPECIFIED SNOMED Code(s): 76002421 (5) COPD (chronic obstructive pulmonary disease) Current Visit: Yes Status: Acute Code(s): J44.9 - CHRONIC OBSTRUCTIVE PULMONARY DISEASE, UNSPECIFIED SNOMED Code(s): 26462350 (6) Nicotine dependence with current use Current Visit: Yes Status: Acute Code(s): F17.200 - NICOTINE DEPENDENCE, UNSPECIFIED, UNCOMPLICATED SNOMED Code(s): 69555612 Plan: 1. Continue symptomatic and supportive care 2. Hepatitis panel ordered, currently pending 3. Diet as tolerated 4. Liver serologies ordered can be followed up as an outpatient 5. Continue lactulose 30 g 3 times daily ordered. Patient needs to have 3-4 bowel movements daily. 6. Continue with recommendations from multiple consultants 7. Recommend weight loss 8. Will plan for outpatient surveillance with gastroenterology, this was discussed with patient Thank you for this consultation, we will sign off at this time. Dr. Claudia Love I agree with the dictator's note, documented as a scribe by Ailyn Benitez.
--- NOTE | 2023-08-18 14:57 | P.PN ---
Subjective Progress Note Date: 08/18/23 Principal diagnosis: Reason for follow-up is pneumonia Patient is a 52-year-old female with a past medical history significant for COPD reflux hypertension hemorrhoids IBS anxiety depression panic disorder current everyday smoker presenting to the hospital for evaluation of increasing shortness of breath did have elevated procalcitonin and white count concerning for possible pneumonia. On today's evaluation that is 08/18/2023, the patient continues to be afebrile, the patient is on 6 L nasal cannula oxygen and breathing comfortably, the Pt denies having any chest pain or cough, the patient denies having any abdominal pain no vomiting or any diarrhea has been reported by the nursing staff. Patient white count is 11.8 as of yesterday no CBC was done today creatinine 0.85 Objective - Vital Signs Vital signs: Vital Signs Temp 97.4 F L 08/18/23 08:00 Pulse 89 08/18/23 11:48 Resp 22 08/18/23 11:48 BP 149/83 08/18/23 11:48 Pulse Ox 93 L 08/18/23 11:48 FiO2 Intake & Output 08/17/23 08/18/23 08/18/23 18:59 06:59 18:59 Intake Total 432 100 277.167 Output Total 2650 1450 1675 Balance -2218 -1350 -1397.833 Intake: Intake, IV Titration 100 100 55.167 Amount Furosemide 100 mg In 100 100 55.167 Sodium Chloride 0.9% 90 ml @ 10 MG/HR 10 mls/hr IV .Q10H [facility] Rx#: [id number] Oral 332 222 Output: Urine 2650 1450 1675 Other: Voiding Method Indwelling Catheter Indwelling Catheter Indwelling Catheter # Bowel Movements 1 1 - Exam GENERAL DESCRIPTION: Middle-aged female lying in bed in no distress RESPIRATORY SYSTEM: Unlabored breathing , decreased breath sounds at bases HEART: S1 S2 regular rate and rhythm , ABDOMEN: Soft , no tenderness EXTREMITIES: Diffuse swelling to bilateral leg no redness - Labs CBC & Chem 7: 08/17/23 18:33 08/18/23 09:33 Labs: Abnormal Lab Results - Last 24 Hours (Table) 08/17/23 08/17/23 08/17/23 Range/Units 18:33 18:33 18:33 WBC 11.8 H (3.8-10.6) k/uL RBC 7.06 H (3.80-5.40) m/uL Hgb 16.8 H (11.4-16.0) gm/dL Hct 62.0 H* (34.0-46.0) % MCH 23.8 L (25.0-35.0) pg MCHC 27.1 L (31.0-37.0) g/dL RDW 20.4 H (11.5-15.5) % Plt Count 90 L (150-450) k/uL Neutrophils # 10.2 H (1.3-7.7) k/uL PT 13.2 H (10.0-12.5) sec INR 1.2 H (<1.2) Potassium (3.5-5.1) mmol/L Chloride 97 L (98-107) mmol/L Carbon Dioxide 36 H (22-30) mmol/L BUN 34 H (7-17) mg/dL Glucose 182 H (74-99) mg/dL Iron 29 L (50-170) UG/DL % Saturation 7.16 L (12.00-45.00) Albumin 3.2 L (3.5-5.0) g/dL 08/18/23 Range/Units 09:33 WBC (3.8-10.6) k/uL RBC (3.80-5.40) m/uL Hgb (11.4-16.0) gm/dL Hct (34.0-46.0) % MCH (25.0-35.0) pg MCHC (31.0-37.0) g/dL RDW (11.5-15.5) % Plt Count (150-450) k/uL Neutrophils # (1.3-7.7) k/uL PT (10.0-12.5) sec INR (<1.2) Potassium 3.4 L (3.5-5.1) mmol/L Chloride 93 L (98-107) mmol/L Carbon Dioxide 39 H (22-30) mmol/L BUN 35 H (7-17) mg/dL Glucose 154 H (74-99) mg/dL Iron (50-170) UG/DL % Saturation (12.00-45.00) Albumin (3.5-5.0) g/dL Microbiology - Last 24 Hours (Table) 08/14/23 22:00 Blood Culture - Preliminary Blood Assessment and Plan (1) Elevated procalcitonin Current Visit: Yes Status: Acute Code(s): R79.89 - OTHER SPECIFIED ABNORMAL FINDINGS OF BLOOD CHEMISTRY SNOMED Code(s): 822072891 (2) Pneumonia Current Visit: Yes Status: Acute Code(s): J18.9 - PNEUMONIA, UNSPECIFIED ORGANISM SNOMED Code(s): 943157152 Plan: 1patient presented to hospital with increasing shortness of breath which is likely multifactorial patient did have evidence of effusion free fluid on the abdominal CT question of possible fluid overload however the patient did have elevated procalcitonin possible component of pneumonia not entirely excluded 2-try to obtain sputum for Gram stain culture 3-patient to continue with Rocephin 2 g daily and doxycycline, monitor clinical course closely Dictation was produced using [employer] dictation software. please excuse any grammatical, word or spelling errors. Time with Patient: Less than 30
--- NOTE | 2023-08-18 15:06 | US ---
EXAMINATION TYPE: US venous doppler duplex UE LT DATE OF EXAM: 08/18/2023 COMPARISON: NONE CLINICAL INDICATION: Female, 52 years old with history of left arm swelling; left arm swelling SIDE PERFORMED: left Left Arm: Mending Carrier notes: *Technical limitations due to patient's body habitus (morbidly obese) a nd limited mobility. No evidence of DVT as visualized. Superificial thrombus lower left arm Provided images show subcutaneous edema within the forearm. IMPRESSION: 1. No evidence for DVT within the left upper extremity. 2. However, the exam is positive for SVT in the forearm. Subcutaneous soft tissue edema also present.
[2023-08-18] MEDS: LACTULOSE 20 GM/30 ML CUP PO SCH (20:21)
[2023-08-19 04:35] LABS: African American GFR (CKD) >90 (>60 ml/min/1.73 sqM); Blood Urea Nitrogen 35 mg/dL (7-17); Calcium 8.7 mg/dL (8.4-10.2); Chloride 92 mmol/L (98-107); Glucose 161 mg/dL (74-99); Non-African American GFR(CKD) >90 (>60 ml/min/1.73 sqM); Sodium 138 mmol/L (137-145)
[2023-08-19 04:42] LABS: Anion Gap 5 mmol/L
[2023-08-19 04:50] LABS: Carbon Dioxide 41 mmol/L (22-30)
--- NOTE | 2023-08-19 11:05 | P.PN ---
Subjective patient is seen for follow-up for acute kidney injury. Patient was admitted to the hospital with shortness of breath and increased lower extremity swelling. She is currently being diuresed. Maintained on Lasix drip. 24 hour urine output at 4.1 L. shortness of breath has improved serum creatinine decreased to 0.6 yesterday. plans for possible transfer to [facility] Objective - Vital Signs Vital signs: Vital Signs Temp 97.8 F 08/19/23 08:00 Pulse 90 08/19/23 08:00 Resp 20 08/19/23 08:00 BP 147/82 08/19/23 08:00 Pulse Ox 92 L 08/19/23 08:00 FiO2 Intake & Output 08/18/23 08/19/23 08/19/23 18:59 06:59 18:59 Intake Total 306.334 640 222 Output Total 2925 1350 1800 Balance -2618.666 -710 -1578 Weight 127.006 kg Intake: Intake, IV Titration 84.334 100 Amount Furosemide 100 mg In 84.334 100 Sodium Chloride 0.9% 90 ml @ 7 MG/HR 7 mls/hr IV .[id number] [facility] Rx#: [id number] Oral 222 540 222 Output: Urine 2925 1350 1800 Other: Voiding Method Indwelling Catheter Indwelling Catheter Indwelling Catheter # Bowel Movements 2 1 - Exam patient is awake, comfortable, no acute distress Examination of the heart S1 and S2 Examination of the lungs decreased breath sounds at the bases Abdomen is soft morbidly obese Examination of lower extremity shows chronic lymphedema with chronic skin changes. significant wrinkling of the skin noted from recent diuresis [employer] exam grossly intact - Labs CBC & Chem 7: 08/17/23 18:33 08/19/23 03:51 Labs: Abnormal Lab Results - Last 24 Hours (Table) 08/18/23 08/19/23 Range/Units 09:32 03:51 Chloride 92 L (98-107) mmol/L Carbon Dioxide 41 H* (22-30) mmol/L BUN 35 H (7-17) mg/dL Glucose 161 H (74-99) mg/dL Hemoglobin A1c 6.6 H (<=6.0) % Microbiology - Last 24 Hours (Table) 08/14/23 22:00 Blood Culture - Preliminary Blood Assessment and Plan Assessment: 1. Acute kidney injury, nonoliguric, ATN, cardiorenal syndrome. Improving. UA is benign 2. Volume overload, maintained on Lasix drip 3. Acute hypoxic respiratory failure secondary to CHF exacerbation and COPD exacerbation. 4. Morbid obesity 5. Hypervolemic hyponatremia 6. Hypokalemia secondary to diuresis 7. Metabolic alkalosis secondary to diuresis Plan: continue to diurese patient, recommend to switch to IV push Lasix now. Add Diamox for metabolic alkalosis. Replace potassium Continue with Vines catheter. Repeat labs in a.m. Accurate I's and O's.
--- NOTE | 2023-08-19 11:42 | P.PN ---
Progress Note - Text Progress Note Date: 08/19/23 HPI: This is a 52-year-old lady with history of nicotine abuse gastroesophageal reflux disease obesity anxiety depression and also has severe pulmonary hypertension probably secondary with preserved systolic function. Right-sided pressures are more than 60 mmHg and ejection fraction is about 50 to 55%. I recommended transfer to [facility] for further management of her pulmonary hypertension. Dr. Miguel will try and make arrangements. I had a discussion with him today and suggested that her diagnosis should be severe pulmonary hypertension unresponsive to management here. Her CO2 content is elevated Diamox has been already added. Plan is to continue IV diuresis at 7 mg/min Lasix drip and continue other medications prognosis remains poor mortality risk is high patient is aware of this. Hopefully we will be able to arrange transfer to [facility] for further care for her pulmonary hypertension. Cardiac hinojosa I have no new specific suggestions. JVD is elevated S1-S2 heard normally distantly no significant murmurs the lungs reveal diminished air entry abdomen is distended lower EXTR reveal severe edema with chronic changes pulses not palpable. Prognosis is poor same medical regimen and addition of acetazolamide and transferred to [facility].. PHYSICIAL EXAM:. IMPRESSION: 1.. 2.. 3.. 4.. 5.. RECOMMENDATIONS:.
--- NOTE | 2023-08-19 11:57 | P.PN ---
Subjective Progress Note Date: 08/19/23 Principal diagnosis: Shortness of breath. Patient is a 52-year-old white female with past medical history significant for COPD, chronic ongoing tobacco dependence, GERD, hypertension, morbid obesity, among other things. Her primary care provider is Dr. Miguel. She presented to the emergency room late last night with complaints of progressively worsening shortness of breath over the last 5 days. She has had associated cough with white sputum production. Denies any hemoptysis. Denies any chest pain. Denies any fevers. Denies sick contacts or recent travel. Admits nausea without emesis and diarrhea during the same timeframe. Denies asaf blood or melanotic stools. Of note, reports some worsening lower extremity swelling since she has self discontinued her "water pill" She states that it is difficult to ambulate back and forth to the restroom. On further evaluation of this, there are no diuretics listed in her home medications. She is withdrawn with delayed verbal response time. Oriented x 3. Currently lying in bed, on 4 L/min nasal cannula, in no acute distress. SpO2 is 93%. Chest x-ray taken on arrival demonstrates cardiomegaly with pulmonary vascular congestion. No obvious focal consolidations or pneumonia. Negative for influenza, RSV, COVID. CBC on arrival: WBC count 12.6, hemoglobin 17, hematocrit 58, platelets 161. BMP on arrival: Sodium 130, potassium 4.9, chloride 98, serum bicarb 24, BUN 28, creatinine 1.55, glucose 118. Patient has been empirically started on doxycycline. Afebrile. Vital signs are stable. Progress note dated August 16, 2023. The patient is seen today room 384. She continues on oxygen at 5 L by nasal cannula. On 4 L, her saturations were 88%. The patient continues on a Lasix drip at 10 mg an hour, and doxycycline, empirically. Current labs include a PT of 14, INR 1.3, and PTT of 24.5. No additional labs today. Labs from August 14, have been reviewed. Blood cultures are currently negative or pending. No recent chest x-ray to review. The patient is seen today August 17, 2023 in follow-up on the selective care unit. She is currently awake and alert in no acute distress. She is maintaining O2 saturations in the 90s on 5 L/min per nasal cannula. She is afebrile. Hemodynamically stable. Blood cultures revealed no growth. Ammonia level 68. Procalcitonin was 0.48. She remains on doxycycline. Continues on a Lasix drip at 10 mg/h. Remains on bronchodilators and Solu-Medrol. She is currently in a -1.[address] scan of the abdomen and pelvis revealed area of suspected fluid throughout the lower abdomen. Consider further evaluation of the right lower abdomen concern for ovarian carcinoma. Cirrhotic nodular contour to the liver with ascites and mild splenomegaly correlate for portal hypertension. Cardiomegaly with bilateral trace effusions. Chest x-ray shows evidence of fluid volume overload and left pleural effusion. The patient is seen today August 18, 2023 in follow-up on the selective care unit. She is currently resting in bed. He is requiring 6 L high flow nasal cannula to maintain O2 saturations in the 90s. Chest x-ray from last evening revealed moderate cardiomegaly and continued diffuse interstitial and multifocal patchy opacities. She is afebrile. Hemodynamically stable. Blood cultures revealed no growth. White count 11.8. Hemoglobin 16.8. Hematocrit 62.0. Platelets 90,000. Sodium 140. Potassium 3.4. Bicarb 39. BUN 35. Creatinine 0.85. Glucose 154. She is continued on a Lasix drip at 7 mg/h. Remains on bronchodilators and steroids. For DVT prophylaxis. Progress note dated August 19, 2023. 52-year-old female seen in room 384. Currently she is on a Lasix drip at 7 mg an hour. She is getting 6 L by nasal cannula. She is on Solu-Medrol, updrafts with albuterol sulfate ipratropium bromide, Symbicort 160/4.5, 2 puffs twice a day, and doxycycline. Cardiology, is attempting to transfer the patient to the [facility], where she gets her pulmonary hypertension care. Apparently, the patient is refusing, and does not want to be transferred. Current laboratory data includes a sodium 138, potassium 4, chlorides 92, CO2 41, BUN 35, and creatinine 0.6. Glucose 161. Calcium 8.7. Ammonia level has come down from 68, to less than 9. Blood cultures are currently negative. No evidence of DVT, within the left upper extremity. There is however a superficial venous thrombosis, in the forearm. Objective - Vital Signs Vital signs: Vital Signs Temp 97.8 F 08/19/23 08:00 Pulse 88 08/19/23 11:46 Resp 20 08/19/23 08:00 BP 147/82 08/19/23 08:00 Pulse Ox 92 L 08/19/23 08:00 FiO2 Intake & Output 08/18/23 08/19/23 08/19/23 18:59 06:59 18:59 Intake Total 306.334 640 222 Output Total 2925 1350 1800 Balance -2618.662 -639 -8234 Weight 127.006 kg Intake: Intake, IV Titration 84.334 100 Amount Furosemide 100 mg In 84.334 100 Sodium Chloride 0.9% 90 ml @ 7 MG/HR 7 mls/hr IV .[id number] [facility] Rx#: [id number] Oral 222 540 222 Output: Urine 2925 1350 1800 Other: Voiding Method Indwelling Catheter Indwelling Catheter Indwelling Catheter # Bowel Movements 2 1 - Exam No acute distress, oriented 3. Currently on 6 L nasal cannula. Saturations are 92%. HEENT examination is grossly unremarkable. Mucous membranes are moist. No oral lesions. Neck supple. Full range of motion. No adenopathy thyromegaly or neck vein distention. Cardiovascular examination reveals regular rhythm rate. S1-S2 normal. No S3 or S4. No discernible murmur noted. Heart sounds are distant. Heart rate 88 bpm. Lungs reveal crackles. Few scattered rhonchi. No wheezes. Breath sounds are equal bilaterally. 6 L saturation is 92 percent. Abdomen soft bowel sounds are heard. No masses or tenderness. Extremities are intact. No cyanosis clubbing or edema. Skin is without rash or lesion. Neurologic examination is brief but nonfocal. - Labs CBC & Chem 7: 08/17/23 18:33 08/19/23 03:51 Labs: Abnormal Lab Results - Last 24 Hours (Table) 08/18/23 08/19/23 Range/Units 09:32 03:51 Chloride 92 L (98-107) mmol/L Carbon Dioxide 41 H* (22-30) mmol/L BUN 35 H (7-17) mg/dL Glucose 161 H (74-99) mg/dL Hemoglobin A1c 6.6 H (<=6.0) % Microbiology - Last 24 Hours (Table) 08/14/23 22:00 Blood Culture - Preliminary Blood Assessment and Plan Assessment: Acute hypoxemic respiratory failure, suspect combination of exacerbation of acute on chronic diastolic congestive heart failure and acute COPD exacerbation. Acute kidney injury, possibly secondary to severe dehydration and intravascular volume depletion. History of severe pulmonary hypertension. History of chronic obstructive pulmonary disease. Chronic ongoing tobacco dependence. History of COVID-19 pneumonia. History of hypertension. History of GERD without esophagitis. Morbid obesity, with a BMI 49.6 kg/m. History of anxiety and depression. . Plan: Plan dated August 16, 2023. The patient is seen today in room 384. She continues on oxygen, 5 L, with saturations in the low 90s. The patient also continues on Lasix, 10 mg an hour. The patient is on doxycycline, empirically, and a procalcitonin level has been ordered. The procalcitonin level is 0.48, which is elevated. Labs, x-rays, and medications are reviewed. We will continue to follow the patient, make recommendations along the way. Prognosis is guarded. Plan dated August 19, 2023. The patient continues on the Lasix drip at 7 mg an hour. The patient is on oxygen by nasal cannula at 6 L. Saturations are 92%. The patient is receiving Solu-Medrol, updrafts with albuterol sulfate and ipratropium bromide, Symbicort, 160/4.5, 2 puffs twice a day, and doxycycline, empirically. Cardiology is attempting to transfer the patient to the [facility], where she gets her pulmonary hypertension care. I think that is a good idea. We will continue to follow make recommendations along the way. Prognosis is guarded. Time with Patient: Less than 30
--- NOTE | 2023-08-19 13:41 | P.PN ---
Subjective Progress Note Date: 08/19/23 Progress note Date of service 08/19/[address] Miguel. Please send a copy to [facility] if patient accepted for the transfer. Patient seen and evaluated at bedside and discussed with the patient transfer to [facility] which has been discussed with her yesterday and today she agreed after Dr. TANIA Perez broaching machine repairer discussed with her I received a call from Dr. TANIA Perez broaching machine repairer and he considered transfer to [facility] with the underlying severe disease of pulmonary hypertension not recovered with the current treatment with the underlying severe morbid obesity and underlying Preserved ejection fraction with diastolic dysfunction and shortness of breath persistent in the spite of the current treatment. Pulmonary and critical care Dr. Ash also indicated the patient should be transferred to tertiary center because of the same reason and the shortness of breath severe hypoxic respiratory failure and currently on 6 L and could not be saturated yet. The progress note of pulmonary and cardiology on the chart in the computer. Patient presented with severe shortness of breath could not breeze in the ER is thought of COPD, chronic smoker, bronchitis, underlying pneumonitis, subsequently echocardiogram was done indicating severe pulmonary hypertension with the pressure 68 Symptomatic with the severe shortness of breath in the spite inhalation therapy and steroid and decompensated, she had anasarca as well as the CT scan showed abnormal liver contour with the thinking of nonalcoholic liver cirrhosis and her ammonia level was elevated consultation with gastroenterology Dr. Katie Saldivar did the start her on lactulose with the improvement of the ammonia level to less than 9 Patient also on admission presented with acute kidney injury with a baseline creatinine 0.5 and subsequently patient thought to be dehydrated and subsequently started on Lasix IV and subsequently started on Lasix IV drip. Patient seen by also infectious disease with the procalcitonin was elevated and left side under the skin creases the pannus ulceration with possible infection seen by Dr. Leger vascular surgeon and wound physician, as well as infectious disease. On admission she had hemoconcentration with the elevated hemoglobin, RBCs, hematocrit, and also elevated white count which is gradually improved with the antibiotic. Patient placed on special mattress, initially the prealbumin was very low with protein calorie deficiency. Dr. Ash note today indicating impression of acute hypoxic respiratory failure with the combination of exacerbation of acute chronic diastolic congestive heart failure and acute COPD exacerbation Acute kidney injury secondary to severe dehydration and intravascular volume depletion Severe pulmonary hypertension Chronic obstructive pulmonary disease Chronic ongoing tobacco dependence History of COVID19 pneumonia History of GERD disease without esophagitis Morbid obesity with a BMI 49.6 kg/meter square Anxiety and depression. And patient continue on 6 L with a saturation 92% despite receiving the updraft inhalation albuterol and ipratropium doxycycline empirically and added Rocephin by infectious disease and the agreed to be the current for transfer to [facility] patient has not been there before when I asked her. The Dr. TANIA Perez cardiology note indicating that patient has right-sided pressure more than 60 mmHg and ejection fraction about 50-55 and he discussed it with me to transfer the patient to [facility], I did call the [facility] and faxed the admission sheet and waiting for callback for acceptance or not and hopefully they accepted the patient as both specialist this decided there is no able to fourth or treatment in our [facility]. With the underlying above medical disease. Note from nephrology hospice consultant: Her impression acute kidney injury nonoliguric ATN with the cardiorenal syndrome with benign urine analysis Volume overload and maintain Lasix drip Acute hypoxic respiratory failure secondary to congestive heart failure exacerbation and COPD exacerbation Morbid obesity Hypervolemic hyponatremia Hypokalemia secondary to diuresis Metabolic alkalosis secondary to diuresis. Recommendation to continue the IV Lasix as well and added Diamox for metabolic alkalosis, replace potassium, continue Vines catheter, repeat lab in a.m. and accurate KENNEDI. As patient seen her vital signs today temperature 98 F oral pulse 80/min regular and respiratory rate 2019 Blood pressure 130/83 with a mean a 98 Oxygen saturation with the nasal cannula 92 with the 6 L of oxygen flow rate. Laboratory indicating that sodium 138, potassium 4, chloride 92, carbon dioxide 41, anion gap 5 BUN 35 creatinine 0.6 with the estimated EGFR more than 90 and glucose 161 her estimated glucose 143 hemoglobin A1c 6.6 and calcium 8.7 Patient never been diabetic in the past however with this admission with a steroid she had hyperglycemia with started insulin to scale. On exam: Patient is conscious alert oriented x 3 accepted the transfer Head was normocephalic atraumatic pupil was equal reactive conjunctiva was pink sclera was nonicteric. Oropharynx was negative. Neck was supple no JVD no thyromegaly no lymphadenopathy Chest: Shortness of breath still present with the morbid obesity and scattered rhonchi bilateral and underlying anasarca. Heart regular sinus rhythm with preserved ejection fraction and diastolic dysfunction and severe pulmonary hypertension Abdomen obese morbidly obese with the peau d'orange and thickness of the anterior abdominal wall with pitting edema positive bowel sounds she had liver enlargement with underlying probability of nonalcoholic steatohepatitis on admission currently improved Renal currently improved renal function she has Vines catheter and with the KENNEDI. Extremities she had history of chronic lymphedema and mild improvement of the edema of the legs with the skin wrinkling, positive pulses. Patient had ultrasound of the left arm with the swelling of the dorsum of the hand and was result of negative for DVT however positive for superficial venous thrombosis currently is improving patient on heparin. Consultation with hematology oncology regarding of the platelet count dropping as well as persistent elevation of hemoglobin and hematocrit and RBCs. Plan and assessment 1. Patient condition is not improving with the recommendation from pulmonary and cardiology to transfer to [facility]. I did contact [facility] for the transfer and I called him personally and the phone number [phone] and spoke withsantralla extensive time for giving the information and she stated that she will related that to the physician acceptance Dr. David pierre, stated that they will call us again and left my 2 number of cell phone meanwhile fax them the facesheet and discussed the location of the patient in [facility] * 384 bed 1 and the RN Svetlana. 2. We hope communication get through and forth for transfer will be completed. Prognosis is guarded. Objective - Vital Signs Vital signs: Vital Signs Temp 98 F 08/19/23 12:00 Pulse 80 08/19/23 12:00 Resp 19 08/19/23 12:00 BP 130/83 08/19/23 12:00 Pulse Ox 92 L 08/19/23 12:00 FiO2 Intake & Output 08/18/23 08/19/23 08/19/23 18:59 06:59 18:59 Intake Total 306.334 640 222 Output Total 2925 1350 1800 Balance -9058.786 -856 -8245 Weight 127.006 kg Intake: Intake, IV Titration 84.334 100 Amount Furosemide 100 mg In 84.334 100 Sodium Chloride 0.9% 90 ml @ 7 MG/HR 7 mls/hr IV .[id number] [facility] Rx#: [id number] Oral 222 540 222 Output: Urine 2925 1350 1800 Other: Voiding Method Indwelling Catheter Indwelling Catheter Indwelling Catheter # Bowel Movements 2 1 - Labs CBC & Chem 7: 08/17/23 18:33 08/19/23 03:51 Labs: Abnormal Lab Results - Last 24 Hours (Table) 08/18/23 08/19/23 Range/Units 09:32 03:51 Chloride 92 L (98-107) mmol/L Carbon Dioxide 41 H* (22-30) mmol/L BUN 35 H (7-17) mg/dL Glucose 161 H (74-99) mg/dL Hemoglobin A1c 6.6 H (<=6.0) % Microbiology - Last 24 Hours (Table) 08/14/23 22:00 Blood Culture - Preliminary Blood
--- NOTE | 2023-08-19 15:57 | P.PN ---
Subjective Progress Note Date: 08/19/23 Principal diagnosis: Reason for follow-up is pneumonia Patient is a 52-year-old female with a past medical history significant for COPD reflux hypertension hemorrhoids IBS anxiety depression panic disorder current everyday smoker presenting to the hospital for evaluation of increasing shortness of breath did have elevated procalcitonin and white count concerning for possible pneumonia. On today's evaluation that is 08/19/2023, Patient is afebrile patient is current ly on 6 L nasal cannula oxygen and denies having any shortness of breath, the patient denies any chest pain or any worsening cough, the patient denies any nausea vomiting did not have any abdominal pain complaining of some loose stools. Patient did have white count of 11.8 as of 08/17/2023 no CBC was done today creatinine 0.60 blood culture negative Objective - Vital Signs Vital signs: Vital Signs Temp 98 F 08/19/23 12:00 Pulse 80 08/19/23 12:00 Resp 19 08/19/23 12:00 BP 130/83 08/19/23 12:00 Pulse Ox 92 L 08/19/23 12:00 FiO2 Intake & Output 08/18/23 08/19/23 08/19/23 18:59 06:59 18:59 Intake Total 306.334 640 222 Output Total 2925 1350 1800 Balance -4682.663 -163 -9418 Weight 127.006 kg Intake: Intake, IV Titration 84.334 100 Amount Furosemide 100 mg In 84.334 100 Sodium Chloride 0.9% 90 ml @ 7 MG/HR 7 mls/hr IV .[id number] [facility] Rx#: [id number] Oral 222 540 222 Output: Urine 2925 1350 1800 Other: Voiding Method Indwelling Catheter Indwelling Catheter Indwelling Catheter # Bowel Movements 2 1 - Exam GENERAL DESCRIPTION: Middle-aged female lying in bed in no distress RESPIRATORY SYSTEM: Unlabored breathing , decreased breath sounds at bases HEART: S1 S2 regular rate and rhythm , ABDOMEN: Soft , no tenderness EXTREMITIES: Diffuse swelling to bilateral leg no redness - Labs CBC & Chem 7: 08/17/23 18:33 08/19/23 03:51 Labs: Abnormal Lab Results - Last 24 Hours (Table) 08/18/23 08/19/23 Range/Units 09:32 03:51 Chloride 92 L (98-107) mmol/L Carbon Dioxide 41 H* (22-30) mmol/L BUN 35 H (7-17) mg/dL Glucose 161 H (74-99) mg/dL Hemoglobin A1c 6.6 H (<=6.0) % Microbiology - Last 24 Hours (Table) 08/14/23 22:00 Blood Culture - Preliminary Blood Assessment and Plan (1) Elevated procalcitonin Current Visit: Yes Status: Acute Code(s): R79.89 - OTHER SPECIFIED ABNORMAL FINDINGS OF BLOOD CHEMISTRY SNOMED Code(s): 229179517 (2) Pneumonia Current Visit: Yes Status: Acute Code(s): J18.9 - PNEUMONIA, UNSPECIFIED ORGANISM SNOMED Code(s): 341300916 Plan: 1patient presented to hospital with increasing shortness of breath which is likely multifactorial patient did have evidence of effusion free fluid on the abdominal CT question of possible fluid overload however the patient did have elevated procalcitonin possible component of pneumonia not entirely excluded 2-try to obtain sputum for Gram stain culture 3-patient to continue with Rocephin 2 g daily and doxycycline, patient has been encouraged increase her probiotic yogurt intake Dictation was produced using [employer] dictation software. please excuse any grammatical, word or spelling errors. Time with Patient: Less than 30
[2023-08-19 16:57] VITALS: RESP 20
[2023-08-19 17:06] LABS: Glucose,Whole Blood 161 mg/dL (70-110)
[2023-08-19] MEDS: INSULIN ASPART (NovoLOG) 100 UNIT/ML VIAL SQ SCH (17:24)
--- NOTE | 2023-08-19 18:15 | P.DS ---
Providers Date of admission: 08/14/23 21:10 Expected date of discharge: 08/19/23 (Transfer to [facility] downtown.) Attending physician: Andre Miguel Consults: 08/14/23 21:10 Consult Physician Routine Consulting Provider: Kimberlyn Acuna Consult Reason/Comments: copd, tracheobronchitis, hypoxia Do you want consulting provider notified?: Yes 08/15/23 09:22 Consult Physician Stat Consulting Provider: Spring Loja Consult Reason/Comments: Acute kidney injury Do you want consulting provider notified?: Already Contacted 08/15/23 09:24 Consult Physician Urgent Consulting Provider: Janell Perez Consult Reason/Comments: Diastolic congestive heart failure with the anterior abdominal wall edema Do you want consulting provider notified?: Yes 08/17/23 07:43 Consult Physician Routine Consulting Provider: Nicolas Hassan Consult Reason/Comments: Abdominal wound left tenderness skin infection, also the use of Vibramycin Do you want consulting provider notified?: Yes 08/18/23 13:22 Consult Physician Urgent Consulting Provider: Angel Pineda Consult Reason/Comments: Elevated hemoglobin, hematocrit, RBCs, decreased platelet Do you want consulting provider notified?: Yes Primary care physician: Andre Miguel Discharge summary Dictation by Dr. Miguel Date of service 08/19/2023 Disposition: Transfer to tertiary hospital, [facility], accepted by Dr. Bean hawthorne. When bed is available, they will call the hospital for transfer of the patient, to go by ambulance. Condition stable Reason for transfer: Patient with the severe pulmonary hypertension associated with anasarca, edema of the lower extremities, with diastolic congestive heart failure, severe shortness of breath despite of IV Lasix for diuresis Added to multiple medical problem, on admission acute kidney injury secondary to ATN nonoliguric which is recovered on discharge Carbon dioxide retention. COPD, chronic smoker, COPD exacerbation. No history in the past of diabetes however currently she is diabetic with hemoglobin A1c 6.6 probably with the steroid which she given for her lung wheezing and asthma. With the need of extensive evaluation of the right side of the heart and right- sided cardiac catheterization with the underlying pulmonary edema need a tertiary center. Today cardiology and interventional cardiology Dr. TANIA Perez did call me to initiate the transfer to tertiary [facility] as we do not have the capacity in our [facility] for her treatment and Dr. Ash pulmonary and critical care also noted for the transfer to tertiary center as well. First trial with [facility] for the transfer to [facility], after extended time of communication I was able to speak to Dr. Celi pierre with the help of mobile phlebotomist Goran after extensive discussion and time-consuming she denied the admission to [facility] Second trial with [facility] and I was able to communicate with Dr. Bean Hawthorne by the mobile phlebotomist Jessica after significant discussion he accepted the patient for transfer when bed is available. This process of the transfer took 2 and half hour tied to the phone to get the process going. And I did identify the nurse taking care of the patient. Please also refer to my dictation today on the progress note dictated today on 08/19/2023 please send a copy with the medical record to [facility]. Final diagnosis: 1. Patient presented to the emergency room at the day of admission with severe shortness of breath and unable to breeze with hypoxemia and rales rhonchi's bilateral. With the impression acute hypoxic respiratory failure with the desaturation 2. Dehydration, versus volume depletion. 3. Edema of the lower extremities extended to the anterior abdominal wall with the thickening and the peau d'orange of the skin of the abdomen 4. Acute renal injury with a creatinine 1.55 with the patient normal base 0.5. None oliguric. 5. With the hospitalization and echocardiogram found to have severe pulmonary hypertension 68 pressure which is significantly high with elevated proBNP with underlying normal ejection fraction 50 to 55% which indicate diastolic heart failure with preserved systolic function 6. Chronic smoker with history of COPD and spite of advised was noncompliant. 7. Cardiorenal syndrome considered on admission 8. With severe pulmonary pressure and reflection on the liver mild elevation of liver enzyme, also underlying nonalcoholic liver cirrhosis considered with elevated ammonia level which returned to normal less than 9 with the treatment with lactulose 9. Carbon oxide retention with the shallow movement with the morbid obesity. Treated by nephrology. 10. With the use of the steroid hyperglycemia and diabetes mellitus considered with the hemoglobin A1c 6.6. 11. On admission CBC abnormalities, leukocytosis plus elevated procalcitonin. 12. Left-sided under the skin excoriation and wound in the pannus, treated by wound and vascular surgeon as well as infectious disease with the antibiotic started with Vibramycin, IV added ceftriaxone 2 g once a day. 13. Abnormal hemoconcentration with elevated RBCs, hemoglobin, hematocrit, as well as gradual drop in the platelet count from 162 on admission to 90 prior to discharge, seen by hematology oncology however we will not have his opinion at the time of discharge. 14. Ultrasound of the abdomen, CT scan of the abdomen without contrast due to event of acute kidney injury indicating a situs and enlarged liver as well as possibility of hepatic cirrhosis versus nonalcoholic steatosis. Versus the effect of the severe pulmonary hypertension 15. Morbid obesity with a BMI 49.6 kg/m. And her weight 127.006 kg, height 5 foot 3 inches. 16. Patient continued to be hypoxemic on 6 L with desaturation to 88/min with minimal movement. 17. History of hypertension with hypertensive heart disease. 18. Underlying possibility of pickwickian syndrome versus obstructive sleep apnea considered however with her acute illness no testing can be done. On transfer patient stable for the transfer with normal vital sign temperature 98 F:, Pulse 90/min, respiratory rate 20/min, blood pressure 128/84 with a mean 98, oxygen saturation on 6 L 88% - 92% with fluctuation with the movement she is completely bedridden. On exam: Patient is conscious alert oriented agreeable for the transfer and also I spoke to her sister as the patient wanted me to inform sisters Head was normocephalic atraumatic oropharynx was negative, pupil was equal reactive, Neck Short neck and supple no visible JVD. Trachea midline no thyromegaly Chest: Obese she has still rhonchi's bilateral with short of breath on rest with minimal movement and desaturated. With the underlying pulmonary hypertension. Heart regular sinus rhythm, valvular heart disease, ejection fraction 55% with preserved with the underlying diastolic dysfunction with the added pulmonary hypertension and need for thorough evaluation of the right side of the heart which is not available at our pending sale to [facility] which she will be transferring [facility]. Abdomen is obese positive bowel sounds we did a CT scan of the abdomen and she had large liver as well as chest x-ray enlarged heart and congestion of the chest and part of pleural effusion effusion with the underlying anasarca Liver cirrhosis versus underlying nonalcoholic hepatic steatosis, effect of pulmonary Hypertension on the liver. Extremities: Edema bilateral and started to wrinkle with the diuresis and she is on IV Lasix. Positive pulses bilateral. The wound and maceration of the skin in the left lower quadrant of the abdomen secondary to the skin to skin with the morbid obesity with the wound treated by Dr. Leger. Neurologically: Has no lateralizing sign with involving upper and lower extremities, she had IV in the left arm was swelling improved and we did ultrasound was negative for DVT but positive for SVT because of the IV which was removed. Patient on heparin. On monitoring intake and output found that on 08/17/2023 she was negative balance 628 mL, on the 08/18/2023 -1350 which is negative balance, on 08/18/2023 again negative balance -1397.833, on 08/19/2023 was again negative balance -750, On 08/19/2023 at 1459 found her negative balance 3378 with the presence of 4 indwelling catheter however that did not improve her breathing or the oxygenation with the still continued to have elevated pulmonary hypertension. Assessment and plan Patient accepted to [facility] by physician Dr. Bean Hawthorne Patient stable for transfer here by ambulance to the [facility] Will continue same IV antibiotic until readjusted in [facility] and continue the current medication. Today's lab indicating sodium 138, potassium 4, chloride 92, carbon dioxide 41, BUN 35, creatinine 0.60, GFR more than 90, glucose 161, covered with a scale calcium 8.7, and as mentioned hemoglobin A1c was 6.6 on 08/18/2023. Her alpha-1 antitrypsin 165 165, ceruloplasmin 25.3 Tumor marker AFP less than 3. Total bilirubin 1.3 improved. Her iron study indicating iron 29, TIBC 405, saturation 7.16, transferrin 289. Patient seen by hematology oncology however we do not have his final opinion as patient seen today. Please send with the record to [facility] the consultation by the consulting physician, Dr. Ash pulmonary and critical care, Dr. TANIA Perez cardiology, Dr. Hassan infectious disease, Dr. Bhakta the vascular surgeon for the wound and if it is available Dr. Matute the hematology oncology. Patient Condition at Discharge: Serious Plan - Discharge Summary Discharge Rx Participant: No New Discharge Prescriptions: New Lactulose [Cephulac] 30 gm PO BID ml Losartan [Cozaar] 100 mg PO DAILY tab Ipratropium-Albuterol Nebulize [Duoneb 0.5 mg-3 mg/3 ml Soln] 3 ml INHALATION RT-QID each cefTRIAXone [Rocephin] 2 gm IVPB Q24HR each Budesonide-Formot 160-4.5 Mcg [Symbicort 160-4.5 Mcg Inhaler] 2 puff INHALATION RT-BID each cloNIDine HCL [Catapres] 0.1 mg PO BID tab Ipratropium-Albuterol Nebulize [Duoneb 0.5 mg-3 mg/3 ml Soln] 3 ml INHALATION RT-Q2H PRN each PRN Reason: Shortness Of Breath Or Wheezing Heparin Sodium,Porcine (1 ml) [Heparin Sodium] 5,000 unit SQ Q8HR each INSULIN ASPART (NovoLOG) [NovoLOG (formulary)] 2 - 10 unit SQ AC-TID each Acetaminophen Tab [Tylenol] 650 mg PO Q6HR PRN tab PRN Reason: Mild Pain Or Fever > 100.5 metOLazone [Zaroxolyn] 5 mg PO DAILY tab Continue traZODone HCL [Desyrel] 100 mg PO HS Fluticasone Furoate [Arnuity Ellipta] 1 puff INHALATION RT-DAILY ALPRAZolam [Xanax] 0.5 mg PO DAILY@1500 fluvoxaMINE [Luvox] 25 mg PO BID Prochlorperazine [Compazine] 10 mg PO Q6H PRN PRN Reason: Nausea And Vomiting Discontinued cloNIDine HCL [Catapres] 0.1 mg PO BID ALPRAZolam [Xanax] 1 mg PO BID@0900,2100 Losartan Potassium [Cozaar] 100 mg PO DAILY Discharge Medication List traZODone HCL [Desyrel] 100 mg PO HS 01/11/21 [History] ALPRAZolam [Xanax] 0.5 mg PO DAILY@1500 08/14/23 [History] Fluticasone Furoate [Arnuity Ellipta] 1 puff INHALATION RT-DAILY 08/14/23 [History] Prochlorperazine [Compazine] 10 mg PO Q6H PRN 08/14/23 [History] fluvoxaMINE [Luvox] 25 mg PO BID 08/14/23 [History] Acetaminophen Tab [Tylenol] 650 mg PO Q6HR PRN tab 08/19/23 [Rx] Budesonide-Formot 160-4.5 Mcg [Symbicort 160-4.5 Mcg Inhaler] 2 puff INHALATION RT-BID each 08/19/23 [Rx] Heparin Sodium,Porcine (1 ml) [Heparin Sodium] 5,000 unit SQ Q8HR each 08/19/23 [Rx] INSULIN ASPART (NovoLOG) [NovoLOG (formulary)] 2 - 10 unit SQ AC-TID each 08/19/23 [Rx] Ipratropium-Albuterol Nebulize [Duoneb 0.5 mg-3 mg/3 ml Soln] 3 ml INHALATION RT-Q2H PRN each 08/19/23 [Rx] Ipratropium-Albuterol Nebulize [Duoneb 0.5 mg-3 mg/3 ml Soln] 3 ml INHALATION RT-QID each 08/19/23 [Rx] Lactulose [Cephulac] 30 gm PO BID ml 08/19/23 [Rx] Losartan [Cozaar] 100 mg PO DAILY tab 08/19/23 [Rx] cefTRIAXone [Rocephin] 2 gm IVPB Q24HR each 08/19/23 [Rx] cloNIDine HCL [Catapres] 0.1 mg PO BID tab 08/19/23 [Rx] metOLazone [Zaroxolyn] 5 mg PO DAILY tab 08/19/23 [Rx] Follow up Appointment(s)/Referral(s): Andre Miguel MD [Primary Care Provider] - 1 Week Activity/Diet/Wound Care/Special Instructions: Requires Wheelchair to complete ADLs which she is unable to complete with a cane or walker because of COPD, inability to ambulate. She has someone to propel her. Requires a naila lift because she requires at least 2 people to get out of bed to complete ADL's otherwise she would be bed bound. R/T COPD, inability to ambulate. Requires a commode chair because she is room bound r/t COPD, inability to ambulate. Requires Home O2 r/t COPD Discharge/Stand Alone Forms: Who Do I Call?, Community Resources, Personal Biological Sciences Instructor Discharge Disposition: TRANSFER TO [facility] Care Plan Goals (MU): Patient transferred to [facility] accepted by Dr. Bean hawthorne, transfer when the bed is available
[2023-08-19 20:09] LABS: Glucose,Whole Blood 186 mg/dL (70-110)
[2023-08-19 20:46] VITALS: TEMP 98.3
--- NOTE | 2023-08-19 22:20 | P.CONS ---
History of Present Illness - Reason for Consult Consult date: 08/19/23 erythrocytosis, thrombocytopenia Requesting physician: Andre Miguel - Chief Complaint SOB - History of Present Illness Patient is a 52-year-old white female with extensive medical history, significant for COPD, chronic ongoing tobacco dependence (50 pack year smoker), hypertension, pulmonary HTN, CHF and morbid obesity. Consult was placed for erythrocytosis and thrombocytopenia. She presented to the emergency room with complaints of progressively worsening shortness of breath over the last 5 days. She has had associated cough with white sputum production. Denies any hemoptysis. Denies any chest pain. Denies fevers and chills. Also reports nausea, denies vomiting and diarrhea. Denies asaf blood or melana. On arrival chest x-ray showed cardiomegaly with pulmonary vascular congestion. No obvious focal consolidations or pneumonia. Negative for influenza, RSV, COVID. BNP 8850. CBC on arrival revealed, WBC count 12.6, hemoglobin 17, hematocrit 58, platelets 161. Today CBC showing WBC 11.8, hemoglobin 16.8, hematocrit 62.0. Platelets 90,000. Iron saturation 7.1%. Upon trending labs, last noted labs within EMR was from 2020 at which time she had mild increase in hematocrit, hemoglobin and platelets were normal at that time. On admission she was also noted to have SAMIA with creatinine 1.55, GFR 39. Bilirubin 2.2. AST 59, ALT 13, ALP 108. Ammonia 69. Bilirubin now normal at 1.3. She has been treated with lactulose, ammonia now <9. CT abdomen pelvis without contrast revealed suspected fluid throughout the lower abdomen. No lymphadenopathy or other areas to definitively say there is a mass. Cirrhotic nodular contour to the liver liver with ascites and mild splenomegaly. No definitive other acute abdominal processes visualized. Fibroid uterus. Bilateral thickening of the breast skins. Abdominal ultrasound showed surgically absent gallbladder with fluid within the gallbladder fossa. Hepatocellular disease with nodular contour to th e liver, correlate for cirrhosis. No suspicious masses noted. Continues on IV abx, pt remains afebrile. Review of Systems 10 point ROS is negative except as stated in the HPI Past Medical History Past Medical History: COPD, GERD/Reflux, Hypertension Additional Past Medical History / Comment(s): hemmorrhoids, IBS, migraines, heart murmer, History of Any Multi-Drug Resistant Organisms: None Reported Past Surgical History: Cholecystectomy Additional Past Surgical History / Comment(s): D&C, cyst removed from rt ovary, Past Anesthesia/Blood Transfusion Reactions: No Reported Reaction, Motion Sickness, Postoperative Nausea & Vomiting (PONV) Past Psychological History: Anxiety, Depression, Panic Disorder Additional Psychological History / Comment(s): severe anxiety Smoking Status: Current every day smoker Past Alcohol Use History: None Reported Past Drug Use History: None Reported, Marijuana - Past Family History Mother Family Medical History: No Reported History Medications and Allergies Home Medications Medication Instructions Recorded Confirmed Type traZODone HCL [Desyrel] 100 mg PO HS 01/11/21 08/14/23 History ALPRAZolam [Xanax] 0.5 mg PO DAILY@1500 08/14/23 08/14/23 History Fluticasone Furoate [Arnuity 1 puff INHALATION RT-DAILY 08/14/23 08/14/23 His tory Ellipta] Prochlorperazine [Compazine] 10 mg PO Q6H PRN 08/14/23 08/14/23 History fluvoxaMINE [Luvox] 25 mg PO BID 08/14/23 08/14/23 History Acetaminophen Tab [Tylenol] 650 mg PO Q6HR PRN tab 08/19/23 Rx Budesonide-Formot 160-4.5 Mcg 2 puff INHALATION RT-BID each 08/19/23 Rx [Symbicort 160-4.5 Mcg Inhaler] Heparin Sodium,Porcine (1 ml) 5,000 unit SQ Q8HR each 08/19/23 Rx [Heparin Sodium] INSULIN ASPART (NovoLOG) [NovoLOG 2 - 10 unit SQ AC-TID each 08/19/23 Rx (formulary)] Ipratropium-Albuterol Nebulize 3 ml INHALATION RT-Q2H PRN each 08/19/23 Rx [Duoneb 0.5 mg-3 mg/3 ml Soln] Ipratropium-Albuterol Nebulize 3 ml INHALATION RT-QID each 08/19/23 Rx [Duoneb 0.5 mg-3 mg/3 ml Soln] Lactulose [Cephulac] 30 gm PO BID ml 08/19/23 Rx Losartan [Cozaar] 100 mg PO DAILY tab 08/19/23 Rx cefTRIAXone [Rocephin] 2 gm IVPB Q24HR each 08/19/23 Rx cloNIDine HCL [Catapres] 0.1 mg PO BID tab 08/19/23 Rx metOLazone [Zaroxolyn] 5 mg PO DAILY tab 08/19/23 Rx Allergies Allergy/AdvReac Type Severity Reaction Status Date / Time aspirin Allergy Abdominal Verified 08/14/23 19:54 Pain,vomiting codeine Allergy Rash/Hives,abdominal Verified 08/14/23 19:54 pain,vomiting hydrocodone bitartrate Allergy Rash/Hives,abdominal Verified 08/14/23 19:54 [From Vicodin] pain,vomiting Iodinated Contrast Media Allergy Rash/Hives Verified 08/14/23 19:54 [Iodinated Contrast- Oral and IV Dye] metoclopramide [From Reglan] Allergy Anaphylaxis Verified 08/14/23 19:54 nitrofurantoin Allergy vertigo Verified 08/14/23 19:54 [From Macrobid] nitrofurantoin Allergy vertigo Verified 08/14/23 19:54 macrocrystalline [From Macrobid] ofloxacin [From Floxin] Allergy Rash/Hives,abdominal Verified 08/14/23 19:54 pain lactose AdvReac Nausea & Verified 08/14/23 19:54 Vomiting pseudoephedrine AdvReac Anaphylaxis Verified 08/14/23 19:54 TAPE AdvReac Itching,hives Uncoded 08/14/23 17:42 "paper tape ok" Physical Exam Vitals: Vital Signs Temp Pulse Pulse Resp BP Pulse Ox 08/19/23 11:46 88 08/19/23 11:36 90 08/19/23 08:00 97.8 F 90 20 147/82 92 L 08/19/23 07:56 92 08/19/23 07:43 94 08/19/23 03:26 97.8 F 79 20 127/80 93 L 08/18/23 23:47 86 20 139/78 92 L 08/18/23 21:21 96 08/18/23 21:12 94 08/18/23 20:00 97.7 F 88 20 153/83 92 L 08/18/23 15:57 97.6 F 94 20 132/78 90 L 08/18/23 15:22 87 08/18/23 15:11 84 Intake and Output 08/18/23 08/19/23 08/19/23 22:59 06:59 14:59 Intake Total 569.167 100 222 Output Total 2962 139 4780 Balance -9935.942 -065 -5070 Intake: Intake, IV Titration .167 100 Amount Furosemide 100 mg In . 100 Sodium Chloride 0.9% 90 ml @ 7 MG/HR 7 mls/hr IV .[id number] [facility] Rx#: [id number] Oral 540 222 Output: Urine 4017 667 1060 Other: Voiding Method Indwelling Catheter Indwelling Catheter Indwelling Catheter # Bowel Movements 2 1 Weight 127.006 kg - Constitutional General appearance: morbidly obese, no acute distress - EENT Eyes: anicteric sclerae, EOMI ENT: hearing grossly normal - Respiratory breathing labored Respiratory: bilateral: diminished - Cardiovascular Rhythm: regular Heart sounds: normal: S1, S2 - Gastrointestinal RLQ abdominal edema noted, with mild tenderness noted to area General gastrointestinal: soft, tenderness - Integumentary Integumentary: no cyanotic, no jaundiced - Musculoskeletal Musculoskeletal: generalized weakness - Psychiatric tearful Psychiatric: A&O x's 3 Results CBC & Chem 7: 08/17/23 18:33 08/19/23 03:51 Labs: Abnormal Lab Results - Last 24 Hours (Table) 08/18/23 08/19/23 Range/Units 09:32 03:51 Chloride 92 L (98-107) mmol/L Carbon Dioxide 41 H* (22-30) mmol/L BUN 35 H (7-17) mg/dL Glucose 161 H (74-99) mg/dL Hemoglobin A1c 6.6 H (<=6.0) % Microbiology - Last 24 Hours (Table) 08/14/23 22:00 Blood Culture - Preliminary Blood Chest x-ray: report reviewed CT scan - abdomen: report reviewed CT scan - pelvis: report reviewed US - abdomen: report reviewed Assessment and Plan (1) Erythrocytosis Current Visit: Yes Status: Acute Priority: Medium Code(s): D75.1 - SEC ONDARY POLYCYTHEMIA SNOMED Code(s): 954424003 (2) SAMIA (acute kidney injury) Current Visit: Yes Status: Acute Priority: High Code(s): N17.9 - ACUTE KI DNEY FAILURE, UNSPECIFIED SNOMED Code(s): 72108672 (3) COPD (chronic obstructive pulmonary disease) Current Visit: Yes Status: Acute Priority: High Code(s): J44.9 - CHRONIC OBSTRUCTIVE PULMONARY DISEASE, UNSPECIFIED SNOMED Code(s): 98838239 (4) Hypoxic respiratory failure Current Visit: Yes Status: Acute Priority: High Code(s): J96.91 - RESPIRATORY FAILURE, UNSPECIFIED WITH HYPOXIA SNOMED Code(s): 59289949752662857 (5) Morbid obesity with BMI of 45.0-49.9, adult Current Visit: Yes Status: Acute Priority: Medium Code(s): E66.01 - MORBID (SEVERE) OBESITY DUE TO EXCESS CALORIES; Z68.42 - BODY MASS INDEX [BMI] 45.0- 49.9, ADULT SNOMED Code(s): 650117067 (6) Nicotine dependence with current use Current Visit: Yes Status: Acute Priority: Medium Code(s): F17.200 - NICOTINE DEPENDENCE, UNSPECIFIED, UNCOMPLICATED SNOMED Code(s): 91618381 (7) Thrombocytopenia Current Visit: Yes Status: Acute Priority: Medium Code(s): D69.6 - THROMBOCYTOPENIA, UNSPECIFIED SNOMED Code(s): 633863129 Plan: Erythrocytosism thrombocytopenia: Patient presented with complaints of worsening SOB. She has extensive medical history, significant for COPD, chronic ongoing tobacco dependence (50 pack year smoker), hypertension, pulmonary HTN, CHF and morbid obesity. On arrival chest x-ray showed cardiomegaly with pulmonary vascular congestion. Negative for influenza, RSV, COVID. BNP 8850. Continues on IVPB lasix and IV abx -CBC on arrival revealed, WBC count 12.6, hemoglobin 17, hematocrit 58, platele ts 161. Today CBC showing WBC 11.8, hemoglobin 16.8, hematocrit 62.0. Platelets 90,000, with differential showing neutrophilia. Iron saturation 7.1%. Upon trending labs, last noted labs within EMR was from 2020 at which time she had mild increase in hematocrit, hemoglobin and platelets were normal at that time. -On admission she was also noted to have SAMIA with creatinine 1.55, GFR 39. Bilirubin 2.2. AST 59, ALT 13, ALP 108. Bilirubin and kidney function are now WNL. Ammonia 69, being treated with lactulose, ammonia now <9. -CT abdomen pelvis without contrast revealed suspected fluid throughout the lower abdomen. No lymphadenopathy or other areas to definitively say there is a mass. Cirrhotic nodular contour to the liver liver with ascites and mild splenomegaly. No definitive other acute abdominal processes visualized. Fibroid uterus. Bilateral thickening of the breast skins. Abdominal ultrasound showed surgically absent gallbladder with fluid within the gallbladder fossa. Hepatocellular disease with nodular contour to the liver, correlate for cirrhosis. No suspicious masses noted. -MPN labs, acute hepatitis panel/HIV, and anemia workup ordered -Erythrocytosis likely secondary to chronic nicotine abuse/ COPD and morbid obesity. Less likely a polycythemia vera. Will await workup to provide further recommendations -Thrombocytopenia likely related to noted liver cirrhosis and pulmonary HTN -Discussed lifestyle modifications with patient -Will continue to monitor CBC. Case discussed with IM team attests: I have seen and examined pt, performed H&P, developed impression and plan of care. Discussed with dictator. Agree with documentation, dictated as a scribe.
[2023-08-20 00:07] VITALS: BP 153/90; PULSE 82
[2023-08-20 03:17] LABS: Ferritin 74.1 ng/mL (10.0-291.0)
[2023-08-20 06:04] LABS: HIV 2 AB Non-Reactive (Non-Reactive); HIV AB P24 Non-Reactive (Non-Reactive); HIV P24 AG Non-Reactive (Non-Reactive)
== END 2023-08-20 00:30 | disposition short-term general hospital (02) | DRG 291 ==
LOC: EC 17:35 → 5NMEDONC 21:10 → 3SCARD 08-15 09:39
PROVIDERS: ADMIT Internal Medicine; ATTEND Internal Medicine
PROC: 05H933Z Insertion of Infusion Device into Right Brachial Vein, Percutaneous Approach (ICD-10-PCS; principal; 2023-08-18 12:00)
DX: I13.0 Hypertensive heart and chronic kidney disease with heart failure and stage 1 through stage 4 chronic kidney disease, or unspecified chronic kidney disease (principal); I50.33 Acute on chronic diastolic (congestive) heart failure; J96.01 Acute respiratory failure with hypoxia; N17.0 Acute kidney failure with tubular necrosis; E87.1 Hypo-osmolality and hyponatremia; J44.1 Chronic obstructive pulmonary disease with (acute) exacerbation; Z68.42 Body mass index [BMI] 45.0-49.9, adult; J44.0 Chronic obstructive pulmonary disease with (acute) lower respiratory infection; K76.6 Portal hypertension; D68.9 Coagulation defect, unspecified; E87.3 Alkalosis; I47.10 Supraventricular tachycardia, unspecified; R18.8 Other ascites; I20.9 Angina pectoris, unspecified; E66.01 Morbid (severe) obesity due to excess calories; E83.42 Hypomagnesemia; E86.0 Dehydration; F17.210 Nicotine dependence, cigarettes, uncomplicated; K74.60 Unspecified cirrhosis of liver; K76.0 Fatty (change of) liver, not elsewhere classified; X58.XXXA Exposure to other specified factors, initial encounter; T50.1X6A Underdosing of loop [high-ceiling] diuretics, initial encounter; Z86.16 Personal history of COVID-19; Z91.148 Patient's other noncompliance with medication regimen for other reason; I27.20 Pulmonary hypertension, unspecified; Z91.199 Patient's noncompliance with other medical treatment and regimen due to unspecified reason; D69.6 Thrombocytopenia, unspecified; F40.00 Agoraphobia, unspecified; D25.9 Leiomyoma of uterus, unspecified; D75.1 Secondary polycythemia; E11.22 Type 2 diabetes mellitus with diabetic chronic kidney disease; E87.6 Hypokalemia; E88.09 Other disorders of plasma-protein metabolism, not elsewhere classified; F41.0 Panic disorder [episodic paroxysmal anxiety]; I89.0 Lymphedema, not elsewhere classified; L08.9 Local infection of the skin and subcutaneous tissue, unspecified; L98.492 Non-pressure chronic ulcer of skin of other sites with fat layer exposed; N18.9 Chronic kidney disease, unspecified; K58.9 Irritable bowel syndrome, unspecified; I08.1 Rheumatic disorders of both mitral and tricuspid valves; N64.59 Other signs and symptoms in breast; T50.2X5A Adverse effect of carbonic-anhydrase inhibitors, benzothiadiazides and other diuretics, initial encounter; Z74.01 Bed confinement status; Z79.4 Long term (current) use of insulin; Z79.51 Long term (current) use of inhaled steroids; Z79.899 Other long term (current) drug therapy; Z87.01 Personal history of pneumonia (recurrent); Z90.49 Acquired absence of other specified parts of digestive tract; Z88.6 Allergy status to analgesic agent; Z88.5 Allergy status to narcotic agent; Z71.6 Tobacco abuse counseling
CPT/HCPCS: 36410; 36415; 71046; 74176; 76700; 76937; 80048; 80053; 80074; 80076; 81001; 81256; 82103; 82105; 82140; 82390; 82607; 82728; 82747; 82977; 83036; 83516; 83540; 83550; 83735; 83880; 83921; 84134; 84145; 84432; 84439; 84443; 84484; 85025; 85610; 85730; 86038; 86376; 87040; 87102; 87390; 87636; 93005; 93306; 94640; 94760; 96361; 96365; 96366; 96367; 96372; 96375; 96376; 99291